=== PATIENT | female | born 1995 | race Caucasian/White ===

== ENCOUNTER → 2019-09-09 | Outpatient (CLI) | payer BC, SELFPAY ==
--- NOTE | 2019-09-09 06:42 | MRI_ITS ---
STUDY: MRI LEFT MIDFOOT REASON FOR EXAM: Female, 24 years old. Midfoot sprain TECHNIQUE: Standardized fat and water weighted pulse sequences were obtained in all 3 orthogonal planes. COMPARISON: None. FINDINGS: Normal talonavicular articulation. Normal calcaneocuboid articulation. Edema and poor visualization of the spring ligament worrisome for partial tear/sprain. Normal navicular-cuneiform articulations. Normal intercuneiform articulations. Normal first tarsometatarsal articulation. Normal Lisfranc ligament. Normal second and third tarsometatarsal articulations. Normal cuboid fourth and cuboid fifth tarsometatarsal articulation. Normal first through fifth metatarsi. Normal tibialis anterior tendon. Normal extensor hallucis longus tendon. Normal extensor digitorum longus tendons. Normal peroneus longus tendon and distal insertion. Normal peroneus brevis tendon and distal insertion. Normal intrinsic muscles of the mid and forefoot region. Normal extensor digitorum brevis muscle. Normal subcutis adipose space. MRI/Lower Ext/No Jt/w/o IMPRESSION: Suspect spring ligament partial tear/sprain. Electronically Signed: Ad Park MD at 9:13 EDT Tel , Service support ,
== END | disposition home or self-care (01) ==
LOC: MRI 06:32
PROVIDERS: Family Provider Pediatrics; PCP Pediatrics; Referring Provider Podiatrist; Visit Provider Podiatrist
DX: S93.622A Sprain of tarsometatarsal ligament of left foot, initial encounter (principal); M84.375A Stress fracture, left foot, initial encounter for fracture; M79.672 Pain in left foot
CPT/HCPCS: 73718

== ENCOUNTER → 2019-10-12 | Outpatient (CLI) | payer BC, SELFPAY ==
--- NOTE | 2019-10-12 10:33 | RAD_ITS ---
STUDY: X-RAY - RIGHT TIBIA AND FIBULA REASON FOR EXAM: Female, 24 years old. Pain in the mid lower leg TECHNIQUE: Orthogonal view(s) of the tibia and fibula were obtained. COMPARISON: None. FINDINGS: Normal visualized tibia. Normal visualized fibula. The soft tissue structures are unremarkable. RAD/Tibia & Fibula 2 Views IMPRESSION: Normal x-ray examination of the tibia and fibula. Electronically Signed: Annalisa Barlow, at 19:53 EST Tel , Service support ,
== END | disposition home or self-care (01) ==
LOC: RAD 10:18
PROVIDERS: Family Provider Pediatrics; PCP Family Medicine; Referring Provider Family Medicine; Visit Provider Podiatrist
DX: M79.604 Pain in right leg (principal)
CPT/HCPCS: 73590

== ENCOUNTER → 2019-10-26 14:40 | Outpatient (CLI) | payer OTHER, SELFPAY ==
[2019-10-20 09:43] VITALS: BMI 18.8
--- NOTE | 2019-10-26 14:42 | US_ITS ---
STUDY: SUPERFICIAL ULTRASOUND - RIGHT ANTERIOR TIBIA. REASON FOR EXAM: Female, 24 years old. Soft tissue palpable abnormality in the medial aspect of the right novoa. TECHNIQUE: A superficial ultrasound was performed with real-time and static [place]-scale imaging. COMPARISON: None. FINDINGS: The palpable abnormality corresponds to a 3 mm x 2 mm x 4 mm well-defined hypoechoic nodule. No vascularity is seen. US/Other Unlisted US Procedure IMPRESSION: The palpable abnormality corresponds to a 3 mm x 4 mm x 2 mm hypoechoic well-defined nonvascular nodular density. Electronically Signed: Stone Persaud, at 9:57 EST , Service support ,
== END ==
PROVIDERS: Family Provider Family Medicine; PCP Family Medicine; Referring Provider Orthopaedic Surgery; Visit Provider Orthopaedic Surgery
DX: R22.41 Localized swelling, mass and lump, right lower limb (principal)
CPT/HCPCS: 76999

== ENCOUNTER 2020-02-12 08:00 | Outpatient (RCR) | payer OTHER, BC, SELFPAY ==
[2019-10-20 09:43] VITALS: BMI 18.8
--- NOTE | 2019-12-04 10:32 | HP.PTEVAL_ITS ---
Patient's Visit Information TAWANDA PETERSON is a 24 year old F referred to Physical Therapy by Jo Ann Bishop DPM with a diagnosis of sprain of tarsometatarsal ligament, mid foot sprain, stress reaction L foot. Date of Evaluation: 12/03/19 Physical Therapist: Jordan Bello DPT - Visit Plan Frequency: 2-3x /Week Duration: 8 weeks Plan: Start with ankle stretching and ROM, Add in wt. shifting in multiple directions as tolerated. Band strengthening. May use IFC for pain control and ice for edema control. I talked with her about HEP for strengthening and stretching. I also want her to start to increase a gradual walking program to tolerance. - Subjective Findings: Pt. is here today for her initial evaluation with diagnosis of sprain of tarsometatarsal ligament of Left foot, mid foot sprain, and stress reaction of mid foot. DOI: 07/27/19. Pt. was on a horse and was thrown form horse. Pt. has had an MRI and Xrays. Pt. was in a cast NWBing for 2 months, then has progressedd into a CAM Boot. Initially NWBing progresed to full WBing in CAM boot this week. Pt. continues to have increased pain in foot with walking and standing. She reports her pain is 5-6/10 with walking in boot. Pt. was having pain on her R tibia region, but has improved since increasing L WBing. Pt. has been doing ankle ROM exercises, but ahs remained in boot since instructed to do so. 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 - Pain L mid foot Pain Intensity (Out of 10): 5 Pain Intensity Range: 2, 7 L longitudinal arch Pain Intensity (Out of 10): 3 Pain Intensity Range: 1, 5 - Objective POSTURE: Pt. has normal posture. Pt. in stance tends to have increased RLE wt. shift. She is able to apply wt. through LLE, but tends to apply lightly. PALPATION: pt. has has increased pain with palpation to 3rd and 4th metatarsal and near spring ligament at medial ankle. Pt. has increased pain at platar surface of foot along 3rd/4th metatarsal as well. Slight bruising at dorsum of foot, but minimal. Non piting edema noted throughout L ankle/foot. Pt. has been up and about on her leg for a few hours prior to PT. NEURO: normal throughout bilateral LEs, normal sensation, normal DTR. ROM: L ankle DF 18deg, PF 52deg, INV 20ded, EVR 20deg No pain. R ankle- DF 3deg, PF 48deg, INV 8deg, EVR 4deg increase NW at lateral ankle/foot. MMT: LLE- ankle 5/5 throughout; knee 5/5 throughout; hip- flexion 5-/5, abd 4+/5, ext 5/5. RLE- DF 4+/5, PF 4/5, INV 4/5, EVR 4/5 increase NW; knee- 5-/5 throughout; hip- flexion 4+/5, abd 4/5, ext 4+/5. Core strenth- fair. GAIT: PT. ambulates with CAM boot with AD. Pt. repo rts increased pain to 5/10 with walking at mid foot. Pt. does not have much of a rocker moment with her foot, limited due to CAM boot, but also pain at meid foot during hind foot to mid foot rocker moment. - Goals Goal 1:: LTG: Pt. to be I with HEP. Goal Time Frame: 6-8 Weeks Goal 2:: STG: Pt. to walk unlimited distances in CAM boot with 0-2/10 pain allowing for progression out of boot. Goal Time Frame: 2-4 Weeks Goal 3:: LTG: Pt. to ambulate unlimited distances without use of CAM boot allowing for safe return to work. Goal Time Frame: 6-8 Weeks Goal 4:: STG: Pt. to have increased ROM of R ankle symmetrical to L side allowing for improved rocker moment and tolerance to walking Goal Time Frame: 2-4 Weeks Goal 5:: STG: Pt. to have increased strength by 1/2 throughout R ankle/knee/hip allowing for increased stability in stance and gait. Goal Time Frame: 4-6 Weeks Goal 6:: STG: Pt. start a gradual walking program with increase to 10 minute duration every few days to increase toelrance to walking. Goal Time Frame: 2-4 Weeks - Rehabilitation Potential Physical Therapy Diagnosis: Pt. has signs and symptoms consistent with spring ligament sprain and stress reaction to L foot. Pt. has resultant hypombility of ankle, weakness, difficulty with walking. Pt. has pain with palaption throughout 3rd/4th metatarsal and with most WBing. She tight throughout her ankle and I think this is causing for mid foot to contour to the ground causing increasd symptoms. I talked with her about starting a gradual increase in walking program, daily progres pending pain. I would also like her to start with ankle mobility and initiation of ankle stability/strengthening. I plan to progress to WBing activities as tolerated, but at this point she is not tolerating full WBing in CAM boot all that well. Rehabilitation Potential: Good - Anticipated Interventions Patient/Client Instruction: Educate patient on: Condition, Plan of Care, Risk Factors, Benefits of Fitness Program For the Purpose of:: To improve safety, To improve health and function, To foster healthy habits, To improve decision making, To facilitate caregiver knowledge, To improve self management, To prevent re-injury, To improve ability to perform tasks related to life management, To improve tolerance to ADL's Therapeutic Exercise to Include: Strength training, Power training, Endurance training, Balance training, Postural training, Flexibilty training, Gait and locomotor training, Passive ROM, Active ROM For the Purpose of:: To decrease pain, To decrease swelling/inflammation, To increase ROM, To improve nutrient delivery to tissue, To increase oxygenation perfusion, To improve muscle performance and motor function, To improve ability to perform ADL's, To increase tolerance to activity/condition/position, To improve performance and independence with ADL's, To decrease level of supervision to perform tasks, To improve gait and locomotor functions, To improve health of tissue, To decrease soft tissue restriction, To increase flexibility/ROM, To improve endurance IF ES: Yes Cryotherapy (ice pack, ice massage): Yes For the Purpose of:: To decrease pain, To decrease swelling/inflammation, To increase ROM, To improve nutrient delivery to tissue Thank you for the opportunity to evaluate your patient. For Medicare and Medicare HMO plans, please review the plan of care and approve it. It will need to be FAXED BACK to us at [phone] for Medicare purposes. For Medicare only, by signing this I certify the plan of care. Please let me know if there are questions or concerns regarding this plan of care. Physician Signature: Date:
--- NOTE | 2020-04-01 10:38 | HP.PT.NRP ---
TAWANDA PETERSON was seen in my office for initial evaluation on 12/03/19. The following Plan of Care was established for this patient: Initial Frequency: 2-3x /Week Initial Duration: 8 weeks Patient/Client Instruction: Educate patient on: Condition, Plan of Care, Risk Factors, Benefits of Fitness Program For the Purpose of:: To improve safety, To improve health and function, To foster healthy habits, To improve decision making, To facilitate caregiver knowledge, To improve self management, To prevent re-injury, To improve ability to perform tasks related to life management, To improve tolerance to ADL's Therapeutic Exercise to Include: Strength training, Power training, Endurance training, Balance training, Postural training, Flexibilty training, Gait and locomotor training, Passive ROM, Active ROM For the Purpose of:: To decrease pain, To decrease swelling/inflammation, To increase ROM, To improve nutrient delivery to tissue, To increase oxygenation perfusion, To improve muscle performance and motor function, To improve ability to perform ADL's, To increase tolerance to activity/condition/position, To improve performance and independence with ADL's, To decrease level of supervision to perform tasks, To improve gait and locomotor functions, To improve health of tissue, To decrease soft tissue restriction, To increase flexibility/ROM, To improve endurance IF ES: Yes Cryotherapy (ice pack, ice massage): Yes For the Purpose of:: To decrease pain, To decrease swelling/inflammation, To increase ROM, To improve nutrient delivery to tissue This patient was last seen in our office 02/12/20. Pertinent comments regarding their Physical therapy will appear below: Pt. was seen for her ankle/foot pain after injury at work. Pt. had been improving with use of sara boot, but was still having pain with prolonged standing and walking. Pt's C9 date frame ended and was to follow up with her physician. Pt. has not been seen in seveal weeks and will be DC from PT at this point in time. At this point I will be discontinuing this patient from physical therapy. I would be happy to see this patient again in the future if found appropriate by the physician. Thank you! Jordan Bello, MALINAT
== END 2020-02-12 19:00 | disposition home or self-care (01) ==
LOC: PT 08:00
PROVIDERS: Family Provider Family Medicine; PCP Family Medicine; Referring Provider Podiatrist; Visit Provider Podiatrist
DX: S93.692D Other sprain of left foot, subsequent encounter (principal)
CPT/HCPCS: 97014; 97035; 97110; 97161; 97530; G0283

== ENCOUNTER → 2020-04-21 16:23 | Outpatient (CLI) | payer OTHER, SELFPAY ==
[2019-10-20 09:43] VITALS: BMI 18.8
--- NOTE | 2020-04-21 16:44 | MRI_ITS ---
STUDY: MRI LEFT ANKLE WITHOUT CONTRAST REASON FOR EXAM: Female, 25 years old. FELL OFF HORSE 07/2019 H/O FOOT FX/TORN LIGAMENTS C/O CONTINUED PAIN IN ARCH RADIATING INTO HEEL TECHNIQUE: Standardized fat and water weighted pulse sequences were obtained in all 3 orthogonal planes. COMPARISON: X-rays dated October 12, 2019. August 2019. FINDINGS: Faint multiregional bone contusions at the midfoot/hindfoot involving the talus, calcaneus, navicular, cuboid, cuneiforms and metatarsal bases. No acute fracture line. No acute dislocation. No acute cortical destruction. Tibiotalar cartilage preserved. Subtalar cartilage preserved. Calcaneocuboid cartilage preserved. Talonavicular cartilage preserved. Navicular cuneiform cartilage preserved. Normal tarsal metatarsal cartilage. Spring ligament appears intact (coronal image 15 series 7). Deltoid ligament intact (coronal image 14 series 7). Syndesmotic ligament intact. Anterior and posterior talofibular ligaments intact. Calcaneofibular ligament intact. The sinus Tarsi/subtalar ligaments intact. Lisfranc ligament intact. Normal extensor tendons. Normal posterior tibialis and flexor tendons. Normal peroneus longus/brevis tendons. Normal Achilles tendon. Normal plantar fascia. Normal plantar calcaneal insertion. Normal muscles of the midfoot/hindfoot. Small tibiotalar/subtalar joint effusion. Minimal soft tissue swelling. MRI/Lower Ext Joint Only (Routine) IMPRESSION: Ligaments and tendons intact Faint multiregional bone contusions (suspected altered biomechanics/stress reactions) Small tibiotalar/subtalar joint fusion with minimal swelling Electronically Signed: Jamie Chapman DO at 9:15 EDT Tel , Service support ,
== END ==
PROVIDERS: PCP Family Medicine; Referring Provider Podiatrist; Visit Provider Podiatrist
DX: S93.492A Sprain of other ligament of left ankle, initial encounter (principal); M79.672 Pain in left foot
CPT/HCPCS: 73721

== ENCOUNTER 2022-06-25 17:00 | Outpatient (RCR) | payer OTHER, BC, SELFPAY ==
--- NOTE | 2022-01-30 07:47 | HP.PTEVAL_ITS ---
Patient's Visit Information TAWANDA PETERSON is a 26 year old F referred to Physical Therapy by Dr. Cornelio Nguyen MD with a diagnosis of L ankle arthroscopy excision of soft tissue impingement and modified Brostr. Date of Evaluation: 01/29/22 Physical Therapist: Jordan Bello DPT - Visit Plan Frequency: 2x /Week Duration: 7 weeks Plan: Start with with L ankle ROM (no passive INV). Progress calf stretching. I gave patient a brush for desensitization, she is to add in light contrast baths as well for desensitization. Add in tolerance to WBing and slowly wean from boot as tolerated. She is to weans to air cast (patient has cast). Progress general LLE strengthening as she has been NWBing for ~ 2 months and has marked weakness throughout. - Subjective Pt. is here today for her initial evaluation with diagnosis of L ankle arthroscopy excision of soft tissue impingement and modified Brostrom on 12/12/21. Pt. 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 She has gone through several stints of PT without much progress. She ultimately had surgery of her L ankle. Pt. arrives today in CAM boot and crutches. She reports having a slight set back with unexpected nerve pain post surgical near the inside of her novoa and knee. She is also having increased burning in her toes. Due to this she has started to take Lyrica with some small improvement, but continues to have increased symptoms. She has not do much exercise to her foot/ankle due to fear of re injuring. She has been wrapping to work on swelling. She has also returned to work with decent tolerance, but does have to prop her leg up frequently due to swelling and throbbing pain. She is hopeful to get back to horseback riding, recreational gym exercises, working without pain and all recreational activities without limitations. - Pain L ankle Pain Intensity (Out of 10): 3 Pain Intensity Range: 1, 5 - Objective POSTURE: Pt. has increased wt. shift to R side in stance, off loading LLE. pt. has difficulty having foot in flat foot positioning on floor. PALPATION: Pt. has well healing incision without signs of infections. Pt. does have increased edema throughout foot and toes, less edema around ankle. NEURO: Pt. has hyper sensitivity at toes on both plantar and dorsal sides. She also has hyper sensitivity at mid novoa, proximally. Pt. normal DTR of BLE Achilles and patellar tendons. ROM: L ankle: DF: 0deg, PF 28deg, INV- DNT, EVR 4deg. Knee: full ROM, hip: full ROM. MMT: L ankle: DF 8.3#, PF 13.8#, EVR/INV: DNT. Knee: ext 34.3#, flexion 31.1#; hip: flexion 12.8#, abd 15.3#, ext 11.9#. GAIT: Pt. ambulates in CAM boot with crutches with improved WBing with VCing. She is slo wly weaning from crutches, slight walking at home without crutches. - Balance/Special Test Scores Lower Extremity Functional Score: 12 - Goals Goal 1:: LTG: Pt. to be I with HEP for L ROM, LLE strengthening and proprioception exercises. Goal Time Frame: 4-6 Weeks Goal 2:: STG: Pt. to have increased L ankle DF to at least 10deg allowing for increased proper gait mechanics. Goal Time Frame: 2 Weeks Goal 3:: STG: Pt. to have decreased occurrence of shooting pain in novoa and distal foot to x1 per day allowing for increased tolerance to all functional mobility. Goal Time Frame: 2 Weeks Goal 4:: LTG: Pt. to have full L ankle ROM actively without increase in symptoms. Goal Time Frame: 4-6 Weeks Goal 5:: LTG: Pt. to ambulate with normal gait pattern without use of crutches or CAM boot. Goal Time Frame: 4-6 Weeks Goal 6:: LTG: Pt. to have increased strength of LLE by at least 15# throughout LLE indicating increased strength. Goal Time Frame: 4-6 Weeks - Rehabilitation Potential Physical Therapy Diagnosis: Pt. pringle signs and symptoms consistent with L ankle arthroscopy excision of soft tissue impingement and modified Brostrom. DOS: on 12/12/21. Pt. has subsequent hypomobility, weakness, increased pain, hyper sensitivity and decreased tolerance to walking. Pt. would benefit from PT to work on the above limitations progressing back to all work and recitational activities as tolerated. Rehabilitation Potential: Excellent - Anticipated Interventions Patient/Client Instruction: Educate patient on: Condition, Plan of Care, Risk Factors, Benefits of Fitness Program For the Purpose of:: To foster healthy habits, To improve decision making, To facilitate caregiver knowledge, To improve self management, To prevent re- injury, To improve ability to perform tasks related to life management Therapeutic Exercise to Include: Strength training, Power training, Endurance training, Coordination, Postural training, Flexibilty training, Gait and locomotor training, Passive ROM, Active ROM For the Purpose of:: To decrease pain, To decrease swelling/inflammation, To increase ROM, To improve nutrient delivery to tissue, To improve muscle performance and motor function, To decrease level of supervision to perform tasks, To improve ability of physical actions for home/community/work/leisure, To improve gait and locomotor functions, To improve health of tissue, To decrease soft tissue restriction, To increase flexibility/ROM Manual Therapy Techniques to Include: Scar massage, Manual lymph drainage, Soft tissue mobilization For the Purpose of:: To decrease pain, To decrease swelling/inflammation, To increase ROM, To improve nutrient delivery to tissue Thank you for the opportunity to evaluate your patient. For Medicare and Medicare HMO plans, please review the plan of care and approve it. It will need to be FAXED BACK to us at [phone] for Medicare purposes. For Medicare only, by signing this I certify the plan of care. Please let me know if there are questions or concerns regarding this plan of care. Physician Signature: Date:
--- NOTE | 2022-03-07 11:10 | HP.PTREVAL_ITS ---
Dr. Cornelio Nguyen MD, It has been my pleasure to treat TAWANDA PETERSON over the last 10 visits for L ankle arthroscopy excision of soft tissue impingement and modified Brostr. Please see the progress note below for an update on the physical therapy plan of care! Subjective: Pt. arrives today with brace on ankle with normal shoes on. Pt. reports still having burning at anterior novoa and burning along lateral incision. She reports overall doing better though. Pt. is wearing her brace all the time. She is stretching frequently at home and is increasing her walking. 12/04 pain pre treatment. Objective/Function: ROM: DF 6deg, PF 34deg, EVR 8deg. MMT: 5-/5 throughout without increase in symptoms. GAIT: Pt. ambulates without AD. She has decreased R step length with slight increase in R hyper knee extension. She is progressing, but reports pinching at anterior ankle. STAIRS: Pt. able to complete well. Ascending without HR, descending with 1 HR but has early heel off on L side. She is squatting well and is progressing with ROM and strengthening. Her C9 date frame ends today and I am going to ask an extension for the final 5 visits. Plan Plan: Asking for extension of C9 for final 5 visits. Cont. to work on calf stretching, ankle DF mobility, progress stability exercises. Balance/Gait/Functional tests - Balance/Special Test Scores Lower Extremity Functional Score: 12 Goals Goal 1:: LTG: Pt. to be I with HEP for L ROM, LLE strengthening and proprioception exercises. Goal Time Frame: 4-6 Weeks Goal Progress: Progressing Goal 2:: STG: Pt. to have increased L ankle DF to at least 10deg allowing for increased proper gait mechanics. Goal Time Frame: 2 Weeks Goal Progress: Progressing Goal 3:: STG: Pt. to have decreased occurrence of shooting pain in novoa and distal foot to x1 per day allowing for increased tolerance to all functional mobility. Goal Time Frame: 2 Weeks Goal Progress: Progressing Goal 4:: LTG: Pt. to have full L ankle ROM actively without increase in symptoms. Goal Time Frame: 4-6 Weeks Goal Progress: Progressing Goal 5:: LTG: Pt. to ambulate with normal gait pattern without use of crutches or CAM boot. Goal Time Frame: 4-6 Weeks Goal Progress: Progressing Goal 6:: LTG: Pt. to have increased strength of LLE by at least 15# throughout LLE indicating increased strength. Goal Time Frame: 4-6 Weeks Goal Progress: Progressing Anticipated Interventions Patient/Client Instruction: Educate patient on: Condition, Plan of Care, Risk Factors, Benefits of Fitness Program For the Purpose of:: To foster healthy habits, To improve decision making, To facilitate caregiver knowledge, To improve self management, To prevent re- injury, To improve ability to perform tasks related to life management Therapeutic Exercise to Include: Strength training, Power training, Endurance training, Coordination, Postural training, Flexibilty training, Gait and locomotor training, Passive ROM, Active ROM For the Purpose of:: To decrease pain, To decrease swelling/inflammation, To increase ROM, To improve nutrient delivery to tissue, To improve muscle performance and motor function, To decrease level of supervision to perform tasks, To improve ability of physical actions for home/community/work/leisure, To improve gait and locomotor functions, To improve health of tissue, To decrease soft tissue restriction, To increase flexibility/ROM Manual Therapy Techniques to Include: Scar massage, Manual lymph drainage, Soft tissue mobilization For the Purpose of:: To decrease pain, To decrease swelling/inflammation, To increase ROM, To improve nutrient delivery to tissue Please do not hesitate to contact me at [phone] by phone or if you have questions or concerns regarding this new plan of care! Sincerely, MALINA MenendezT
--- NOTE | 2022-05-07 11:32 | HP.PTREVAL_ITS ---
Dr. Cornelio Nguyen MD, It has been my pleasure to treat TAWANDA PETERSON over the last 22 visits for L ankle arthroscopy excision of soft tissue impingement and modified Brostr. Please see the progress note below for an update on the physical therapy plan of care! Subjective: Pt. reports overall doing okay. She reports being ~40% better overall. She still has pain at distal lateral ankle 4/10 pain today. Worse with walking and standing, minimal pain while sitting. She still c/o pain at proximal novoa, reports it as a N/T and burning session but is intermittently. She is back to work, but has difficulty with pain periodically throughout the day and reports not being able to do much out side of her work duties secondary to pain. Objective/Function: ROM: L ankle: AROM: DF 5 deg, PF 45deg, EVR 15deg, INV 10deg. PROM: DF 10deg (tight), PF 45deg, EVR 20deg, INV 10deg (tight mild pain). MMT: L ankle: EVR 45 mild increase NW, 5/5 with rest of ankle testing, 5/5 with L knee strength. PALPATION: pt. has tenderness near ATFL region, along extensor brevis muscle belly, and less so along peroneal tendon. NUMBNESS: Pt. c/o numbness to light touch throughout proximal/anterior novoa (about the side of a softball in diameter) on LLE. She reports this same region has an intermittent burning feeling throughout her daily activities. She reports walking and standing both cause pain in the 6-8/10 range pending previous activities in the day. Resting does help, but does not take pain fully away. GAIT: Pt. has increased pain during L push off/heel off phase. Pt. reports this pain at lateral ankle, due to this she avoids increased heel off reducing this phase. I want her to ease back to activities, to increase tolerance without setting off a major painful response, but I also do not want her to avoid doing things as well. Plan Plan: I received new script and C9 for aquatic therapy. I will try more graded exercises and desensitization to increase tolerance to all activities. She still has some tightness in her calf, but is overall doing better with her strength. I will focus on improving her tolerance to all daily and work like activities. Balance/Gait/Functional tests - Balance/Special Test Scores Lower Extremity Functional Score: 12 Goals Goal 1:: LTG: Pt. to be I with HEP for L ROM, LLE strengthening and proprioception exercises. Goal Time Frame: 4-6 Weeks Goal Progress: Progressing Goal 2:: STG: Pt. to have increased L ankle DF to at least 10deg allowing for increased proper gait mechanics. Goal Time Frame: 2 Weeks Goal Progress: Progressing Goal 3:: STG: Pt. to have decreased occurrence of shooting pain in novoa and distal foot to x1 per day allowing for increased tolerance to all functional mobility. Goal Time Frame: 2 Weeks Goal Progress: Progressing Goal 4:: LTG: Pt. to have full L ankle ROM actively without increase in symptoms. Goal Time Frame: 4-6 Weeks Goal Progress: Progressing Goal 5:: LTG: Pt. to ambulate with normal gait pattern without use of crutches or CAM boot. Goal Time Frame: 4-6 Weeks Goal Progress: Progressing Goal 6:: LTG: Pt. to have increased strength of LLE by at least 15# throughout LLE indicating increased strength. Goal Time Frame: 4-6 Weeks Goal Progress: Progressing Anticipated Interventions Patient/Client Instruction: Educate patient on: Condition, Plan of Care, Risk Factors, Benefits of Fitness Program For the Purpose of:: To foster healthy habits, To improve decision making, To facilitate caregiver knowledge, To improve self management, To prevent re- injury, To improve ability to perform tasks related to life management Therapeutic Exercise to Include: Strength training, Power training, Endurance training, Coordination, Postural training, Flexibilty training, Gait and locomotor training, Passive ROM, Active ROM For the Purpose of:: To decrease pain, To decrease swelling/inflammation, To increase ROM, To improve nutrient delivery to tissue, To improve muscle performance and motor function, To decrease level of supervision to perform tasks, To improve ability of physical actions for home/community/work/leisure, To improve gait and locomotor functions, To improve health of tissue, To decrease soft tissue restriction, To increase flexibility/ROM Manual Therapy Techniques to Include: Scar massage, Manual lymph drainage, Soft tissue mobilization For the Purpose of:: To decrease pain, To decrease swelling/inflammation, To increase ROM, To improve nutrient delivery to tissue Please do not hesitate to contact me at [phone] by phone or if you have questions or concerns regarding this new plan of care! Sincerely, MALINA MenendezT
--- NOTE | 2022-06-26 08:24 | HP.PTREVAL_ITS ---
Dr. Cornelio Nguyen MD, It has been my pleasure to treat TAWANDA PETERSON over the last 32 visits for L ankle arthroscopy excision of soft tissue impingement and modified Brostr. Please see the progress note below for an update on the physical therapy plan of care! Subjective: Pt. arrives today with reports that she is doing a little bit better today. Pt. reports 4/10 pain at posterior lateral L ankle. Pt. reports burning pain is a bit less at anterior novoa as well. She is having an MRI on with results on the following saturday. Pt. is pleased with this current plan. She reports being able to walk a bit better over the past few days, she has been wearing an alternate ankle brace which she believes has been helpful. Objective/Function: ROM: L ankle: AROM: DF 8deg, PF 41deg, INV 8deg, EVR 9deg. PROM: DF 12deg, PF 44deg, INV 12deg. EVR 14deg. Pt. reports mild increase in symptoms with passive ankle EVR. MMT: Pt. has 5/5 strength throughout DF, PF and INV. 4+/5 EVR with mild increase in symptoms. Again painful along posterior lateral aspect of L ankle. GAIT: pt. has decent gait pattern with and without shoes. She has minimal antalgic pattern and overall improved pattern. STAIRS: Pt. is able to ascend well without use of HR with minimal increase in symptoms. Descending, she can complete reciprocally, but has early heel off on L side, most likely due to stiffness, reports of increase in symptoms but mildly. Overall with light activities she is doing okay, but once we add any sort of strengthening and activities she has increased symptoms. I talked to her about continuing to walk as tolerated with brace. I want her to continue to core on ankle mobility until her MRI and follow up. From there she is to follow physician guidance. She has been at a bit of a stand still with PT due to decreased tolerance to activities. Plan Plan: Patient is to follow up with physician after MRI and proceed accordingly. Balance/Gait/Functional tests - Balance/Special Test Scores Lower Extremity Functional Score: 54 Goals Goal 1:: LTG: Pt. to be I with HEP for L ROM, LLE strengthening and proprioception exercises. Goal Time Frame: 4-6 Weeks Goal Progress: Goal Met Goal 2:: STG: Pt. to have increased L ankle DF to at least 10deg allowing for increased proper gait mechanics. Goal Time Frame: 2 Weeks Goal Progress: Goal Met Goal 3:: STG: Pt. to have decreased occurrence of shooting pain in novoa and distal foot to x1 per day allowing for increased tolerance to all functional mobility. Goal Time Frame: 2 Weeks Goal Progress: Progressing Goal 4:: LTG: Pt. to have full L ankle ROM actively without increase in symptoms. Goal Time Frame: 4-6 Weeks Goal Progress: Progressing Goal 5:: LTG: Pt. to ambulate with normal gait pattern without use of crutches or CAM boot. Goal Time Frame: 4-6 Weeks Goal Progress: Goal Met Goal 6:: LTG: Pt. to have increased strength of LLE by at least 15# throughout LLE indicating increased strength. Goal Time Frame: 4-6 Weeks Goal Progress: Goal Met Anticipated Interventions Patient/Client Instruction: Educate patient on: Condition, Plan of Care, Risk Factors, Benefits of Fitness Program For the Purpose of:: To foster healthy habits, To improve decision making, To facilitate caregiver knowledge, To improve self management, To prevent re-inj ury, To improve ability to perform tasks related to life management Therapeutic Exercise to Include: Strength training, Power training, Endurance training, Coordination, Postural training, Flexibilty training, Gait and locomotor training, In an aquatic setting, Passive ROM, Active ROM For the Purpose of:: To decrease pain, To decrease swelling/inflammation, To increase ROM, To improve nutrient delivery to tissue, To improve muscle performance and motor function, To decrease level of supervision to perform tasks, To improve ability of physical actions for home/community/work/leisure, To improve gait and locomotor functions, To improve health of tissue, To decrease soft tissue restriction, To increase flexibility/ROM Manual Therapy Techniques to Include: Scar massage, Manual lymph drainage, Soft tissue mobilization For the Purpose of:: To decrease pain, To decrease swelling/inflammation, To increase ROM, To improve nutrient delivery to tissue Please do not hesitate to contact me at [phone] by phone or if you have questions or concerns regarding this new plan of care! Sincerely, Jordan Bello DPT
== END 2022-06-25 19:00 | disposition home or self-care (01) ==
LOC: PT 17:00
PROVIDERS: PCP Family Medicine; Referring Provider Orthopaedic Surgery; Visit Provider Orthopaedic Surgery
DX: M25.372 Other instability, left ankle (principal)
CPT/HCPCS: 97110; 97113; 97161; 97164

== ENCOUNTER → 2023-06-07 16:30 | Outpatient (RCR) | payer OTHER, SELFPAY ==
--- NOTE | 2023-02-04 17:09 | HP.PTEVAL_ITS ---
Patient's Visit Information TAWANDA PETERSON is a 27 year old F referred to Physical Therapy by RAMON TRIMBLE with a diagnosis of L ankle arthroscopy with revision modified bronstrom and peroneal tenosynov. Date of Evaluation: 02/01/23 Physical Therapist: Jordan Bello DPT - Visit Plan Frequency: 2x /Week Duration: 6 Weeks Plan: No forced INV/EVR for 4 weeks. Start with ROM actively with passive G/S stretching. Work on progressing to full WBing in boot then progressing from boot to brace as tolerated. Pt. is to wear brace/boot for WBing/walking until 02/27/23. May add in strengthening and balance as tolerated. May use modalities as need including ultrasound/IFC and ice. - Subjective Pt. is here today for her initial evaluation with diagnosis of L ankle arthroscopy with revision modified bronstrom and peroneal tenosynovectomy with debridement 12/20/22. pt. reports having continued pain after her first surgery and was ultimately recommended that she have surgery again. Pt. reports doing very well and the nerve pain that she had previously is gone. Pt. has started to walk more in the CAM boot, but still has some soreness and has been not full WBing on it. Pt. is pleased with her progression thus far. Pt. is to avoid forceful INV/EVR. She has been slowly increasing WBing as tolerated in her boot. Pt. is hopeful to get back to all activities including horseback riding without increase in L ankle pain. - Pain L ankle Pain Intensity (Out of 10): 4 Pain Intensity Range: 0, 7 - Objective POSTURE: Pt. has good posture in stance. Pt. has increased wt. shift to R side, CAM boot on. PALPATION: Pt. has some tenderness along lateral peroneal. Pt. has bruising distal lateral calcaneus Incision looks very good. NEURO: normal s ensation. Normal patellar DTR bilaterally. ROM: L ankle: DF 0deg, PF 38deg, INV 0deg, EVR 2deg (actively). PROM: L ankle DF 3deg, [id number]. INV/EVR not tested. MMT: L ankle: DF 4/5, PF 4/5, INV/EVR not tested. R ankle 5/5 throughout. GAIT: Pt. ambulates well with crutches and CAM boot. Pt. has fair bit of WBing through her L leg during stance phase. No increase in pain with WBing. - Balance/Special Test Scores Lower Extremity Functional Score: 13 - Goals Goal 1:: LTG: Pt. to be I with HEP for ROM, stretching and strengthening of her LLE. Goal Time Frame: 6-8 Weeks Goal 2:: STG: Pt. to have improved ankle DF to at least 8deg of PROM. Goal Time Frame: 2-4 Weeks Goal 3:: LTG: Pt. to have at least 10deg of ankle PROM allowing for increased tolerance with gait and stair negotiation. Goal Time Frame: 4-6 Weeks Goal 4:: LTG: Pt. to walk with normal gait pattern with use of brace in shoe without increase in symptoms. Goal Time Frame: 4-6 Weeks Goal 5:: LTG: pt. to have increased strength of LLE to 5/5 throughout without increase in symptoms. Goal Time Frame: 4-6 Weeks Goal 6:: LTG: Pt. to negotiate 1 flight of stairs with 1 HR with reciprocal pattern without increase in symptoms. Goal Time Frame: 6-8 Weeks - Rehabilitation Potential Physical Therapy Diagnosis: Pt. presents with signs and symptoms consistent with L ankle arthroscopy with revision modified bronstrom and peroneal tenosynovectom y with debridement 12/20/22. Pt. has marked hypomobility in her L ankle, marked weakness, and difficulty with walking. Pt. would benefit from PT to work on the above limitations progressing back to all work and recreational activities including horseback riding. Rehabilitation Potential: Excellent - Anticipated Interventions Patient/Client Instruction: Educate patient on: Condition, Plan of Care, Risk Factors, Benefits of Fitness Program For the Purpose of:: To improve decision making, To facilitate caregiver knowledge, To improve self management, To prevent re-injury, To improve ability to perform tasks related to life management, To improve tolerance to ADL's Therapeutic Exercise to Include: Strength training, Power training, Endurance training, Balance training, Coordination, Flexibilty training, Gait and locomotor training, Neuromotor development, Passive ROM, Active ROM For the Purpose of:: To decrease pain, To increase ROM, To improve nutrient delivery to tissue, To increase oxygenation perfusion, To improve muscle performance and motor function, To improve ability to perform ADL's, To increase tolerance to activity/condition/position, To improve performance and independence with ADL's, To decrease level of supervision to perform tasks, To improve gait and locomotor functions, To improve health of tissue Manual Therapy Techniques to Include: Passive ROM For the Purpose of:: To decrease pain, To decrease swelling/inflammation, To increase ROM, To improve nutrient delivery to tissue, To increase oxygenation perfusion Iontophoresis (with Dexamethozone, with Acetic acid): Yes IF ES: Yes Cryotherapy (ice pack, ice massage): Yes Thermo therapy (hot pack): Yes Fluidotherapy: Yes Vasopneumatic device: Yes For the Purpose of:: To decrease pain, To decrease swelling/inflammation, To increase ROM, To improve nutrient delivery to tissue, To increase oxygenation perfusion, To improve muscle performance and motor function Thank you for the opportunity to evaluate your patient. For Medicare and Medicare HMO plans, please review the plan of care and approve it. It will need to be FAXED BACK to us at [phone] for Medicare purposes. For Medicare only, by signing this I certify the plan of care. Please let me know if there are questions or concerns regarding this plan of care. Physician Signature: Date:
--- NOTE | 2023-03-07 11:53 | HP.PTREVAL ---
RAMON TRIMBLE, It has been my pleasure to treat TAWANDA PETERSON over the last 9 visits for L ankle arthroscopy with revision modified bronstrom and peroneal tenosynov. Please see the progress note below for an update on the physical therapy plan of care! Subjective: Pt. reports no new issues. She was able to do some things in her bard Objective/Function: Pt. instructed to increase her walking with her brace as tolerated. Pt. is overall doing well. She has 5-/5 strength throughout, still has some increased fatigue in her calf compared to the R side. She does have a limited DF mobility which does effect her gait a little bit, but this has also progressed with also. I do think she would progress with ROM in DF, but might have some limitations. She is getting back to most activities, slowly. Pt. to follow up with physician next week. Plan Plan: No forced INV/EVR for 4 weeks. Start with ROM actively with passive G/S stretching. Work on progressing to full WBing in boot then progressing from boot to brace as tolerated. Pt. is to wear brace/boot for WBing/walking until 02/27/23. May add in strengthening and balance as tolerated. May use modalities as need including ultrasound/IFC and ice. Balance/Gait/Functional tests - Balance/Special Test Scores Lower Extremity Functional Score: 13 Goals Goal 1:: LTG: Pt. to be I with HEP for ROM, stretching and strengthening of her LLE. Goal Time Frame: 6-8 Weeks Goal Progress: Progressing Goal 2:: STG: Pt. to have improved ankle DF to at least 8deg of PROM. Goal Time Frame: 2-4 Weeks Goal Progress: Progressing Goal 3:: LTG: Pt. to have at least 10deg of ankle PROM allowing for increased tolerance with gait and stair negotiation. Goal Time Frame: 4-6 Weeks Goal Progress: Progressing Goal 4:: LTG: Pt. to walk with normal gait pattern with use of brace in shoe without increase in symptoms. Goal Time Frame: 4-6 Weeks Goal Progress: Progressing Goal 5:: LTG: pt. to have increased strength of LLE to 5/5 throughout without increase in symptoms. Goal Time Frame: 4-6 Weeks Goal Progress: Progressing Goal 6:: LTG: Pt. to negotiate 1 flight of stairs with 1 HR with reciprocal pattern without increase in symptoms. Goal Time Frame: 6-8 Weeks Goal Progress: Progressing Anticipated Interventions Patient/Client Instruction: Educate patient on: Condition, Plan of Care, Risk Factors, Benefits of Fitness Program For the Purpose of:: To improve decision making, To facilitate caregiver knowledge, To improve self management, To prevent re-injury, To improve ability to perform tasks related to life management, To improve tolerance to ADL's Therapeutic Exercise to Include: Strength training, Power training, Endurance training, Balance training, Coordination, Flexibilty training, Gait and locomotor training, Neuromotor development, Passive ROM, Active ROM For the Purpose of:: To decrease pain, To increase ROM, To improve nutrient delivery to tissue, To increase oxygenation perfusion, To improve muscle performance and motor function, To improve ability to perform ADL's, To increase tolerance to activity/condition/position, To improve performance and independence with ADL's, To decrease level of supervision to perform tasks, To improve gait and locomotor functions, To improve health of tissue Manual Therapy Techniques to Include: Passive ROM For the Purpose of:: To decrease pain, To decrease swelling/inflammation, To increase ROM, To improve nutrient delivery to tissue, To increase oxygenation perfusion Iontophoresis (with Dexamethozone, with Acetic acid): Yes IF ES: Yes Cryotherapy (ice pack, ice massage): Yes Thermo therapy (hot pack): Yes Fluidotherapy: Yes Vasopneumatic device: Yes For the Purpose of:: To decrease pain, To decrease swelling/inflammation, To increase ROM, To improve nutrient delivery to tissue, To increase oxygenation perfusion, To improve muscle performance and motor function Please do not hesitate to contact me at [phone] by phone or if you have questions or concerns regarding this new plan of care! Sincerely, Jordan Bello DPT
--- NOTE | 2023-03-13 17:26 | HP.PTREVAL_ITS ---
RAMON TRIMBLE, It has been my pleasure to treat TAWANDA PETERSON over the last 10 visits for L ankle arthroscopy with revision modified bronstrom and peroneal tenosynov. Please see the progress note below for an update on the physical therapy plan of care! Subjective: Pt. reports doing overall very well. Pt. reports no pain currently. 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 Pt to see physician later this week. Objective/Function: Pt. has much improved gait pattern. She is able to walk without boot, only in brace with good tolerance. She still has early heel off during prewing phase. Pt. reports no pain with walking today. ROM: Pt. has good ROM, but is still tight with DF 6deg of motion. MMT: Pt. has 5/5 strenght with DF and PF, 4/5 EVR, 5-/5 INV. STAIRS: early heel off with descending, rest is normal. Plan Plan: Cont. with progression of DF stretching, Ankle strengthening, proprioception. Balance/Gait/Functional tests - Balance/Special Test Scores Lower Extremity Functional Score: 13 Goals Goal 1:: LTG: Pt. to be I with HEP for ROM, stretching and strengthening of her LLE. Goal Time Frame: 6-8 Weeks Goal Progress: Progressing Goal 2:: STG: Pt. to have improved ankle DF to at least 8deg of PROM. Goal Time Frame: 2-4 Weeks Goal Progress: Progressing Goal 3:: LTG: Pt. to have at least 10deg of ankle PROM allowing for increased tolerance with gait and stair negotiation. Goal Time Frame: 4-6 Weeks Goal Progress: Progressing Goal 4:: LTG: Pt. to walk with normal gait pattern with use of brace in shoe without increase in symptoms. Goal Time Frame: 4-6 Weeks Goal Progress: Progressing Goal 5:: LTG: pt. to have increased strength of LLE to 5/5 throughout without increase in symptoms. Goal Time Frame: 4-6 Weeks Goal Progress: Progressing Goal 6:: LTG: Pt. to negotiate 1 flight of stairs with 1 HR with reciprocal pattern without increase in symptoms. Goal Time Frame: 6-8 Weeks Goal Progress: Progressing Anticipated Interventions Patient/Client Instruction: Educate patient on: Condition, Plan of Care, Risk Factors, Benefits of Fitness Program For the Purpose of:: To improve decision making, To facilitate caregiver knowledge, To improve self management, To prevent re-injury, To improve ability to perform tasks related to life management, To improve tolerance to ADL's Therapeutic Exercise to Include: Strength training, Power training, Endurance training, Balance training, Coordination, Flexibilty training, Gait and locomo tor training, Neuromotor development, Passive ROM, Active ROM For the Purpose of:: To decrease pain, To increase ROM, To improve nutrient delivery to tissue, To increase oxygenation perfusion, To improve muscle performance and motor function, To improve ability to perform ADL's, To increase tolerance to activity/condition/position, To improve performance and independence with ADL's, To decrease level of supervision to perform tasks, To improve gait and locomotor functions, To improve health of tissue Manual Therapy Techniques to Include: Passive ROM For the Purpose of:: To decrease pain, To decrease swelling/inflammation, To increase ROM, To improve nutrient delivery to tissue, To increase oxygenation perfusion Iontophoresis (with Dexamethozone, with Acetic acid): Yes IF ES: Yes Cryotherapy (ice pack, ice massage): Yes Thermo therapy (hot pack): Yes Fluidotherapy: Yes Vasopneumatic device: Yes For the Purpose of:: To decrease pain, To decrease swelling/inflammation, To increase ROM, To improve nutrient delivery to tissue, To increase oxygenation perfusion, To improve muscle performance and motor function Please do not hesitate to contact me at [phone] by phone or if you have questions or concerns regarding this new plan of care! Sincerely, Jordan Bello DPT
--- NOTE | 2023-03-20 15:01 | HP.PTREVAL ---
RAMON TRIMBLE, It has been my pleasure to treat TAWANDA PETERSON over the last 12 visits for L ankle arthroscopy with revision modified bronstrom and peroneal tenosynov. Please see the progress note below for an update on the physical therapy plan of care! Subjective: Pt. reports overall doing okay, but is still pretty sore. Pt. reports being able to do some things in her barn but was sore after wards. Objective/Function: Pt. has decent MMT 5-/5 throughout L ankle with some mild increase in symptoms with ankle EVR. GAIT: pt. is tolerating ambulating with out brace, she does have some limited DF which results in decreased step length on R side. with L early heel off. She is point tender along her lateral peroneals as well. SL stability is decent and is tolerating well. She does have more pain than I would like with come of her functional activities in her barn and tending to her animals. Plan Plan: I am requesting more PT visits in order to increase her L ankle DF, improved tolerance with functional activities and progress strength to full throughout L ankle/hip in order to increase stability with gait and all recreational activities. Balance/Gait/Functional tests - Balance/Special Test Scores Lower Extremity Functional Score: 13 Goals Goal 1:: LTG: Pt. to be I with HEP for ROM, stretching and strengthening of her LLE. Goal Time Frame: 6-8 Weeks Goal Progress: Progressing Goal 2:: STG: Pt. to have improved ankle DF to at least 8deg of PROM. Goal Time Frame: 2-4 Weeks Goal Progress: Progressing Goal 3:: LTG: Pt. to have at least 10deg of ankle PROM allowing for increased tolerance with gait and stair negotiation. Goal Time Frame: 4-6 Weeks Goal Progress: Progressing Goal 4:: LTG: Pt. to walk with normal gait pattern with use of brace in shoe without increase in symptoms. Goal Time Frame: 4-6 Weeks Goal Progress: Progressing Goal 5:: LTG: pt. to have increased strength of LLE to 5/5 throughout without increase in symptoms. Goal Time Frame: 4-6 Weeks Goal Progress: Progressing Goal 6:: LTG: Pt. to negotiate 1 flight of stairs with 1 HR with reciprocal pattern without increase in symptoms. Goal Time Frame: 6-8 Weeks Goal Progress: Progressing Anticipated Interventions Patient/Client Instruction: Educate patient on: Condition, Plan of Care, Risk Factors, Benefits of Fitness Program For the Purpose of:: To improve decision making, To facilitate caregiver knowledge, To improve self management, To prevent re-injury, To improve ability to perform tasks related to life management, To improve tolerance to ADL's Therapeutic Exercise to Include: Strength training, Power training, Endurance training, Balance training, Coordination, Flexibilty training, Gait and locomotor training, Neuromotor development, Passive ROM, Active ROM For the Purpose of:: To decrease pain, To increase ROM, To improve nutrient delivery to tissue, To increase oxygenation perfusion, To improve muscle performance and motor function, To improve ability to perform ADL's, To increase tolerance to activity/condition/position, To improve performance and independence with ADL's, To decrease level of supervision to perform tasks, To improve gait and locomotor functions, To improve health of tissue Manual Therapy Techniques to Include: Passive ROM For the Purpose of:: To decrease pain, To decrease swelling/inflammation, To increase ROM, To improve nutrient delivery to tissue, To increase oxygenation perfusion Iontophoresis (with Dexamethozone, with Acetic acid): Yes IF ES: Yes Cryotherapy (ice pack, ice massage): Yes Thermo therapy (hot pack): Yes Fluidotherapy: Yes Vasopneumatic device: Yes For the Purpose of:: To decrease pain, To decrease swelling/inflammation, To increase ROM, To improve nutrient delivery to tissue, To increase oxygenation perfusion, To improve muscle performance and motor function Please do not hesitate to contact me at [phone] by phone or if you have questions or concerns regarding this new plan of care! Sincerely, Jordan Bello DPT
--- NOTE | 2023-05-01 06:53 | HP.PTREVAL ---
RAMON TRIMBLE, It has been my pleasure to treat TAWANDA PETERSON over the last 20 visits for L ankle arthroscopy with revision modified bronstrom and peroneal tenosynov. Please see the progress note below for an update on the physical therapy plan of care! Subjective: Pt. reports being 50% better overall. She still has some pain with push off during preswing. Less pain with DF phases of gait. Her DF as improved. She has been doing some exercises with reduced body wt. with better tolerance. We have also focused on more manual technqies to reduce symptoms. Objective/Function: Pt. is progressing with reduce symptoms, but slowly. She has improved DF and increasing tolerance with PF in [place] movements. I did trial her with a heel lift this date, small to increase heel to toe ration. There was some improvement. Pt. looking into an OTC verson to trial. Plan Plan: I am requesting a date extension for her to get all of her visits in. Cont. with progressing Wbing exercises at stairs in pool and manual to reduce symptoms progressing DF ROM and PF strength. Balance/Gait/Functional tests - Balance/Special Test Scores Lower Extremity Functional Score: 13 Goals Goal 1:: LTG: Pt. to be I with HEP for ROM, stretching and strengthening of her LLE. Goal Time Frame: 6-8 Weeks Goal Progress: Progressing Goal 2:: STG: Pt. to have improved ankle DF to at least 8deg of PROM. Goal Time Frame: 2-4 Weeks Goal Progress: Progressing Goal 3:: LTG: Pt. to have at least 10deg of ankle PROM allowing for increased tolerance with gait and stair negotiation. Goal Time Frame: 4-6 Weeks Goal Progress: Progressing Goal 4:: LTG: Pt. to walk with normal gait pattern with use of brace in shoe without increase in symptoms. Goal Time Frame: 4-6 Weeks Goal Progress: Progressing Goal 5:: LTG: pt. to have increased strength of LLE to 5/5 throughout without increase in symptoms. Goal Time Frame: 4-6 Weeks Goal Progress: Progressing Goal 6:: LTG: Pt. to negotiate 1 flight of stairs with 1 HR with reciprocal pattern without increase in symptoms. Goal Time Frame: 6-8 Weeks Goal Progress: Progressing Anticipated Interventions Patient/Client Instruction: Educate patient on: Condition, Plan of Care, Risk Factors, Benefits of Fitness Program For the Purpose of:: To improve decision making, To facilitate caregiver knowledge, To improve self management, To prevent re-injury, To improve ability to perform tasks related to life management, To improve tolerance to ADL's Therapeutic Exercise to Include: Strength training, Power training, Endurance training, Balance training, Coordination, Flexibilty training, Gait and locomotor training, Neuromotor development, Passive ROM, Active ROM For the Purpose of:: To decrease pain, To increase ROM, To improve nutrient delivery to tissue, To increase oxygenation perfusion, To improve muscle performance and motor function, To improve ability to perform ADL's, To increase tolerance to activity/condition/position, To improve performance and independence with ADL's, To decrease level of supervision to perform tasks, To improve gait and locomotor functions, To improve health of tissue Manual Therapy Techniques to Include: Passive ROM For the Purpose of:: To decrease pain, To decrease swelling/inflammation, To increase ROM, To improve nutrient delivery to tissue, To increase oxygenation perfusion Iontophoresis (with Dexamethozone, with Acetic acid): Yes IF ES: Yes Cryotherapy (ice pack, ice massage): Yes Thermo therapy (hot pack): Yes Fluidotherapy: Yes Vasopneumatic device: Yes For the Purpose of:: To decrease pain, To decrease swelling/inflammation, To increase ROM, To improve nutrient delivery to tissue, To increase oxygenation perfusion, To improve muscle performance and motor function Please do not hesitate to contact me at [phone] by phone or if you have questions or concerns regarding this new plan of care! Sincerely, Jordan Bello DPT
--- NOTE | 2023-06-11 09:27 | HP.PTDCSUM ---
Discharge Summary D/C summary: It has been my pleasure to treat TAWANDA PETERSON referred by RAMON TRIMBLE, with the diagnosis of L ankle arthroscopy with revision modified bronstrom and peroneal tenosynov for a total of 25 visit(s). Discharge Date: 06/07/23 Please see the following information for a summary of their discharge status. Subjective Subjective: Pt. reports overall still having issues. She reports doing less barn activities does help, but still daily activities including standing, walking and such to be bothersome. Pt. is still having most of her pain along her incision. 4/10 pain currently. She is looking into possible PRP. Pain L ankle: Pain Intensity (Out of 10): 4 Overall Improvement % Improvement: 40 Objective Objective/Function: ROM: L ankle: DF 8deg, PF 32deg, INV 12deg EVR 12deg. Pain with increased DF and increased INV. MMT: 5/5 throughout, but pain with EVR testing. No much pain with rest. GAIT: Pt. has early heel off with preswing, better after calf stretching. Pt. reports pain in this phase of gait as well. STAIRS: Ascending no issues no pain, descending pain during L loading phase along with early heel off. Pt. continues to have some DF ankle tightness. Pt. has descent strength with all tesitng, but does have some pain with EVR. At this point in time I advised to her to continue with strengthening and progressing walking program to increase tolerance to all activities. Pt. will be DC from PT at this point intime. Goals Goal 1:: LTG: Pt. to be I with HEP for ROM, stretching and strengthening of her LLE. Goal Progress: Goal Met Goal 2:: STG: Pt. to have improved ankle DF to at least 8deg of PROM. Goal Progress: Goal Met Goal 3:: LTG: Pt. to have at least 10deg of ankle PROM allowing for increased tolerance with gait and stair negotiation. Goal Progress: Progressing Goal 4:: LTG: Pt. to walk with normal gait pattern with use of brace in shoe without increase in symptoms. Goal Progress: Progressing Goal 5:: LTG: pt. to have increased strength of LLE to 5/5 throughout without increase in symptoms. Goal Progress: Goal Met Goal 6:: LTG: Pt. to negotiate 1 flight of stairs with 1 HR with reciprocal pattern without increase in symptoms. Goal Progress: Progressing Plan Plan: PT. to be DC to HEP. D/C Information Discharge Comments: Pt. was treated for her L ankle surgery. Pt. was doing well initially, but has she got back into more daily activities her symptoms started to be more irritated. She has decent ROM and decent strength. At this point in time I suggest that she continue to strengthen on her own and continue with progressive walking programs in order to increase tolerance to all activities. d/c sentence: If there are questions or concerns regarding this patient's physical therapy, please feel free to call me at [phone]. Thank you for the referral of this patient. Sincerely, Jordan Bello, DPT Balance/Gait/Functional tests Balance/Special Test Scores Lower Extremity Functional Score: 52
== END | disposition home or self-care (01) ==
LOC: PT 02-01 15:26
PROVIDERS: PCP Family Medicine
DX: M76.72 Peroneal tendinitis, left leg (principal); M24.572 Contracture, left ankle; G57.92 Unspecified mononeuropathy of left lower limb; M25.872 Other specified joint disorders, left ankle and foot; M25.372 Other instability, left ankle; Z47.89 Encounter for other orthopedic aftercare
CPT/HCPCS: 97110; 97140; 97161; 97164

== ENCOUNTER 2024-07-06 15:51 | Emergency (ER) | payer BC, SELFPAY ==
[2024-07-06 15:52] VITALS: BP 132/72; PULSE 89; RESP 16; TEMP 36.3; O2SAT 99; BMI 20.7
== END 2024-07-06 17:25 | disposition left against medical advice (07) ==
LOC: ED 17:40
PROVIDERS: PCP Family Medicine
DX: Z53.21 Procedure and treatment not carried out due to patient leaving prior to being seen by health care provider (principal)

== ENCOUNTER 2025-04-27 00:16 | Emergency (ER) | payer BC, SELFPAY ==
[2025-04-27 00:19] VITALS: BP 123/78; PULSE 106; RESP 16; TEMP 36.5; O2SAT 98; BMI 24.9
--- OUTSIDE RECORDS SUMMARY | 2025-04-27 00:33 | XMS RPT_ITS | CCD ---
Author Organization [facility] Care Team Providers Care Dial Lathe Operator Name Role Phone Bro Allison Unavailable Unavailable Paty Saenz Darrel Unavailable MELISSA CARREON Unavailable Unavailable REFERRED, SELF Unavailable Unavailable MELISSA CARREON Unavailable Unavailable BOUCHRA KIM Unavailable Unavailable REFERRED, SELF Unavailable Unavailable MELISSA CARREON Unavailable Unavailable Liberty Valdes Unavailable Melissa Carreon Primary Care Provider Cornelio Nguyen MD Unavailable Baltazar Hubbard PA-C Primary Care Provider Baltazar Hubbard PA-C Primary Care Provider [phone] Baltazar Hubbard PA-C Primary Care Provider [phone] Required, No Pcp Unavailable Unavailable Chad Walsh Unavailable Unavailable DO CHAD WALSH Attending UnavailMelissa Alonzo MD Primary Care Provider Melissa Carreon MD Primary Care Provider Baltazar Hubbard PA-C Primary Care Provider ENMANUEL BRADSHAW, MEGHA Primary Care Physician NICOL BRADSHAW, DR MELVI Art Attending MEGHA Santos MD Primary Care Unavaila ble Ady Hubbard PA-C Primary Care Provider Unavailable Pati MUFFLE WORKER.Jennifer MARI Unavailable Suppan MUFFLE WORKER.COMPUTER SECURITY MANAGER Abi A Unavailable Suppan MUFFLE WORKER.COMPUTER SECURITY MANAGER, Abi A Unavailable Stu Johnson Attending Unavailable Roberth Villalobos Primary Care Unavailable Roberth Villalobos Primary Care Unavailable Provider, Ed Physician Attending Unavailab WAYNE Jorge JR Attending Unavailable ADY HUBBARD Primary Care Unavailable ARTEM HDZ Referring Unavailable HUBBARD, ADY CAMPOS Primary Care Unavailable DARREN, ADY CAMPOS Primary Care Unavailable ADY HUBBARD Primary Care Unavailable WAYNE BURRELL JR Attending Unavailable DARREN, ADY CAMPOS Primary Care Unavailable BRENDA MILLARD Attending Unavailable DARREN, ADY CAMPOS Primary Care Unavailable DARREN, ADY CAMPOS Primary Care Unavailable WAYNE BURRELL JR Referring Unavailable DARREN, ADY CAMPOS Primary Care Unavailable WAYNE BURRELL JR Referring Unavailable ADY HUBBARD Primary Care Unavailable WAYNE BURRELL JR Referring Unavailable WAYNE BURRELL JR Attending Unavailable DARREN, DAY CAMPOS Primary Care Unavailable ADY HUBBARD Primary Care Unavailable WAYNE BURRELL JR Referring Unavailable ADY HUBBARD Primary Care Unavailable FLEX OCHOA Attending Unavailable MELISSA CARREON Primary Care Unavailable Allergies Allergy Classification Reported Allergen(s) Allergy Type Date of Onset Reaction(s) Facility (10 sources) Prochlorperazine; Translations: [prochlorperazine] Drug Allergy 05-20-20 18 Other (See Comments), Anxiety, Other, Shortness of breath, Unknown [place] (2 sources) Prochlorperazine Drug Allergy 03-06-20 21 Unknown [facility] Work Phone: (20 sources) Shrimp product; Translations: [SHRIMP] food allergy 10-25-20 19 Rash [facility] Work Phone: (20 sources) Prochlorperazine; Translations: [PROCHLORPERAZINE EDISYLATE] Drug Allergy 10-12-20 19 Other: See Comments [facility] (7 sources) Shrimp product Allergy to substance 10-25-20 19 [facility] Shrimp Flavor Propensity to adverse reactions 03-29-20 23 Hives, Itching, Rash [facility] (1 source) Prochlorperazine Drug Allergy 07-06-20 24 [facility] Medications Current Medications Medication Drug Class(es) Dates Sig (Normalized) Sig (Original) acetaminophen 500 mg oral tablet (2 sources) Start: 07-27-2019 acetaminophen (TYLENOL) tablet 1,000 mg Start: 07-27-2019 take 1 tablet by sánchez th every six hours as needed for pain acetaminophen (APAP EXTRA STRENGTH) 500 MG tablet Take 1 tablet by mouth every 6 hours as needed for Pain 20 tablet 0 07/27/2019 Active acetaminophen 325 mg / oxyCODONE hydrochloride 5 mg oral tablet (2 sources) Opioid Agonist Start: 02-25-2016 take 1 tablet by mouth every four hours as needed for pain Percocet 325/5 oral tablet Dose = 1 tab(s), Oral, q4h, PRN as needed for pain, # 24 tab(s), 0 Refill(s), May take 1-2 tablets / dose Start Date: 02/25/16 Status: Ordered 200 actuat albuterol 0.09 mg/actuat metered dose inhaler (4 sources) beta2-Adrenergi c Agonist Start: 06-01-2015 albuterol (PROVENTIL HFA;VENTOLIN HFA) 108 (90 BASE) MCG/ACT inhaler Inhale 2 puffs into the lungs 0 06/01/2015 Active Start: 02-29-2012 PROAIR HFA 108 (90 Base) MCG/ACT AERS 2 inhlaes every 4 hrs as needed ALBUTEROL SULFATE [id number] Vianey Crockett Start: 02-29-2012 PROAIR HFA 108 (90 Base) MCG/ACT AERS 2 inhlaes every 4 hrs as needed ALBUTEROL SULFATE [id number] Vianey Crockett amoxicillin 500 mg oral tablet (2 sources) Penicillin-class Antibacterial Start: 10-19-2022 End: 10-26-2022 take 1 tablet by mouth twice daily Amoxicillin 500 mg tablet Indications: Tender lymph node Take 1 tablet by mouth twice daily for 7 days. 14 tablet 0 10/19/2022 10/26/2022 Active Start: 01-18-2021 End: 01-28-2021 take 1000 mg by mouth twice daily Amoxicillin Discontinued 1000 MG PO TWICE A DAY 40 January 18, 2021 1:00am January 28, 2021 1:03am Comment on above: Take 1 tablet by sánchez th twice daily for 7 days. amoxicillin 875 mg / clavulanate 125 mg oral tablet (1 source) Penicillin-class Antibacterial Start: End: amoxicillin-clavulanic acid (AUGMENTIN) 875-125 mg per tablet Indications: Ingrown toenail Take 1 tablet by mouth twice daily for 7 days. FOR 7 DAYS. 14 tablet 0 03/20/2022 03/27/2022 Active Comment on above: Take 1 tablet by sánchez twice daily for 7 days. FOR 7 DAYS. 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 30 tablet 2 04/05/2025 07/04/2025 Active NicAzel (1 source) Start: take 1 tablet by mouth twice daily NicAzel Dose = 1 tab(s), Oral, BID Start Date: 03/14/15 Status: Ordered benzonatate 100 mg oral capsule (1 source) Non-narcotic Antitussive Start: End: take 1 capsule by mouth every eight hours as needed for cough benzonatate (TESSALON PERLE) 100 mg capsule Indications: Acute cough Take 1 capsule by mouth every 8 hours as needed for cough for up to 15 days. 30 capsule 12/05/2024 12/20/2024 Active cefadroxil 500 mg oral capsule (2 sources) Cephalosporin Antibacterial Start: 023 End: take 1 capsule by mouth twice daily cefADROxil (DURICEF) 500 mg capsule Take 1 capsule by mouth twice daily for 10 days. 20 capsule 0 01/18/2023 01/28/2023 Active Comment on above: Take 1 capsule by mo [facility] twice daily for 10 days. cholecalciferol 0.05 mg oral tablet (20 sources) Vitamin D take 1 tablet by mouth once daily cholecalciferol (VITAMIN D3) 50 mcg (2,000 unit) tablet Take 2,000 Units by mouth once daily. Active take 1 tablet by mouth in the mo rning cholecalciferol (Vitamin D-3) 50 MCG (2000 UT) tablet Take 2,000 Units by mouth in the morning. 0 Active Comment on above: Take 2,000 Units by mouth once daily. ciprofloxacin 500 mg oral tablet (1 source) Quinolone Antimicrobial Start: 06-25-20 24 End: 06-28-20 24 take 1 tablet by mouth twice daily ciprofloxacin HCl (CIPRO) 500 mg tablet Take 1 tablet by mouth two times a day for 3 days. 6 tablet 0 06/25/2024 06/28/2024 Active CPAP/BIPAP/OTHER (4 sources) Start: 02-26-20 25 End: 07-12-20 52 CPAP/BIPAP/OTHER Indications: JUAN (obstructive sleep apnea) , Excessive daytime sleepiness APAP 5-12 cmH2O [facility] 1 each 02/25/2025 07/12/2052 Active cyproheptadine hydrochloride 4 mg oral tablet (1 source) Start: 11-13-20 16 cyproheptadine (PERIACTIN) 4 MG tablet drospirenone 3 mg / ethinyl estradiol 0.02 mg oral tablet (20 sources) Progestin, Estrogen Start: 10-27-20 End: 05-06-20 24 take 1 tablet by mouth once daily Vestura 3-0.02 MG tablet Take 1 tablet by mouth daily continuously. Vestura 28 tablet 12 05/06/2024 Active take 1 tablet by mouth once betty y Drospirenone-Ethinyl Estradiol (AMI 28) 3- 0.02 mg per tablet Take 1 tablet by mouth once daily. Active take 1 tablet by mouth once betty y Drospirenone-Ethinyl Estradiol (AMI 28) 3- 0.02 mg per tablet Take 1 tablet by mouth once daily. 0 Active AMI 3-0.02 MG TA as directed drospirenone-ethinyl estradiol [id number] Samantha aCrr AT Comment on above: Take 1 tablet by sánchez once daily. ethinyl estradiol 0.035 mg / norgestimate 0.25 mg oral tablet (1 source) Progestin, Estrogen norgestimate -ethinyl estradiol (MONO-LINYAH) 0.25-35 MG-MCG per tablet Take 1 tablet by mouth 0 Active FLUoxetine 20 mg oral capsule (1 source) Serotonin Reuptake Inhibitor Start: 10-13-20 FLUoxetine 20 mg oral capsule 0 Refill(s) Start Date: 10/13/19 Status: Ordered ibuprofen 800 mg oral tablet (1 source) Nonsteroidal Anti-inflammatory Drug Start: 08-19-20 take 1 tablet by mouth every eight hours as needed for pain ibuprofen (ADVIL;MOTRIN) 800 MG tablet Indications: Dysmenorrhea Take 1 tablet by mouth every 8 hours as needed for Pain (discomfort) 60 tablet 3 08/19/2015 Active lidocaine 0.04 mg/mg medicated patch (1 source) Antiarrhythmic, Amide Local Anesthetic Start: 07-27-20 lidocaine 4 % external patch 1 patch meloxicam 15 mg oral tablet (3 sources) Nonsteroidal Anti-inflammatory Drug Start: 09-06-20 End: 01-18-20 23 take 1 tablet by mouth once daily meloxicam (MOBIC) 15 mg tablet Take 15 mg by mouth once daily. 0 09/06/2022 01/18/2023 Discontinued Comment on above: Take 15 mg by mouth once daily. metoprolol tartrate 50 mg oral tablet (1 source) beta-Adrenergic Mk Start: 10-13-20 Metoprolol Succinate ER 50 mg oral tablet, extended release 0 Refill(s) Start Date: 10/13/19 Status: Ordered MULTIPLE VITAMINS-MINERALS ER PO (1 source) MULTIPLE VITAMINS-MINERALS ER PO Take by mouth 0 Active mupirocin 0.02 mg/mg topical ointment (1 source) RNA Synthetase Inhibitor Antibacterial Start: 06-25-20 End: 06-30-20 mupirocin (BACTROBAN) 2 % ointment Apply to affected area three times a day for 5 days. 30 g 0 06/25/2024 06/30/2024 Active norethindrone acetate 5 mg oral tablet (5 sources) Start: 10-13-20 Norethindrone Acetate Active EACH PO December 19, 2020 1:00am Start: 03-14-2015 take 1 tablet by sánchez th once daily norethindrone (AYGESTIN) 5 MG tablet Indications: Endometriosis Take 1 tablet by mouth daily 30 tablet 0 07/01/2018 Active 12 hr orphenadrine citrate 100 mg extended release oral tablet (1 source) Muscle Relaxant Start: 07-06-2024 End: 07-11-2024 orphenadrine 100 mg oral tablet, extended release Dose : 100 mg = 1 tab(s), Oral, BID, PRN as needed for pain, X 5 day(s), # 10 tab(s), 0 Refill(s), 07/11/24 5:15:00 PM EDT Start Date: 07/06/24 Stop Date: 07/11/24 Status: Ordered polyethylene glycol 3350 [id number] mg powder for oral solution (1 source) Osmotic Laxative Start: 03-18-2013 polyethylene glycol (MIRALAX) powder Take by mouth 0 03/18/2013 Active promethazine hydrochloride 25 mg oral tablet (20 sources) Phenothiazine Start: 02-25-2016 take 0.5-1 tablets by mouth every eight hours as needed for nausea promethazine (PHENERGAN) 25 mg tablet Indications: Migraine without aura and without status migrainosus, not intractable 1/2 to 1 po q8h prn headache or nausea 30 tablet 1 06/03/2023 Active Comment on above: 1/2 to 1 po q8h prn headache or nausea rizatriptan 10 mg oral tablet (1 source) Serotonin-1b and Serotonin-1d Receptor Agonist Start: 08-18-2015 rizatriptan (MAXALT) 10 MG tablet Take 10 mg by mouth 0 08/18/2015 Active spironolactone 50 mg oral tablet (20 sources) Aldosterone Antagonist Start: 08-29-2021 take 1 tablet by mouth once daily SPIRONOLACTONE 100 MG TABS 1 tablet by mouth once a day spironolactone [id number] Judi Subramanian LPN Start: 03-31-2014 take 1 tablet by sánchez th once daily spironolactone (ALDACTONE) 50 mg tablet Take one tablet by mouth once a day before bed. 07/13/2022 Active Comment on above: Take one tablet by m outh once a day before bed. topiramate 100 mg oral tablet (2 sources) Start: 12-19-2020 Topiramate Active EACH PO December 19, 2020 1:00am Start: 10-13-2019 topiramate 100 mg oral tablet 0 Refill(s) Start Date: 10/13/19 Status: Ordered 24 hr venlafaxine 75 mg extended release oral capsule (1 source) Serotonin and Norepinephrine Reuptake Inhibitor Start: 10-13-2019 venlafaxine 75 mg oral capsule, extended release 0 Refill(s) Start Date: 10/13/19 Status: Ordered Zofran ODT 4 mg oral tablet, disintegrating (1 source) Start: 02-25-2016 Zofran ODT 4 m g oral tablet, disintegrating Dose : 4 mg = 1 tab(s), Oral, AsDirected, # 10 tab(s) Start Date: 02/25/16 Status: Ordered Completed/Discontinued Medications Medication Drug Class(es) Dates Sig (Normalized) Sig (Original) Acetaminophen / HYDROcodone (1 source) Opioid Agonist Start: 02-25-2016 Vicodin 300-5 mg oral tablet Dose = 1 tab(s), Oral, q4h, PRN as needed for pain, 0 Refill(s), May take 1-2 tablets / dose Start Date: 02/25/16 Status: Ordered amitriptyline hydrochloride 50 mg oral tablet (1 source) Tricyclic Antidepressant Start: 09-01-2013 End: 12-19-2020 take 50 mg by mouth once daily Amitriptyline Discontinued 50 MG PO DAILY September 01, 2013 12:00am December 19, 2020 10:59am BECLOMETHASONE DIPROPIONATE (3 sources) Corticosteroid Start: 02-29-2012 QVAR 80 MCG/ACT AERS 2 inhales twice daily BECLOMETHASONE DIPROPIONATE [id number] Vianey Crockett Start: 02-29-2012 QVAR 80 MCG/AC T AERS 2 inhales twice daily BECLOMETHASONE DIPROPIONATE [id number] Vianey Crockett biotin 1 mg oral tablet (1 source) Start: 09-01-2013 End: 12-19-2020 Biotin Discontinued 1 MG PO September 01, 2013 12:00am December 19, 2020 10:59am DULoxetine 20 mg delayed release oral capsule (8 sources) Serotonin and Norepinephrine Reuptake Inhibitor Start: 12-07-2020 End: 10-17-2022 DULoxetine (CYMBALTA) 20 mg capsule Take every other day for 1 week then take every third day. Then stop when out of medication 8 capsule 2 12/07/2020 10/17/2022 Discontinued (Discontinued by Patient) Start: 06-28-2020 DULoxetine Ora l, 0 Refill(s) Start Date: 06/28/20 Status: Ordered Comment on above: Take every other day for 1 week then take every third day. Then stop when out of medication FLUTICASONE PROPIONATE (3 sources) Corticosteroid Start: 02-29-2012 FLONASE 50 MCG/ACT SUSP 2 nasal daily FLUTICASONE PROPIONATE [id number] Vianey Crockett Start: 02-29-2012 FLONASE 50 MCG /ACT SUSP 2 nasal daily FLUTICASONE PROPIONATE [id number] Vianey Crockett 1 ml ketorolac tromethamine 30 mg/ml cartridge (1 source) Nonsteroidal Anti-inflammatory Drug, Cyclooxygenase Inhibitor Start: 07-27-2019 End: 07-27-2019 ketorolac (TORADOL) injection 30 mg 24 hr levETIRAcetam 500 mg extended release oral tablet (13 sources) Start: 07-24-2023 End: 12-05-2024 take 1 tablet by mouth once daily at bedtime levETIRAcetam XR (KEPPRA XR) 500 mg 24 hr tablet Take 1 tablet by mouth daily at bedtime. 30 tablet 2 08/14/2024 12/05/2024 Discontinued (Other) Comment on above: Take 1 tablet by sánchez th daily at bedtime. naproxen 500 mg oral tablet (7 sources) Nonsteroidal Anti-inflammatory Drug Start: 12-12-2021 take 1 tablet by mouth twice daily as needed for pain NAPROXEN 500 MG TABS 1 tablet by mouth twice a day as needed for pain naproxen [id number] Reina Paula AT Start: 10-13-2019 naproxen sodiu m 550 mg oral tablet 0 Refill(s) Start Date: 10/13/19 Status: Ordered Start: 02-25-2016 take 1 tablet by sánchez th twice daily as needed for pain naproxen (NAPROSYN) 500 MG tablet Take 1 tablet by mouth 2 times daily as needed for Pain 20 tablet 0 07/27/2019 Active Start: 02-29-2012 EC-NAPROSYN 37 5 MG TBEC 1 tab twice daily NAPROXEN [id number] Vianey Crockett Start: 02-29-2012 EC-NAPROSYN 37 5 MG TBEC 1 tab twice daily NAPROXEN [id number] Vianey Crockett omeprazole 40 mg delayed release oral capsule (5 sources) Proton Pump Inhibitor Start: 06-20-2022 End: 10-17-2022 take 1 capsule by mouth once daily omeprazole (PRILOSEC) 40 mg capsule Take 1 capsule by mouth once daily. 30 capsule 2 06/20/2022 10/17/2022 Discontinued (Course of therapy completed) Start: 08-18-2015 omeprazole (MO ILOSEC) 20 MG capsule Take 20 mg by mouth 0 08/18/2015 Active Comment on above: Take 1 capsule by mo [facility] once daily. ondansetron 4 mg disintegrating oral tablet (19 sources) Serotonin-3 Receptor Antagonist Start: 05-10-20 End: 08-14-20 take 1 tablet by mouth every six hours as needed for nausea ondansetron orally disintegrating (ZOFRAN ODT) 4 mg disintegrating tablet Indications: Migraine without aura and without status migrainosus, not intractable Take 1 tablet by mouth every 6 hours as needed for nausea/vomiting. 9 tablet 05/10/2023 08/14/2024 Discontinued Start: 12-20-2022 End: 05-06-2024 take 1 tablet by mouth every eight hours as needed for nausea and vomiting ondansetron (Zofran) 4 MG tablet TAKE 1 TABLET BY MOUTH EVERY EIGHT HOURS NEEDED FOR NAUSEA AND/OR VOMITING 0 12/20/2022 05/06/2024 Discontinued (Therapy completed) Start: 07-27-2019 take 1 tablet by sánchez every eight hours as needed for nausea ondansetron (ZOFRAN ODT) 4 MG disintegrating tablet Take 1 tablet by mouth every 8 hours as needed for Nausea or Vomiting 10 tablet 0 07/27/2019 Active Start: 02-25-2016 take 1 dose by mouth twice daily Zofran Dose : 4 mg =, Oral, BID, 0 Refill(s) Start Date: 02/25/16 Status: Ordered Comment on above: Take 1 tablet by sánchez th every 6 hours as needed for nausea/vomiting. pregabalin 150 mg oral capsule (10 sources) Start: 02-20-20 take 1 capsule by mouth twice daily LYRICA 150 MG CAPS Take 1 capsule by mouth twice a day pregabalin [id number] Fuad MARAVILLA Start: 01-30-2022 End: 01-18-2023 take 2 capsules by mouth twice daily pregabalin (LYRICA) 75 mg capsule Take 150 mg by mouth twice daily. 0 01/30/2022 01/18/2023 Discontinued Comment on above: Take 150 mg by mouth twice daily. rimegepant 75 mg disintegrating oral tablet (3 sources) Start: 3 End: 4 take 1 tablet by mouth once daily as needed, then take 1 tablet by mouth every twenty-four hours as needed rimegepant (NURTEC ODT) 75 mg disintegrating tablet Take 1 tablet by mouth once daily as needed. (Never take more than 1 tablet in 24 hour period) 8 tablet 2 07/24/2023 12/04/2023 Discontinued Comment on above: Take 75 mg by mouth once daily as needed. Take 1 tablet by sánchez th once daily as needed. (Never take more than 1 tablet in 24 hour period) Problems Active Problems Problem Classification Problem Date Documented Date Episodic/Chronic Abdominal pain (2 sources) Generalized abdominal pain; Translations: [Generalized abdominal pain] Episodic Blindness and vision defects (1 source) Visual discomfort, unspecified; Translations: [Visual discomfort, unspecified] Onset: 03-04-2023 Episodic [place] (1 source) Epidermal burn of dorsum of left hand; Translations: [Burn of first degree of back of left hand, initial encounter] Episodic Endometriosis (1 source) Endometriosis (clinical) 03-14-2015 Chronic Headache; including migraine (20 sources) Migraine without aura, not refractory ; Translations: [Migraine without aura, not intractable, without status migrainosus] Onset: 10-13-2019 10-13-2019 Chronic Headache; including migraine (1 source) Headache; including migraine; Translations: [Headache, unspecified] Onset: 03-04-2023 Lymphadenitis (1 source) Lymphadenopathy of head AND/OR neck; Translations: [Localized enlarged lymph nodes] Episodic Malaise and fatigue (1 source) Other fatigue; Translations: [Other fatigue] Onset: 04-12-2025 Episodic Nausea and vomiting (1 source) Nausea with vomiting, unspecified; Translations: [Nausea with vomiting, unspecified] Onset: 03-04-2023 Episodic Open wounds of extremities (1 source) Puncture wound of right foot; Translations: [Puncture wound without foreign body, right foot, initial encounter] 06-25-2024 Episodic Other circulatory disease (1 source) Tender lymph node; Translations: [Other specified symptoms and signs involving the circulatory and respiratory systems] Episodic Other connective tissue disease (1 source) Foot pain; Translations: [Acute foot pain, left] Episodic Other connective tissue disease (1 source) Peripheral neuropathic pain; Translations: [Neuralgia and neuritis, unspecified] Episodic Other female genital disorders (1 source) Vaginal discharge; Translations: [Other specified noninflammatory disorders of vagina] Episodic Other injuries and conditions due to external causes (1 source) Closed injury of head; Translations: [Closed head injury, initial encounter] Episodic Other injuries and conditions due to external causes (1 source) Contusion of multiple sites; Translations: [Traumatic ecchymosis of multiple sites] Episodic Other injuries and conditions due to external causes (1 source) Lower limb nerve lesion; Translations: [Injury of unspecified nerve at lower leg level, left leg, initial encounter] Onset: 01-22-2022 01-22-2022 Episodic Other injuries and conditions due to external causes (1 source) Fracture of bone; Translations: [Other injury of unspecified body region, initial encounter] 08-10-2024 Episodic Other injuries and conditions due to external causes (1 source) Injury of nose; Translations: [Unspecified injury of nose, initial encounter] 10-21-2023 Episodic Other lower respiratory disease (1 source) Snoring; Translations: [Snoring] 08-14-2024 Episodic Other lower respiratory disease (1 source) Cough; Translations: [Acute cough] 12-05-2024 Episodic Other nervous system disorders (1 source) Mononeuropathy; 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] Chronic Other nervous system disorders (3 sources) Narcolepsy without cataplexy ; Translations: [Narcolepsy without cataplexy] 12-28-2024 Chronic Other nervous system disorders (2 sources) Narcolepsy without cataplexy; Translations: [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)] Onset: 02-09-2025 Chronic Other nervous system disorders (1 source) Spasmodic movement; Translations: [Fasciculation] 08-14-2024 Episodic Other non-traumatic joint disorders (1 source) Sinus tarsi syndrome of left ankle; Translations: [Pain in left ankle and joints of left foot] 07-24-2023 Episodic Other non-traumatic joint disorders (1 source) Pain in unspecified joint; Translations: [Pain in unspecified joint] Onset: 04-12-2025 Episodic Other skin disorders (2 sources) Ingrowing toenail; Translations: [Ingrowing nail] Episodic Other skin disorders (1 source) Dystrophia unguium; Translations: [Nail dystrophy] Episodic Other skin disorders (1 source) Acne 03-31-2014 Episodic Other upper respiratory infections (2 sources) Pharyngitis; Translations: [Acute pharyngitis, unspecified] Episodic Residual codes; unclassified (1 source) Behavior finding; Translations: [Other sleep apnea] 08-14-2024 Chronic Residual codes; unclassified (2 sources) Daytime somnolence; Translations: [Other hypersomnia] 12-28-2024 Chronic Residual codes; unclassified (3 sources) Obstructive sleep apnea syndrome; Translations: [Obstructive sleep apnea (adult) (pediatric)] 02-25-2025 Chronic Residual codes; unclassified (2 sources) Hypersomnia; Translations: [Hypersomnia, unspecified] 04-05-2025 Chronic Residual codes; unclassified (1 source) Hypersomnia, unspecified; Translations: [Hypersomnia] Onset: 04-05-2025 Chronic Residual codes; unclassified (2 sources) Obstructive sleep apnea (adult) (pediatric); Translations: [Mild obstructive sleep apnea] Onset: 02-25-2025 Chronic Residual codes; unclassified (1 source) Other hypersomnia; Translations: [Excessive daytime sleepiness] Onset: 02-25-2025 Chronic Residual codes; unclassified (1 source) Other sleep apnea; Translations: [Sleep apnea-like behavior] Onset: 08-14-2024 Chronic Residual codes; unclassified (1 source) Other specified postprocedural states; Translations: [Other postprocedural status] Onset: 02-12-2022 02-12-2022 Episodic Residual codes; unclassified (2 sources) Pain; Translations: [Pain, unspecified] 08-10-2024 Episodic Residual codes; unclassified (3 sources) Frequent night waking; Translations: [Insomnia, unspecified] 08-14-2024 Episodic Spondylosis; intervertebral disc disorders; other back problems (2 sources) Cervical radiculopathy; Translations: [Radiculopathy, cervical region] Onset: 08-02-2017 08-02-2017 Chronic Spondylosis; intervertebral disc disorders; other back problems (2 sources) Inflammatory spondylopathy; Translations: [Unspecified inflammatory spondylopathy, thoracic region] Onset: 08-02-2017 08-02-2017 Chronic Sprains and strains (5 sources) Sprain ulnar collateral ligament; Translations: [Sprain of distal tibiofibular ligament] Onset: 03-06-2021 02-13-2013 Episodic Superficial injury; contusion (1 source) Hematoma of scalp; Translations: [Hematoma of frontal scalp, initial encounter] Episodic Thyroid disorders (1 source) Goiter; Translations: [Nontoxic goiter, unspecified] Chronic Unclassified (1 source) Sprain of left ankle; Translations: [Sprain of left ankle, unspecified ligament, initial encounter] Unclassified (2 sources) VOMITTING, NAUSEOUS 03-04-2023 Comment on above: VOMITTING, NAUSEOUS Unclassified (1 source) Cold Onset: 12-05-2024 Past or Other Problems Problem Classification Problem Date Documented Date Episodic/Chronic Acquired foot deformities (3 sources) Other acquired deformities of unspecified foot; Translations: [Other acquired deformities of unspecified foot] Onset: 03-03-2012 03-09-2012 Episodic Contraceptive and procreative management (3 sources) Oral contraception; Translations: [Encounter for surveillance of contraceptive pills] Onset: 05-06-2024 05-06-2024 Episodic Headache; including migraine (20 sources) Medication overuse headache; Translations: [Drug-induced headache, not elsewhere classified, not intractable] Onset: 10-13-2019 10-13-2019 Episodic Other connective tissue disease (7 sources) Pain in thumb ; Translations: [Plantar fasciitis] Onset: 03-03-2012 02-13-2013 Episodic Other connective tissue disease (1 source) Plantar fasciitis; Translations: [Plantar fascial fibromatosis] 03-03-2012 Episodic Other connective tissue disease (1 source) Pain in unspecified limb; Translations: [Pain in unspecified limb] Onset: 03-03-2012 03-03-2012 Episodic Other lower respiratory disease (1 source) Snoring; Translations: [Snoring] Onset: 08-14-2024 Episodic Other nervous system disorders (1 source) Fasciculation; Translations: [Twitching] Onset: 08-14-2024 Episodic Other non-traumatic joint disorders (1 source) Impingement syndrome of ankle; Translations: [Other specified joint disorders, left ankle and foot] Onset: 03-20-2021 03-20-2021 Episodic Other non-traumatic joint disorders (1 source) Instability of joint of left ankle; Translations: [Other instability, left ankle] Onset: 03-06-2021 03-06-2021 Episodic Residual codes; unclassified (1 source) Procedure and treatment not carried out due to patient leaving prior to being seen by health care provider; Translations: [Procedure and treatment not carried out due to patient leaving prior to being seen by health care provider] Onset: 07-24-2024 Episodic Residual codes; unclassified (1 source) Insomnia, unspecified; Translations: [Frequent nocturnal awakening] Onset: 08-14-2024 Episodic Spondylosis; intervertebral disc disorders; other back problems (3 sources) Thoracic back pain; Translations: [Pain in thoracic spine] Onset: 02-07-2016 02-07-2016 Episodic Unclassified (1 source) Problem Results Test Name Value Interpretation Reference Range Facility 36on 04-26-2025 36 S: Patient called [facility] refill line to request refill on the Vestura 3-0.02 MG tablet B:Last filled 05/06/24 for #28 with 12 refills by Gabriela A:Last annual:05/06/24 NV:05/25/25 Pt is out R:Pended medication for approval [facility] 04-05-2025 CNOV Office Visit (NEMOWS ) SHAISTA CLARKE ([id number]) 1995 F Date Time Provider Department 04/05/25 3:40 PM WAYNE BURRELL JR During your visit today, we recorded the following information about you: Pulse Respiration Blood pressure Weight 66/minute 12/minute 102/68 60.8 kg Wayne Burrell Jr., MD 04/05/2025 4:33 PM Signed ESTABLISHED PATIENT VISIT CHIEF COMPLAINT: Follow up HISTORY OF PRESENT ILLNESS: Shaista Clarke is a 29 year old female, with a PMH significant for 02/25/2025: G47.33 JUAN (obstructive sleep apnea) (primary encounter diagnosis) G47.19 Excessive daytime sleepiness Shaista Clarke is a 29 year old female with new diagnosis of mild JUAN, excessive daytime sleepiness since at least college, hx of multiple concussions, migraines, frequent WASO, nocturia x 3 We discussed her results in detail of actigraphy, PSG, MSLT. She had less sleep during actigraphy than her normal 7 hrs per night due to extenuating circumstances. But the frequent WASO is typical. PSG revealed mild UJAN with AHI 5.5. SL on PSG only 4 min, normal REM latency of 81 min. On MSLT she had MSL 6.9 min, no SOREMPs. We will start by treating her mild JUAN to see if that helps with WASO, nocturia, EDS. Also discussed OAT but not interested. Discussed PAP therapy in detail. Will junior lazo at follow up. May need to consider other treatment for frequent awakenings. Or eventually consider a wake promoting agen. - Will start Auto CPAP 5-12 cmH2O with a mask per your preference . - I will have a prescription sent to a [employer]) company - [employer] who will be calling you in the next 1-2 weeks or so. Please call them directly or us if you do not hear from them in this time frame. - You should be eligible for new supplies approximately every 3-6 months, depending on your insurance coverage. - If your mask doesn't fit well, call the [employer] company before 30 days are up to get a new mask without an additional charge. - Insurance requires regular usage and periodic office follow ups for PAP therapy, to continue to cover supplies. - Follow up for 31-90 day PAP compliance visit Note I last saw patient on 12/28/24: 1. 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 Frequent nocturnal awakening - ICD9: 780.59, ICD10: G47.00 3. Excessive daytime sleepiness - ICD9: 780.54, ICD10: G47.19 Patient with initial sleep complaints of waking up through the night. However, after repeating sleep questionnaires today, and noted changes in sleep history, in addition to brief nocturnal awakenings with no provoking or associated symptoms, patient now endorsing: daytime sleepiness, need for naps during the day, sleep related hallucinations, vivid dreams, dreaming even during brief naps. In addition, the score of ESS performed in office also suggestive of excessive daytime sleepiness. Thus, new question raised as to whether sleepiness is due to disruption of sleep vs patient having central hypersomnia including symptoms suggestive of Narcolepsy without Cataplexy. D/w pt in detail. The HSAT was inconclusive and uncertain if pt even slept during most of the study per history today. Explained to patient that while the study does not entirely rule out JUAN, it is less likely but still needs to be considered as a cause of awakenings, as well as other conditions such as PLMs. Explained to further evaluate for all possible causes of sleep complaints a PSG + MSLT would be beneficial with explanation of how study performed provided to pt. Such studies would evaluate for JUAN and PLMs as cause of awakenings but if PSG unremarkable, would also allow us to evaluate for central hypersomnia. Pt interested in study depending on cost. Explained that if unable to perform due to cost, then we can empirically treat for PLMs with low dose gabapentin at night, but it no impact on symptoms, would then still need to reconsider performing the PSG+MSLT as etiology of symptoms would remain unknown. For now, pt agrees to PSG+MSLT with cost pending. Orders placed. Advised pt not to drive or operate heavy machinery if sleepy. 4. Intractable migraine without aura and without status migrainosus - ICD9: 346.11, ICD10: G43.019 Improving per pt, despite never taking Keppra. As focus during visit was on sleep, limited details regarding headache history. However, endorsing at most 1 headache day per week with symptoms associated with headache unchanged but less intense. Possible sleep disorder contributing to headaches. For now no changes in meds. Patient has had PAP <1 month. Tries to use every night. Wears for about 4 hours, but difficult due to being given a FFM. States sleeps bad with it and without it. Still a side sleeper. PSG showed AHI of 5.5. Tired through day. Needs naps. Sleepiness during the day she feels goes pringle (more content not included)... Normal [facility] Geremias 03-24-2025 HERLINDA Telephone (BERLIN) CLARKESHAISTA CASTRO ([id number]) 1995 F Date Time Provider Department 03/24/25 BRENDA MILLARD During your visit today, we recorded the following information about you: Cosme Ga RN 03/24/2025 9:13 AM Signed Patient calls to report that she has been wearing the full face mask with her C-Pap for about a week and feels that her sleep is worse. She would like to try the nasal sleep mask but wants to check with provider first to verify that would be effective based on sleep study results. She doesn't think she is a mouth breather and wasn't sure based on the sleep study if it would be adequate. Patient requests call back at [phone]. BELEN Rodriguez Rebecca, APRN.KAMALJIT 03/24/2025 10:22 AM Signed She absolutely can try a nasal mask, have her contact DME to get a new mask Brenda Millard APRN.Cosme Abreu RN 03/24/2025 10:56 AM Signed Call placed to patient and notified of message below with verbalized understanding. Patient to contact [facility] company to request. Cosme Ga RN Allergies As of Date: 03/24/2025 Noted Allergy Reaction COMPAZINE (PROCHLORPERAZINE EDISY*10/12/2019 14 - Other: See Comments Comments: agitation SHRIMP 10/25/2019 2 - Rash Date Reviewed: 02/25/2025 Reviewed by: Paty Cruz LPN - Fully Assessed Reason for Visit: Patient Question [1347] Prescriptions as of 03/24/2025 - CPAP/BIPAP/OTHER APAP 5-12 cmH2O [facility] - promethazine (PHENERGAN) 25 mg tablet 1/2 to 1 po q8h prn headache or nausea - spironolactone (ALDACTONE) 50 mg tablet Take one tablet by mouth once a day before bed. - Drospirenone-Ethinyl Estradiol (AMI 28) 3-0.02 mg per tablet Take 1 tablet by mouth once daily. - cholecalciferol (VITAMIN D3) 50 mcg (2,000 unit) tablet Take 2,000 Units by mouth once daily. Problem List As Of Date 03/24/2025 Noted Resolved Medication overuse headache [G44.40] 10/13/2019 Migraine without aura and without status migrai*10/13/2019 Encounter Status:Closed by COSME GA on 03/24/25 [facility] CNOVon 02-25-2025 CNOV Office Visit (JEFFT ) SHAISTA CLARKE ([id number]) 1995 F Date Time Provider Department 02/25/25 3:00 PM BRENDA MILLARD During your visit today, we recorded the following information about you: Pulse Respiration Blood pressure Weight 55/minute 18/minute 112/69 61.7 kg Brenda Millard, MUFFLE WORKER.COMPUTER SECURITY MANAGER 02/26/2025 9:10 AM Signed [facility] New Patient Evaluation PATIENT NAME: Shaista Clarke DATE OF SERVICE: February 24, 2025 CONSULTING PROVIDER: Dr Burrell REASON FOR VISIT: discuss results of testing done to eval for disorder of central hypersomnolence HPI: Shaista Clarke is a 29 year old female. Sleep-related history: She sees Dr Burrell for migraine, twitching. Because of snoring, frequent nocturnal awakening, sleep apnea-like behavior she had an HSAT on 08/27/24 which neither confirmed nor refuted JUAN (didn't sleep much that night). At her last appointment with Dr Burrell she reported that sleep issues were her main concern--frequent awakenings, daytime sleepiness, need for naps during the day, sleep related hallucinations, vivid dreams, dreaming even during brief naps, and ESS . 02/08/25 Actigraphy-- got less sleep during these 6 days than usual due to extenuating circumstances Interpretation: The actigraphy recording spans 6 days including 2 weekend days. Sleep diary was obtained along this recording. Patient sleep diary does match with actigraphy recording. Bedtimes and wake-up times were determined from the sleep diary/automatic rest periods. Bedtimes were not regular for the majority of the recording with an average bedtime of 12:47 a.m., with a range of 10:17 p.m. to 2:56 a.m.. Wake up times were regular for the majority of recording with the average wake up time of 7:25 a.m., with a range of 7:17 a.m. to 7:34 a.m. Patient had an averaged sleep time of 5.8 hours per night. Estimated sleep efficiency was not reduced (88%). Activity was not increased during the rest period and WASO time was 41 minutes on average. Naps were not reported by patient during the recording period. The circadian rhythm appears delayed. My impression based on above is short sleep times of 5.8 hours , possible circadian rhythm sleep disorder delayed sleep phase type, and inadequate sleep duration prior to MSLT. 02/08/25 PSG AHI 5.5 No supine sleep SL 4 mins ICSD DIAGNOSIS: Obstructive Sleep Apnea Syndrome [G47.33] IMPRESSION/RECOMMENDAT IONS: 1. Mild obstructive sleep apnea. Respiratory events were associated with oxygen desaturations to a jeffrey of 95.0%. 2. The severity of this sleep related breathing disorder maybe underestimated due to the absence of recorded supine sleep in the study 3. Treatment options for mild sleep apnea, include oral appliance, conservative measures (avoidance of alcohol, sedative medications and sleeping in the back position, management of nasal obstruction and weight loss), surgery and potentially PAP therapy if daytime symptoms and certain comorbidities are present. 4. To further evaluate hypersomnia, a multiple sleep latency test was performed following this study and will be reported separately. 02/09/25 MSLT Mean Sleep Latency: 6.9 m Number of Sleep Onset REM Periods: 0 Urine toxicology screen-routine: Negative ICSD DIAGNOSIS: Obstructive Sleep Apnea Syndrome [G47.33] IMPRESSION: This MSLT was conducted following an overnight baseline polysomnography, which recorded a total sleep time of 390 minutes (sleep efficiency of 81%) with 88 minutes of wake after sleep onset (WASO) and an overall AHI of 5.5. The study was abnormal, with a mean sleep latency of 6.9 minutes, indicating objective excessive daytime sleepiness. No sleep-onset REM periods (SOREMPs) were observed. Actigraphy, performed only six days prior to the MSLT, revealed insufficient sleep, with an average sleep duration of 5.8 hours per day. Bedtimes were highly variable, ranging from 10:17 PM to 2:56 AM (average 12:47 AM), while wake times were more consistent at approximately 7:25 AM (ranging from 7:17 AM to 7:34 AM). Given these findings, both untreated obstructive sleep apnea and insufficient sleep may have contributed to the patienta??s excessive daytime sleepiness. SLEEP-WAKE SCHEDULE She is a self-described more of a night person. Bedtime: 10-11 PM. She does not have a hard time falling asleep. Machelle waite says 10 minutes Wake time: 7 AM, with an alarm. Never feels like sleep was restorative. After falling asleep: she wakes up 5-8 time(s) per night, because of the need to urinate x 3 (full bladder) and unknown. On weekends, she maintains the same sleep schedule within an hour Average total sleep time (in a 24 hour period): 7 hours. SLEEP-RELATED DETAILS Preferred sleep position: side or prone Breathing disturbances and other behaviors during sleep: Lives alone so she (more content not included)... [facility] HERLINDA Telephone (SLEWST) SHAISTA CLARKE ([id number]) 1995 F Date Time Provider Department 02/17/25 BRENDA MILLARD During your visit today, we recorded the following information about you: Brenda Millard APRN.KAMALJIT 02/17/2025 10:09 AM Signed This virtual visit was scheduled last minute, I've never seen her, I would like an hour visit to review actigraphy/PSG/MSL, in-person preferably. Brenda Millard APRN.Paty Munson LPN 02/17/2025 10:18 AM Signed TC to pt who voiced understanding. Rescheduled for next week. Paty Cruz LPN Allergies As of Date: 02/17/2025 Noted Allergy Reaction COMPAZINE (PROCHLORPERAZINE EDISY*10/12/2019 14 - Other: See Comments Comments: agitation SHRIMP 10/25/2019 2 - Rash Date Reviewed: 12/28/2024 Reviewed by: Wayne Burrell Jr., MD - Fully Assessed Reason for Visit: Appointment [186] Prescriptions as of 02/17/2025 - promethazine (PHENERGAN) 25 mg tablet 1/2 to 1 po q8h prn headache or nausea - spironolactone (ALDACTONE) 50 mg tablet Take one tablet by mouth once a day before bed. - Drospirenone-Ethinyl Estradiol (AMI 28) 3-0.02 mg per tablet Take 1 tablet by mouth once daily. - cholecalciferol (VITAMIN D3) 50 mcg (2,000 unit) tablet Take 2,000 Units by mouth once daily. Problem List As Of Date 02/17/2025 Noted Resolved Medication overuse headache [G44.40] 10/13/2019 Migraine without aura and without status migrai*10/13/2019 Encounter Status:Closed by PATY CRUZ on 02/17/25 Normal [facility] MULTIPLE SLEEP LATENCY TESTo n 02-09-2025 MULTIPLE SLEEP LATENCY TEST [facility] [address] [place] [address] ; MSLT Report Name: SHAISTA CLARKE Date of Study: 02/09/2025 CCF#: [id number] Age: 29 (: 1995) ESS: Neck Circ. (cm): 31.5 Height (cm): 162.2 Weight (kg): 62.1 BMI: 23.6 Referring Provider: WAYNE BURRELL JR Mailcode: [facility] Sleep history: The patient is a 29 year old female with a history of multiple awakenings from sleep, excessive daytime sleepiness, fatigue, feeling paralyzed while falling asleep or waking up, and experiencing hallucinations while falling asleep or waking up. The patient had an overnight polysomnogram the night before this test which showed an overall AHI of 5.1, REM AHI of 1.3, supine AHI of , arousal index of 15.8, minimum oxygen saturation of 95.0%, sleep efficiency of 80.9%, total sleep time of 390 minutes, total recorded time of 482 minutes, sleep latency was 4.0 minutes, REM latency was 81 minutes. Past medical history: Chronic headache Medications: Ami, Phenergan, Aldactone Sleep procedure: MSLT or MWT [employer] (24231) Procedure: The study was attended continuously by a process safety engineering technologist. The monitored parameters included: left (E1-M2) and right (E2-M1) EOG, frontal (F3-M2 and F4-M1), central (C3-M2 and C4-M1) and occipital (O1-M2 and O2-M1) EEG, mental and submental EMG. MSLT DATA: Trial Start-Time End-Time Sleep-Latency REM-Latency 1 08:20:09 08:54:31 9.5 m 20.0 m Trial Start-Time End-Time Sleep-Latency REM-Latency 2 10:20:29 10:45:44 8.0 m 20.0 m Trial Start-Time End-Time Sleep-Latency REM-Latency 3 12:20:14 12:42:02 4.0 m 20.0 m Trial Start-Time End-Time Sleep-Latency REM-Latency 4 14:20:18 14:42:35 7.5 m 20.0 m Trial Start-Time End-Time Sleep-Latency REM-Latency 5 16:20:24 16:41:16 5.5 m 20.0 m Mean Sleep Latency: 6.9 m Number of Sleep Onset REM Periods: 0 Urine toxicology screen-routine: Negative Actigraphy: Complete results are in a separate report. Summary: Actigraphy/sleep diary was performed for 6 days prior to MSLT. Inadequate sleep duration prior to MSLT (average was 5.8 hrs). Average Bedtime: 12:47 AM, with a range of 10:17 PM to 2:56 AM Average Wake time: 7:25 AM , with a range of 7:17 AM to 7.:34 AM. Average Total Sleep Time: 5.8 hrs Significant Variability in Sleep-Wake Schedule: Yes Days with Naps: 0 Average Nap Duration: NA Circadian Rhythm: Delayed OTHER NOTABLE FINDINGS: The patient noted that she did not have her white noise during trial 1 and that the wires may have prevented sleep. She also noted hunger during trial 2 that may have kept her awake longer than is typical for her. ICSD DIAGNOSIS: Obstructive Sleep Apnea Syndrome [G47.33] IMPRESSION: This MSLT was conducted following an overnight baseline polysomnography, which recorded a total sleep time of 390 minutes (sleep efficiency of 81%) with 88 minutes of wake after sleep onset (WASO) and an overall AHI of 5.5. The study was abnormal, with a mean sleep latency of 6.9 minutes, indicating objective excessive daytime sleepiness. No sleep-onset REM periods (SOREMPs) were observed. Actigraphy, performed only six days prior to the MSLT, revealed insufficient sleep, with an average sleep duration of 5.8 hours per day. Bedtimes were highly variable, ranging from 10:17 PM to 2:56 AM (average 12:47 AM), while wake times were more consistent at approximately 7:25 AM (ranging from 7:17 AM to 7:34 AM). Given these findings, both untreated obstructive sleep apnea and insufficient sleep may have contributed to the patient???s excessive daytime sleepiness. INTERPRETING PHYSICIAN: Summer Fernandez MD, MSc PHYSICIAN I attest that I have performed epoch by epoch review of the entire raw data and find this study to be technically adequate. Report Digitally Signed By: Summer Danielle MD (02/15/2025 8:45:18 PM) Normal [facility] TOXICOLOGY SCREEN, ROUTINE U RINEon 02-09-2025 Amphetamines Confirm (U) [Mass/Vol] Negative Normal Negative [facility] Comment on above: Order Comment: Speci men Type: URINE SPECIMENOrdering Facility: [facility] Address: [address] [place] [address] Result Comment: Cuto ff threshold at 1000 ng/mL. Performed By: #### U TOX2 ####[facility] [id number] [place] [address] [place] BARBITURATES, URINE Negative Normal Negative [facility] Comment on above: Order Comment: Speci men Type: URINE SPECIMENOrdering Facility: [facility] Address: [address] [place] [address] Result Comment: Cuto ff threshold at 200 ng/mL. Performed By: #### U TOX2 ####[facility] [id number] [place] [address] [place] BENZODIAZEPINES, UR Negative Normal Negative [facility] Comment on above: Order Comment: Speci men Type: URINE SPECIMENOrdering Facility: [facility] Address: [address] [place] [address] Result Comment: Cuto ff threshold at 200 ng/mL. Performed By: #### U TOX2 ####[facility] [id number] [place] [address] [place] Cannabinoids Screen Ql (U) Negative Normal Negative [facility] Comment on above: Order Comment: Speci men Type: URINE SPECIMENOrdering Facility: [facility] Address: [address] [place] [address] Result Comment: Cuto ff threshold at 50 ng/mL. Performed By: #### U TOX2 ####[facility] [id number] [place] [address] [place] Cocaine Ql (U) Negative Normal Negative [facility] Comment on above: Order Comment: Speci men Type: URINE SPECIMENOrdering Facility: [facility] Address: [address] [place] [address] Result Comment: Cuto ff threshold at 300 ng/mL. Performed By: #### U TOX2 ####[facility] [id number] [place] [address] [place] Ethanol (U) [Mass/Vol] <11 Normal <11 [facility] Comment on above: Order Comment: Speci men Type: URINE SPECIMENOrdering Facility: [facility] Address: [address] [place] [address] Performed By: #### U TOX2 ####[facility] [id number] [place] [address] [place] Opiates Screen Ql (U) Negative Normal Negative [facility] Comment on above: Order Comment: Speci men Type: URINE SPECIMENOrdering Facility: [facility] Address: [address] [place] [address] Result Comment: Cuto ff threshold at 300 ng/mL. Performed By: #### U TOX2 ####[facility] [id number] [place] [id number] [place] oxyCODONE cutoff Screen (U) [Mass/Vol] Negative Normal Negative [facility] Comment on above: Order Comment: Speci men Type: URINE SPECIMENOrdering Facility: [facility] Address: [address] [place] [address] Result Comment: Cuto ff threshold at 100 ng/mL. Performed By: #### U TOX2 ####[facility] LABCLIA [id number] [place] [address] [place] Phencyclidine Ql (U) Negative Normal Negative [facility] Comment on above: Order Comment: Speci men Type: URINE SPECIMENOrdering Facility: [facility] Address: [address] [place] [address] Result Comment: Cuto ff threshold at 25 ng/mL. Performed By: #### U TOX2 ####[facility] LAB[facility] [id number] [place] [address] [place] POLYSOMNOGRAM (PSG)/HOME SLE EP APNEA TEST (HSAT)on 02-08-2025 POLYSOMNOGRAM (PSG)/HOME SLEEP APNEA TEST (HSAT) [facility] ??? [address] [place] [address] ; PSG Study Report Name: SHAISTA CLARKE Date of Study: 02/08/2025 [facility]#: [id number] Age: 29 (: 1995) ESS: Neck Circ. (cm): 31.5 Height (cm): 162.2 Weight (kg): 62.1 BMI: 23.6 Referring Provider: WAYNE BURRELL JR Mailcode: [facility] Sleep history: The patient is a 29 year old female with a history of multiple awakenings from sleep, excessive daytime sleepiness, fatigue, feeling paralyzed while falling asleep or waking up, and experiencing hallucinations while falling asleep or waking up. A home sleep apnea test on 08/27/2024 showed an overall respiratory event index (WHITNEY) of 1.0, Supine AHI of 0.0, and an oxygen saturation jeffrey of 94.0%. A polysomnogram was performed to reassess for JUAN due to a continuing complaint of excessive daytime sleepiness. The patient endorses being a habitual side sleeper. Pertinent past medical history: Chronic headache Medications: Ami, Phenergan, Aldactone Sleep procedure: PSG 4 or more [facility] ([id number]) Procedure: The study was attended continuously by a process safety engineering technologist. The monitored parameters included: left (E1-M2) and right (E2-M1) EOG, frontal (F3-M2 and F4-M1), central (C3-M2 and C4-M1) and occipital (O1-M2 and O2-M1) EEG, mental and submental EMG, left and right anterior tibialis, left and right flexor digitorum superficialis EMG, single ECG waveform, snoring, continuous airflow with thermistor, nasal pressure transducer, chest and abdominal effort, oxygen saturation, ETCO2, and body position via video monitoring. Hypopnea definition: The peak signal excursions drop by >= 30% of pre-event baseline using nasal pressure (diagnostic study), PAP device flow (titration study) or an alternative hypopnea sensor (diagnostic study). The duration of the >= 30% drop in signal excursion is >= 10 seconds. There is a greater than or equal to 3% oxygen desaturation from pre-event baseline or the event is associated with an arousal. Respiratory Effort Related Arousal (RERA) definition: 10 seconds characterized by increasing respiratory effort or by flattening of the nasal pressure or PAP flow waveform leading to arousal from sleep when the sequence of breaths does not meet criteria for an apnea or hypopnea. Respiratory Disturbance Index (RDI) definition: RDI = (#apneas + #hypopneas + #RERAs) x 60 / TST. If AHI is 0.0, then RDI = RERA index. SLEEP ARCHITECTURE: The study started at 22:47:20 and ended at 06:49:38. Total sleep time (TST) was 390 minutes resulting in a sleep efficiency of 80.9% (total recording time (TRT) = 482 m). There were 46 awakenings with a total time awake after sleep onset of 88.0 minutes. The sleep latency was 4.0 minutes and the REM latency was 81 minutes. The patient spent 0.0% of sleep time in the supine position. The sleep stage percentages were 12.8% stage N1, 48.0% stage N2, 15.9% stage N3 and 23.3% REM sleep. There were 103 arousals, resulting in an arousal index of 15.8. There were 146 stage shifts. RESPIRATORY DATA: Snoring was noted. There were 36 respiratory events consisting of 0 apneas 36 hypopneas and 0 RERAs. The apnea-hypopnea index (AHI) was 5.5 and the central-apnea index (SARAH) was 0.0. The respiratory effort related arousal (RERA) index was 0.0. The respiratory disturbance index (RDI) was 5.5. The mean oxygen saturation during the study was 98.0%, with a minimum oxygen saturation of 95.0%. The patient spent 0.0% (0.0 min) of sleep time with an oxygen saturation below 90%. The wake supine end-tidal CO2 (ETCO2) value was 38-39 mmHg. The maximum ETCO2 was 43 mmHg. The patient spent 0.0% (0.0 minutes) of sleep time with an ETCO2 above 50 mmHg. Michael-Chavez/Periodic Breathing was not present. Supplemental oxygen was not administered. REM-Time REM AHI NREM-Time NREM AHI Total-Time Total RDI Total AHI Supine 0.0 m -- 0.0 m -- 0.0 m -- -- Off-Supine 91.0 m 1.3 299.5 m 6.8 390.5 m 5.5 5.5 Total 91.0 m 1.3 299.5 m 6.8 390.5 m 5.5 5.5 MOVEMENT DATA: No abnormal behavior was noted. There were 0 periodic limb movements during sleep, resulting in a PLM-index of 0.0. ECG DATA: The average heart rate during sleep was 64 beats per minute, with a range of 53 to 101. During wake, the heart rate ranged from 51 to 100 beats per minute. No arrhythmias were noted. OTHER NOTABLE FINDINGS: None. ICSD DIAGNOSIS: Obstructive Sleep Apnea Syndrome [G47.33] IMPRESSION/RECOMMENDAT IONS: 1. Mild obstructive sleep apnea. Respiratory events were associated with oxygen desaturations to a jeffrey of 95.0%. 2. The severity of this sleep related breathing disorder maybe underestimated due to the absence of recorded supine sleep in the study 3. Treatment options for mild sleep apnea, include oral appliance, conservative measures (avoidance of alcohol, sedative medications and sl (more content not included)... Normal [facility] Geremias 12-29-2024 KAMALJITN Telephone ([employer]) SHAISTA CLARKE ([id number]) 1995 F Date Time Provider Department 12/29/24 WAYNE BURRELL JR During your visit today, we recorded the following information about you: Paty Cruz LPN 12/29/2024 7:45 AM Signed Wayne Burrell Jr., MD P [facility] Indra Nurse Schedule follow up please. Paty Cruz LPN 12/29/2024 8:09 AM Signed Please assist in scheduling a 3 month 60 minute follow up. Please use a new pt spot. CHELY Page Jessica, LPN 12/30/2024 11:08 AM Signed Pt scheduled. Paty Cruz LPN Allergies As of Date: 12/29/2024 Noted Allergy Reaction COMPAZINE (PROCHLORPERAZINE EDISY*10/12/2019 14 - Other: See Comments Comments: agitation SHRIMP 10/25/2019 2 - Rash Date Reviewed: 12/28/2024 Reviewed by: Wayne Burrell Jr., MD - Fully Assessed Reason for Visit: Appointment [[id number]] Prescriptions as of 12/30/2024 - promethazine (PHENERGAN) 25 mg tablet 1/2 to 1 po q8h prn headache or nausea - spironolactone (ALDACTONE) 50 mg tablet Take one tablet by mouth once a day before bed. - Drospirenone-Ethinyl Estradiol (AMI 28) 3-0.02 mg per tablet Take 1 tablet by mouth once daily. - cholecalciferol (VITAMIN D3) 50 mcg (2,000 unit) tablet Take 2,000 Units by mouth once daily. Problem List As Of Date 12/29/2024 Noted Resolved Medication overuse headache [G44.40] 10/13/2019 Migraine without aura and without status migrai*10/13/2019 Encounter Status:Closed by PATY CRUZ on 12/30/24 [facility] CNOVon 12-28-2024 CNOV Office Visit (BERLIN ) SHAISTA CLARKE ([id number]) 1995 F Date Time Provider Department 12/28/24 4:40 PM WAYNE BURRELL JR During your visit today, we recorded the following information about you: Pulse Blood pressure Weight 69/minute 114/75 62.1 kg Kae Landry LPN 12/28/2024 5:57 PM Signed 12/25/2024 [facility] Physical Health Summary Physical health: Very good Everyday physical activity, ability: Completely Fatigue: Moderate Pain level: 4 General health: Good Social activities/roles, ability: Good Physical Health T-Score 47.7 (Good) Physical Health Percentile 41 [facility] Mental Health Summary Quality of life: Very good Mental health (mood,thinking): Good Social satisfaction: Good Emotional problems (anxious,depressed): Sometimes Mental Health T-Score 45.8 (Good) Mental Health Percentile 34 Percentiles provide an indication of how a patient's score ranks in relation to the [place] general population. > 31st percentile is within normal limits or better *< 31st percentile is at least ? SD worse than population, which may be clinically relevant < 16th percentile is at least 1 SD worse than population and warrants attention Wayne Burrell Jr., MD 12/28/2024 5:57 PM Signed ESTABLISHED PATIENT VISIT CHIEF COMPLAINT: Follow Up HISTORY OF PRESENT ILLNESS: Shaista Clarke is a 29 year old female, BMI 23.48 kg/m2 with a PMH significant for and per last office visit note of 08/14/24: 1. Intractable migraine without aura and without status migrainosus - ICD9: 346.11, ICD10: G43.019 (primary diagnosis) Continues to have migraines as above. Multiple failed meds in past when following with headache center. Patient never tried Keppra as preventative. Now willing. SE and ADRs reviewed with pt. Rx provided. No other changes to PRINGLE meds at this time. Encouraged pt to avoid overuse of OTC meds such as Excedrin. If fails Keppra, need to consider Botox therapy with referral back to headache center. 2. Twitching - ICD9: 781.0, ICD10: R25.3 Subjective complaint. Has yet to be seen on a physical exam. Question if behavioral. Description of symptoms appear to be inconsistent when comparing tube filler notes. Will continue to monitor. History provided does not suggest intracranial cause or seizure and given non-focal neuro exam, will hold on additional neuro testing at this time. MRI and EEG ordered last visit, but pt declined due to costs. 3. Frequent nocturnal awakening - ICD9: 780.59, ICD10: G47.00 4. Snoring - ICD9: 786.09, ICD10: R06.83 5. Sleep apnea-like behavior - ICD9: 780.59, ICD10: G47.39 Patient worried fragmented sleep contributing to headaches. Pt does endorse AM headaches as well as snoring and other s/s of JUAN which in turn could fragment sleep. Denies pain, PLMs or RLS or other common causes of nocturnal awakeing. Will evaluate by means of HSAT as pt reports she would not be able to sleep in a lab. HSAT completed on 08/27/24 and unremarkable. Per report: Time WHITNEY/AHI Supine 0.5 min 0.0 Off-Supine 351.0 min 1.0 Total 351.5 min 1.0 The mean oxygen saturation during the study was 97.0%, with a minimum oxygen saturation of 94.0%. Pt feels headaches are a little better but states never took the Keppra - I was worried about side effects as I have dealt with seasonal depression. States sleep is what she is most concerned about. Waking about 8-10x per night. Going to bed about 1030PM and falling asleep quickly. However, states weird that she is waking up through the night. States that she only slept maybe an hour with the HSAT on. States sleep schedule is not changing except weekends might go to bed a little later and wake up a little later. First awakening occurs about 2 hours after going to sleep. States not checking phone or using electronics. Otherwise not aware of why she is waking up. Does wake up drenched in sweat (did not occur the night of the HSAT per pt). Not waking up out of dreams. Denies vivid dreams. States wakes, moves to the other side of the bed and back to sleep in about 2 minutes. States thinks she moves around in her sleep, but moves the sheets around more after waking up to get comfortable. No RLS symptoms. No leg cramps. Upon waking in the AM feels tired ([id number]). Yesterday was in bed for 8 hours and woke up with a headache and woke up more through the night than usually does. No naps during the day. Pt states she took HSAT off at 6AM but study suggests took off at 04:43AM. No pain during the night. No worries or raching thoughts. On OCP continuously due to endometriosis. Pt previously on gabapentin and lyrica - difficulties getting off the latter per pt. States sleep problems have been an issue for more than 10 years. Does not associated with current meds. Melatonin does not help, but recently tried half a unisom and stat (more content not included)... Normal [facility] Geremias 12-22-2024 HERLINDA Telephone (BERLIN) SHAISTA CLARKE ([id number]) 1995 F Date Time Provider Department 12/22/24 JUDITH IVERSON During your visit today, we recorded the following information about you: Kae Landry LPN 12/22/2024 3:33 PM Signed Allergies As of Date: 12/22/2024 Noted Allergy Reaction COMPAZINE (PROCHLORPERAZINE EDISY*10/12/2019 14 - Other: See Comments Comments: agitation SHRIMP 10/25/2019 2 - Rash Date Reviewed: 12/05/2024 Reviewed by: Vibha Zaragoza MA - Fully Assessed Reason for Visit: Insurance Authorization [[id number]] Cmt: Ubrelvy 100mg Prescriptions as of 12/22/2024 - promethazine (PHENERGAN) 25 mg tablet 1/2 to 1 po q8h prn headache or nausea - spironolactone (ALDACTONE) 50 mg tablet Take one tablet by mouth once a day before bed. - Drospirenone-Ethinyl Estradiol (AMI 28) 3-0.02 mg per tablet Take 1 tablet by mouth once daily. - cholecalciferol (VITAMIN D3) 50 mcg (2,000 unit) tablet Take 2,000 Units by mouth once daily. Problem List As Of Date 12/22/2024 Noted Resolved Medication overuse headache [G44.40] 10/13/2019 Migraine without aura and without status migrai*10/13/2019 Encounter Status:Closed by KAE LANDRY on 12/22/24 Normal [facility] CNOVon 12-05-2024 CNOV Office Visit (UCTR ) SHAISTA CLARKE ([id number]) 1995 F Date Time Provider Department 12/05/24 1:15 PM MICHAEL REBOLLAR [facility] During your visit today, we recorded the following information about you: Temperature Pulse Respiration Blood pressure 99 degrees 85/minute 20/minute 120/80 Weight 61.5 kg Michael Rebollar MD 12/05/2024 2:11 PM Signed Patient presents with: Cold: Sore throat, runny nose and cough x 8 days HPI: Feeling sick for 8 days. Her family has been sick also but are feeling better. Positive symptoms: Cough, sleep disturbance last night, sore throat, Nasal Congestion, Rhinorrhea, hoarse voice, improved initial night sweats, improved nausea, Negative symptoms: Shortness of breath, Wheezing, Chest tightness, Earache, Vomiting, Diarrhea, OTC: Lozenges, alkaseltzer Denies history of asthma. MEDICATIONS: Current Outpatient Medications Medication Sig spironolactone (ALDACTONE) 50 mg tablet Take one tablet by mouth once a day before bed. Drospirenone-Ethinyl Estradiol (AMI 28) 3-0.02 mg per tablet Take 1 tablet by mouth once daily. cholecalciferol (VITAMIN D3) 50 mcg (2,000 unit) tablet Take 2,000 Units by mouth once daily. promethazine (PHENERGAN) 25 mg tablet 1/2 to 1 po q8h prn headache or nausea (Patient not taking: Reported on 12/05/2024) No current facility-administered medications for this visit. ALLERGIES: ALLERGIES Allergen Reactions Compazine [Prochlor* Other: See Comments agitation Shrimp Rash VITALS: BP 120/80 Pulse 85 Temp 37.2 ?C (99 ?F) Resp 20 Wt 61.5 kg (135 lb 9.3 oz) LMP (LMP Unknown) SpO2 100% BMI 23.27 kg/m? PHYSICAL EXAM: GEN: mildly ill appearing. Pleasant, in no acute distress. HEENT: PERRL, EOMI, conjunctiva clear Ears: Moderate cerumen left canal. TMs without erythema, bulge, or effusion Sinuses: non-tender frontal sinus, non-tender maxillary sinuses Throat: moist mucous membranes, mild erythema, no exudate Neck: supple, no thyromegaly, no lymphadenopathy HEART: regular rate, regular rhythm, no murmurs LUNGS: clear to auscultation, no wheezes or crackles, no increased WOB ASSESSMENT/PLAN: 1. URI, acute - ICD9: 465.9, ICD10: J06.9 (primary diagnosis) - suspect viral URI, differential includes COVID-19, influenza, and RSV. She is well beyond the therapeutic window for antiviral treatment. Declines testing. - Discussed supportive care treatment with rest, cold medicine, and analgesia. - Red flags to seek further treatment include chest pain, shortness of breath, increasing sinus pain, late onset fever, and lethargy; in the ER if severe. 2. Acute cough - ICD9: 786.2, ICD10: R05.1 - BENZONATATE 100 MG CAPSULE Michael Rebollar MD Allergies As of Date: 12/05/2024 Noted Allergy Reaction COMPAZINE (PROCHLORPERAZINE EDISY*10/12/2019 14 - Other: See Comments Comments: agitation SHRIMP 10/25/2019 2 - Rash Date Reviewed: 12/05/2024 Reviewed by: Vibha Zaragoza MA - Fully Assessed Reason for Visit: Cold [4225] Cmt: Sore throat, runny nose and cough x 8 days Primary Visit Diagnosis:URI, acute [J06.9] Other Visit Diagnosis:Acute cough [R05.1] Order(s):benzonatate (TESSALON PERLE) 100 mg capsuleTake 1 capsule by mouth every 8 hours as needed for cough for up to 15 days.Disp: 30 capsuleRfl: 0 Prescriptions as of 12/05/2024 - benzonatate (TESSALON PERLE) 100 mg capsule Take 1 capsule by mouth every 8 hours as needed for cough for up to 15 days. - promethazine (PHENERGAN) 25 mg tablet 1/2 to 1 po q8h prn headache or nausea - spironolactone (ALDACTONE) 50 mg tablet Take one tablet by mouth once a day before bed. - Drospirenone-Ethinyl Estradiol (AMI 28) 3-0.02 mg per tablet Take 1 tablet by mouth once daily. - cholecalciferol (VITAMIN D3) 50 mcg (2,000 unit) tablet Take 2,000 Units by mouth once daily. Medication notes this encounter LEVETIRACETAM ER 500 MG TABLET,EXTENDED RELEASE 24 HR >> Michael Rebollar MD 12/05/2024 2:03 PM never started medicine Problem List As Of Date 12/05/2024 Noted Resolved Medication overuse headache [G44.40] 10/13/2019 Migraine without aura and without status migrai*10/13/2019 Prescriptions ordered this encounter Disp Refills Start End BENZONATATE 100 MG CAPSULE 30 c* 0 12/05/2024 12/20/2024 Route: ORAL Sig: Take 1 capsule by mouth every 8 hours as needed for cough for up to 15 days. Medications Discontinued During This Encounter Prescriptions - levETIRAcetam XR (KEPPRA XR) 500 mg 24 hr tablet (Discontinued) Take 1 tablet by mouth daily at bedtime. Level of Service: OFFICE/OUTPATIENT ESTABLISHED MOD [facility] 30 MIN [[id number]] Encounter Status:Closed by MICHAEL REBOLLAR on 12/05/24 Normal [facility] POLYSOMNOGRAM (PSG)/HOME SLE EP APNEA TEST (HSAT)on 08-27-2024 POLYSOMNOGRAM (PSG)/HOME SLEEP APNEA TEST (HSAT) [facility] at [address], [address], [place] [address] ; Home Sleep Apnea Test (HSAT) Study Report Name: SHAISTA CLARKE Date of Study: 08/27/2024 [facility]#: [id number] Age: 29 (: 1995) ESS: 11/17 Neck Circ. (cm): 31.0 Height (cm): 162.2 Weight (kg): 57.0 BMI: 21.7 Referring Provider: WAYNE BURRELL JR Mailcode: [facility] Sleep history: The patient is a 29 year old female with a history of daytime sleepiness, fatigue, and multiple awakenings from sleep. The patient is here for assessment of obstructive sleep apnea. The patient endorses being a habitual side and prone sleeper. Pertinent medical history: Headaches Medications: Aldactone Sleep procedure: PSG unattended Type III, minimum of 4 parameters (91273) Procedure: This study was performed using a Type III ambulatory PSG device and was unattended. The patient was instructed on proper use of the device by a registered process safety engineering technologist. The monitored parameters included heart rate, oxygen saturation, continuous airflow with thermistor and nasal pressure transducer, snoring via nasal pressure transducer, chest and abdominal effort, and body position. WHITNEY definition: Respiratory event index (WHITNEY), calculated as respiratory events x 60 / TRT (total recording time in minutes). Note: the apnea hypopnea index has been replaced by the respiratory event index for home sleep apnea test. Since the home sleep apnea test does not measure sleep, the WHITNEY is most accurate index of respiratory events. The WHITNEY is a surrogate of the AHI per the AASM Manual for Scoring of Sleep and Associated Events version 3. Apnea definition: The peak signal excursions drop by >90% of pre-event baseline using an oronasal thermal sensor (diagnostic study), PAP device flow (titration study) or an alternative apnea sensor (diagnostic study). The duration of the >90% drop in signal excursion is >=10 seconds. Hypopnea definition: The peak signal excursions drop by >= 30% of pre-event baseline using nasal pressure (diagnostic study), PAP device flow (titration study) or an alternative hypopnea sensor (diagnostic study). The duration of the >= 30% drop in signal excursion is >=10 seconds. There is a greater than or equal to 3% oxygen desaturation from pre-event baseline. RESPIRATORY DATA: The study started at 22:52:27 and ended at 04:43:52 and the total recording time was 351 minutes. By convention, sleep is assumed for the whole recording. Snoring was noted. There was a total of 6 respiratory events. Of these events, the total number of apneas was 1 (0 obstructive, 0 mixed, and 1 central (16.7%)) and 5 hypopneas. The central apnea index (SARAH) was 0.2. The respiratory event index (WHITNEY) was 1.0 events per hour of study time. The mean oxygen saturation during the study was 97.0%, with a minimum oxygen saturation of 94.0%. The patient spent 2.5 minutes at oxygen saturation measured less than 90% (0.7% of recording time) and 2.5 minutes at oxygen saturation measured at or less than 88% (0.7% of recording time). Time WHITNEY/AHI Supine 0.5 min 0.0 Off-Supine 351.0 min 1.0 Total 351.5 min 1.0 ECG DATA: The average heart rate was 72 bpm with a range of 57 bpm to 102 bpm. ICSD DIAGNOSIS: Primary Snoring [R06.83] Sleep Disorder, Unspecified [G47.9] IMPRESSION/RECOMMENDAT IONS: 1. This study neither confirms nor refutes a diagnosis of obstructive sleep apnea as HSAT does not measure certain types of respiratory events that can only be measured on an in-laboratory polysomnogram 2. Recommend an in-laboratory polysomnogram if sleep apnea remains highly suspected. INTERPRETING PHYSICIAN: Wayne Burrell Jr., MRaz. I attest that I have performed epoch by epoch review of the entire raw data and find this study to be technically adequate. Report Digitally Signed By: Wayne Burrell MD (09/03/2024 10:17:24 AM) Normal [facility] CNOVon 08-14-2024 CNOV Office Visit (NEMOWS ) SHAISTA CLARKE ([id number]) 1995 F Date Time Provider Department 08/14/24 9:00 AM WAYNE BURRELL JR During your visit today, we recorded the following information about you: Pulse Blood pressure Weight 94/minute 108/75 57.4 kg Wayne Burrell Jr., MD 08/14/2024 6:48 PM Signed ESTABLISHED PATIENT VISIT CHIEF COMPLAINT: Follow Up HISTORY OF PRESENT ILLNESS: Shaista Clarke is a 29 year old female, with a PMH significant for and per last office visit with Baltazar DEL TORO on 12/04/23: 1. Migraine without aura and without status migrainosus, not intractable - ICD9: 346.10, ICD10: G43.009 (primary diagnosis) Headaches have improved since last appointment, having about 4 migraines a month. Did try Nurtec without any significant relief. Did not start Keppra due to fear of side effects. Is not interested in starting a preventative at this time, did discuss supplements that may be beneficial and patient would like to try this. Notes that she did try magnesium in the past but had significant GI discomfort with this. No new symptoms with her headaches, no red flag signs or symptoms that would warrant additional imaging at this time regarding her headache. Has tried and failed triptans in the past. Discussed other abortive therapies including Ubrelvy. Patient is amenable to trying this medication, discussed common side effects, will prescribe Ubrelvy 100 mg to take with onset of headache. 2. Convulsions, unspecified convulsion type (HCC) - ICD9: 780.39, ICD10: R56.9 3. Facial tic - ICD9: 307.20, ICD10: F95.9 Patient with 2 to 3 weeks of abnormal facial twitching and muscle movements occurring to the face and arms bilaterally. Worsens with stress and fatigue, has history of this in the past while she was in college, but no imaging or EEG obtained at that time. Did have an MRI obtained 2018, patient believes her tics may have started after this. Describes the urge to scratch her face and close her eyes, flex her arms and chest muscles bilaterally. Originally this was happening multiple times a day, every few minutes or so, but now has slowly improved but still occurring daily. This was not witnessed during her appointment today and neurologic exam was otherwise reassuring. Patient does report that she can occasionally suppress this urge, no postictal state, no tongue biting or incontinence. As it occurs to bilateral face and arms, feel seizure is less likely, also due to lack of postictal state, ability to suppress some episodes, low suspicion for seizure. However, will obtain MRI of the brain with and without contrast as well as EEG to rule out any intracranial abnormality contributing patient's symptoms, or signs of epileptiform changes contributing to her movements. As this is likely a tic disorder, discussed common treatments. Did discuss that antiseizure medications can be used to help suppress symptoms but patient still deferring Keppra at this time. Would like to try more conservative therapies. Would like to try cognitive behavioral therapy and manage stress. MRI brain and EEG never completed by patient. Broke nose on Saturday when ran into a barn gate - was seen by PCP on 08/10/24 with recommendation for ENT evaluation. Patient states still has migraines but currently in a good phase. States in the past considered trying a preventative but never did (Jomar). States in last 4 weeks has averaged about a 2-3 headache days per week. Pt reports takes Excedrin but Benadryl works best - sleeps off the headache. States when present, gets nauseous -- in such cases taking Zofran. Patient states does not sleep well, I have never slept well. States wakes 5-6 times per night for years. When asked what wakes her up, states I don't know. Does wake to urinate a lot despite not drinking much water. States other times wakes up and goes back to bed. No issues falling asleep to start the night. No snoring. Pt reports having had sleep study in college but that they did not find anything. States it was in lab and that she did not sleep. Does have dry mouth at night. +Headaches in the AM. Pt reports waking up and repositioning during the night. Also reports getting real hot at night. When asked about twitching, she now states she occasionally has twitching of the nose but no other parts of the body, and that twitching has decreased since breaking her nose earlier this week. No other abnormal movements or sensation. She is not endorsing any symptoms to suggest seizure activity. REVIEW OF SYSTEMS GENERAL:No weight loss, malaise or fevers. HEENT: No changes in hearing or vision, no nose bleeds or other nasal problems NECK:Negative for lumps, goiter, pain and significant neck swelling RESPIRATORY: Negative for cough, wheezing or shortness of breath. CARDIOVASCULAR: Negative for chest pain, (more content not included)... Normal [facility] CNOVon 08-10-2024 CNOV Office Visit (WSTR ) SHAISTA CLARKE ([id number]) 1995 F Date Time Provider Department 08/10/24 4:30 PM ARTEM HDZ [facility] During your visit today, we recorded the following information about you: Pulse Respiration Blood pressure Weight 82/minute 16/minute 106/76 57.9 kg Artem Hdz APRN.COMPUTER SECURITY MANAGER 08/10/2024 5:03 PM Signed Subjective Patient ran into a barn gate last night. Patient hit her upper nose bridge. Patient says it is sore. Patient says she has had several nose injuries this year. Patient says it feels more swollen on the right side little harder to breathe. Patient wants to make sure is not broken. Patient denies any other symptoms. The history is provided by the patient. No conference interpreter was used. Review of Systems Constitutional: Negative. Skin: Negative. Objective Physical Exam Constitutional: Appearance: Normal appearance. HENT: Head: Comments: Mild bruising and swelling noted in the area marked above. Patient is tender upon palpation. There is a small abrasion also located in the area. Pulmonary: Effort: Pulmonary effort is normal. Neurological: Mental Status: She is alert. PAST MEDICAL HISTORY Diagnosis Date Migraines Vitamin D insufficiency PAST SURGICAL HISTORY Procedure Laterality Date PAST SURGICAL HISTORY OF Left 12/12/2021 Modified destiny. [facility] ALLERGIES Compazine [Prochlorperazine Edisylate] and Shrimp MEDICATIONS promethazine (PHENERGAN) 25 mg tablet 1/2 to 1 po q8h prn headache or nausea spironolactone (ALDACTONE) 50 mg tablet Take one tablet by mouth once a day before bed. Drospirenone-Ethinyl Estradiol (AMI 28) 3-0.02 mg per tablet Take 1 tablet by mouth once daily. cholecalciferol (VITAMIN D3) 50 mcg (2,000 unit) tablet Take 2,000 Units by mouth once daily. levETIRAcetam XR (KEPPRA XR) 500 mg 24 hr tablet Take 1 tablet by mouth daily at bedtime. (Patient not taking: Reported on 10/21/2023) ondansetron orally disintegrating (ZOFRAN ODT) 4 mg disintegrating tablet Take 1 tablet by mouth every 6 hours as needed for nausea/vomiting. (Patient not taking: Reported on 07/24/2023) No family history on file. Social History Tobacco Use Smoking status: Never Smokeless tobacco: Never Substance Use Topics Alcohol use: Never ASSESSMENT/PLAN: 1. Pain - ICD9: 780.96, ICD10: R52 - XR NASAL BONES 3V PA/BOTH LAT * * * * Physician Interpretation * * * * TITLE: XR NASAL BONES 3V PA/LAT X2 CLINICAL INDICATION: Injury with pain TECHNIQUE: 3 view radiographic study of the nasal bones COMPARISON: Radiograph dated 10/21/2023 FINDINGS: New acute essentially nondisplaced transverse fracture of the nasal bones. Visualized paranasal sinuses and mastoid air cells grossly clear. IMPRESSION IMPRESSION: Acute essentially nondisplaced transverse fracture of the nasal bones. Reheat Furnace Operator: DI Transcribe Date/Time: Aug 10 2024 4:50P Dictated by : SOBIA WEST MD 2. Fracture - ICD9: 829.0, ICD10: T14.8XXA - CONSULT TO ENT Patient will follow-up with ENT. Patient will make her own appointment. Patient will ice alternate Tylenol Motrin. Patient was okay with this care plan. Artem Hdz APRN.COMPUTER SECURITY MANAGER Allergies As of Date: 08/10/2024 Noted Allergy Reaction COMPAZINE (PROCHLORPERAZINE EDISY*10/12/2019 14 - Other: See Comments Comments: agitation SHRIMP 10/25/2019 2 - Rash Date Reviewed: 08/10/2024 Reviewed by: Julia Nguyen MA - Fully Assessed Reason for Visit: Nose Injury [1985] Cmt: Ran into barn door x 1 day Primary Visit Diagnosis:Pain [R52] Other Visit Diagnosis:Fracture [T14.8XXA] Order(s):XR NASAL BONES 3V PA/BOTH LAT [3929531] Order #: [id number] FUTURE CONSULT TO ENT [9008] Order #: [id number]: 1 FUTURE Prescriptions as of 08/10/2024 - levETIRAcetam XR (KEPPRA XR) 500 mg 24 hr tablet Take 1 tablet by mouth daily at bedtime. - promethazine (PHENERGAN) 25 mg tablet 1/2 to 1 po q8h prn headache or nausea - ondansetron orally disintegrating (ZOFRAN ODT) 4 mg disintegrating tablet Take 1 tablet by mouth every 6 hours as needed for nausea/vomiting. - spironolactone (ALDACTONE) 50 mg tablet Take one tablet by mouth once a day before bed. - Drospirenone-Ethinyl Estradiol (AMI 28) 3-0.02 mg per tablet Take 1 tablet by mouth once daily. - cholecalciferol (VITAMIN D3) 50 mcg (2,000 unit) tablet Take 2,000 Units by mouth once daily. Problem List As Of Date 08/10/2024 Noted Resolved Medication overuse headache [G44.40] 10/13/2019 Migraine without aura and without status migrai*10/13/2019 Encounter Status:Closed by ARTEM HZD on 08/10/24 [facility] XR NASAL BONES 3V PA/LAT X2o n 08-10-2024 XR NASAL BONES 3V PA/LAT X2 * * *Final Report* * * DATE OF EXAM: Aug 10 2024 4:47PM WOX [id number] - XR NASAL BONES 3V PA/LAT X2 / PROCEDURE REASON: Pain * * * * Physician Interpretation * * * * TITLE: XR NASAL BONES 3V PA/LAT X2 CLINICAL INDICATION: Injury with pain TECHNIQUE: 3 view radiographic study of the nasal bones COMPARISON: Radiograph dated 10/21/2023 FINDINGS: New acute essentially nondisplaced transverse fracture of the nasal bones. Visualized paranasal sinuses and mastoid air cells grossly clear. IMPRESSION: Acute essentially nondisplaced transverse fracture of the nasal bones. Reheat Furnace Operator: PSCB Transcribe Date/Time: Aug 10 2024 4:50P Dictated by : SOBIA WSET MD This examination was interpreted and the report reviewed and electronically signed by: SOBIA WEST MD on Aug 10 2024 4:50PM EST [id number] Normal [facility] XR Nasal bones 3 Viewson IMPRESSION: Acute essentially nondisplaced transverse fracture of the nasal bones. Reheat Furnace Operator[facility] Transcribe Date/Time: Aug 10 2024 4:50P Dictated by : SOBIA WEST MD This examination was interpreted and the report reviewed and electronically signed by: SOBIA WEST MD on Aug 10 2024 4:50PM EST DIVISION OF RADIOLOGY * * *Final Report* * * DATE OF EXAM: Aug 10 2024 4:47PM WOX [id number] - XR NASAL BONES 3V PA/LAT X2 / PROCEDURE REASON: Pain * * * * Physician Interpretation * * * * TITLE: XR NASAL BONES 3V PA/LAT X2 CLINICAL INDICATION: Injury with pain TECHNIQUE: 3 view radiographic study of the nasal bones COMPARISON: Radiograph dated 10/21/2023 FINDINGS: New acute essentially nondisplaced transverse fracture of the nasal bones. Visualized paranasal sinuses and mastoid air cells grossly clear. DIVISION OF RADIOLOGY [facility] * * *Final Report* * * DATE OF EXAM: Aug 10 2024 4:47PM WOX [id number] - XR NASAL BONES 3V PA/LAT X2 / PROCEDURE REASON: Pain * * * * Physician Interpretation * * * * TITLE: XR NASAL BONES 3V PA/LAT X2 CLINICAL INDICATION: Injury with pain TECHNIQUE: 3 view radiographic study of the nasal bones COMPARISON: Radiograph dated 10/21/2023 FINDINGS: New acute essentially nondisplaced transverse fracture of the nasal bones. Visualized paranasal sinuses and mastoid air cells grossly clear. IMPRESSION IMPRESSION: Acute essentially nondisplaced transverse fracture of the nasal bones. Reheat Furnace Operator: PSCB Transcribe Date/Time: Aug 10 2024 4:50P Dictated by : SOBIA WEST MD This examination was interpreted and the report reviewed and electronically signed by: SOBIA WEST MD on Aug 10 2024 4:50PM EST [facility] Radiology Study observation (narrative) [facility] XR Nasal bones 3 ViewsOrdere d By: Ccf Provider on 08-10-2024 [facility] CNPNon 07-06-2024 CNPN Telephone (FAMPWS) CLARKESHAISTA CASTRO ([id number]) 1995 F Date Time Provider Department 07/06/24 ALEJANDRINA FARAH [facility] During your visit today, we recorded the following information about you: Cosme Ga RN 07/06/2024 3:23 PM Signed Called patient to triage d/t being on scheduled for concerns for tetanus. Patient reports on 06/25/2024 she stepped on a nail and was doing ok until this morning. This morning she woke up with a painful stiff neck that has been worsening as the day has gone one. Patient reports that she is not currently able to touch chin to chest. Triage protocol would recommend ER now. Verified with provider who agrees with recommendation. Discussed with patient who is agreeable and will have checked out at ER. Cosme Ga RN Allergies As of Date: 07/06/2024 Noted Allergy Reaction COMPAZINE (PROCHLORPERAZINE EDISY*10/12/2019 14 - Other: See Comments Comments: agitation SHRIMP 10/25/2019 2 - Rash Date Reviewed: 06/25/2024 Reviewed by: Jaxson Gonzalez APRN.[facility] - Fully Assessed Reason for Visit: Patient Update [1234] Appointment [186] Prescriptions as of 07/06/2024 - levETIRAcetam XR (KEPPRA XR) 500 mg 24 hr tablet Take 1 tablet by mouth daily at bedtime. - promethazine (PHENERGAN) 25 mg tablet 1/2 to 1 po q8h prn headache or nausea - ondansetron orally disintegrating (ZOFRAN ODT) 4 mg disintegrating tablet Take 1 tablet by mouth every 6 hours as needed for nausea/vomiting. - spironolactone (ALDACTONE) 50 mg tablet Take one tablet by mouth once a day before bed. - Drospirenone-Ethinyl Estradiol (AMI 28) 3-0.02 mg per tablet Take 1 tablet by mouth once daily. - cholecalciferol (VITAMIN D3) 50 mcg (2,000 unit) tablet Take 2,000 Units by mouth once daily. Problem List As Of Date 07/06/2024 Noted Resolved Medication overuse headache [G44.40] 10/13/2019 Migraine without aura and without status migrai*10/13/2019 Encounter Status:Closed by COSME GA on 07/06/24 [facility] Geremias 07-01-2024 KAMALJITN Telephone (BERLIN) SHAISTA CLARKE ([id number]) 1995 F Date Time Provider Department 07/01/24 WAYNE BURRELL JR During your visit today, we recorded the following information about you: Celeste Regan LPN 07/01/2024 10:21 AM Signed Patient returned call and went over notes that she needs to schedule MRI, EEG, Cognitive therapy orders from last office visit. Patient said she would have to pay 3 to 4 thousand dollars out of pocket after her insurance to do the testing. She can not afford to pay that, she had spoken to financial person about that and could not get any cheaper. Taty Yang OCCA 07/01/2024 11:38 AM Signed Updated in apt notes. STEW Payne Allergies As of Date: 07/01/2024 Noted Allergy Reaction COMPAZINE (PROCHLORPERAZINE EDISY*10/12/2019 14 - Other: See Comments Comments: agitation SHRIMP 10/25/2019 2 - Rash Date Reviewed: 06/25/2024 Reviewed by: Jaxson Gonzalez APRN.CNP - Fully Assessed Reason for Visit: Orders [681] Prescriptions as of 07/01/2024 - levETIRAcetam XR (KEPPRA XR) 500 mg 24 hr tablet Take 1 tablet by mouth daily at bedtime. - promethazine (PHENERGAN) 25 mg tablet 1/2 to 1 po q8h prn headache or nausea - ondansetron orally disintegrating (ZOFRAN ODT) 4 mg disintegrating tablet Take 1 tablet by mouth every 6 hours as needed for nausea/vomiting. - spironolactone (ALDACTONE) 50 mg tablet Take one tablet by mouth once a day before bed. - Drospirenone-Ethinyl Estradiol (AMI 28) 3-0.02 mg per tablet Take 1 tablet by mouth once daily. - cholecalciferol (VITAMIN D3) 50 mcg (2,000 unit) tablet Take 2,000 Units by mouth once daily. Problem List As Of Date 07/01/2024 Noted Resolved Medication overuse headache [G44.40] 10/13/2019 Migraine without aura and without status migrai*10/13/2019 Encounter Status:Closed by TATY YANG on 07/01/24 [facility] CNOVon 06-25-2024 CNOV Office Visit (UCWSTR ) SHAISTA CLARKE ([id number]) 1995 F Date Time Provider Department 06/25/24 3:45 PM JAXSON GONZALEZ During your visit today, we recorded the following information about you: Temperature Pulse Respiration Blood pressure 98.1 degrees 66/minute 18/minute 124/84 Weight 57 kg Jaxson Gonzalez APRN.CNP 06/25/2024 5:58 PM Signed Subjective HPI Nontoxic-appearing female presents urgent care chief complaint puncture wound right foot. Duration of symptoms 20 minutes. Associated symptoms puncture wound right foot. Patient states was outside when she stepped on a board with a nail in it. Nail penetrated sandal and plantar aspect of right great toe. Did use peroxide. Presents today for evaluation. Denies any other injury. No foreign body sensation. No numbness or tingling toe. Denies chance is not breast-feeding. Overall feels well. Past medical history prescription medications allergies reviewed. .Patient presents with: Puncture Wound: R foot big toe x20 mins, dixon nail PAST MEDICAL HISTORY No date: Migraines No date: Vitamin D insufficiency PAST SURGICAL HISTORY 12/12/2021: PAST SURGICAL HISTORY OF; Left Comment: Michael dixon. [facility] ALLERGIES Compazine [Prochlorperazine Edisylate] and Shrimp MEDICATIONS promethazine (PHENERGAN) 25 mg tablet 1/2 to 1 po q8h prn headache or nausea spironolactone (ALDACTONE) 50 mg tablet Take one tablet by mouth once a day before bed. Drospirenone-Ethinyl Estradiol (AMI 28) 3-0.02 mg per tablet Take 1 tablet by mouth once daily. cholecalciferol (VITAMIN D3) 50 mcg (2,000 unit) tablet Take 2,000 Units by mouth once daily. levETIRAcetam XR (KEPPRA XR) 500 mg 24 hr tablet Take 1 tablet by mouth daily at bedtime. (Patient not taking: Reported on 10/21/2023) ondansetron orally disintegrating (ZOFRAN ODT) 4 mg disintegrating tablet Take 1 tablet by mouth every 6 hours as needed for nausea/vomiting. (Patient not taking: Reported on 07/24/2023) History reviewed. No pertinent family history. Social History Tobacco Use Smoking status: Never Smokeless tobacco: Never Substance Use Topics Alcohol use: Never BP 124/84 Pulse 66 Temp 36.7 ?C (98.1 ?F) Resp 18 Wt 57 kg (125 lb 10.6 oz) LMP (LMP Unknown) SpO2 99% BMI 21.57 kg/m? Review of Systems Constitutional: Negative for chills, fever and malaise/fatigue. HENT: Negative for congestion, ear discharge, ear pain, sinus pain and sore throat. Eyes: Negative for blurred vision, pain, discharge and redness. Respiratory: Negative for cough, hemoptysis, sputum production, shortness of breath, wheezing and stridor. Cardiovascular: Negative for chest pain. Gastrointestinal: Negative for abdominal pain, diarrhea, nausea and vomiting. Musculoskeletal: Negative for myalgias. Puncture wound great toe Skin: Negative for itching and rash. Neurological: Negative for dizziness and headaches. Objective Physical Exam Constitutional: General: She is not in acute distress. Appearance: She is not toxic-appearing. HENT: Head: Normocephalic. Nose: Nose normal. Eyes: Pupils: Pupils are equal, round, and reactive to light. Cardiovascular: Rate and Rhythm: Normal rate. Pulmonary: Effort: Pulmonary effort is normal. No respiratory distress. Musculoskeletal: Cervical back: Normal range of motion. Feet: Comments: Small puncture wound noted highlighted area. Wound appears to be fairly superficial. On palpation no foreign bodies could be appreciated. On visualization under light no foreign bodies could be appreciated. Skin: General: Skin is warm and dry. Neurological: General: No focal deficit present. Mental Status: She is alert. ASSESSMENT/PLAN: 1. Puncture wound of right foot, initial encounter - ICD9: 892.0, ICD10: S91.331A Puncture wound to right foot. Area was cleansed with antimicrobial scrub. Antimicrobial ointment and Band-Aid applied. Prophylactic antibiotic sent to pharmacy. Tetanus updated. Patient was educated on supportive therapies. Patient will follow up with primary care provider as needed. Patient was instructed to immediately proceed to emergency room for any new, worsening, or symptoms lasting longer than anticipated. The patient's clinical presentation is otherwise unremarkable at this time. Based on exam and clinical finding, the patient is stable for discharge. Plan of care was discussed with patient. Patient verbalizes understanding and agrees to plan of care. This note was generated using [employer] software. It may contain errors in wording, punctuation, or spelling. Jaxson Gonzalez APRN.COMPUTER SECURITY MANAGER Allergies As of Date: 06/25/2024 Noted Allergy Reaction COMPAZINE (PROCHLORPERAZINE EDISY*10/12/2019 14 - Other: See Comments Comments: agitation SHRIMP 10/25/2019 2 - Rash Date Reviewed: 06/25/2024 Reviewed b (more content not included)... Normal [facility] Office Visiton 05-06-2024 Follow-up visit [id number] Shaista Clarke 1995 F Date Provider Department Center 05/06/2024 [id number] OCHOA [facility] Family History Problem Relation Age of Onset Hypertension Mother Ovarian cancer Neg Hx Breast cancer Neg Hx Uterine cancer Neg Hx Colon cancer Neg Hx Family Status - Relation Status Age at Mother Alive Neg Hx Father Alive Level of Service:49048 MO PERIODIC PREVENTIVE MED EST PATIENT 18-39 YRS Reason for Visit and Comments: Annual Exam [83] - Annual exam Normal [facility] Progress Noteon 05-06-2024 Progress Note Shaista Clarke 05/[birth year]24 29 y.o. Chief Complaint Patient presents with Annual Exam Annual exam No LMP recorded. Primary Care Physician: MELISSA CARREON MD The patient was seen and examined. She is here for her annual. Pap 2021 wnl. She is concerned about +pelvic pain at vaginal opening with sex/exams only. no std testing desired. Ho endometriosis on ocp continuously with no bleeding. Sp gardasil. Hasnt tried pelvic floor yet. Will call if desires referral HPI : Shaista Clarke is a 29 y.o. female OB History Para Term AB Living 0 0 0 0 0 0 SAB IAB Ectopic Multiple Live Births 0 0 0 0 0 Past Medical History: Diagnosis Date Acne Chest pain Endometriosis Migraines Plantar fasciitis Past Surgical History: Procedure Laterality Date FOOT SURGERY Bilateral plantar faciitis LAPAROSCOPY DIAGNOSTIC / BIOPSY / ASPIRATION / LYSIS endometriosis Family History Problem Relation Name Age of Onset Hypertension Mother Ovarian cancer Neg Hx Breast cancer Neg Hx Uterine cancer Neg Hx Colon cancer Neg Hx Social History Socioeconomic History Marital status: Single Spouse name: Not on file Number of children: Not on file Years of education: Not on file Highest education level: Not on file Occupational History Not on file Tobacco Use Smoking status: Never Smokeless tobacco: Never Substance and Sexual Activity Alcohol use: Yes Drug use: No Sexual activity: Not on file Other Topics Concern Not on file Social History Narrative Not on file Social Determinants of Health Financial Resource Strain: Not on file Food Insecurity: Not on file Transportation Needs: Not on file Physical Activity: Not on file Stress: Not on file Social Connections: Not on file Intimate Partner Violence: Not on file Housing Stability: Not on file MEDICATIONS: Current Outpatient Medications Medication Sig Dispense Refill cholecalciferol (Vitamin D-3) 50 MCG (2000 UT) tablet Take 2,000 Units by mouth in the morning. spironolactone (Aldactone) 50 MG tablet TAKE ONE TABLET EVERY NIGHT WITH A FULL GLASS OF WATER Vestura 3-0.02 MG tablet Take 1 tablet by mouth daily continuously. Vestura 28 tablet 12 No current facility-administered medications for this visit. ALLERGIES: Allergies as of 05/06/2024 - Reviewed 05/06/2024 Allergen Reaction Noted Prochlorperazine Anxiety, Other, Shortness of breath, and Unknown 05/20/2018 Shrimp extract Rash 10/25/2019 Shrimp flavor Hives, Itching, and Rash 03/29/2023 Gynecologic History: Menstrual History: No LMP recorded. Review of Systems Constitutional: Negative for fatigue, fever and unexpected weight change. HENT: Negative for congestion and sore throat. Eyes: Negative for discharge and visual disturbance. Respiratory: Negative for cough and shortness of breath. Cardiovascular: Negative for chest pain and leg swelling. Gastrointestinal: Negative for abdominal pain, constipation, diarrhea, nausea and vomiting. Genitourinary: Negative for dysuria. Musculoskeletal: Negative for arthralgias and back pain. Skin: Negative for rash. Neurological: Negative for weakness and headaches. Psychiatric/Behavioral : Negative for dysphoric mood. The patient is not nervous/anxious. PHYSICAL Exam: : Vitals: 05/06/24 0933 BP: 111/73 Pulse: 90 Weight: 127 lb (57.6 kg) Physical Exam Constitutional: General: She is not in acute distress. Appearance: Normal appearance. HENT: Head: Normocephalic and atraumatic. Right Ear: External ear normal. Left Ear: External ear normal. Nose: Nose normal. Eyes: Conjunctiva/sclera: Conjunctivae normal. Neck: Thyroid: No thyromegaly. Cardiovascular: Rate and Rhythm: Normal rate. Pulmonary: Effort: Pulmonary effort is normal. No respiratory distress. Chest: Breasts: Right: No mass, nipple discharge, skin change or tenderness. Left: No mass, nipple discharge, skin change or tenderness. Abdominal: General: There is no distension. Palpations: Abdomen is soft. Tenderness: There is no abdominal tenderness. Genitourinary: General: Normal vulva. Pubic Area: No rash. Labia: Right: No rash or lesion. Left: No rash or lesion. Vagina: No vaginal discharge or bleeding. Cervix: No cervical motion tenderness. Uterus: Not enlarged and not tender. Adnexa: Right: No mass or tenderness. Left: No mass or tenderness. Rectum: Normal. Musculoskeletal: General: No swelling. Normal range of motion. Cervical back: Normal range of motion. Right lower leg: No edema. Left lower leg: No edema. Skin: General: Skin is warm and dry. Neurological: Mental Status: She is alert and oriented to person, place, and time. Mental status is at baseline. Psychiatric: Mood and Affect: Mood no (more content not included)... Normal [facility] 36on 05-01-[address] [facility] 36 S: Patient called [facility] clinical access center refill line to request refill on the Vestura 3-0.02 MG tablet B:Last filled 04/07/24 for #28 with no refills by Gabriela A:Last annual: 03/29/23 NV:05/06/24 R:Pended medication and sent to the provider for approval. Normal [facility] XR Nasal bones 3 Viewson IMPRESSION: No radiographic evidence of acute displaced nasal bone fracture. Reheat Furnace Operator: DI Transcribe Date/Time: Oct 21 2023 10:27A Dictated by : SOBIA WEST MD This examination was interpreted and the report reviewed and electronically signed by: SOBIA WEST MD on Oct 21 2023 10:27AM [facility] DIVISION OF RADIOLOGY * * *Final Report* * * DATE OF EXAM: Oct 21 2023 10:21AM WOX [id number] - XR NASAL BONES 3V PA/LAT X2 / PROCEDURE REASON: Nasal injury, initial encounter * * * * Physician Interpretation * * * * TITLE: XR NASAL BONES 3V PA/LAT X2 CLINICAL INDICATION: The nasal injury TECHNIQUE: 3 view radiographic study of the nasal bone COMPARISON: None FINDINGS: No acute displaced nasal bone fracture identified. Visualized paranasal sinuses grossly clear. DIVISION OF RADIOLOGY Provider, [facility] - 10/21/2023 * * *Final Report* * * DATE OF EXAM: Oct 21 2023 10:21AM [id number] [id number] - XR NASAL BONES 3V PA/LAT X2 / PROCEDURE REASON: Nasal injury, initial encounter * * * * Physician Interpretation * * * * TITLE: XR NASAL BONES 3V PA/LAT X2 CLINICAL INDICATION: The nasal injury TECHNIQUE: 3 view radiographic study of the nasal bone COMPARISON: None FINDINGS: No acute displaced nasal bone fracture identified. Visualized paranasal sinuses grossly clear. IMPRESSION IMPRESSION: No radiographic evidence of acute displaced nasal bone fracture. Reheat Furnace Operator[facility] Transcribe Date/Time: Oct 21 2023 10:27A Dictated by : SOBIA WEST MD This examination was interpreted and the report reviewed and electronically signed by: SOBIA WEST MD on Oct 21 2023 10:27AM EST [facility] Radiology Study observation (narrative) [facility] XR Nasal bones 3 ViewsOrdere d By: [facility] Provider on 10-21-2023 [facility] Sureswab(R) Advanced Vaginit is Plus, TMA (Quest)on 03-30-2023 C. glabrata RNA JC+probe Ql (Vag fld) Not detected NOT DETECTED [facility] Comment on above: Radha species C. albicans, C. tropicalis, C. parapsilosis, and/or C. dubliniensis can be detected, but not differentiated, in the Radha spp. result. C. trachomatis rRNA JC+probe Ql (Unsp spec) Not detected NOT DETECTED [facility] Radha sp rRNA Probe Ql (Vag fld) Not detected NOT DETECTED [facility] Lactobacillus crispatus+gasseri+ jensenii + Gardnerella vaginalis + Atopobium vaginae rRNA JC+probe Ql (Vag fld) Negative NEGATIVE [facility] N. gonorrhoeae rRNA JC+probe Ql (Unsp spec) Not detected NOT DETECTED [facility] Comment on above: For additional infor alexis, please refer to [email or web address] (This link is being provided for information/ educational purposes only.) T. vaginalis rRNA JC+probe Ql (Unsp spec) Not detected NOT DETECTED [facility] HCG ( test) Ql (U)o n 03-29-2023 Beta HCG ( test) Ql (U) . [facility] NEGATIVE QC Pass [facility] POSITIVE QC Pass [facility] Preg Test, Ur Negative Negative [facility] HCG,BETA-QUANTITATIVEon 02-23 HCG,BETA-QUANTITAT GERARDO <2 Normal [facility] Comment on above: Result Comment: . Total HCG measurement is performed using the Ruth EvolveMol Access Immunoassay which detects intact HCG and free beta HCG subunit. . This test is not indicated for use as a tumor marker. HCG testing is performed using a different test methodology at [facility] than other [facility]. Direct result comparison should only be made within the same method. REF VALUES NON FEMALE <5 MALES <5 Performed By: #### H CGQU #### [place] [address] Provider Note - ED v3on 02-23 Provider Note - ED v3 Provider Note: Chart Review: ED NOTES ED NOTES: Source of Information: Patient. EMR was reviewed for previous records. HPI: Migraine headache. This 27-year-old white female presents to the ED with complaints of migraine headache associated nausea and vomiting states the symptoms began this afternoon between 2 to 3 PM. She states that 2 hours prior to arrival to the ED she did take Zofran and Benadryl. She states that the migraine started like her typical migraine with associated nausea vomiting she states the pain is located in the left judaism area. She does admit to photophobia and phonophobia. Patient is uncertain whether or not she could be . Patient does admit to previous neuroimaging and has been taken care of by a neurologist previously she states that she has been on multiple medications in the past without any medications that really worked for her headache symptoms. She states that nothing seems to make her symptoms worse but she states that she has gotten a migraine headache in the past with improvement of symptoms previously. PMH: Headaches, endometriosis, ankle injury PSH: Laparoscopy x1, ankle surgery x2 Social Hx: The patient denies any use of tobacco, alcohol or illicit drugs. Fam: MEDS: Benadryl, Zofran ALLERGIES: Compazine PHYSICAL EXAM: General: Patient alert, awake, oriented X3, appears to be in mild distress, nontoxic, cooperative, photophobic Skin: Warm. Dry. Intact. No rash. Eyes: PEARTLA, EOMIs intact, sclera white, conjunctiva clear HEENT: Atraumatic. Normo-cephalic. Oral and nasal mucosa pink and moist. Neck: Supple without meningismus, no lymphadenopathy. CV: Regular rate and rhythm without murmurs, heaves, lifts or thrills. Respiratory: Nonlabored breathing. There are no retractions or tachypnea. Lungs are clear to auscultation bilaterally. GI: Soft, nontender, without gross distention, bowel sounds present in all 4 quadrants. There is no pulsatile masses. There is no CVA tenderness. No rebound, rigidity or guarding. MUSC: There is no joint swelling or bony tenderness on exam. Neuro: Cranial nerves II - XII grossly intact. No focal neurologic deficits are noted on exam. Lower extremities: There is no peripheral edema bilaterally, negative Homans sign. No palpable cords. Distal pulses are +2/4 and present in both lower extremities. Psych: Maintains eye contact. Cooperative. ED course: Patient was ordered IV Reglan, Benadryl and Toradol and IV fluids. We were awaiting the patient's test prior to treating with IV Toradol. test was negative and patient refused the Toradol because she was feeling better with IV Reglan and Benadryl. I then reassessed her she states that she is feeling much better and over the hump and wants to go home and had contacted her father to come pick her up from the ED. She was discharged home in stable satisfactory condition she was referred back to her primary care doctor for follow-up. This chart was dictated with the use of [employer] software within the framework of the current electronic medical records software. Attempts were made to edit in real time, given time constraints there is the potential for inaccuracies in my dictation. Chad Walsh, DO HISTORY OF PRESENTING ILLNESS SHAISTA is a 27 year old Female and was seen by me at 03-Mar-2023 23:32 for a chief complaint of migraine (Patient has history of migraine, same pattern as previous, has been treated before with headache cocktail per patient.)(1). Triage Information: Most recent Vital Sign Value Date Temp (F): 97.5 03-03-2023 23:37 Temp (C): 36.4 03-03-2023 23:37 Heart Rate (beats/min): 104 03-03-2023 23:37 Respirations (breaths/min): 18 03-03-2023 23:37 SpO2 (%): 98 03-03-2023 23:37 BP Systolic (mm Hg): 129 03-03-2023 23:37 BP Diastolic (mm Hg): 81 03-03-2023 23:37 PAST MEDICAL HISTORY CURRENT OR FORMER SUBSTANCE USE: Tobacco/Nicotine Use: never smoker Alcohol Use: (Patient admits to drinking alcohol every 1 to 2 weeks.) Drug Use: denies,ALLERGIES/INTOL ERANCES: Allergy Allergen: Compazine Type: Drug Reaction: Unknown HEALTH HISTORY: No documented data. OUTPATIENT MEDICATIONS: Home Medications Review Status for Reconciliation: N/A Med Status: N/A No documented data. SIGNIFICANT EVENTS: No documented data (more content not included)... Normal [facility] Triage - EDon 03-04-2023 Triage - ED Quick Triage: Are You maybe Have You Given In The Last 6 Weeksno Are You Currently Breastfeedingno The patient and/or guardian verbally acknowledges placement for services into the following (when Urgent Care Service hours are operating):emergency department Chart Review: ARRIVAL INFORMATION Mode of Arrival: private vehicle CHIEF COMPLAINT SHAISTA CLARKE is a Female patient with a chief complaint of migraine (Patient has history of migraine, same pattern as previous, has been treated before with headache cocktail per patient.). Triage Date/Time: 03-Mar-2023 23:37 MARVIN: 3 Pain Rating (0-10): 10 = Severe Vital Signs: Temperature: 97.5F ( 36.4C) Blood Pressure: 129/81 Mean: Heart Rate: 104 Respiratory Rate: 18 Pulse Oximetry: 98% Height: 5 feet 5.00 inches. 165.1 CM Weight: 124.3 pounds. Calculated 56.4 kg. Calculated BMI (kg/m2): 20.691 Calculated BSA (m2) 1.61 Luna Coma Scale: Best Eye Response: (E4) spontaneous Best Motor Response: (M6) obeys commands Best Verbal Response: (V5) oriented Luna Score: 15 Last menstrual period: unknown Patient has homicidal thoughts: no Risk Screens Suicide Risk Screen In the Past Month: Have you wished you were or wished you could go to sleep and not wake up no In the Past Month: Have you had any actual thoughts of killing yourself no In Your Lifetime: Have you ever done anything, started to do anything, or prepared to do anything to end your life no [place] Fall Scale Screening Has the patient fallen before (or is the patient in the ED as a result of a fall) has not had a fall Does the patient have an impaired gait does not have impaired gait Is the patient cognitively impaired not cognitively impaired Interventions: [place] Fall Interventions: LOW INTERVENTIONS: *patient oriented to surroundings and call system, * patient/family falls education completed and documented, *patients fall status communicated during bedside handoff, *whiteboard updated, *mode of toileting discussed with patient, *bed in low position with brakes locked, *call light in reach, * non-skid footwear TRAVEL HISTORY Travel History Coronavirus Screening: no exposure or symptoms Travel Exposure History: NO travel to International locations in the past 30 days PAIN Pain Scale Used: MANJINDER Pain Rating (0-10): 10 = Severe Past Medical History: Past Medical History Reviewedyes Electronic Signatures: Haile Domínguez (BELEN) (Signed 03-Mar-2023 23:41) Entered: Risk Screens, Pain, Travel History, Chart Review, Scores, Past Medical History Authored: Quick Triage, Risk Screens, Pain, Travel History, Chart Review, Scores, Past Medical History Last Updated: 03-Mar-2023 23:41 by Haile Domínguez (BELEN) [facility] H. pylori Ag IA Ql (Stl)on 0 06-25-2022 Microorganism or agent identified Nom (Unsp spec) Negative Negative for H. Pylori antigen by EIA [facility] CBC panel Auto (Bld)on 06-21 Erythrocyte distribution width (RBC) [Ratio] 11.8 % 11.5 - 15.0 % [facility] Hematocrit (Bld) [Volume fraction] 38.4 % 36.0 - 46.0 % [facility] Hemoglobin (Bld) [Mass/Vol] 12.9 g/dL 11.5 - 15.5 g/dL [facility] MCH (RBC) [Entitic mass] 31.0 pg 26.0 - 34.0 pg [facility] MCHC (RBC) [Mass/Vol] 33.6 g/dL 30.5 - 36.0 g/dL [facility] MCV (RBC) [Entitic vol] 92.3 fL 80.0 - 100.0 fL [facility] Nucleated RBC (Bld) [#/Vol] 10*3/uL <0.01 k/uL [facility] Platelet mean volume (Bld) [Entitic vol] 9.1 fL 9.0 - 12.7 fL [facility] Platelets (Bld) [#/Vol] 212 10*3/uL 150 - 400 k/uL [facility] RBC (Bld) [#/Vol] 4.16 10*6/uL 3.90 - 5.2 0 m/uL [facility] WBC (Bld) [#/Vol] 5.43 10*3/uL 3.70 - 11. 00 k/uL [facility] Comprehensive metabolic 2000 panelon 06-21-2022 Albumin [Mass/Vol] 4.0 g/dL 3.9 - 4.9 g/dL [facility] ALP [Catalytic activity/Vol] 39 U/L 34 - 123 U/L [facility] ALT [Catalytic activity/Vol] 13 U/L 7 - 38 U/L [facility] Anion gap [Moles/Vol] 10 mmol/L 9 - 18 mmol/L [facility] AST [Catalytic activity/Vol] 16 U/L 13 - 35 U/L [facility] Bilirubin [Mass/Vol] 0.3 mg/dL 0.2 - 1.3 mg/dL [facility] Calcium [Mass/Vol] 8.8 mg/dL 8.5 - 10. 2 mg/dL [facility] Chloride [Moles/Vol] 105 mmol/L 97 - 105 mmol/L [facility] CO2 [Moles/Vol] 23 mmol/L 22 - 30 mmol/L [facility] Creatinine [Mass/Vol] 0.77 mg/dL 0.58 - 0.96 mg/dL [facility] Estimated Glomerular Filtration Rate 109 mL/min/1.73m >=60 mL/min/1.73m [facility] Glucose [Mass/Vol] 94 mg/dL 74 - 99 mg/dL [facility] Potassium [Moles/Vol] 3.7 mmol/L 3.7 - 5.1 mmol/L [facility] Protein [Mass/Vol] 6.6 g/dL 6.3 - 8.0 g/dL [facility] Sodium [Moles/Vol] 138 mmol/L 136 - 144 mmol/L [facility] Urea nitrogen [Mass/Vol] 11 mg/dL 7 - 21 mg/dL [facility] LIPASE BLDon 06-21-2022 Lipase [Catalytic activity/Vol] 55 U/L 16 - 61 U/L [facility] UA DIP, URINE (POC)on 2021 BILIRUBIN UA (POCT) Negative Negative [facility] CLARITY UA (POCT) Clear [facility] [place] COLOR UA (POCT) Yellow [facility] GLUCOSE UA (POCT) Negative Negative mg/dL [facility] HEMOGLOBIN/BLOOD UA (POCT) Negative Negative [facility] KETONE UA (POCT) Negative Negative mg/dL [facility] LEUKOCYTES UA (POCT) Negative Negative [facility] NITRITE UA (POCT) Negative Negative [facility] [place] PH UA (POCT) 7.0 4.5 - 8.0 [facility] Protein Ql (U) Negative Negative mg/dL [facility] SPECIFIC GRAVITY UA (POCT) 1.020 1.005 - 1.030 [facility] UROBILINOGEN UA (POCT) 0.2 E.U./dL Normal E.U./dL [facility] Clinical Summary: Carine darrel 03-12-2022 MC75 OP Visit Invalid Interpretation Code [facility] Work Phone: Office Visiton 08-02-2017 Documentation of current medications (procedure) Done Invalid Interpretation Code [facility] Work Phone: Protein mass conc Done [facility] Work Phone: Tobacco smoking status NHIS Never smoker [facility] Work Phone: Tobacco use CPHS Never smoker Invalid Interpretation Code [facility] Work Phone: Progress Noteon 06-24-2017 Glacing Machine Tender Authentication Interface Message Text Patient ID: Shaista Clarke is a 22 y.o. female. Her chief complaint(s)include: Ankle Pain.Assessment:1. Acute right ankle painPlan:Shaista was seen today for ankle pain.Diagnoses and all orders for this visit:Acute right ankle pain- naproxen (NAPROSYN) 250 MG tablet; Take 1 Tab (250 mg) by mouth 2 timesdailyUnclear etiology of the ankle pain. Will do Naprosyn for 7 d, also also rest,elevate, and ice (for 3 d). Recheck if not getting better.No Follow-up on file.Subjective:HPI Comments: Pain in the right ankle.Started last night; it got stiff while watching TV,.and then sore too. Thenthis morning it was painful, stiff, and swelling on the outside of the anklethis afternoon.Yesterday she was laid back and no unusual activity. 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 She has had noknown injury.No prev ankle sprain. No H/O fracture.The patient's reason for visit is ankle pain.Ankle PainThe duration has been 1 day.Associated symptoms include swelling (mild, on the outer ankle). Associatedsymptoms do not include joint swelling, erythema, warmth, bruising andnumbness/tingling. There has been no prior management. There have been noprevious diagnostic tests.Primary Care Review of SystemsObjective:Physi krystyna ExamConstitutional: She appears well.Musculoskeletal:R ight ankle - limited ROM due to pain; no discoloration, bruising, or deformity;foot and toes normal; heel nl and intact Achilles; LE normal; no tenderness ofeighte malleolus; the outer one has slight swelling and some tenderness distalto the malleolus and toward the foot.Neurological: She is alert. Normal [facility] Progress Noteon 06-19-2017 Glacing Machine Tender Authentication Interface Message Text Patient ID: Shaista Clarke is a 22 y.o. female. Her chief complaint(s)include: Back Pain.Assessment:1. Chronic midline thoracic back painPlan:Shaista was seen today for back pain.Diagnoses and all orders for this visit:Chronic midline thoracic back pain- X-Ray Thoracic Spine 3 Views; Future- Referral to Orthopedic SurgeryDue to patient having continued pain that is worsening and not responding toconservative treatment, will have patient be seen by orthopedic surgery forfurther evaluation. Xray of thoracic spine was normal.No Follow-up on file.Subjective:The patient's reason for visit is back pain. She is unaccompanied.Back PainThe onset has been precipitated by a specific incident (patient was riding horseand horse stumbled and patient went over the horses head and landed on her sidebut twisted her back. Did not hear a crack or feel a pop (that she canrecall)). The duration has been 1 year and 11 months. The pattern ispersistent. The course is worsening. The location of pain/injury in spine ismid back.Mechanism of injury: fall.The pain is characterized as a dull ache and throbbing. The pain severity isdescribed as moderate (to severe). Pain is aggravated by flexing, twisting,sitting and walking/running. (Riding the horse, riding in a car for longperiod, bending over, lying on her side).Associated symptoms include(s) fatigue, muscle spasms, painful ROM (at times),decreased ROM, stiffness, numbness (right big toe will get numb at times) andmuscle weakness (sometimes). Patient denies fever, swelling, popping/clicking,warmt h, erythema, bruising, paresthesias, radiating pain and loss ofbowel/bladder control. (PT, chiropractor, technical trainer (strength exercises,heat), dry needling) Previous visits include(s) physical therapy.There have been no previous diagnostic tests.Review of SystemsMusculoskeletal : Positive for back pain.Objective:Physica l ExamConstitutional: She appears well. She is active. No distress.HENT:Head: Atraumatic.Right Ear: Tympanic membrane and external ear normal.Left Ear: Tympanic membrane and external ear normal.Nose: Nose normal. No nasal deformity or nasal discharge.Mouth/Throat : Throat is not red. Mucous membranes are moist. Dentition isnormal. Oropharynx is clear.Eyes: Conjunctivae are normal.Neck: Normal range of motion. Neck supple. No adenopathy.Cardiovascu lar: Normal rate, regular rhythm, S1 normal and S2 normal.No murmur heard.Pulses: Femoral pulses are 2+ on the right side, and 2+ on the left sidePulmonary/Chest: Breath sounds normal. No respiratory distress. Exhibits nodeformity.Abdominal: Soft. Bowel sounds are normal. She exhibits no distension and nomass. There is no hepatosplenomegaly. There is no tenderness.Musculoskel etal: She exhibits tenderness (tenderness with palpation ofthoracic/upper lumbar area with an increase in discomfort around 3rd/4ththoracic vertebrae, pain with flexion, extension, rotation and side bends.,mild decrease in range of motion).Neurological: She has normal strength and normal reflexes. Coordination and gaitnormal.Skin: No rash noted. No pallor. Skin is warm.Vitals reviewed: Temperature 36.3 C (97.4 F), temperature source Temporal,weight 62.6 kg. Normal [facility] Office Visiton 02-07-2016 Documentation of current medications (procedure) Done Invalid Interpretation Code [facility] Work Phone: Tobacco use HS Never smoker Invalid Interpretation Code [facility] Work Phone: Vital Signs Date Time Vital Sign Value Performing Clinician Facility 04-05-2025 15:46-0400 Body mass index (BMI) [Ratio] 23 kg/m2 Wayne Burrell Jr., MD Work Phone: [facility] 04-05-2025 15:46-0400 Body weight 60.78 kg Wayne Burrell Jr., MD Work Phone: [facility] 04-05-2025 15:46-0400 Diastolic blood pressure 68 mm[Hg] Wayne Burrell Jr., MD Work Phone: [facility] 04-05-2025 15:46-0400 Heart rate 66 /min Wayne Burrell Jr., MD Work Phone: [facility] 04-05-2025 15:46-0400 Respiratory rate 12 /min Wayne Burrell Jr., MD Work Phone: [facility] 04-05-2025 15:46-0400 SaO2% (BldA) [Mass fraction] 99 % Wayne Burrell Jr., MD Work Phone: [facility] 04-05-2025 15:46-0400 Systolic blood pressure 102 mm[Hg] Wayne Burrell Jr., MD Work Phone: [facility] 02-25-2025 15:10-0400 Body mass index (BMI) [Ratio] 23.34 kg/m2 Brenda Freeman MUFFLE WORKER.COMPUTER SECURITY MANAGER Work Phone: [facility] 02-25-2025 15:10-0400 Body weight 61.69 kg Brenda Freeman MUFFLE WORKER.COMPUTER SECURITY MANAGER Work Phone: [facility] 02-25-2025 15:10-0400 Diastolic blood pressure 69 mm[Hg] Brenda Freeman MUFFLE WORKER.COMPUTER SECURITY MANAGER Work Phone: [facility] 02-25-2025 15:10-0400 Heart rate 55 /min Brenda Freeman MUFFLE WORKER.COMPUTER SECURITY MANAGER Work Phone: [facility] 02-25-2025 15:10-0400 Respiratory rate 18 /min Brenda Freeman MUFFLE WORKER.COMPUTER SECURITY MANAGER Work Phone: [facility] 02-25-2025 15:10-0400 SaO2% (BldA) [Mass fraction] 98 % Brenda Freeman MUFFLE WORKER.COMPUTER SECURITY MANAGER Work Phone: [facility] 02-25-2025 15:10-0400 Systolic blood pressure 112 mm[Hg] Brenda Freeman MUFFLE WORKER.COMPUTER SECURITY MANAGER Work Phone: [facility] 12-28-2024 16:42-0500 Body mass index (BMI) [Ratio] 23.48 kg/m2 Wayne Burrell Jr., MD Work Phone: [facility] 12-28-2024 16:42-0500 Body weight 62.05 kg Wayne Burrell Jr., MD Work Phone: [facility] 12-28-2024 16:42-0500 Diastolic blood pressure 75 mm[Hg] Wayne Burrell Jr., MD Work Phone: [facility] 12-28-2024 16:42-0500 Heart rate 69 /min Wayne Burrell Jr., MD Work Phone: [facility] 12-28-2024 16:42-0500 SaO2% (BldA) [Mass fraction] 98 % Wayne Burrell Jr., MD Work Phone: [facility] 12-28-2024 16:42-0500 Systolic blood pressure 114 mm[Hg] Wayne Burrell Jr., MD Work Phone: [facility] 12-05-2024 13:50-0500 Body mass index (BMI) [Ratio] 23.27 kg/m2 Michael Rebollar MD Work Phone: [facility] 12-05-2024 13:50-0500 Body temperature 99 [degF] Michael Rebollar MD Work Phone: [facility] 12-05-2024 13:50-0500 Body weight 61.5 kg Michael Rebollar MD Work Phone: [facility] 12-05-2024 13:50-0500 Diastolic blood pressure 80 mm[Hg] Michael Rebollar MD Work Phone: [facility] 12-05-2024 13:50-0500 Heart rate 85 /min Michael Rebollar MD Work Phone: [facility] 12-05-2024 13:50-0500 Respiratory rate 20 /min Michael Rebollar MD Work Phone: [facility] 12-05-2024 13:50-0500 SaO2% (BldA) [Mass fraction] 100 % Michael Rebollar MD Work Phone: [facility] 12-05-2024 13:50-0500 Systolic blood pressure 120 mm[Hg] Michael Rebollar MD Work Phone: [facility] 08-14-2024 09:08-0400 Body mass index (BMI) [Ratio] 21.73 kg/m2 Wayne Burrell Jr., MD Work Phone: [facility] 08-14-2024 09:08-0400 Body weight 57.42 kg Wayne Burrell Jr., MD Work Phone: [facility] 08-14-2024 09:08-0400 Diastolic blood pressure 75 mm[Hg] Wayne Burrell Jr., MD Work Phone: [facility] 08-14-2024 09:08-0400 Heart rate 94 /min Wayne Burrell Jr., MD Work Phone: [facility] 08-14-2024 09:08-0400 SaO2% (BldA) [Mass fraction] 100 % Wayne Burrell Jr., MD Work Phone: [facility] 08-14-2024 09:08-0400 Systolic blood pressure 108 mm[Hg] Wayne Burrell Jr., MD Work Phone: [facility] 08-10-2024 16:26-0400 Body mass index (BMI) [Ratio] 21.91 kg/m2 Artem Hdz APRN.COMPUTER SECURITY MANAGER Work Phone: [facility] 08-10-2024 16:26-0400 Body weight 57.9 kg Artem Hdz APRN.COMPUTER SECURITY MANAGER Work Phone: [facility] 08-10-2024 16:26-0400 Diastolic blood pressure 76 mm[Hg] Artem Hdz APRN.COMPUTER SECURITY MANAGER Work Phone: [facility] 08-10-2024 16:26-0400 Heart rate 82 /min Artem Hdz APRN.COMPUTER SECURITY MANAGER Work Phone: [facility] 08-10-2024 16:26-0400 Respiratory rate 16 /min Artem Hdz APRN.COMPUTER SECURITY MANAGER Work Phone: [facility] 08-10-2024 16:26-0400 SaO2% (BldA) [Mass fraction] 99 % Artem Hdz APRN.COMPUTER SECURITY MANAGER Work Phone: [facility] 08-10-2024 16:26-0400 Systolic blood pressure 106 mm[Hg] Artem Hdz APRN.COMPUTER SECURITY MANAGER Work Phone: [facility] 07-06-2024 16:28-0400 Body temperature 97.52 [degF] DR MELVI CAMARENA MD [facility] 07-06-2024 16:28-0400 Body weight 56.[address] MELVI CAMARENA MD [facility] 07-06-2024 16:28-0400 Diastolic Blood Pressure Non-Invasive 75 mm[Hg] DR MELVI CAMARENA MD [facility] 07-06-2024 16:28-0400 Heart rate 93 /min DR MELVI CAMARENA MD [facility] 07-06-2024 16:28-0400 Respiratory rate 16 /min DR MELVI CAMARENA MD [facility] 07-06-2024 16:28-0400 Systolic Blood Pressure Non-Invasive 119 mm[Hg] DR MELVI CAMARENA MD [facility] 06-25-2024 15:44-0400 Body mass index (BMI) [Ratio] 21.57 kg/m2 Jaxson Gonzalez APRN.COMPUTER SECURITY MANAGER Work Phone: [facility] 06-25-2024 15:44-0400 Body temperature 98.1 [degF] Jaxson Gonzalez APRN.COMPUTER SECURITY MANAGER Work Phone: [facility] 06-25-2024 15:44-0400 Body weight 57 kg [facility] MUFFLE WORKER.COMPUTER SECURITY MANAGER Work Phone: [facility] 06-25-2024 15:44-0400 Diastolic blood pressure 84 mm[Hg] [facility] MUFFLE WORKER.COMPUTER SECURITY MANAGER Work Phone: [facility] 06-25-2024 15:44-0400 Heart rate 66 /min [facility] MUFFLE WORKER.COMPUTER SECURITY MANAGER Work Phone: [facility] 06-25-2024 15:44-0400 Respiratory rate 18 /min [facility] MUFFLE WORKER.COMPUTER SECURITY MANAGER Work Phone: [facility] 06-25-2024 15:44-0400 SaO2% (BldA) [Mass fraction] 99 % [facility] MUFFLE WORKER.COMPUTER SECURITY MANAGER Work Phone: [facility] 06-25-2024 15:44-0400 Systolic blood pressure 124 mm[Hg] [facility] MUFFLE WORKER.COMPUTER SECURITY MANAGER Work Phone: [facility] 05-06-2024 09:33-0400 Body mass index (BMI) [Ratio] 21.13 kg/m2 Flex Ochoa MD Work Phone: [facility] [employer] 05-06-2024 09:33-0400 Body weight 57.61 kg Flex Ochoa MD Work Phone: [facility] [employer] 05-06-2024 09:33-0400 Diastolic blood pressure 73 mm[Hg] Flex Ochoa MD Work Phone: [facility] 05-06-2024 09:33-0400 Heart rate 90 /min Flex Ochoa MD Work Phone: [facility] 05-06-2024 09:33-0400 Systolic blood pressure 111 mm[Hg] Flex Ochoa MD Work Phone: [facility] [employer] 07-24-2023 14:55-0400 Body height 165.1 cm Jaxson José MD Work Phone: [facility] 07-24-2023 14:55-0400 Body mass index (BMI) [Ratio] 21.63 kg/m2 Jaxson José MD Work Phone: [facility] 07-24-2023 14:55-0400 Body weight 58.97 kg Jaxson José MD Work Phone: [facility] 07-24-2023 08:04-0400 Body height 162.6 cm Wayne Burrell Jr., MD Work Phone: [facility] 07-24-2023 08:04-0400 Body weight 59.1 kg Wayne Burrell Jr., MD Work Phone: [facility] 07-24-2023 08:04-0400 Diastolic blood pressure 69 mm[Hg] Wayne Burrell Jr., MD Work Phone: [facility] 07-24-2023 08:04-0400 Heart rate 75 /min Wayne Burrell Jr., MD Work Phone: [facility] 07-24-2023 08:04-0400 SaO2% (BldA) [Mass fraction] 99 % Wayne Burrell Jr., MD Work Phone: [facility] 07-24-2023 08:04-0400 Systolic blood pressure 105 mm[Hg] Wayne Burrell Jr., MD Work Phone: [facility] 03-29-2023 08:31-0400 Body mass index (BMI) [Ratio] 21.28 kg/m2 Flex Ochoa MD Work Phone: [facility] 03-29-2023 08:31-0400 Body weight 56.25 kg Flex Ochoa MD Work Phone: [facility] 03-29-2023 08:31-0400 Diastolic blood pressure 70 mm[Hg] Flex Ochoa MD Work Phone: [facility] 03-29-2023 08:31-0400 Heart rate 90 /min Flex Ochoa MD Work Phone: [facility] 03-29-2023 08:31-0400 Systolic blood pressure 116 mm[Hg] Flex Ochoa MD Work Phone: [facility] 01-18-2023 07:03-0500 Body temperature 98.2 [degF] Alba Waldrop PA-C Work Phone: [facility] 01-18-2023 07:03-0500 Body weight 58.06 kg Alba Waldrop PA-C Work Phone: [facility] 01-18-2023 07:03-0500 Diastolic blood pressure 66 mm[Hg] Alba Waldrop PA-C Work Phone: [facility] 01-18-2023 07:03-0500 Heart rate 103 /min Alba Waldrop PA-C Work Phone: [facility] 01-18-2023 07:03-0500 Respiratory rate 16 /min Alba Waldrop PA-C Work Phone: [facility] 01-18-2023 07:03-0500 SaO2% (BldA) [Mass fraction] 99 % Alba Waldrop PA-C Work Phone: [facility] 01-18-2023 07:03-0500 Systolic blood pressure 98 mm[Hg] Alba Waldrop PA-C Work Phone: [facility] 10-19-2022 09:59-0500 Body temperature 97.81 [degF] NA Hubbard PA-C Work Phone: [facility] 10-19-2022 09:59-0500 Body weight 57.15 kg NA Hubbard PA-C Work Phone: [facility] 10-19-2022 09:59-0500 Diastolic blood pressure 66 mm[Hg] NA Hubbard PA-C Work Phone: [facility] 10-19-2022 09:59-0500 Heart rate 101 /min NA Hubbard PA-C Work Phone: [facility] 10-19-2022 09:59-0500 Respiratory rate 16 /min NA Hubbard PA-C Work Phone: [facility] 10-19-2022 09:59-0500 SaO2% (BldA) [Mass fraction] 99 % NA Hubbard PA-C Work Phone: [facility] 10-19-2022 09:59-0500 Systolic blood pressure 166 mm[Hg] NA Hubbard PA-C Work Phone: [facility] 10-17-2022 13:50-0500 Body temperature 99.7 [degF] Christel Podlogar MUFFLE WORKER.COMPUTER SECURITY MANAGER Work Phone: [facility] 10-17-2022 13:50-0500 Body weight 57.7 kg Christel Podlogar MUFFLE WORKER.COMPUTER SECURITY MANAGER Work Phone: [facility] 10-17-2022 13:50-0500 Diastolic blood pressure 70 mm[Hg] Christel Podlogar MUFFLE WORKER.COMPUTER SECURITY MANAGER Work Phone: [facility] 10-17-2022 13:50-0500 Heart rate 85 /min Christel Podlogar MUFFLE WORKER.COMPUTER SECURITY MANAGER Work Phone: [facility] 10-17-2022 13:50-0500 Respiratory rate 16 /min Christel Podlogar MUFFLE WORKER.COMPUTER SECURITY MANAGER Work Phone: [facility] 10-17-2022 13:50-0500 SaO2% (BldA) [Mass fraction] 100 % Christel Podlogar MUFFLE WORKER.COMPUTER SECURITY MANAGER Work Phone: [facility] 10-17-2022 13:50-0500 Systolic blood pressure 112 mm[Hg] Christel Podlogar MUFFLE WORKER.COMPUTER SECURITY MANAGER Work Phone: [facility] 08-22-2022 17:46-0400 Body weight 60.33 kg Karson Rae MD Work Phone: [facility] 08-22-2022 17:46-0400 Diastolic blood pressure 68 mm[Hg] Karson Rae MD Work Phone: [facility] 08-22-2022 17:46-0400 Heart rate 73 /min Karson Rae MD Work Phone: [facility] 08-22-2022 17:46-0400 Systolic blood pressure 114 mm[Hg] Karson Rae MD Work Phone: [facility] 06-20-2022 16:47-0400 Body temperature 99 [degF] Megha Villalobos MD Work Phone: [facility] 06-20-2022 16:47-0400 Body weight 60.78 kg Megha Villalobos MD Work Phone: [facility] 06-20-2022 16:47-0400 Diastolic blood pressure 70 mm[Hg] Megha Villalobos MD Work Phone: [facility] 06-20-2022 16:47-0400 Heart rate 72 /min Megha Villalobos MD Work Phone: [facility] 06-20-2022 16:47-0400 Respiratory rate 16 /min Megha Villalobos MD Work Phone: [facility] 06-20-2022 16:47-0400 Systolic blood pressure 120 mm[Hg] Megha Villalobos MD Work Phone: [facility] 03-16-2022 12:47-0400 Body temperature 98.49 [degF] Christel Podlogar MUFFLE WORKER.COMPUTER SECURITY MANAGER Work Phone: [facility] 03-16-2022 12:47-0400 Body weight 61.42 kg Christel Podlogar MUFFLE WORKER.COMPUTER SECURITY MANAGER Work Phone: [facility] 03-16-2022 12:47-0400 Diastolic blood pressure 64 mm[Hg] Christel Podlogar MUFFLE WORKER.COMPUTER SECURITY MANAGER Work Phone: [facility] 03-16-2022 12:47-0400 Heart rate 87 /min Christel Podlogar MUFFLE WORKER.COMPUTER SECURITY MANAGER Work Phone: [facility] 03-16-2022 12:47-0400 Respiratory rate 18 /min Christel Podlogar MUFFLE WORKER.COMPUTER SECURITY MANAGER Work Phone: [facility] 03-16-2022 12:47-0400 SaO2% (BldA) [Mass fraction] 98 % Christel Podlogar MUFFLE WORKER.COMPUTER SECURITY MANAGER Work Phone: [facility] 03-16-2022 12:47-0400 Systolic blood pressure 102 mm[Hg] Christel Podlogar MUFFLE WORKER.COMPUTER SECURITY MANAGER Work Phone: [facility] 07-27-2019 11:37-0400 BMI (Body Mass Index) 24.89 kg/m2 [place], [place] 07-27-2019 11:37-0400 Body Temperature 98.29 [degF] [place], [place] 07-27-2019 11:37-0400 Body weight 65.77 kg [place], [place] 07-27-2019 11:37-0400 BP Diastolic 90 mm[Hg] [place] 07-27-2019 11:37-0400 BP Systolic 132 mm[Hg] [place] 07-27-2019 11:37-0400 Height 162.6 cm [place] 07-27-2019 11:37-0400 Pulse (Heart Rate) 102 /min [place], [place] 07-27-2019 11:37-0400 Pulse Oximetry 99 % [place] 07-27-2019 11:37-0400 Respiratory Rate 16 /min [place], [place] 03-19-2013 11:35-0400 BP Diastolic 62 mm[Hg] Paty Dany [facility] Work Phone: 03-19-2013 11:35-0400 BP Systolic 97 mm[Hg] Paty Saenz [facility] Work Phone: 03-19-2013 11:35-0400 Weight 47.63 kg Patykamlesh Saenz [facility] Work Phone: 03-03-2012 10:05-0400 Height 165.1 cm Paty Saenz [facility] Work Phone: 03-03-2012 10:05-0400 Pulse (Heart Rate) 76 /min Paty Epsteinvanessa [facility] Work Phone: NEGATED: Highlighted [id number] 15:56-0400 Body height 162.56 cm Zenaida Arana [employer] [facility] Work Phone: NEGATED: Highlighted [id number] 15:56-0400 Body height 163 cm Zenaida Arana [employer] [facility] Work Phone: NEGATED: Highlighted [id number] 15:56-0400 Body mass index (BMI) [Ratio] 25.15 kg/m2 Zenaida Arana [employer] [facility] Work Phone: NEGATED: Highlighted [id number] 15:56-0400 Body weight 66.23 kg Zenaida Arana 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[employer] [facility] Work Phone: NEGATED: Highlighted [id number] 15:56-0400 Body weight 66 kg Zenaida Arana HEATER [employer] [facility] Work Phone: Encounters Encounter Date Encounter Type Care Provider Facility Start: 04-12-2025 ambulatory Stu Johnson Facility:[facility] Start: 04-05-2025 End: 04-05-2025 ambulatory WAYNE BURRELL JR Facility:[facility] Start: 04-05-2025 End: 04-05-2025 Patient encounter procedure Wayne Burrell MD Work Phone: Neurology Comment on above: Hypersomnia (Primary Dx); 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); Migraine without aura and without status migrainosus, not intractable; Mild obstructive sleep apnea; Frequent nocturnal awakening Start: 03-26-2025 End: 03-30-2025 Chart abstracting [facility] Work Phone: Neurology Comment on above: CMN Start: 03-24-2025 End: 03-24-2025 Telephone encounter Brenda Millard APRN.COMPUTER SECURITY MANAGER Work Phone: Neurology Comment on above: Patient Question Start: 02-25-2025 End: 02-25-2025 ambulatory BRENDA FREEMAN Facility:[facility] Start: 02-25-2025 End: 02-25-2025 Patient encounter procedure Brenda Millard APRN.COMPUTER SECURITY MANAGER Work Phone: Neurology Comment on above: JUAN (obstructive sle ep apnea) (Primary Dx); Excessive daytime sleepiness Start: 02-17-2025 End: 02-17-2025 Telephone encounter Brenda Millard APRN.COMPUTER SECURITY MANAGER Work Phone: Neurology Comment on above: Appointment Start: 02-16-2025 End: 02-17-2025 Follow-up encounter Estefani Winters APRN.CNP Work Phone: Neurology Start: 02-09-2025 End: 02-09-2025 Chart abstracting Psg Neur Main Work Phone: Neurology Comment on above: PSG Check In Start: 02-09-2025 End: 02-09-2025 ambulatory [facility] Facility:[facility] Start: 02-08-2025 End: 02-08-2025 ambulatory [facility] Facility:[facility] Start: 02-01-2025 End: 02-02-2025 ambulatory [facility] Facility:[facility] Start: 01-26-2025 End: 02-10-2025 Chart abstracting Actigraphy Neur (Hist) Neurology Start: 12-29-2024 End: 12-30-2024 Telephone encounter Wayne Burrell MD Work Phone: Neurology Comment on above: Appointment Start: 12-28-2024 End: 12-28-2024 Patient encounter procedure Wayne Burrell MD Work Phone: Neurology Comment on above: Narcolepsy without c ataplexy (Primary Dx); Frequent nocturnal awakening; Excessive daytime sleepiness; Intractable migraine without aura and without status migrainosus Start: 12-28-2024 End: 12-28-2024 ambulatory WAYNE BURRELL JR Facility:[facility] Start: 12-22-2024 End: 12-22-2024 Telephone encounter Judith Iverson PA-C Work Phone: Neurology Comment on above: Insurance Authorizat ion (Ubrelvy 100mg) Start: 12-05-2024 End: 12-05-2024 ambulatory ADY HUBBARD Facility:[facility] Start: 12-05-2024 End: 12-05-2024 Office outpatient visit 25 minutes Michael Rebollar MD Work Phone: [facility] Comment on above: URI, acute (Primary Dx); Acute cough Start: 08-27-2024 End: 08-27-2024 ambulatory Wayne Burrell MD Work Phone: Neurology Comment on above: Sleep Study Start: 08-25-2024 End: 08-26-2024 ambulatory WAYNE BURRELL JR Facility:[facility] Start: 08-25-2024 End: 08-31-2024 Chart abstracting [facility] Main Work Phone: Neurology Start: 08-14-2024 End: 08-14-2024 ambulatory WAYNE BURRELL JR Facility:[facility] Start: 08-14-2024 End: 08-14-2024 Patient encounter procedure Wayne Burrell MD Work Phone: Neurology Comment on above: Intractable migraine without aura and without status migrainosus (Primary Dx); Twitching; Frequent nocturnal awakening; Snoring; Sleep apnea-like behavior Start: 08-10-2024 End: 08-10-2024 Subsequent hospital visit by physician [facility] Work Phone: Radiology Comment on above: Pain [R52] Start: 08-10-2024 End: 08-10-2024 ambulatory ADY HUBBARD Facility:[facility] Start: 08-10-2024 End: 08-10-2024 Patient encounter procedure Artem Hdz APRN.COMPUTER SECURITY MANAGER Work Phone: [facility] Comment on above: Pain (Primary Dx); Fracture Start: 07-06-2024 End: 07-06-2024 Emergency department patient visit DR MELVI CAMARENA MD [facility] Start: 07-06-2024 Telephone encounter Alejandrina benoit APRN.COMPUTER SECURITY MANAGER Work Phone: [facility] [place] Comment on above: Patient Update; Appo intment Start: 07-01-2024 Telephone encounter Wayne Burrell MD Work Phone: Neurology Comment on above: Orders Start: 06-25-2024 End: 06-25-2024 ambulatory ADY HUBBARD Facility:[facility] Start: 06-25-2024 End: 06-25-2024 Office outpatient visit 25 minutes Jaxson Gonzalez APRN.COMPUTER SECURITY MANAGER Work Phone: [facility] Comment on above: Puncture wound of ri ght foot, initial encounter (Primary Dx) Start: 05-06-2024 End: 05-06-2024 ambulatory [facility] Start: 05-06-2024 End: 05-06-2024 Encounter for gynecological examination (general) (routine) without abnormal findings [facility] Start: 05-06-2024 End: 05-06-2024 Patient encounter procedure Flex Ochoa MD Work Phone: [facility] Work Phone: Start: 05-06-2024 End: 05-06-2024 Periodic preventive med est patient 18-39 yrs Flex Ochoa MD Work Phone: [facility] Comment on above: Well woman exam with routine gynecological exam (Primary Dx); Encounter for surveillance of contraceptive pills Start: 05-01-2024 Refill Flex Ochoa MD Work Phone: [facility] Clinical Communication Start: 04-06-2024 Refill Flex Ochoa MD Work Phone: [facility] Start: 04-06-2024 Telephone encounter Flex nguyen MD Work Phone: [facility] Comment on above: Med Refill (Vestura 3-0.02 MG tablet) Start: 03-20-2024 ambulatory Wayne middleton Jr., MD Work Phone: Neurology Start: 03-20-2024 Patient encounter procedure Wayne Burrell MD Work Phone: Neurology Comment on above: Appointment Start: 03-09-2024 Refill Flex Ochoa MD Work Phone: [facility] Clinical Communication Start: 10-21-2023 End: 10-21-2023 Subsequent hospital visit by physician [facility]r [facility] Work Phone: Radiology Comment on above: Nasal injury, initia l encounter [S09.92XA] Start: 07-24-2023 End: 07-24-2023 Office outpatient new 45 minutes Jaxson José MD Work Phone: [facility] Comment on above: 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) Start: 07-24-2023 End: 07-24-2023 Patient encounter procedure Wayne Burrell MD Work Phone: Neurology Comment on above: Migraine without aur a and without status migrainosus, not intractable (Primary Dx) Start: 06-03-2023 End: 06-03-2023 ambulatory Ady De Anda MD Work Phone: [facility] Comment on above: Migraine without aur a and without status migrainosus, not intractable (Primary Dx) Start: 06-03-2023 End: 06-03-2023 Telemedicine consultation with patient Ady De Anda MD Work Phone: [facility] Start: 03-29-2023 End: 03-29-2023 Patient encounter procedure Flex Ohcoa MD Work Phone: [facility] Start: 03-29-2023 End: 03-29-2023 Periodic preventive med est patient 18-39 yrs Flex Ochoa MD Work Phone: [facility] Comment on above: Well woman exam with routine gynecological exam (Primary Dx); Pelvic pain in female; Vaginal discharge Start: 03-04-2023 End: 03-04-2023 Emergency department patient visit Chad Angel Luis Walsh [facility] Emergency 04 Start: 01-21-2023 Telephone encounter Alba duenas PA-C Work Phone: [facility] Comment on above: Results Start: 01-18-2023 End: 01-18-2023 Patient encounter procedure Alba Waldrop PA-C Work Phone: [facility] Comment on above: Pharyngitis, unspeci fied etiology (Primary Dx) Start: 12-14-2022 Telephone encounter Vick LEAHY [facility] Clinical Communication Start: 10-19-2022 End: 10-19-2022 Patient encounter procedure Baltazar Hubbard PA-C Work Phone: [facility] Comment on above: Tender lymph node (P rimary Dx) Start: 10-17-2022 End: 10-17-2022 Patient encounter procedure Chirstel Teixeira APRN.COMPUTER SECURITY MANAGER Work Phone: [facility] Comment on above: Enlarged lymph node in neck (Primary Dx); Enlarged thyroid Start: 08-22-2022 End: 08-22-2022 Patient encounter procedure Karson Rae MD Work Phone: Neurology Comment on above: 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); Neuropathic pain of lower extremity, left Start: 06-25-2022 End: 06-25-2022 ambulatory [facility] Work Phone: Start: 06-25-2022 End: 06-25-2022 Discharged [facility] Start: 06-25-2022 Telephone encounter Christel forrest APRN.COMPUTER SECURITY MANAGER Work Phone: [facility] Comment on above: Results Start: 06-20-2022 End: 06-20-2022 Patient encounter procedure Megha Villalobos MD Work Phone: [facility] Comment on above: Generalized abdomina l pain (Primary Dx) Start: 04-24-2022 Telephone encounter Luis Dillon Work Phone: Podiatry Comment on above: Results Start: 03-20-2022 End: 03-20-2022 Patient encounter procedure Luis Villa Work Phone: Podiatry Comment on above: Onychodystrophy (Terese hassan Dx); Ingrown toenail Start: 03-16-2022 End: 03-16-2022 Patient encounter procedure Christel Teixeira MUFFLE WORKER.COMPUTER SECURITY MANAGER Work Phone: [facility] [place] Comment on above: Ingrown toenail (Terese hassan Dx) Start: 03-12-2022 End: 03-12-2022 Pt evaluation Cornelio Nguyen MD Work Phone: [facility] Work Phone: Start: 07-27-2019 End: 07-27-2019 Emergency department patient visit [facility] Comment on above: Closed head injury, initial encounter (Primary Dx); Hematoma of frontal scalp, initial encounter; Acute foot pain, left; Sprain of left ankle, unspecified ligament, initial encounter; Traumatic ecchymosis of multiple sites Start: 06-24-2017 End: 06-24-2017 Ambulatory HEBRON [facility] Start: 06-19-2017 End: 06-19-2017 Ambulatory [facility] Procedures Date Procedure Procedure Detail Performing Clinician Start: 08-10-2024 Radex nasal bones complete minimum 3 views Artem Hdz MUFFLE WORKER.COMPUTER SECURITY MANAGER Work Phone: Start: 10-21-2023 Radex nasal bones complete minimum 3 views Umm Cool MUFFLE WORKER.COMPUTER SECURITY MANAGER Work Phone: Start: 03-29-2023 SURESWAB(R) ADVANCED VAGINITIS PLUS, TMA (QUEST) Flex Ochoa MD Work Phone: Start: 03-29-2023 Urine test visual color cmprsn meths Flex Ochoa MD Work Phone: Start: 06-22-2022 Iaad ia hpylori stool C mika Villalobos MD Work Phone: Start: 06-20-2022 Urnls dip stick/tabl et rgnt auto w/o microscopy Megha Villalobos MD Work Phone: Start: 03-12-2022 End: 03-12-2022 BP scrn no perf at interval Cornelio Nguyen MD Work Phone: Start: 03-12-2022 End: 03-12-2022 Calc BMI out nrm rene nof/u Cornelio Nguyen MD Work Phone: Start: 03-12-2022 End: 03-12-2022 Current tobacco non-user cad cap copd pv dm Cornelio Nguyen MD Work Phone: Start: 03-12-2022 End: 03-12-2022 Docrev cur meds by elig clin Cornelio Nguyen MD Work Phone: Start: 03-12-2022 End: 03-12-2022 Pain doc pos and plan Cornelio Nguyen MD Work Phone: Start: 03-12-2022 End: 03-12-2022 Patient encounter procedure Cornelio Nguyen MD Work Phone: Start: 01-05-2022 Microscopic observat ion [Identifier] in Cervix by Cyto stain Vick Huggins LPN Start: 04-11-2020 Adult depression screening assessment Christel Teixeira MUFFLE WORKER.COMPUTER SECURITY MANAGER Work Phone: Start: 07-27-2019 Ct cervical spine w/ o contrast material Yolis Blankenship [employer] Work Phone: Start: 07-27-2019 Ct head/brain w/o contrast material Yolis A [employer] Work Phone: Start: 07-27-2019 Radex foot complete minimum 3 views Yolis Blankenship [employer] Work Phone: Start: 07-27-2019 Radex ankle complete minimum 3 views Yolis Blankenship [employer] Work Phone: Diagnostic laparoscopy DR JEROD CAMARENA MD NEGATED: Highlighted rowStart: 03-12-2022 End: 03-12-2022 Documentation of current medications Zenaida Arana LPN Plan of Treatment Date Care Activity Detail Author Start: 2056 RSV Immunization age d 60 or older (1 - 1-dose 60+ series) RSV Immunization aged 60 or older (1 - 1-dose 60+ series) [facility] Start: 2046 Zoster Vaccines (1 o f 2) Zoster Vaccines (1 of 2) [facility] Start: 06-25-2034 Urine microalbumin profile DTaP,Tdap,Td Vaccine (8 - Td or Tdap) [facility] Start: 07-26-2025 Influenza vaccination Influenz a Vaccine (Season Ended) [facility] Start: 06-09-2025 End: 06-09-2025 Patient encounter procedure 06/09/2025 1:00 PM EDT Office Visit Neurology [address] [place] [address] Brenda Millard, JEFF.COMPUTER SECURITY MANAGER [address] [id number] follow up 2 months Neurology Comment on above: follow up 2 months Start: 04-05-2025 End: 04-05-2025 Patient encounter procedure Neurology Comment on above: f/u narcolepsy f/u narcolepsy- ARJUN 12/28/24, Utox, actigraphy, MSLT, PSG done f/u narcolepsy, head aches, RT ordered PAP, 31-90 day follow up Start: 03-27-2025 End: 12-28-2025 TOXICOLOGY SCREEN, ROUTINE URINE TOXICOLOGY SCREEN, ROUTINE URINE Lab Routine Narcolepsy without cataplexy Frequent nocturnal awakening Excessive daytime sleepiness Expected: 03/27/2025, Expires: 12/28/2025 [facility] Comment on above: Expected: 03/27/2025 , Expires: 12/28/2025 Start: 02-25-2025 End: 02-25-2025 Patient encounter procedure 02/25/2025 3:00 PM EDT Office Visit Neurology [address] [place] [address] Brenda Millard, MUFFLE WORKER.COMPUTER SECURITY MANAGER [address] [facility] [address] [place], [place] [id number] review Neurology Comment on above: review Start: 02-09-2025 End: 02-09-2025 Patient encounter procedure Neurology Comment on above: MSLT Narcolepsy without c ataplexy; Frequent nocturnal awakening; Excessive daytime sleepiness Start: 02-08-2025 End: 02-08-2025 Patient encounter procedure 02/08/2025 9:00 PM EDT Office Visit Neurology [address] [place] [address] Main, Psg Neur [address] [place] [address] PSG w/MSLT Neurology Comment on above: PSG w/MSLT Start: 02-01-2025 End: 02-01-2025 Patient encounter procedure 02/01/2025 8:00 AM EDT Office Visit Neurology [address] [place] [address] ACT Neurology Comment on above: ACT Start: 01-05-2025 Screening for malign ant neoplasm of cervix Pap Smear [facility] Start: 12-28-2024 End: 12-28-2024 Patient encounter procedure 12/28/2024 4:40 PM EST Office Visit Neurology [address] [place] [address] [place] [address] [place] [id number] f/u narcolepsy, arjun 06/02/24 Neurology Comment on above: f/u narcolepsy, [facility] 06/02/24 Start: 10-19-2024 End: 10-19-2024 Patient encounter procedure Neurology Comment on above: f/u f/u narcolepsy, arjun 06/02/24 Start: 08-26-2024 End: 08-26-2024 Patient encounter procedure 08/26/2024 10:00 AM EDT Office Visit Neurology [address] [place] [address] Frequent nocturnal awakening [G47.00]; Snoring [R06.83]; Sleep apnea-like behavior [G47.39] Neurology Comment on above: Frequent nocturnal a wakening [G47.00]; Snoring [R06.83]; Sleep apnea-like behavior [G47.39] Start: 08-14-2024 End: 08-14-2024 Patient encounter procedure Neurology Comment on above: Frequent Migraines a nd facial twitches F/U Migraine, twitch ing. Pt not completeing MRI, EEG, CBT d/t cost Start: 07-26-2024 Covid-19 Vaccine () Covid-19 Vaccine () [facility] Start: 07-26-2024 Covid-19 Vaccine () Covid-19 Vaccine () [facility] Start: 07-26-2024 Influenza vaccination [facility] Start: 05-06-2024 End: 05-06-2024 Patient encounter procedure 05/06/2024 9:15 AM EDT Office Visit [facility] [address] [facility] [facility] [address] [place] [address] Flex Ochoa MD [address] [place], [place] [id number] [facility] Start: 04-14-2024 End: 04-14-2024 Patient encounter procedure 04/14/2024 1:15 PM EDT Office Visit [facility] [address] [place] [address] Flex Ochoa MD [address] [place] [address] [facility] Start: 11-25-2023 Behavioral Health Screening Behavioral Health Screening [facility] Start: 07-26-2023 COVID-19 Vaccine () COVID-19 Vaccine () [facility] Start: 07-26-2023 Influenza vaccination [facility] Start: 02-15-2023 End: 02-15-2023 Patient encounter procedure 02/15/2023 Office Visit Obstetrics and Gynecology Flex Ochoa MD [address] [place] [address] [facility] Start: 01-18-2023 End: 03-20-2023 Heterophile Ab [Presence] in Serum by Latex agglutination [facility] Work Phone: Comment on above: Expected: 01/18/2023 , Expires: 03/20/2023 Start: 11-25-2022 DEPRESSION ASSESSMENT [facility] Start: 10-17-2022 End: 12-17-2022 Thyrotropin [Units/volume] in Serum or Plasma [facility] Work Phone: Comment on above: Expected: 10/17/2022 , Expires: 12/17/2022 Start: 07-26-2022 Influenza vaccination [facility] Start: 03-12-2022 End: 03-12-2022 Patient encounter procedure Appointment [facility] Work Phone: Start: 11-25-2021 DEPRESSION ASSESSMENT [facility] Start: 05-29-2021 DTaP/Tdap/Td vaccine (7 - Td) DTaP/Tdap/Td vaccine (7 - Td) [place] Start: 05-29-2021 DTaP/Tdap/Td Vaccine s (7 - Td or Tdap) DTaP/Tdap/Td Vaccines (7 - Td or Tdap) [facility] Start: 05-29-2021 Urine microalbumin profile [facility] Start: 04-11-2021 Adult depression screening assessment DEPRESSION SCREENING [facility] Start: 07-26-2019 Influenza vaccination Flu vaccine (# 1) [place] Start: 08-02-2017 End: 08-02-2017 Appointment Appointment [facility] Work Phone: Start: 08-02-2017 End: 08-02-2017 Mri chest spine w/o dye MRI Thoracic Spine [facility] Work Phone: Start: 08-02-2017 End: 08-02-2017 Mri neck spine w/o dye MRI Cervical Spine [facility] Work Phone: Start: 08-02-2017 End: 08-02-2017 X-ray exam of neck spine X-Ray, Spine, Cervical 2-3 views [facility] Work Phone: Start: 2017 Cervical cancer screen Cervical canc er screen [place] Start: 2017 PAP TESTING PAP TESTING [facility] Start: 2017 Screening for malign ant neoplasm of cervix [facility] Start: 02-07-2016 End: 02-07-2016 X-ray exam of thoracic spine X-Ray, Spine, Thoracic, 2 views [facility] Work Phone: Start: 2014 Anxiety Screening Anxiety Screening [facility] Start: 2014 Depression Screening Depression Scre ening [facility] Start: 2014 Diabetes mellitus screening Diabetes Screening [facility] Start: 2014 HEPATITIS C SCREENING HEPATITIS C [facility] Start: 2014 Hepatitis C screening Hepatitis C [facility] Start: 04-11-2014 Hepatitis A Vaccines (2 of 2 - 2-dose series) Hepatitis A Vaccines (2 of 2 - 2-dose series) [facility] Start: 12-19-2012 Varicella vaccination [facility] Start: 2012 Chlamydia screen Chlamydia screen [place], [place] Start: 2011 HIV screen HIV screen [place], [place] Start: 2010 PEDS TO ADULT TRANSITION ANNUAL ASSESSMENT PEDS TO ADULT TRANSITION ANNUAL ASSESSMENT [facility] Start: 2009 Varicella Vaccine (1 of 2 - 13+ 2-dose series) Varicella Vaccine (1 of 2 - 13+ 2-dose series) [place] Start: 2008 Depression Screening Depression Scre ening [facility] Start: 2008 PEDS TO ADULT TRANSITION INITIAL DISCUSSION PEDS TO ADULT TRANSITION INITIAL DISCUSSION [facility] Start: 2001 COVID-19 VACCINE (#1) COVID-19 VACCI NE (#1) [facility] Start: 2001 COVID-19 VACCINE (1) COVID-19 VACCIN E (1) [facility] Start: 1996 COVID-19 VACCINE (#1) COVID-19 VACCI NE (#1) [facility] Start: 1996 Creatinine monitoring Creatinine mon itoring [facility] [place] Start: 1996 HIV screening HIV Screening [facility] Start: 1996 Potassium monitoring Potassium monit oring [place] ACTIGRAPHY TESTING ACTIGRAPHY TE STING Procedures Routine Narcolepsy without cataplexy Frequent nocturnal awakening Excessive daytime sleepiness 1 Occurrences starting 12/28/2024 [facility] Comment on above: 1 Occurrences starti ng 12/28/2024 Bacteria identified in Wound by Culture WOUND CULTURE AND GRAM STAIN Microbiology Routine Ingrown toenail 03/20/2022 10:07 AM EDT [facility] Work Phone: CT Cervical Spine WO Contrast CT Cervical Spine WO Contrast Imaging STAT 07/27/2019 1:35 PM EDT [facility] [place] CT Head WO Contrast CT Head WO C ontrast Imaging STAT 07/27/2019 1:29 PM EDT [facility] [place] FUNGAL CULTURE AND SMEAR-HAIR,SKIN,NAIL FUNGAL CULTURE AND SMEAR-HAIR,SKIN,NAIL Microbiology Routine Onychodystrophy 03/20/2022 10:07 AM EDT [facility] Work Phone: HOME SLEEP APNEA KAUSHIK T (HSAT) HOME SLEEP APNEA TEST (HSAT) Procedures Routine Frequent nocturnal awakening Snoring Sleep apnea-like behavior 1 Occurrences starting 08/14/2024 [facility] Work Phone: Comment on above: 1 Occurrences starti ng 08/14/2024 MULTIPLE SLEEP LATEN CY TEST MULTIPLE SLEEP LATENCY TEST Procedures Routine Narcolepsy without cataplexy Frequent nocturnal awakening Excessive daytime sleepiness 1 Occurrences starting 12/28/2024 [facility] Comment on above: 1 Occurrences starti ng 12/28/2024 Polysomnogram POLYSOMNOGRAM (P SG) Procedures Routine Narcolepsy without cataplexy Frequent nocturnal awakening Excessive daytime sleepiness 1 Occurrences starting 12/28/2024 [facility] Work Phone: Comment on above: 1 Occurrences starti ng 12/28/2024 Urine test visual color cmprsn meths HCG QUAL UR B/O Lab Routine Generalized abdominal pain Ordered: 06/20/2022 [facility] Work Phone: Comment on above: Ordered: 06/20/2022 End: 11-16-2023 Us soft tissue head & neck real time imge docm US THYROID/PARATHYROID Radiology Routine Enlarged thyroid 1 Occurrences starting 10/17/2022 until 11/16/2023 [facility] Work Phone: Comment on above: 1 Occurrences starti ng 10/17/2022 until 11/16/2023 XR ANKLE LEFT (MIN 3 VIEWS) XR ANKLE LEFT (MIN 3 VIEWS) Imaging STAT 07/27/2019 1:19 PM EDT [place] XR FOOT LEFT (MIN 3 VIEWS) XR FOOT LEFT (MIN 3 VIEWS) Imaging STAT 07/27/2019 1:20 PM EDT [facility] Immunizations Immunization Date Immunization Notes Care Provider Fa johnny 06-25-2024 tetanus toxoid, redu janis diphtheria toxoid, and acellular pertussis vaccine, adsorbed Jaxson Gonzalez MUFFLE WORKER.COMPUTER SECURITY MANAGER Work Phone: [facility] 10-12-2013 hepatitis A vaccine, pediatric/adolescent dosage, 2 dose schedule Christel Podlogar MUFFLE WORKER.COMPUTER SECURITY MANAGER Work Phone: [facility] 10-12-2013 typhoid capsular polysaccharide vaccine Christel Podlogar MUFFLE WORKER.COMPUTER SECURITY MANAGER Work Phone: [facility] 10-12-2013 hepatitis A and hepatitis B vaccine [facility] 11-21-2012 influenza virus vacc ine, live, attenuated, for intranasal use Christel Podlogar MUFFLE WORKER.COMPUTER SECURITY MANAGER Work Phone: [facility] 11-21-2012 influenza virus vacc ine, unspecified formulation [facility] 12-05-2011 influenza virus vacc ine, live, attenuated, for intranasal use Christel Podlogar MUFFLE WORKER.COMPUTER SECURITY MANAGER Work Phone: [facility] 05-29-2011 meningococcal polysaccharide (groups A, C, Y and W-135) diphtheria toxoid conjugate vaccine (MCV4P) Christel Podlogar MUFFLE WORKER.COMPUTER SECURITY MANAGER Work Phone: [facility] 05-29-2011 tetanus toxoid, redu janis diphtheria toxoid, and acellular pertussis vaccine, adsorbed Christel Podlogar MUFFLE WORKER.COMPUTER SECURITY MANAGER Work Phone: [facility] 05-03-2010 human papilloma viru s vaccine, quadrivalent Christel Podlogar MUFFLE WORKER.COMPUTER SECURITY MANAGER Work Phone: [facility] 01-13-2010 human papilloma viru s vaccine, quadrivalent Christel Podlogar MUFFLE WORKER.COMPUTER SECURITY MANAGER Work Phone: [facility] 09-06-2009 human papilloma viru s vaccine, quadrivalent Christel Podlogar MUFFLE WORKER.COMPUTER SECURITY MANAGER Work Phone: [facility] 01-02-2001 diphtheria, tetanus toxoids and acellular pertussis vaccine Christel Podlogar MUFFLE WORKER.COMPUTER SECURITY MANAGER Work Phone: [facility] 01-02-2001 diphtheria, tetanus toxoids and acellular pertussis vaccine, unspecified formulation Wayne Burrell Jr., MD Work Phone: [facility] 01-02-2001 measles, mumps and rubella virus vaccine Christel Podlogar MUFFLE WORKER.COMPUTER SECURITY MANAGER Work Phone: [facility] 01-02-2001 poliovirus vaccine, inactivated Christel Podlogar MUFFLE WORKER.COMPUTER SECURITY MANAGER Work Phone: [facility] 01-02-2001 poliovirus vaccine, unspecified formulation Wayne Burrell Jr., MD Work Phone: [facility] 01-02-2001 varicella virus vaccine Kee Ochoa MD Work Phone: [facility] 09-15-1997 diphtheria, tetanus toxoids and acellular pertussis vaccine Christel Podlogar MUFFLE WORKER.COMPUTER SECURITY MANAGER Work Phone: [facility] 09-15-1997 diphtheria, tetanus toxoids and acellular pertussis vaccine, unspecified formulation Wayne Burrell Jr., MD Work Phone: [facility] 09-15-1997 haemophilus influenz ae type b vaccine, conjugate unspecified formulation Wayne Burrell Jr., MD Work Phone: [facility] 09-15-1997 haemophilus influenz ae type b vaccine, PRP-T conjugate Christel Podlogar MUFFLE WORKER.COMPUTER SECURITY MANAGER Work Phone: [facility] 09-15-1997 measles, mumps and rubella virus vaccine Christel Podlogar MUFFLE WORKER.COMPUTER SECURITY MANAGER Work Phone: [facility] 01-01-1997 diphtheria, tetanus toxoids and acellular pertussis vaccine Christel Podlogar MUFFLE WORKER.COMPUTER SECURITY MANAGER Work Phone: [facility] 01-01-1997 diphtheria, tetanus toxoids and acellular pertussis vaccine, unspecified formulation Wayne Burrell Jr., MD Work Phone: [facility] 01-01-1997 haemophilus influenz ae type b vaccine, conjugate unspecified formulation Wayne Burrell Jr., MD Work Phone: [facility] 01-01-1997 haemophilus influenz ae type b vaccine, PRP-T conjugate Christel Podlogar MUFFLE WORKER.COMPUTER SECURITY MANAGER Work Phone: [facility] 01-01-1997 hepatitis B vaccine, pediatric or pediatric/adolescent dosage Christel Podlogar MUFFLE WORKER.COMPUTER SECURITY MANAGER Work Phone: [facility] 01-01-1997 poliovirus vaccine, inactivated Christel Podlogar MUFFLE WORKER.COMPUTER SECURITY MANAGER Work Phone: [facility] 01-01-1997 trivalent poliovirus vaccine, live, oral Wayne Burrell Jr., MD Work Phone: [facility] 1996 diphtheria, tetanus toxoids and acellular pertussis vaccine Christel Podlogar MUFFLE WORKER.COMPUTER SECURITY MANAGER Work Phone: [facility] 1996 DTP-Haemophilus influenzae type b conjugate vaccine Wayne Burrell Jr., MD Work Phone: [facility] 1996 haemophilus influenz ae type b vaccine, PRP-T conjugate Christel Podlogar MUFFLE WORKER.COMPUTER SECURITY MANAGER Work Phone: [facility] 1996 poliovirus vaccine, inactivated Christel Podlogar MUFFLE WORKER.COMPUTER SECURITY MANAGER Work Phone: [facility] 1996 trivalent poliovirus vaccine, live, oral Wayne Burrell Jr., MD Work Phone: [facility] 1996 diphtheria, tetanus toxoids and acellular pertussis vaccine Christel Podlogar MUFFLE WORKER.COMPUTER SECURITY MANAGER Work Phone: [facility] 1996 DTP-Haemophilus influenzae type b conjugate vaccine Wayne Burrell Jr., MD Work Phone: [facility] 1996 haemophilus influenz ae type b vaccine, PRP-T conjugate Christel Podlogar MUFFLE WORKER.COMPUTER SECURITY MANAGER Work Phone: [facility] 1996 poliovirus vaccine, inactivated Christel Podlogar MUFFLE WORKER.COMPUTER SECURITY MANAGER Work Phone: [facility] 1996 trivalent poliovirus vaccine, live, oral Wayne Burrell Jr., MD Work Phone: [facility] 1996 hepatitis B vaccine, pediatric or pediatric/adolescent dosage Christel Podlogar MUFFLE WORKER.COMPUTER SECURITY MANAGER Work Phone: [facility] 1996 hepatitis B vaccine, pediatric or pediatric/adolescent dosage Christel Podlogar MUFFLE WORKER.COMPUTER SECURITY MANAGER Work Phone: [facility] Payers Date Payer Category Payer Self-pay [id number] 2024 Unknown [id number] 2024 Unknown [id number] 2023 [facility] BLUE CARD PPO OOS [id number] 2021 Unknown [id number] 2020 Unknown [employer] BLUE ACCE SS PPO [id number] 2020-Present [phone] [address] [place] [address] PPO [id number] 2019 Unknown [id number] [address] [facility] GENEX CARE [place] [id number] 2019-Present [id number] [address] Worker's Comp [id number] 2014 Unknown [employer] AN[employer] BLUE ACCESS CODY [id number] 2014-Present [address] [place] [address] xxxxxxxxxxxx [id number] 1996 Unknown [id number] 1996 Unknown [id number] Private Health Insurance [id number] Unknown [id number] Unknown [id number] Unknown [id number] Social History Date Type Detail Facility Start: 07-27-2019 End: 08-22-2022 Tobacco smoking status NHIS Never smoker [facility] Start: 07-27-2019 End: 12-04-2023 Alcohol intake No [facility] Start: 1995 Sex Assigned At Not on file [place], [place] Start: 03-12-2022 End: 03-12-2022 Assertion Unknown if ever smoked [facility] Work Phone: Start: 10-12-2019 End: 08-22-2022 Tobacco use and exposure Smokeless tobacco non-user [facility] Start: 01-30-2022 End: 10-17-2022 History SDOH Alcohol Frequency 3 [facility] Start: 01-30-2022 End: 10-17-2022 History SDOH Alcohol Std Drinks 1 [facility] Start: 01-30-2022 End: 10-17-2022 History SDOH Alcohol Binge 2 [facility] Start: 01-30-2022 End: 10-17-2022 History SDOH Social Connections Phone 5 [facility] Start: 01-30-2022 End: 10-17-2022 History SDOH Social Connections Living 7 [facility] Start: 01-30-2022 History SDOH Physical Activity DPW 0 [facility] Start: 06-11-2020 History SDOH Housing Places Lived 4 [facility] Start: 06-11-2020 Education 17 [facility] Start: 03-10-2022 End: 03-29-2023 Exposure to SARS-CoV-2 (event) Not sure [facility] Work Phone: Start: 1995 Sex Assigned At Female [facility] Start: 10-17-2022 History SDOH Physical Activity MPS 6 [facility] Start: 01-05-2022 End: 03-29-2023 Alcohol intake Current drinker of alcohol (finding) [facility] Start: 06-03-2023 End: 04-05-2025 Alcohol intake Lifetime non-drinker (finding) [facility] Start: 10-16-2022 End: 12-04-2023 History of Social function [facility] Do you belong to any clubs or organizations such as pentecostalism groups, unions, fraternal or athletic groups, or school groups? Yes [facility] Are you now , , , , never or living with a partner? Never [facility] How often to you hav e a drink containing alcohol? 2-4 times a month [facility] How many standard dr inks containing alcohol do you have on a typical day? 1 or 2 [facility] How often do you hav e 6 or more drinks on 1 occasion? Less than monthly [facility] How hard is it for y ou to pay for the very basics like food, housing, medical care, and heating Somewhat hard [facility] Do you feel stress - tense, restless, nervous, or anxious, or unable to sleep at night because your mind is troubled all the time - these days [OSQ] To some extent [facility] (I/We) worried eunice er (my/our) food would run out before (I/we) got money to buy more. Never true [facility] In the past 12 month s, has lack of transportation kept you from medical appointments or from getting medications? No [facility] In the past 12 month s, was there a time when you were not able to pay the mortgage or rent on time? No [facility] Start: 10-07-2019 Gender identity Identifies as female gender (finding) [facility] Start: 04-11-2020 Sexual orientation Heterosexual (finding) [facility] Sex Assigned At Sex [facility] Functional Status Date Assessment Result Facility 07-06-2024 Functional Status Standard Safet y ID band on, Call device within reach, Bed in low position, Wheels locked, Upper/Half-Length side-rails up, Bedside Cart Locked, Safety level maintained [facility] Mental Status Date Assessment Result Facility 07-06-2024 Mental Status Orientation Oriented x 4 [facility] Clinical Notes 03-12-2022 to 04-14-2025 Wayne Burrell Jr., MD - 04/05/2025 3:44 PM Kamila Hooper - 03/26/2025 4:28 PM EDTTelephone Encounter - Cosme Ga RN - 03/24/2025 10:55 AM EDTPatient InstructionsPatient Instructions Note Date & Type Note Facility 04-14-2025 Note HNO ID: [id number] Author: ?, ?, ? Service: ? Author Type: ? Type: Progress Notes Filed: 04/16/2025 13:59 Note Text: CMN RECEIVED BY [employer] VIA FAX, COMPLETED, AND PLACED IN PROVIDER MAILBOX FOR SIGNATURE Kamila Thomas Therapeutic Case Manager [employer] SENDING CMN: Malou SIGNED AND DATED CMN, FAXED TO DME AND CONFIRMATION PAGE RECEIVED: 04/16/2025 [facility] 04-05-2025 Note HNO ID: [id number] Author: WAYNE BURRELL JR, MD Service: ? Author Type: Physician Type: Progress Notes Filed: 04/05/2025 16:33 Note Text: ESTABLISHED PATIENT VISIT CHIEF COMPLAINT: Follow up HISTORY OF PRESENT ILLNESS: Shaista Clarke is a 29 year old female, with a PMH significant for 02/25/2025: G47.33 JUAN (obstructive sleep apnea) (primary encounter diagnosis) G47.19 Excessive daytime sleepiness Shaista Clarke is a 29 year old female with new diagnosis of mild JUAN, excessive daytime sleepiness since at least college, hx of multiple concussions, migraines, frequent WASO, nocturia x 3 We discussed her results in detail of actigraphy, PSG, MSLT. She had less sleep during actigraphy than her normal 7 hrs per night due to extenuating circumstances. But the frequent WASO is typical. PSG revealed mild JUAN with AHI 5.5. SL on PSG only 4 min, normal REM latency of 81 min. On MSLT she had MSL 6.9 min, no SOREMPs. We will start by treating her mild JUAN to see if that helps with WASO, nocturia, EDS. Also discussed OAT but not interested. Discussed PAP therapy in detail. Will eval sxs at follow up. May need to consider other treatment for frequent awakenings. Or eventually consider a wake promoting agen. - Will start Auto CPAP 5-12 cmH2O with a mask per your preference . - I will have a prescription sent to a [employer]) company - [employer] who will be calling you in the next 1-2 weeks or so. Please call them directly or us if you do not hear from them in this time frame. - You should be eligible for new supplies approximately every 3-6 months, depending on your insurance coverage. - If your mask doesn't fit well, call the [employer] company before 30 days are up to get a new mask without an additional charge. - Insurance requires regular usage and periodic office follow ups for PAP therapy, to continue to cover supplies. - Follow up for 31-90 day PAP compliance visit Note I last saw patient on 12/28/24: 1. 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 Frequent nocturnal awakening - ICD9: 780.59, ICD10: G47.00 3. Excessive daytime sleepiness - ICD9: 780.54, ICD10: G47.19 Patient with initial sleep complaints of waking up through the night. However, after repeating sleep questionnaires today, and noted changes in sleep history, in addition to brief nocturnal awakenings with no provoking or associated symptoms, patient now endorsing: daytime sleepiness, need for naps during the day, sleep related hallucinations, vivid dreams, dreaming even during brief naps. In addition, the score of ESS performed in office also suggestive of excessive daytime sleepiness. Thus, new question raised as to whether sleepiness is due to disruption of sleep vs patient having central hypersomnia including symptoms suggestive of Narcolepsy without Cataplexy. D/w pt in detail. The HSAT was inconclusive and uncertain if pt even slept during most of the study per history today. Explained to patient that while the study does not entirely rule out JUAN, it is less likely but still needs to be considered as a cause of awakenings, as well as other conditions such as PLMs. Explained to further evaluate for all possible causes of sleep complaints a PSG + MSLT would be beneficial with explanation of how study performed provided to pt. Such studies would evaluate for JUAN and PLMs as cause of awakenings but if PSG unremarkable, would also allow us to evaluate for central hypersomnia. Pt interested in study depending on cost. Explained that if unable to perform due to cost, then we can empirically treat for PLMs with low dose gabapentin at night, but it no impact on symptoms, would then still need to reconsider performing the PSG+MSLT as etiology of symptoms would remain unknown. For now, pt agrees to PSG+MSLT with cost pending. Orders placed. Advised pt not to drive or operate heavy machinery if sleepy. 4. Intractable migraine without aura and without status migrainosus - ICD9: 346.11, ICD10: G43.019 Improving per pt, despite never taking Keppra. As focus during visit was on sleep, limited details regarding headache history. However, endorsing at most 1 headache day per week with symptoms associated with headache unchanged but less intense. Possible sleep disorder contributing to headaches. For now no changes in meds. Patient has had PAP <1 month. Tries to use every night. Wears for about 4 hours, but difficult due to being given a FFM. States sleeps bad with it and without it. Still a side sleeper. PSG showed AHI of 5.5. Tired through day. Needs naps. Sleepiness during the day she feels goes hand in hand with waking during the night. States her ring tells her she wakes 5 times per night - states due to the need to urinate. Unclear if PCP has done any workup regarding polyuria. No reports of patient being diabetic. Headaches have been ok - maybe about 1 pe (more content not included)... [facility] 04-05-2025 History of Presen t illness Narrative Images from the original note were not included. ESTABLISHED PATIENT VISIT CHIEF COMPLAINT: Follow up HISTORY OF PRESENT ILLNESS: Shaista Clarke is a 29 year old female, with a PMH significant for 02/25/2025: G47.33 JUAN (obstructive sleep apnea) (primary encounter diagnosis) G47.19 Excessive daytime sleepiness Shaista Clarke is a 29 year old female with new diagnosis of mild JUAN, excessive daytime sleepiness since at least college, hx of multiple concussions, migraines, frequent WASO, nocturia x 3 We discussed her results in detail of actigraphy, PSG, MSLT. She had less sleep during actigraphy than her normal 7 hrs per night due to extenuating circumstances. But the frequent WASO is typical. PSG revealed mild JUAN with AHI 5.5. SL on PSG only 4 min, normal REM latency of 81 min. On MSLT she had MSL 6.9 min, no SOREMPs. We will start by treating her mild JUAN to see if that helps with WASO, nocturia, EDS. Also discussed OAT but not interested. Discussed PAP therapy in detail. Will eval scindi at follow up. May need to consider other treatment for frequent awakenings. Or eventually consider a wake promoting agen. - Will start Auto CPAP 5-12 cmH2O with a mask per your preference . - I will have a prescription sent to a [employer] company - Andreavik[employer] Little who will be calling you in the next 1-2 weeks or so. Please call them directly or us if you do not hear from them in this time frame. - You should be eligible for new supplies approximately every 3-6 months, depending on your insurance coverage. - If your mask doesn't fit well, call the [employer] company before 30 days are up to get a new mask without an additional charge. - Insurance requires regular usage and periodic office follow ups for PAP therapy, to continue to cover supplies. - Follow up for 31-90 day PAP compliance visit Note I last saw patient on 12/28/24: 1. 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 Frequent nocturnal awakening - ICD9: 780.59, ICD10: G47.00 3. Excessive daytime sleepiness - ICD9: 780.54, ICD10: G47.19 Patient with initial sleep complaints of waking up through the night. However, after repeating sleep questionnaires today, and noted changes in sleep history, in addition to brief nocturnal awakenings with no provoking or associated symptoms, patient now endorsing: daytime sleepiness, need for naps during the day, sleep related hallucinations, vivid dreams, dreaming even during brief naps. In addition, the score of ESS performed in office also suggestive of excessive daytime sleepiness. Thus, new question raised as to whether sleepiness is due to disruption of sleep vs patient having central hypersomnia including symptoms suggestive of Narcolepsy without Cataplexy. D/w pt in detail. The HSAT was inconclusive and uncertain if pt even slept during most of the study per history today. Explained to patient that while the study does not entirely rule out JUAN, it is less likely but still needs to be considered as a cause of awakenings, as well as other conditions such as PLMs. Explained to further evaluate for all possible causes of sleep complaints a PSG + MSLT would be beneficial with explanation of how study performed provided to pt. Such studies would evaluate for JUAN and PLMs as cause of awakenings but if PSG unremarkable, would also allow us to evaluate for central hypersomnia. Pt interested in study depending on cost. Explained that if unable to perform due to cost, then we can empirically treat for PLMs with low dose gabapentin at night, but it no impact on symptoms, would then still need to reconsider performing the PSG+MSLT as etiology of symptoms would remain unknown. For now, pt agrees to PSG+MSLT with cost pending. Orders placed. Advised pt not to drive or operate heavy machinery if sleepy. 4. Intractable migraine without aura and without status migrainosus - ICD9: 346.11, ICD10: G43.019 Improving per pt, despite never taking Keppra. As focus during visit was on sleep, limited details regarding headache history. However, endorsing at most 1 headache day per week with symptoms associated with headache unchanged but less intense. Possible sleep disorder contributing to headaches. For now no changes in meds. Patient has had PAP <1 month. Tries to use every night. Wears for about 4 hours, but difficult due to being given a FFM. States sleeps bad with it and without it. Still a side sleeper. PSG showed AHI of 5.5. Tired through day. Needs naps. Sleepiness during the day she feels goes hand in hand with waking during the night. States her ring tells her she wakes 5 times per night - states due to the need to urinate. Unclear if PCP has done any workup regarding polyuria. No reports of patient being diabetic. Headaches have been ok - maybe about 1 per week and lasting couple hours at most. No longer having daily headache. Note taking Spironolactone at night. Not urinating frequently during the day. Dreaming a lot. Overall symptoms unchanged still with some that might suggest Narcolepsy. Going to bed by 10-11PM. Waking by 7AM. Tired upon waking in the AM. PHQ 9 Data More data exists 02/17/2025 07/06/2024 04/11/2020 PHQ-9 All Questions Little interest or pleasure in doing things: 1 0 0 Feeling down, depressed, or hopeless: 0 0 0 Trouble falling or staying asleep, or sleeping too much 3 0 3 Feeling tired or having little energy 3 0 2 Poor appetite or overeating 1 0 0 Feeling bad about yourself - or that you are a failure or have let yourself or your family down 0 0 0 Trouble concentrating on things, such as reading the newspaper or watching television 1 0 0 Moving or speaking so slowly that other people could have noticed. Or the opposite - being so fidgety or restless that you have been moving around a lot more than usual 0 0 0 Thoughts that you would be better off , or of hurting yourself in some way 0 0 0 PHQ-9 Score 9 0 5 ALFREOD 7 Data 04/11/2020 10/13/2019 ALFREDO-7 All Questions Feeling nervous, anxious, or on edge Not at all Not at all Not being able to stop or control worrying Not at all Not at all Details PROMIS-10 More data exists PROMIS Global Health - (T-Scores - the mean of general population = 50. Five points is a clinically meaningful difference.) Physical T-Score Mental T-Score 03/30/2025 47.7 48.3 12/25/2024 47.7 45.8 11/27/2023 54.1 50.8 [place] Sleepiness Scale Scores 02/17/2025 [place] Sleepiness Scale Score 17 Abnormal Insomnia Severity Index Scores 02/17/2025 Insomnia Severity Index Score 21 REVIEW OF SYSTEMS GENERAL:No weight loss, malaise or fevers. HEENT:Negative for frequent or significant headaches, No changes in hearing or vision, no nose bleeds or other nasal problems NECK:Negative for lumps, goiter, pain and significant neck swelling RESPIRATORY: Negative for cough, wheezing or shortness of breath. CARDIOVASCULAR: Negative for chest pain, leg swelling or palpitations. GASTROINTESTINAL: Negative for abdominal discomfort, blood in stools or black stools or change in bowel habits GENITOURINARY: See HPI. MUSCULOSKELETAL: Negative for joint pain or swelling, back pain or muscle pain. NEUROLOGIC:Negative for focal numbness or weakness, headaches and dizziness or syncope, vision changes, speech/languag changes - EXCEPT that as per HPI above. SKIN:Negative for lesions, rash, and itching. LAB/IMAGING: Those performed since patient's last visit have been reviewed. WBC (k/uL) Date Value 06/21/2022 5.43 RBC (m/uL) Date Value 06/21/2022 4.16 Hemoglobin (g/dL) Date Value 06/21/2022 12.9 Hematocrit (%) Date Value 06/21/2022 38.4 MCV (fL) Date Value 06/21/2022 92.3 MCH (pg) Date Value 06/21/2022 31.0 MCHC (g/dL) Date Value 06/21/2022 33.6 RDW-CV (%) Date Value 06/21/2022 11.8 Platelet Count (k/uL) Date Value 06/21/2022 212 MPV (fL) Date Value 06/21/2022 9.1 Glucose (mg/dL) Date Value 06/21/2022 94 BUN (mg/dL) Date Value 06/21/2022 11 Creatinine (mg/dL) Date Value 06/21/2022 0.77 Sodium (mmol/L) Date Value 06/21/2022 138 Potassium (mmol/L) Date Value 06/21/2022 3.7 Chloride (mmol/L) Date Value 06/21/2022 105 CO2 (mmol/L) Date Value 06/21/2022 23 Protein, Total (g/dL) Date Value 06/21/2022 6.6 Albumin (g/dL) Date Value 06/21/2022 4.0 Calcium, Total (mg/dL) Date Value 06/21/2022 8.8 Alkaline Phosphatase (U/L) Date Value 06/21/2022 39 Bilirubin, Total (mg/dL) Date Value 06/21/2022 0.3 AST (U/L) Date Value 06/21/2022 16 ALT (U/L) Date Value 06/21/2022 13 BARBARA (no units) Date Value 06/14/2020 Negative MEDICATIONS: CPAP/BIPAP/OTHER APAP 5-12 cmH2O [facility] promethazine (PHENERGAN) 25 mg tablet 1/2 to 1 po q8h prn headache or nausea (Patient not taking: Reported on 12/05/2024) spironolactone (ALDACTONE) 50 mg tablet Take one tablet by mouth once a day before bed. Drospirenone-Ethinyl Estradiol (AMI 28) 3-0.02 mg per tablet Take 1 tablet by mouth once daily. cholecalciferol (VITAMIN D3) 50 mcg (2,000 unit) tablet Take 2,000 Units by mouth once daily. HISTORIES PAST MEDICAL HISTORY Diagnosis Date Migraines Vitamin D insufficiency No family history on file. SOCIAL HISTORY Social History Tobacco Use Smoking status: Never Smokeless tobacco: Never Substance Use Topics Alcohol use: Never PHYSICAL EXAMINATION LMP (LMP Unknown) GENERAL EXAM: General appearance: NAD, pleasant. HEENT: NC/AT, nasal congestion absent Lungs: CTA bilaterally. CV: RRR nl S1, S2 Extr: No cyanosis, clubbing or edema. Skin: Cool to touch. NEUROLOGICAL EXAM: General: Awake, alert, oriented x3 (person,place,time), fluent, no dysarthria; comprehension, naming, repetition intact. CN: PERRL, EOMI and without nystagmus, VFF to confrontation, facial sensation and strength are normal and symmetric, hearing is intact to finger rub bilaterally, palate and tongue movements are intact and symmetric. SCM and trapezius strength normal. Motor: Normal tone, bulk and strength (5/5) bilaterally (throughout extremities x4). Coordination: FNF, STEFANY intact. No tremors. Sensation: LT intact throughout. No evidence of neglect. Gait: Stable with normal stride and arm swing. Assessment and Plan: ASSESSMENT/PLAN: 1. Hypersomnia - ICD9: 780.54, ICD10: G47.10 (primary diagnosis) 2. 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 Still uncertain as to whether Idiopathic Hypersomnia vs Narcolepsy without cataplexy (with pt endorsing other symptoms of tetrad). While MSLT did not show SOREMPs (diagnostic criteria for Narcolepsy), this could vary by night to night variation. As for awakenings during night, question if patient not being fully awake during day, is resulting in her not achieving deep sleep. Also note that those with narcolepsy may have fragmented sleep. Will continue to treat JUAN, but very mild and sleepiness out of proportion to AHI. Thus will place on trial of Nuvigil 150mg QAM to see if any improvement in symptoms. SE and ADRs d/w pt including possible med-med interaction with OCP (decreasing OCP efficacy). Note ECG unremarkable on PSG. If continues on wake promoting med will need UDS in near future. 3. Migraine without aura and without status migrainosus, not intractable - ICD9: 346.10, ICD10: G43.009 Stable as above, and not wanting additional meds. Given low frequency agree with use of OTC if effective. 4. Mild obstructive sleep apnea - ICD9: 327.23, ICD10: G47.33 Very mild and while might contribute to awakenings at night as well as EDS, do not think primary cause. That said, will continue to treat with PAP. I do not have a download available today, but has only had minimal use up to this time. Fit patient with Resmed nasal masks in office to see if tolerates better than a FFM . If patient continues to have difficulties tolerating mask, given mild degree of JUAN, may be better to treat conservatively with positional therapy or consider oral appliance. 5. Frequent nocturnal awakening - ICD9: 780.59, ICD10: G47.00 In addition to above, patient reporting nocturia. No history of DM. Unclear as to what workup completed thus far. On review, question if due to diuretic at night - thus, will have patient move Spironolactone to AM dosing to see if improvement in nocturia. Wayne Burrell MD I spent a total of 30+ minutes on the date of the service which included preparing to see the patient, [id number] patient care, completing clinical documentation, obtaining and/or reviewing separately obtained history, performing a medically appropriate examination, counseling and educating the patient/family/caregiver, ordering medications, tests, or procedures, and communicating results to the patient/family/caregiver. Medical Decision Making: Problems: Moderate: 2+ stable chronic illnesses Data: Unique test result(s) reviewed: 2 Risk: Moderate: Drug management Medical Decision Making Level: 4 - Moderate PDMP website checked and validated. All prescriptions have been APPROPRIATELY filled. No suspicious activity was identified. 04/05/2025 by Wayne Burrell MD documented in this encounter [facility] 03-26-2025 Note HNO ID: [id number] Author: ?, ?, ? Service: ? Author Type: ? Type: Progress Notes Filed: 03/30/2025 10:59 Note Text: CMN RECEIVED BY [facility] VIA FAX, COMPLETED, AND PLACED IN PROVIDER MAILBOX FOR SIGNATURE Kamila Thomas Therapeutic Case Manager II [facility] COMPANY SENDING CMN: Malou SIGNED AND DATED CMN, FAXED TO [facility] AND CONFIRMATION PAGE RECEIVED: 03/30/2025 [facility] 03-26-2025 History of Presen t illness Narrative CMN RECEIVED BY [employer] VIA FAX, COMPLETED, AND PLACED IN PROVIDER MAILBOX FOR SIGNATURE Kamila Thomas Therapeutic Case Manager II [employer] SENDING CMN: Malou SIGNED AND DATED CMN, FAXED TO DME & CONFIRMATION PAGE RECEIVED: 03/30/2025 documented in this encounter [facility] 03-24-2025 Telephone encounter Note Call placed to patient and notified of message below with verbalized understanding. Patient to contact DME company to request. Cosme Ga RN [facility] 03-24-2025 Miscellaneous Notes Call placed to patient and notified of message below with verbalized understanding. Patient to contact DME company to request. Cosme Ga RN She absolutely can try a nasal mask, have her contact DME to get a new mask Brenda Millard APRN.COMPUTER SECURITY MANAGER Patient calls to report that she has been wearing the full face mask with her C-Pap for about a week and feels that her sleep is worse. She would like to try the nasal sleep mask but wants to check with provider first to verify that would be effective based on sleep study results. She doesn't think she is a mouth breather and wasn't sure based on the sleep study if it would be adequate. Patient requests call back at [phone]. Cosme Ga RN documented in this encounter [facility] 03-24-2025 Telephone encounter Note She absolutely can try a nasal mask, have her contact DME to get a new mask Brenda Millard [email or web address].[email or web address] [facility] 03-24-2025 Telephone encounter Note Patient calls to report that she has been wearing the full face mask with her C-Pap for about a week and feels that her sleep is worse. She would like to try the nasal sleep mask but wants to check with provider first to verify that would be effective based on sleep study results. She doesn't think she is a mouth breather and wasn't sure based on the sleep study if it would be adequate. Patient requests call back at [phone]. Cosme Ga RN [facility] 02-25-2025 Instructions Brenda Millard [email or web address] - 02/25/2025 3:32 PM EDT Images from the original note were not included. Sleep Apnea What is sleep apnea? Sleep apnea is a serious sleep disorder that occurs when a person s breathing is interrupted during sleep. People with untreated sleep apnea stop breathing repeatedly during their sleep, sometimes hundreds of times during the night. There are two types of sleep apnea: obstructive and central. Obstructive sleep apnea (JUAN) is the more common of the two. Obstructive sleep apnea occurs as repetitive episodes of complete or partial upper airway blockage during sleep. During an apnea episode, the diaphragm and chest muscles work harder as the pressure increases to open the airway. Breathing usually resumes with a loud gasp or body jerk. These episodes can interfere with sound sleep, reduce the flow of oxygen to vital organs, and cause heart rhythm irregularities. In central sleep apnea (CSA), the airway is not blocked but the brain fails to signal the muscles to breathe due to instability in the respiratory control center. Central apnea is named as such because it is related to the function of the central nervous system. Who gets sleep apnea? Sleep apnea occurs in about 25 percent of men and nearly 10 percent of women. Sleep apnea can affect people of all ages, including babies and children and particularly people over the age of forty and those who are overweight. Certain physical traits and clinical features are common in patients with obstructive sleep apnea. These include excessive weight, large neck, and structural abnormalities reducing the diameter of the upper airway, such as nasal obstruction, a low-hanging soft palate, enlarged tonsils, or a small jaw with an overbite. The figures below illustrate the upper airway in normal sleep: (A) person is lying on back, face up, and (B) in obstructive sleep apnea. The arrows indicate complete obstruction in the back of the throat. Normal (A) Sleep apnea (B): What causes sleep apnea? Obstructive sleep apnea is caused by a blockage of the airway, usually when the soft tissues in the rear of the throat collapse during sleep. Central sleep apnea is usually observed in patients with central nervous system dysfunction, such as following a stroke or in patients with neuromuscular diseases like amyotrophic lateral sclerosis. It is also common in patients with heart failure and other forms of cardiac and pulmonary disease. What are the symptoms of sleep apnea? Often the first signs of obstructive sleep apnea are recognized not by the patient, but by the bed partner. Many of those affected have no sleep complaints. The most common symptoms of JUAN include: Snoring Daytime sleepiness or fatigue Restlessness during sleep Sudden awakenings with a sensation of gasping or choking Dry mouth or sore throat upon awakening Intellectual impairment, such as trouble concentrating, forgetfulness, or irritability Night sweats Sexual dysfunction Headaches People with central sleep apnea more often report recurrent awakenings or insomnia, although they may also experience a choking or gasping sensation with sudden awakenings. Symptoms in children may not be as obvious and include: Poor school performance Sluggishness or sleepiness, often misinterpreted as laziness in the classroom Daytime mouth breathing and swallowing difficulty Inward movement of the ribcage when inhaling Unusual sleeping positions, such as sleeping on the hands and knees, or with the neck hyper-extended Excessive sweating at night Learning and behavioral disorders Bedwetting What are the effects of sleep apnea? If left untreated, sleep apnea can result in a number of health problems including hypertension, stroke, arrhythmias, cardiomyopathy (enlargement of the muscle tissue of the heart), congestive heart failure, diabetes, and heart attacks. In addition, untreated sleep apnea may be responsible for job impairment, work-related accidents, and motor vehicle crashes as well as academic underachievement. How is sleep apnea diagnosed? The diagnosis of sleep apnea is relatively straightforward, based on sleep history and an overnight sleep study called a polysomnogram. Polysomnogram is performed in a sleep laboratory under the direct supervision of a trained technologist. During the test, a variety of body functions, such as the electrical activity of the brain, eye movements, muscle activity, heart rate, breathing patterns, air flow, and blood oxygen levels are recorded at night during sleep. After the study is completed, the number of times breathing is impaired during sleep is tallied and the severity of sleep apnea is graded. In some cases, a multiple sleep latency test is performed on the day after the overnight test to measure the speed of falling asleep. In this test, patients are given several opportunities to fall asleep during the course of a day when they normally would be awake. If you have symptoms of sleep apnea, your doctor may ask you to have a sleep evaluation in a sleep disorder center. What are the treatments for sleep apnea? Conservative treatments: In mild cases of sleep apnea, conservative therapy may be all that is needed. Overweight persons can benefit from losing weight. Even a ten percent weight loss can reduce the number of apneic events for most patients. Individuals with apnea should avoid the use of alcohol and sleeping pills, which make the airway more likely to collapse during sleep and prolong the apneic periods. In some patients with mild sleep apnea, breathing pauses occur only when they sleep on their backs. In such cases, using pillows and other devices that help them sleep in a side position may be helpful. People with sinus problems or nasal congestion (such people are more likely to experience sleep apnea) should use nasal sprays or breathing strips to reduce snoring and improve airflow for more comfortable nighttime breathing. Avoiding sleep deprivation is important for all patients with sleep disorders. Mechanical therapy: Continuous Positive Airway Pressure (CPAP) is the preferred initial treatment for most people with obstructive sleep apnea. With CPAP, patients wear a mask over their nose and/or mouth. An air blower forces air through the nose and/or mouth. The air pressure is adjusted so that it is just enough to prevent the upper airway tissues from collapsing during sleep. The pressure is constant and continuous. CPAP prevents airway closure while in use, but apnea episodes return when CPAP is stopped or it is used improperly. Other styles and types of positive airway pressure devices are available for people who have difficulty tolerating CPAP. These include Bilevel Positive Airway Pressure (BiPAP), Auto Positive Airway Pressure (AutoPAP), Auto/Adaptive Servo-Ventilation (ASV), etc Oral appliances: For patients with mild/moderate sleep apnea, dental appliances or oral mandibular advancement devices that prevent the tongue from blocking the throat and/or advance the lower jaw forward can be made. These devices help keep the airway open during sleep. A sleep specialist and special effects makeup artist (with expertise in oral appliances for this purpose) should jointly determine if this treatment is best for you. Surgery: Surgical procedures may help people with sleep apnea. There are many types of surgical procedures, some of which are performed as outpatient procedures. Surgery is reserved for people who have excessive or malformed tissue obstructing airflow through the nose or throat, such as a deviated nasal septum, markedly enlarged tonsils, or small lower jaw with an overbite that causes the throat to be abnormally narrow. These procedures are typically performed after sleep apnea has failed to respond to conservative measures and a trial of positive airway pressure treatment. Types of surgery include: Somnoplasty: A minimally invasive procedure that uses radiofrequency energy to reduce the soft tissue in the upper airway. Uvulopalatopharyngoplasty (UPPP): A procedure that removes soft tissue on the back of the throat and palate, increasing the width of the airway at the throat opening. Maxillary/Mandibular advancement surgery: A surgical correction of certain facial abnormalities or throat obstructions that contribute to sleep apnea. This is an invasive procedure that is reserved for patients with severe sleep apnea with head-face abnormalities. Nasal surgery: Correction of nasal obstructions, such as a deviated septum. Hypoglossal nerve stimulator: FDA approved 2013. (Implant that sends a lead that goes to bottom of tongue to stimulate it forward out of the area of the back of the throat) Resources: The [facility] Guide to Sleep Disorders by Loyda Hoffman DO National Sleep Foundation [address] [place] [address] [address] [facility]. [id number] [email or web address]/ [place] [employer] [address] [place] [address], [address] [place] [address] [email or web address] - Will start Auto CPAP 5-12 cmH2O with a mask per your preference. - I will have a prescription sent to a [employer] who will be calling you in the next 1-2 weeks or so. Please call them directly or us if you do not hear from them in this time frame. - You should be eligible for new supplies approximately every 3-6 months, depending on your insurance coverage. - If your mask doesn't fit well, call the [employer] company before 30 days are up to get a new mask without an additional charge. - Insurance requires regular usage and periodic office follow ups for PAP therapy, to continue to cover supplies. - Follow up for 31-90 day PAP compliance visit PAP Supply Guidelines Below are the guidelines for reordering your supplies. You will be responsible for your deductible, co-payments, and out of pocket expenses. Item Medicare & Commercial Insurance Medicaid & HCAP Nasal Mask (no headgear) 1 every 3 months 1 per year Nasal Mask Cushion 1 every month 2 per year Full Face Mask (no headgear) 1 every 3 months 1 per year Full Face Mask Cushion 1 every month *Self-Pay Nasal Pillows 2 every month 2 per year Headgear 1 every 6 months 1 per year Chin Strap 1 every 6 months 2 per year Tubing 1 every 3 months 1 per year Filters: Reusable 1 every 6 months 4 per year Filters: Disposable 2 every month 1 per month Humidifier Chamber(disposable) 1 every 6 months *Self-Pay About Your PAP Therapy Continuous Positive Airway Pressure/Bilevel Therapy You have been prescribed Positive Airway Pressure (PAP) therapy to treat sleep apnea. The most common type of sleep apnea is obstructive sleep apnea (JUAN), a condition in which the upper airway collapses during sleep. This obstruction keeps air from getting into your lungs. The prescribed PAP machine (CPAP or Bilevel or ASV) will smoothly blow air into your airway to prevent it from closing. The machine will use a mask to deliver the air through your nose and/or mouth. These devices are available in various sizes and styles. It will take some time for you to get used to the new equipment and it may take a while for you to begin to feel the benefits of PAP therapy. Please be patient. If you are having problems adjusting to your machine, please contact us for help. Beginning your PAP Therapy Assembly: Place your PAP machine on a level surface near your bed. To prevent injury, do not place the machine higher than your head. Keep the machine at least 12 inches away from anything that may block the vents. Plug the machine into a properly grounded electrical outlet. It is better to avoid using an extension cord. If necessary, use a heavy-duty one. If you are NOT using a humidifier with you PAP equipment: Attach one end of your 6-foot tubing to the PAP unit outlet and the other end to your mask. (If your mask does not have a built-in exhalation port, a special exhalation valve should be used between the mask and the 6-foot tubing.) Attach the headgear to your mask. If you are using a humidifier with your PAP equipment: Fill the humidifier with DISTILLED water to the maximum fill line. Attach the humidifier to the PAP unit s outlet as instructed by the respiratory therapist with your home care company. Attach one end of your 6-foot tubing to the humidifier outlet and the other end to your mask. (If your mask does not have a built-in exhalation port, a special exhalation valve should be used between the mask and the 6-foot tubing.) If you have been prescribed oxygen to be used with the PAP machine, you will be instructed on how to attach your oxygen tubing. Always turn off the oxygen tank before turning off your PAP machine. Getting Started: Wash your face and apply the mask and headgear as instructed by the process safety engineering technologist or respiratory therapist. The mask should fit snugly to prevent air leaks, but not so tight as to cause skin irritation or discomfort. Turn the PAP power switch to the ON position. You should feel air blowing through the mask. Breathe normally and adjust the mask gently if you feel an air leak. If there are no leaks, activate the ramp feature on your PAP machine. The ramp allows a lower pressure to be delivered for a designated period of time (usually 5 to 45 minutes) to allow you to relax and fall asleep more easily. The pressure will then gradually increase to the prescribed pressure that controls your apnea. Remember to turn OFF your PAP unit when it is not in use. Care and Maintenance Headgear should be washed as needed. Daily inspection and weekly washings are recommended. Do not disassemble the straps. Machine wash in warm water, making sure to attach Velcro hooks and tabs before washing. Line dry or machine dry on a low setting. Masks should be washed every other day. Daily inspection is recommended. Leave the mask and tubing attached. Gently wash the mask with a soft cloth using warm water and mild detergent, concentrating on the mask cushion flaps. DO NOT use alcohol or bleach. Rinse thoroughly and air dry. Tubing should be washed every other day. Daily inspection is recommended. Wash in warm water and mild detergent and rinse thoroughly. Hook the tubing to the machine and blow until dry. Humidifier should be washed daily and filled with DISTILLED water before use. Wash with warm water and mild detergent. Disinfect weekly by soaking with a solution of 1 part white vinegar and 3 parts water for 30 minutes. Rinse thoroughly and air dry. Disposable filters should be replaced once a month. Wash reusable foam filters with warm water and mild detergent at least once a month. Rinse thoroughly and dry with paper towels. Avoid line prep cook that contain fragrance or conditioners, as these will leave a residue. NEVER iron any soft goods. Troubleshooting If the machine fails to turn on: Make sure that the PAP machine is plugged into a grounded outlet. Make sure that the ON/OFF switch is in the ON position. Make sure that the wall outlet has power. If there is no pressure coming from your machine: Make sure that the inlet filter is clean and unblocked. Make sure that the cooling fan is unblocked and that air is flowing freely. Make sure that all tubing is securely connected. If your PAP machine still fails to operate, please call [phone] or your home care company for assistance. What You Should Know About Insurance There are many different insurance policies and coverage for PAP equipment will vary. Find out what your coverage provides and what your responsibilities are as a consumer. PAP therapy equipment is considered Durable Medical Equipment (DME). Here are a few questions to ask your insurance provider. What benefits do I have for DME? Do I have a deductible and/or co pay for DME? Is there a repair or replacement plan for durable medical equipment? How often can I receive a replacement mask, tubing, headgear and filters? Do I have to demonstrate that I am using my PAP device? How do I do that? Important Information It is very important to keep your PAP equipment and supplies clean. The life of the supplies depends on the care they receive. Under normal circumstances, expect the mask and headgear to last 9-12 months. Refer to the net sorter s manual for more information. Important Safety Reminders Keep equipment free from obstruction. Use your PAP equipment as directed. DO NOT try to adjust your pressure setting. DO NOT block the exhalation port or valve. Keep filters clean to prevent overheating. If a humidifier is being used, place it at a level lower than your head. If using a heated humidifier, allow unit to cool before cleaning or refilling. Follow safety guidelines regarding oxygen equipment.DO NOT operate multiple electrical devices from one outlet. If you have a medical emergency, contact the Emergency Medical Services. Below are the links to follow to watch a PAP education video: http://my.[facility].org/[facility]_care/services/home_respirator y_therapy.aspx http://www.[employer].com/watch?v=p eJ_epDGzEw http://my.[facility].org/[facility]/sleep-disor ders-center/treatment-services/p ap-therapy.aspx For mask options, look at: Henrry CPAP masks ResMed CPAP masks Ruiz masks documented in this encounter [facility] 02-25-2025 History of Presen t illness Narrative Images from the original note were not included. [facility] New Patient Evaluation PATIENT NAME: Shaista Clarke DATE OF SERVICE: February 24, 2025 CONSULTING PROVIDER: Dr Burrell REASON FOR VISIT: discuss results of testing done to eval for disorder of central hypersomnolence HPI: Shaista Clarke is a 29 year old female. Sleep-related history: She sees Dr Burrell for migraine, twitching. Because of snoring, frequent nocturnal awakening, sleep apnea-like behavior she had an HSAT on 08/27/24 which neither confirmed nor refuted JUAN (didn't sleep much that night). At her last appointment with Dr Burrell she reported that sleep issues were her main concern--frequent awakenings, daytime sleepiness, need for naps during the day, sleep related hallucinations, vivid dreams, dreaming even during brief naps, and ESS . 02/08/25 Actigraphy-- got less sleep during these 6 days than usual due to extenuating circumstances Interpretation: The actigraphy recording spans 6 days including 2 weekend days. Sleep diary was obtained along this recording. Patient sleep diary does match with actigraphy recording. Bedtimes and wake-up times were determined from the sleep diary/automatic rest periods. Bedtimes were not regular for the majority of the recording with an average bedtime of 12:47 a.m., with a range of 10:17 p.m. to 2:56 a.m.. Wake up times were regular for the majority of recording with the average wake up time of 7:25 a.m., with a range of 7:17 a.m. to 7:34 a.m. Patient had an averaged sleep time of 5.8 hours per night. Estimated sleep efficiency was not reduced (88%). Activity was not increased during the rest period and WASO time was 41 minutes on average. Naps were not reported by patient during the recording period. The circadian rhythm appears delayed. My impression based on above is short sleep times of 5.8 hours , possible circadian rhythm sleep disorder delayed sleep phase type, and inadequate sleep duration prior to MSLT. 02/08/25 PSG AHI 5.5 No supine sleep SL 4 mins ICSD DIAGNOSIS: Obstructive Sleep Apnea Syndrome [G47.33] IMPRESSION/RECOMMENDATIONS: 1. Mild obstructive sleep apnea. Respiratory events were associated with oxygen desaturations to a jeffrey of 95.0%. 2. The severity of this sleep related breathing disorder maybe underestimated due to the absence of recorded supine sleep in the study 3. Treatment options for mild sleep apnea, include oral appliance, conservative measures (avoidance of alcohol, sedative medications and sleeping in the back position, management of nasal obstruction and weight loss), surgery and potentially PAP therapy if daytime symptoms and certain comorbidities are present. 4. To further evaluate hypersomnia, a multiple sleep latency test was performed following this study and will be reported separately. 02/09/25 MSLT Mean Sleep Latency: 6.9 m Number of Sleep Onset REM Periods: 0 Urine toxicology screen-routine: Negative ICSD DIAGNOSIS: Obstructive Sleep Apnea Syndrome [G47.33] IMPRESSION: This MSLT was conducted following an overnight baseline polysomnography, which recorded a total sleep time of 390 minutes (sleep efficiency of 81%) with 88 minutes of wake after sleep onset (WASO) and an overall AHI of 5.5. The study was abnormal, with a mean sleep latency of 6.9 minutes, indicating objective excessive daytime sleepiness. No sleep-onset REM periods (SOREMPs) were observed. Actigraphy, performed only six days prior to the MSLT, revealed insufficient sleep, with an average sleep duration of 5.8 hours per day. Bedtimes were highly variable, ranging from 10:17 PM to 2:56 AM (average 12:47 AM), while wake times were more consistent at approximately 7:25 AM (ranging from 7:17 AM to 7:34 AM). Given these findings, both untreated obstructive sleep apnea and insufficient sleep may have contributed to the patient s excessive daytime sleepiness. SLEEP-WAKE SCHEDULE She is a self-described more of a night person. Bedtime: 10-11 PM. She does not have a hard time falling asleep. Machelle waite says 10 minutes Wake time: 7 AM, with an alarm. Never feels like sleep was restorative. After falling asleep: she wakes up 5-8 time(s) per night, because of the need to urinate x 3 (full bladder) and unknown. On weekends, she maintains the same sleep schedule within an hour Average total sleep time (in a 24 hour period): 7 hours. SLEEP-RELATED DETAILS Preferred sleep position: side or prone Breathing disturbances and other behaviors during sleep: Lives alone so she doesn't know about snoring. The PSG noted that she snores. She broke her nose last year. Bruxism: No. No TMD. GERD or aspiration: No Waking up with heart pounding or racing: No Anxiety or rumination: No She does not report having an urge to move the legs in the evening (when resting) that is accompanied or caused by uncomfortable and/or unpleasant sensations in the legs. She has not been told that she has leg kicking during sleep. She denies any history of parasomnias. Has vivid dreams Excessive daytime sleepiness is a problem. Excessive Daytime sleepiness/fatigue has been a problem for many years. Avoided morning classes in college. There is no history of a viral illness but she did have 3-4 concussions in college, needed vestibular therapy. She does report sleep paralysis (2x in her life, not recently), sleep-related hallucinations (bugs, snakes -- might have been related to med she was taking, that was in college) No cataplexy WAKE-RELATED DETAILS She works but is not a shift worker. 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 She does have difficulty with memory or concentration. Since concussions. She denies falling asleep or dozing off when driving. Has needed to sheeting puller to nap on a long drive She does not take naps. Would like to but doesn't have time to. Occas Saturday nap. She does not drink caffeinated beverages. There has not been a recent change in weight. Patient Questionnaires Sleep Scores 02/17/2025 Sleep Questions Reason for visit: Sleep apnea Difficulty falling or staying asleep or poor sleep quality Excessive daytime sleepiness Abnormal sleep/wake timing On average, hours of sleep in 24 hours: 7 Accidents or near accidents due to drowsy drivin Multiple values from one day are sorted in reverse-chronological order 02/17/2025 [place] Sleepiness Scale Score 17 (Excessive daytime sleepiness present) 02/17/2025 PROMIS CAT Sleep Disturbance PROMIS Sleep Disturbance T-Score 67 (moderate) PROMIS Sleep Disturbance Percentile 4 02/17/2025 Insomnia Severity Index Score 21 02/17/2025 PHQ-9 Score 9 12/25/2024 PROMIS Global Health - (T-Scores - the mean of general population = 50. Five points is a clinically meaningful difference.) Physical T-Score 47.7 Mental T-Score 45.8 PAST TREATMENTS: Melatonin -- no relief of WASO Unisom -- no relief of WASO PRIOR SLEEP STUDIES: See above PAST MEDICAL HISTORY Diagnosis Date Migraines Vitamin D insufficiency PAST SURGICAL HISTORY Procedure Laterality Date PAST SURGICAL HISTORY OF Left 12/12/2021 Modified [facility] ACTIVE PROBLEM LIST Medication Overuse Headache Migraine Without Aura and Without Status Migrainosus, Not Intractable Allergies As of Date: 02/25/2025 Allergen Noted Reaction COMPAZINE [PROCHLORPERAZINE EDISY*10/12/2019 Other: See Comments SHRIMP 10/25/2019 Rash Fully Assessed 02/25/2025 CURRENT MEDICATIONS: spironolactone (ALDACTONE) 50 mg tablet Take one tablet by mouth once a day before bed. Drospirenone-Ethinyl Estradiol (AMI 28) 3-0.02 mg per tablet Take 1 tablet by mouth once daily. cholecalciferol (VITAMIN D3) 50 mcg (2,000 unit) tablet Take 2,000 Units by mouth once daily. CPAP/BIPAP/OTHER APAP 5-12 cmH2O [facility] promethazine (PHENERGAN) 25 mg tablet 1/2 to 1 po q8h prn headache or nausea (Patient not taking: Reported on 12/05/2024) Prior Hypersomnia/Narcolepsy Medications (20 years) No data to display Prior Insomnia Medications (last 20 years) 01/31/2022 23:59 Insomnia Medications fluoxetine HCl 20 mg DAILY For 15 days then stop ORAL -Discontinued Details Outpatient prescription Review of Systems Constitutional: Positive for fatigue. HENT: Negative for congestion (a little obstructed since nasal fracture last year). Cardiovascular: Negative for palpitations. Gastrointestinal: Negative for heartburn. Genitourinary: Positive for nocturia. Neurological: Positive for headaches (migraines, since childhood, worse with sleep deprivation or hunger). SOCIAL HISTORY: Social History Tobacco Use Smoking status: Never Smokeless tobacco: Never Substance Use Topics Alcohol use: Never FAMILY HISTORY: No family history on file. There is no family history of sleep disorders. PHYSICAL EXAMINATION: Vital Signs: BP 112/69 Pulse (!) 55 Resp 18 Wt 61.7 kg (136 lb) LMP (LMP Unknown) SpO2 98% BMI 23.34 kg/m PHYSICAL EXAM: General appearance: pleasant, NAD Mental status: alert and oriented, able to provide own history Constitutional: WNL Skin: No visible rashes on exposed skin Neuro: No focal deficits observed, no tremors IMPRESSION/PLAN: G47.33 JUAN (obstructive sleep apnea) (primary encounter diagnosis) G47.19 Excessive daytime sleepiness Shaista Clarke is a 29 year old female with new diagnosis of mild JUAN, excessive daytime sleepiness since at least college, hx of multiple concussions, migraines, frequent WASO, nocturia x 3 We discussed her results in detail of actigraphy, PSG, MSLT. She had less sleep during actigraphy than her normal 7 hrs per night due to extenuating circumstances. But the frequent WASO is typical. PSG revealed mild JUAN with AHI 5.5. SL on PSG only 4 min, normal REM latency of 81 min. On MSLT she had MSL 6.9 min, no SOREMPs. We will start by treating her mild JUAN to see if that helps with WASO, nocturia, EDS. Also discussed OAT but not interested. Discussed PAP therapy in detail. Will eval sxs at follow up. May need to consider other treatment for frequent awakenings. Or eventually consider a wake promoting agen. - Will start Auto CPAP 5-12 cmH2O with a mask per your preference . - I will have a prescription sent to a [employer] company - [facility] who will be calling you in the next 1-2 weeks or so. Please call them directly or us if you do not hear from them in this time frame. - You should be eligible for new supplies approximately every 3-6 months, depending on your insurance coverage. - If your mask doesn't fit well, call the [employer] company before 30 days are up to get a new mask without an additional charge. - Insurance requires regular usage and periodic office follow ups for PAP therapy, to continue to cover supplies. - Follow up for 31-90 day PAP compliance visit - I intended to administer the IHSS Brenda Millard APRN.CNP I spent a total of 60 minutes on the date of the service which included preparing to see the patient, [id number] patient care, completing clinical documentation, obtaining and/or reviewing separately obtained history, performing a medically appropriate examination, counseling and educating the patient/family/caregiver, and ordering medications, tests, or procedures. documented in this encounter [facility] 02-25-2025 Note HNO ID: [id number] Author: BRENDA MILLARD APRN.CNP Service: ? Author Type: Nurse Practitioner Type: Progress Notes Filed: 02/26/2025 09:10 Note Text: [facility] New Patient Evaluation PATIENT NAME: Shaista Clarke DATE OF SERVICE: February 24, 2025 CONSULTING PROVIDER: Dr Burrell REASON FOR VISIT: discuss results of testing done to eval for disorder of central hypersomnolence HPI: Shaista Clarke is a 29 year old female. Sleep-related history: She sees Dr Burrell for migraine, twitching. Because of snoring, frequent nocturnal awakening, sleep apnea-like behavior she had an HSAT on 08/27/24 which neither confirmed nor refuted JUAN (didn't sleep much that night). At her last appointment with Dr Burrell she reported that sleep issues were her main concern--frequent awakenings, daytime sleepiness, need for naps during the day, sleep related hallucinations, vivid dreams, dreaming even during brief naps, and ESS . 02/08/25 Actigraphy-- got less sleep during these 6 days than usual due to extenuating circumstances Interpretation: The actigraphy recording spans 6 days including 2 weekend days. Sleep diary was obtained along this recording. Patient sleep diary does match with actigraphy recording. Bedtimes and wake-up times were determined from the sleep diary/automatic rest periods. Bedtimes were not regular for the majority of the recording with an average bedtime of 12:47 a.m., with a range of 10:17 p.m. to 2:56 a.m.. Wake up times were regular for the majority of recording with the average wake up time of 7:25 a.m., with a range of 7:17 a.m. to 7:34 a.m. Patient had an averaged sleep time of 5.8 hours per night. Estimated sleep efficiency was not reduced (88%). Activity was not increased during the rest period and WASO time was 41 minutes on average. Naps were not reported by patient during the recording period. The circadian rhythm appears delayed. My impression based on above is short sleep times of 5.8 hours , possible circadian rhythm sleep disorder delayed sleep phase type, and inadequate sleep duration prior to MSLT. 02/08/25 PSG AHI 5.5 No supine sleep SL 4 mins ICSD DIAGNOSIS: Obstructive Sleep Apnea Syndrome [G47.33] IMPRESSION/RECOMMENDATIONS: 1. Mild obstructive sleep apnea. Respiratory events were associated with oxygen desaturations to a jeffrey of 95.0%. 2. The severity of this sleep related breathing disorder maybe underestimated due to the absence of recorded supine sleep in the study 3. Treatment options for mild sleep apnea, include oral appliance, conservative measures (avoidance of alcohol, sedative medications and sleeping in the back position, management of nasal obstruction and weight loss), surgery and potentially PAP therapy if daytime symptoms and certain comorbidities are present. 4. To further evaluate hypersomnia, a multiple sleep latency test was performed following this study and will be reported separately. 02/09/25 MSLT Mean Sleep Latency: 6.9 m Number of Sleep Onset REM Periods: 0 Urine toxicology screen-routine: Negative ICSD DIAGNOSIS: Obstructive Sleep Apnea Syndrome [G47.33] IMPRESSION: This MSLT was conducted following an overnight baseline polysomnography, which recorded a total sleep time of 390 minutes (sleep efficiency of 81%) with 88 minutes of wake after sleep onset (WASO) and an overall AHI of 5.5. The study was abnormal, with a mean sleep latency of 6.9 minutes, indicating objective excessive daytime sleepiness. No sleep-onset REM periods (SOREMPs) were observed. Actigraphy, performed only six days prior to the MSLT, revealed insufficient sleep, with an average sleep duration of 5.8 hours per day. Bedtimes were highly variable, ranging from 10:17 PM to 2:56 AM (average 12:47 AM), while wake times were more consistent at approximately 7:25 AM (ranging from 7:17 AM to 7:34 AM). Given these findings, both untreated obstructive sleep apnea and insufficient sleep may have contributed to the patienta??s excessive daytime sleepiness. SLEEP-WAKE SCHEDULE She is a self-described more of a night person. Bedtime: 10-11 PM. She does not have a hard time falling asleep. Machelle waite says 10 minutes Wake time: 7 AM, with an alarm. Never feels like sleep was restorative. After falling asleep: she wakes up 5-8 time(s) per night, because of the need to urinate x 3 (full bladder) and unknown. On weekends, she maintains the same sleep schedule within an hour Average total sleep time (in a 24 hour period): 7 hours. SLEEP-RELATED DETAILS Preferred sleep position: side or prone Breathing disturbances and other behaviors during sleep: Lives alone so she doesn't know about snoring. The PSG noted that she snores. She broke her nose last year. Bruxism: No. No TMD. GERD or aspiration: No Waking up with heart pounding or racing: No Anxiety or rumination: No She does not report having an urge to m (more content not included)... [facility] 02-17-2025 Telephone encounter Note TC to pt who voiced understanding. Rescheduled for next week. Paty Cruz LPN [facility] 02-17-2025 Miscellaneous Notes TC to pt who voiced understanding. Rescheduled for next week. Paty Cruz LPN This virtual visit was scheduled last minute, I've never seen her, I would like an hour visit to review actigraphy/PSG/MSL, in-person preferably. Brenda Millard APRN.KAMALJIT documented in this encounter [facility] 02-17-2025 Telephone encounter Note This virtual visit was scheduled last minute, I've never seen her, I would like an hour visit to review actigraphy/PSG/MSL, in-person preferably. Brenda Millard APRN.KAMALJIT [facility] Work Phone: 02-17-2025 Telephone encounter Note Patient called requesting sooner appointment to review PSG results. Patient accepted virtual visit for 02/17/2025 at 11:30 AM with KAMALJIT Lacey [facility] 02-17-2025 Miscellaneous Notes Patient called requesting sooner appointment to review PSG results. Patient accepted virtual visit for 02/17/2025 at 11:30 AM with KAMALJIT Lacey documented in this encounter [facility] 02-10-2025 Note HNO ID: [id number] Author: ?, ?, ? Service: ? Author Type: ? 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 Service: ? Author Type: ? Type: Progress Notes Filed: 02/09/2025 08:30 Note Text: Sleep Study Check-In Documentation Date: February 09, 2025 Name: Shaista Clarke Patient was accompanied by Self. Location: Latex allergy: No Tape allergy: No Current medications were reviewed with the patient:Yes Sleep aid taken by patient for the sleep study: [place] of sleep aid: Not Applicable Procedure was explained to the patient and all questions were answered. Knowledge Program (KP): KP was not completed in epic by patient and accepted Study type: MSLT Adverse Event: No Comments: Patient was advised to follow up with their ordering provider regarding test results. PSG Wake time 6:49 AM TST over 6 hrs AHI under 15 MSLT Nap 1 started at 8:20 AM UTOX collected at 7:30 AM Actigraphy Watch - Collected after MSLT nap 5 Sleep Logs - Collected after MSLT nap 5 Medications No sleep/wake altering medications noted in chart Marietta Elidia, [facility], [facility] 02-09-2025 Note HNO ID: [id number] Author: ?, ?, ? Service: ? Author Type: ? Type: Progress Notes Filed: 02/09/2025 04:03 Note Text: Sleep Study Check-In Documentation Date: February 09, 2025 Name: Shaista Clarke Patient was accompanied by Self. Location: IC Latex allergy: No Tape allergy: No Current medications were reviewed with the patient:Yes Sleep aid taken by patient for the sleep study: [place] of sleep aid: Not Applicable Procedure was explained to the patient and all questions were answered. PAP treatment discussed and shown to patient: Yes Knowledge Program (KP): KP was not completed in epic by patient and accepted Study type: Polysomnogram Adverse Event: No (If yes create a new abstract) Comments: Patient was advised to follow up with their ordering provider regarding test results. Tiffany Sanchez [facility] 02-09-2025 History of Presen t illness Narrative Sleep Study Check-In Documentation Date: February 09, 2025 Name: Shaista Clarke Patient was accompanied by Self. Location: IC Latex allergy: No Tape allergy: No Current medications were reviewed with the patient:Yes Sleep aid taken by patient for the sleep study: [place] of sleep aid: Not Applicable Procedure was explained to the patient and all questions were answered. PAP treatment discussed and shown to patient: Yes Knowledge Program (KP): KP was not completed in epic by patient and accepted Study type: Polysomnogram Adverse Event: No (If yes create a new abstract) Comments: Patient was advised to follow up with their ordering provider regarding test results. Tiffany Sanchez documented in this encounter [facility] 01-29-2025 Note HNO ID: [id number] Author: ?, ?, ? Service: ? Author Type: ? Type: Progress Notes Filed: 02/10/2025 12:54 Note Text: ACTIGRAPHY DEVICE # [id number] Date shipped out 01/29/2025 [employer] OUT TRACKING NUMBER [id number] [employer] RETURN TRACKING NUMBER [id number], Shaista Sent via [employer] [facility] 12-30-2024 Telephone encounter Note Pt scheduled. Paty Cruz LPN [facility] 12-30-2024 Miscellaneous Notes Pt scheduled. Paty Cruz LPN Please assist in scheduling a 3 month 60 minute follow up. Please use a new pt spot. Paty Cruz LPN Images from the original note were not included. Wayne Burrell Jr., MD P [facility] Indra Nurse Schedule follow up please. documented in this encounter [facility] 12-29-2024 Telephone encounter Note Please assist in scheduling a 3 month 60 minute follow up. Please use a new pt spot. Paty Cruz LPN [facility] 12-29-2024 Telephone encounter Note Images from the original note were not included. Wayne Burrell Jr., MD P [facility] Indra Nurse Schedule follow up please. [facility] 12-28-2024 Note HNO ID: [id number] Author: WAYNE BURRELL JR, MD Service: ? Author Type: Physician Type: Progress Notes Filed: 12/28/2024 17:57 Note Text: ESTABLISHED PATIENT VISIT CHIEF COMPLAINT: Follow Up HISTORY OF PRESENT ILLNESS: Shaista Clarke is a 29 year old female, BMI 23.48 kg/m2 with a PMH significant for and per last office visit note of 08/14/24: 1. Intractable migraine without aura and without status migrainosus - ICD9: 346.11, ICD10: G43.019 (primary diagnosis) Continues to have migraines as above. Multiple failed meds in past when following with headache center. Patient never tried Keppra as preventative. Now willing. SE and ADRs reviewed with pt. Rx provided. No other changes to PRINGLE meds at this time. Encouraged pt to avoid overuse of OTC meds such as Excedrin. If fails Keppra, need to consider Botox therapy with referral back to headache center. 2. Twitching - ICD9: 781.0, ICD10: R25.3 Subjective complaint. Has yet to be seen on a physical exam. Question if behavioral. Description of symptoms appear to be inconsistent when comparing tube filler notes. Will continue to monitor. History provided does not suggest intracranial cause or seizure and given non-focal neuro exam, will hold on additional neuro testing at this time. MRI and EEG ordered last visit, but pt declined due to costs. 3. Frequent nocturnal awakening - ICD9: 780.59, ICD10: G47.00 4. Snoring - ICD9: 786.09, ICD10: R06.83 5. Sleep apnea-like behavior - ICD9: 780.59, ICD10: G47.39 Patient worried fragmented sleep contributing to headaches. Pt does endorse AM headaches as well as snoring and other s/s of JUAN which in turn could fragment sleep. Denies pain, PLMs or RLS or other common causes of nocturnal awakeing. Will evaluate by means of HSAT as pt reports she would not be able to sleep in a lab. HSAT completed on 08/27/24 and unremarkable. Per report: Time WHITNEY/AHI Supine 0.5 min 0.0 Off-Supine 351.0 min 1.0 Total 351.5 min 1.0 The mean oxygen saturation during the study was 97.0%, with a minimum oxygen saturation of 94.0%. Pt feels headaches are a little better but states never took the Keppra - I was worried about side effects as I have dealt with seasonal depression. States sleep is what she is most concerned about. Waking about 8-10x per night. Going to bed about 1030PM and falling asleep quickly. However, states weird that she is waking up through the night. States that she only slept maybe an hour with the HSAT on. States sleep schedule is not changing except weekends might go to bed a little later and wake up a little later. First awakening occurs about 2 hours after going to sleep. States not checking phone or using electronics. Otherwise not aware of why she is waking up. Does wake up drenched in sweat (did not occur the night of the HSAT per pt). Not waking up out of dreams. Denies vivid dreams. States wakes, moves to the other side of the bed and back to sleep in about 2 minutes. States thinks she moves around in her sleep, but moves the sheets around more after waking up to get comfortable. No RLS symptoms. No leg cramps. Upon waking in the AM feels tired (630-730). Yesterday was in bed for 8 hours and woke up with a headache and woke up more through the night than usually does. No naps during the day. Pt states she took HSAT off at 6AM but study suggests took off at 04:43AM. No pain during the night. No worries or raching thoughts. On OCP continuously due to endometriosis. Pt previously on gabapentin and lyrica - difficulties getting off the latter per pt. States sleep problems have been an issue for more than 10 years. Does not associated with current meds. Melatonin does not help, but recently tried half a unisom and states sometimes helps but still waking up about 5 times per night. No falling asleep driving but reports feeling tired during the day (works from home and will be dozing off at her desk). States sometimes so tired will take 30 minute nap during lunch break) - inconsistent with above history. No family history of sleep problems. States if has a day that can take a nap definitely will because so tired. [place] Sleepiness Scale: Sitting and readin Watching TV: 2 Sitting, inactive in a public place (e.g. a theatre or a meeting): 1 As a passenger in a car for an hour without a break: 2 Lying down to rest in the afternoon when circumstances permit: 3 Sitting and talking to someone: 1 Sitting quietly after a lunch without alcohol: 2 In a car, while stopped for a few minutes in the traffic: 1 Total: I would say that I do have dreams that feel very real. No sleep paralysis. States history of waking from sleep about 2-3 years ago and would see bugs in bed or spiders or snakes on floor and/or would see person in room until turned on a light. Happened once or twice in the last year. No cataplexy symptoms. Does dream a lot during naps even if the nap is onl (more content not included)... [facility] 12-28-2024 History of Presen t illness Narrative Images from the original note were not included. ESTABLISHED PATIENT VISIT CHIEF COMPLAINT: Follow Up HISTORY OF PRESENT ILLNESS: Shaista Clarke is a 29 year old female, BMI 23.48 kg/m2 with a PMH significant for and per last office visit note of 08/14/24: 1. Intractable migraine without aura and without status migrainosus - ICD9: 346.11, ICD10: G43.019 (primary diagnosis) Continues to have migraines as above. Multiple failed meds in past when following with headache center. Patient never tried Keppra as preventative. Now willing. SE and ADRs reviewed with pt. Rx provided. No other changes to PRINGLE meds at this time. Encouraged pt to avoid overuse of OTC meds such as Excedrin. If fails Keppra, need to consider Botox therapy with referral back to headache center. 2. Twitching - ICD9: 781.0, ICD10: R25.3 Subjective complaint. Has yet to be seen on a physical exam. Question if behavioral. Description of symptoms appear to be inconsistent when comparing tube filler notes. Will continue to monitor. History provided does not suggest intracranial cause or seizure and given non-focal neuro exam, will hold on additional neuro testing at this time. MRI and EEG ordered last visit, but pt declined due to costs. 3. Frequent nocturnal awakening - ICD9: 780.59, ICD10: G47.00 4. Snoring - ICD9: 786.09, ICD10: R06.83 5. Sleep apnea-like behavior - ICD9: 780.59, ICD10: G47.39 Patient worried fragmented sleep contributing to headaches. Pt does endorse AM headaches as well as snoring and other s/s of JUAN which in turn could fragment sleep. Denies pain, PLMs or RLS or other common causes of nocturnal awakeing. Will evaluate by means of HSAT as pt reports she would not be able to sleep in a lab. HSAT completed on 08/27/24 and unremarkable. Per report: Time WHITNEY/AHI Supine 0.5 min 0.0 Off-Supine 351.0 min 1.0 Total 351.5 min 1.0 The mean oxygen saturation during the study was 97.0%, with a minimum oxygen saturation of 94.0%. Pt feels headaches are a little better but states never took the Keppra - I was worried about side effects as I have dealt with seasonal depression. States sleep is what she is most concerned about. Waking about 8-10x per night. Going to bed about 1030PM and falling asleep quickly. However, states weird that she is waking up through the night. States that she only slept maybe an hour with the HSAT on. States sleep schedule is not changing except weekends might go to bed a little later and wake up a little later. First awakening occurs about 2 hours after going to sleep. States not checking phone or using electronics. Otherwise not aware of why she is waking up. Does wake up drenched in sweat (did not occur the night of the HSAT per pt). Not waking up out of dreams. Denies vivid dreams. States wakes, moves to the other side of the bed and back to sleep in about 2 minutes. States thinks she moves around in her sleep, but moves the sheets around more after waking up to get comfortable. No RLS symptoms. No leg cramps. Upon waking in the AM feels tired (630-730). Yesterday was in bed for 8 hours and woke up with a headache and woke up more through the night than usually does. No naps during the day. Pt states she took HSAT off at 6AM but study suggests took off at 04:43AM. No pain during the night. No worries or raching thoughts. On OCP continuously due to endometriosis. Pt previously on gabapentin and lyrica - difficulties getting off the latter per pt. States sleep problems have been an issue for more than 10 years. Does not associated with current meds. Melatonin does not help, but recently tried half a unisom and states sometimes helps but still waking up about 5 times per night. No falling asleep driving but reports feeling tired during the day (works from home and will be dozing off at her desk). States sometimes so tired will take 30 minute nap during lunch break) - inconsistent with above history. No family history of sleep problems. States if has a day that can take a nap definitely will because so tired. [place] Sleepiness Scale: Sitting and readin Watching TV: 2 Sitting, inactive in a public place (e.g. a theatre or a meeting): 1 As a passenger in a car for an hour without a break: 2 Lying down to rest in the afternoon when circumstances permit: 3 Sitting and talking to someone: 1 Sitting quietly after a lunch without alcohol: 2 In a car, while stopped for a few minutes in the traffic: 1 Total: I would say that I do have dreams that feel very real. No sleep paralysis. States history of waking from sleep about 2-3 years ago and would see bugs in bed or spiders or snakes on floor and/or would see person in room until turned on a light. Happened once or twice in the last year. No cataplexy symptoms. Does dream a lot during naps even if the nap is only 30 minutes long. PHQ 9 Data More data exists 07/06/2024 04/11/2020 10/13/2019 PHQ-9 All Questions Little interest or pleasure in doing things: 0 0 0 Feeling down, depressed, or hopeless: 0 0 0 Trouble falling or staying asleep, or sleeping too much 0 3 3 Feeling tired or having little energy 0 2 3 Poor appetite or overeating 0 0 0 Feeling bad about yourself - or that you are a failure or have let yourself or your family down 0 0 0 Trouble concentrating on things, such as reading the newspaper or watching television 0 0 0 Moving or speaking so slowly that other people could have noticed. Or the opposite - being so fidgety or restless that you have been moving around a lot more than usual 0 0 0 Thoughts that you would be better off , or of hurting yourself in some way 0 0 0 PHQ-9 Score 0 5 6 Details ALFREDO 7 Data 04/11/2020 10/13/2019 ALFREDO-7 All Questions Feeling nervous, anxious, or on edge Not at all Not at all Not being able to stop or control worrying Not at all Not at all Details PROMIS-10 More data exists PROMIS Global Health - (T-Scores - the mean of general population = 50. Five points is a clinically meaningful difference.) Physical T-Score Mental T-Score 12/25/2024 47.7 45.8 11/27/2023 54.1 50.8 06/03/2023 44.9 48.3 Details [place] Sleepiness Scale Scores important suggestion No data to display Insomnia Severity Index Scores important suggestion No data to display Morningness Eveningness Questionnaire Scores important suggestion No data to display REVIEW OF SYSTEMS GENERAL:No weight loss, malaise or fevers. HEENT:Negative for frequent or significant headaches, No changes in hearing or vision, no nose bleeds or other nasal problems NECK:Negative for lumps, goiter, pain and significant neck swelling RESPIRATORY: Negative for cough, wheezing or shortness of breath. CARDIOVASCULAR: Negative for chest pain, leg swelling or palpitations. GASTROINTESTINAL: Negative for abdominal discomfort, blood in stools or black stools or change in bowel habits GENITOURINARY: No history of dysuria, frequency or incontinence MUSCULOSKELETAL: Negative for joint pain or swelling, back pain or muscle pain. NEUROLOGIC:Negative for focal numbness or weakness, headaches and dizziness or syncope, vision changes, speech/languag changes - EXCEPT that as per HPI above. SKIN:Negative for lesions, rash, and itching. PSYCHIATRIC: Negative for sleep disturbance, mood disorder and recent psychosocial stressors. HEMATOLOGIC/LYMPHATIC/IMMUNOLOGI C:Negative for prolonged bleeding, bruising easily or swollen nodes. ENDOCRINE: Negative for cold or heat intolerance, polyuria, polydipsia and goiter. The remainder of the ROS was reviewed and is negative. LAB/IMAGING: Those performed since patient's last visit have been reviewed. WBC (k/uL) Date Value 06/21/2022 5.43 RBC (m/uL) Date Value 06/21/2022 4.16 Hemoglobin (g/dL) Date Value 06/21/2022 12.9 Hematocrit (%) Date Value 06/21/2022 38.4 MCV (fL) Date Value 06/21/2022 92.3 MCH (pg) Date Value 06/21/2022 31.0 MCHC (g/dL) Date Value 06/21/2022 33.6 RDW-CV (%) Date Value 06/21/2022 11.8 Platelet Count (k/uL) Date Value 06/21/2022 212 MPV (fL) Date Value 06/21/2022 9.1 Glucose (mg/dL) Date Value 06/21/2022 94 BUN (mg/dL) Date Value 06/21/2022 11 Creatinine (mg/dL) Date Value 06/21/2022 0.77 Sodium (mmol/L) Date Value 06/21/2022 138 Potassium (mmol/L) Date Value 06/21/2022 3.7 Chloride (mmol/L) Date Value 06/21/2022 105 CO2 (mmol/L) Date Value 06/21/2022 23 Protein, Total (g/dL) Date Value 06/21/2022 6.6 Albumin (g/dL) Date Value 06/21/2022 4.0 Calcium, Total (mg/dL) Date Value 06/21/2022 8.8 Alkaline Phosphatase (U/L) Date Value 06/21/2022 39 Bilirubin, Total (mg/dL) Date Value 06/21/2022 0.3 AST (U/L) Date Value 06/21/2022 16 ALT (U/L) Date Value 06/21/2022 13 BARBARA (no units) Date Value 06/14/2020 Negative MEDICATIONS: spironolactone (ALDACTONE) 50 mg tablet Take one tablet by mouth once a day before bed. Drospirenone-Ethinyl Estradiol (AMI 28) 3-0.02 mg per tablet Take 1 tablet by mouth once daily. cholecalciferol (VITAMIN D3) 50 mcg (2,000 unit) tablet Take 2,000 Units by mouth once daily. promethazine (PHENERGAN) 25 mg tablet 1/2 to 1 po q8h prn headache or nausea (Patient not taking: Reported on 12/05/2024) HISTORIES PAST MEDICAL HISTORY Diagnosis Date Migraines Vitamin D insufficiency SOCIAL HISTORY Social History Tobacco Use Smoking status: Never Smokeless tobacco: Never Substance Use Topics Alcohol use: Never PHYSICAL EXAMINATION BP 114/75 (BP Site: Left Arm, BP Position: Sitting) Pulse 69 Wt 62.1 kg (136 lb 12.8 oz) LMP (LMP Unknown) SpO2 98% BMI 23.48 kg/m GENERAL EXAM: General appearance: NAD, pleasant. HEENT: NC/AT, nasal congestion absent, no oral lesions, membranes moist. NECK: ROM nml. Lungs: CTA bilaterally. CV: RRR nl S1, S2. Extr: No cyanosis, clubbing or edema. Skin: Cool to touch. NEUROLOGICAL EXAM: General: Awake, alert, oriented x3 (person,place,time), fluent, no dysarthria; comprehension, naming, repetition intact. CN: PERRL, EOMI and without nystagmus, VFF to confrontation, facial sensation and strength are normal and symmetric, hearing is intact , palate and tongue movements are intact and symmetric. SCM and trapezius strength normal. Motor: Normal tone, bulk and strength (5/5) bilaterally (throughout extremities x4). Reflexes: 2/4 and symmetric, plantar stimulation is flexor. Coordination: FNF, STEFANY, HTS intact. No tremors. Sensation: Light touch, vibration intact throughout. No evidence of neglect. Gait: Stable with nml stride and arm swing. Assessment and Plan: ASSESSMENT/PLAN: 1. 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 Frequent nocturnal awakening - ICD9: 780.59, ICD10: G47.00 3. Excessive daytime sleepiness - ICD9: 780.54, ICD10: G47.19 Patient with initial sleep complaints of waking up through the night. However, after repeating sleep questionnaires today, and noted changes in sleep history, in addition to brief nocturnal awakenings with no provoking or associated symptoms, patient now endorsing: daytime sleepiness, need for naps during the day, sleep related hallucinations, vivid dreams, dreaming even during brief naps. In addition, the score of ESS performed in office also suggestive of excessive daytime sleepiness. Thus, new question raised as to whether sleepiness is due to disruption of sleep vs patient having central hypersomnia including symptoms suggestive of Narcolepsy without Cataplexy. D/w pt in detail. The HSAT was inconclusive and uncertain if pt even slept during most of the study per history today. Explained to patient that while the study does not entirely rule out JAUN, it is less likely but still needs to be considered as a cause of awakenings, as well as other conditions such as PLMs. Explained to further evaluate for all possible causes of sleep complaints a PSG + MSLT would be beneficial with explanation of how study performed provided to pt. Such studies would evaluate for JUAN and PLMs as cause of awakenings but if PSG unremarkable, would also allow us to evaluate for central hypersomnia. Pt interested in study depending on cost. Explained that if unable to perform due to cost, then we can empirically treat for PLMs with low dose gabapentin at night, but it no impact on symptoms, would then still need to reconsider performing the PSG+MSLT as etiology of symptoms would remain unknown. For now, pt agrees to PSG+MSLT with cost pending. Orders placed. Advised pt not to drive or operate heavy machinery if sleepy. 4. Intractable migraine without aura and without status migrainosus - ICD9: 346.11, ICD10: G43.019 Improving per pt, despite never taking Keppra. As focus during visit was on sleep, limited details regarding headache history. However, endorsing at most 1 headache day per week with symptoms associated with headache unchanged but less intense. Possible sleep disorder contributing to headaches. For now no changes in meds. Wayne Burrell MD I spent a total of 45 minutes on the date of the service which included preparing to see the patient, [id number] patient care, completing clinical documentation, obtaining and/or reviewing separately obtained history, performing a medically appropriate examination, counseling and educating the patient/family/caregiver, ordering medications, tests, or procedures, and communicating results to the patient/family/caregiver. 12/25/2024 [facility] Physical Health Summary Physical health: Very good Everyday physical activity, ability: Completely Fatigue: Moderate Pain level: 4 General health: Good Social activities/roles, ability: Good Physical Health T-Score 47.7 (Good) Physical Health Percentile 41 [facility] Mental Health Summary Quality of life: Very good Mental health (mood,thinking): Good Social satisfaction: Good Emotional problems (anxious,depressed): Sometimes Mental Health T-Score 45.8 (Good) Mental Health Percentile 34 Percentiles provide an indication of how a patient's score ranks in relation to the [place] general population. > 31st percentile is within normal limits or better *< 31st percentile is at least SD worse than population, which may be clinically relevant < 16th percentile is at least 1 SD worse than population and warrants attention documented in this encounter [facility] 12-28-2024 Note HNO ID: [id number] Author: KAE LANDRY LPN Service: ? Author Type: LICENSED NURSE Type: Progress Notes Filed: 12/28/2024 17:57 Note Text: 12/25/2024 [facility] Physical Health Summary Physical health: Very good Everyday physical activity, ability: Completely Fatigue: Moderate Pain level: 4 General health: Good Social activities/roles, ability: Good Physical Health T-Score 47.7 (Good) Physical Health Percentile 41 [facility] Mental Health Summary Quality of life: Very good Mental health (mood,thinking): Good Social satisfaction: Good Emotional problems (anxious,depressed): Sometimes Mental Health T-Score 45.8 (Good) Mental Health Percentile 34 Percentiles provide an indication of how a patient's score ranks in relation to the [place] general population. > 31st percentile is within normal limits or better *< 31st percentile is at least ? SD worse than population, which may be clinically relevant < 16th percentile is at least 1 SD worse than population and warrants attention [facility] 12-22-2024 Telephone encounter Note Images from the original note were not included. [facility] 12-22-2024 Miscellaneous Notes Images from the original note were not included. documented in this encounter [facility] 12-05-2024 Note HNO ID: [id number] Author: MICHAEL REBOLLAR MD Service: ? Author Type: Physician Type: Progress Notes Filed: 12/05/2024 14:11 Note Text: Patient presents with: Cold: Sore throat, runny nose and cough x 8 days HPI: Feeling sick for 8 days. Her family has been sick also but are feeling better. Positive symptoms: Cough, sleep disturbance last night, sore throat, Nasal Congestion, Rhinorrhea, hoarse voice, improved initial night sweats, improved nausea, Negative symptoms: Shortness of breath, Wheezing, Chest tightness, Earache, Vomiting, Diarrhea, OTC: Lozenges, alkaseltzer Denies history of asthma. MEDICATIONS: Current Outpatient Medications Medication Sig spironolactone (ALDACTONE) 50 mg tablet Take one tablet by mouth once a day before bed. Drospirenone-Ethinyl Estradiol (AMI 28) 3-0.02 mg per tablet Take 1 tablet by mouth once daily. cholecalciferol (VITAMIN D3) 50 mcg (2,000 unit) tablet Take 2,000 Units by mouth once daily. promethazine (PHENERGAN) 25 mg tablet 1/2 to 1 po q8h prn headache or nausea (Patient not taking: Reported on 12/05/2024) No current facility-administered medications for this visit. ALLERGIES: ALLERGIES Allergen Reactions Compazine [Prochlor* Other: See Comments agitation Shrimp Rash VITALS: BP 120/80 Pulse 85 Temp 37.2 ?C (99 ?F) Resp 20 Wt 61.5 kg (135 lb 9.3 oz) LMP (LMP Unknown) SpO2 100% BMI 23.27 kg/m? PHYSICAL EXAM: GEN: mildly ill appearing. Pleasant, in no acute distress. HEENT: PERRL, EOMI, conjunctiva clear Ears: Moderate cerumen left canal. TMs without erythema, bulge, or effusion Sinuses: non-tender frontal sinus, non-tender maxillary sinuses Throat: moist mucous membranes, mild erythema, no exudate Neck: supple, no thyromegaly, no lymphadenopathy HEART: regular rate, regular rhythm, no murmurs LUNGS: clear to auscultation, no wheezes or crackles, no increased WOB ASSESSMENT/PLAN: 1. URI, acute - ICD9: 465.9, ICD10: J06.9 (primary diagnosis) - suspect viral URI, differential includes COVID-19, influenza, and RSV. She is well beyond the therapeutic window for antiviral treatment. Declines testing. - Discussed supportive care treatment with rest, cold medicine, and analgesia. - Red flags to seek further treatment include chest pain, shortness of breath, increasing sinus pain, late onset fever, and lethargy; in the ER if severe. 2. Acute cough - ICD9: 786.2, ICD10: R05.1 - BENZONATATE 100 MG CAPSULE Michael Rebollar MD [facility] 12-05-2024 History of Presen t illness Narrative Patient presents with: Cold: Sore throat, runny nose and cough x 8 days HPI: Feeling sick for 8 days. Her family has been sick also but are feeling better. Positive symptoms: Cough, sleep disturbance last night, sore throat, Nasal Congestion, Rhinorrhea, hoarse voice, improved initial night sweats, improved nausea, Negative symptoms: Shortness of breath, Wheezing, Chest tightness, Earache, Vomiting, Diarrhea, OTC: Lozenges, alkaseltzer Denies history of asthma. MEDICATIONS: Current Outpatient Medications Medication Sig spironolactone (ALDACTONE) 50 mg tablet Take one tablet by mouth once a day before bed. Drospirenone-Ethinyl Estradiol (AMI 28) 3-0.02 mg per tablet Take 1 tablet by mouth once daily. cholecalciferol (VITAMIN D3) 50 mcg (2,000 unit) tablet Take 2,000 Units by mouth once daily. promethazine (PHENERGAN) 25 mg tablet 1/2 to 1 po q8h prn headache or nausea (Patient not taking: Reported on 12/05/2024) No current facility-administered medications for this visit. ALLERGIES: ALLERGIES Allergen Reactions Compazine [Prochlor* Other: See Comments agitation Shrimp Rash VITALS: BP 120/80 Pulse 85 Temp 37.2 C (99 F) Resp 20 Wt 61.5 kg (135 lb 9.3 oz) LMP (LMP Unknown) SpO2 100% BMI 23.27 kg/m PHYSICAL EXAM: GEN: mildly ill appearing. Pleasant, in no acute distress. HEENT: PERRL, EOMI, conjunctiva clear Ears: Moderate cerumen left canal. TMs without erythema, bulge, or effusion Sinuses: non-tender frontal sinus, non-tender maxillary sinuses Throat: moist mucous membranes, mild erythema, no exudate Neck: supple, no thyromegaly, no lymphadenopathy HEART: regular rate, regular rhythm, no murmurs LUNGS: clear to auscultation, no wheezes or crackles, no increased WOB ASSESSMENT/PLAN: 1. URI, acute - ICD9: 465.9, ICD10: J06.9 (primary diagnosis) - suspect viral URI, differential includes COVID-19, influenza, and RSV. She is well beyond the therapeutic window for antiviral treatment. Declines testing. - Discussed supportive care treatment with rest, cold medicine, and analgesia. - Red flags to seek further treatment include chest pain, shortness of breath, increasing sinus pain, late onset fever, and lethargy; in the ER if severe. 2. Acute cough - ICD9: 786.2, ICD10: R05.1 - BENZONATATE 100 MG CAPSULE Michael Rebollar MD documented in this encounter [facility] 08-31-2024 Note HNO ID: [id number] Author: ?, ?, ? Service: ? Author Type: ? Type: Progress Notes Filed: 08/31/2024 10:13 Note Text: Sleep Study Check-In Documentation Date: August 31, 2024 Name: Shaista Clarke Comments: HST was returned in working order with all sleep questionnaires Kim Campbell [facility] 08-31-2024 History of Presen t illness Narrative Sleep Study Check-In Documentation Date: August 31, 2024 Name: Shaista Clarke Comments: HST was returned in working order with all sleep questionnaires Kim Campbell [facility] # [id number], date shipped out 08-26-24 [employer] only Tracking mailout: [id number] Tracking return: [id number] documented in this encounter [facility] 08-25-2024 Note HNO ID: [id number] Author: ?, ?, ? Service: ? Author Type: ? Type: Progress Notes Filed: 08/31/2024 10:13 Note Text: [employer] # [id number], date shipped out 08-26-24 [employer] only Tracking mailout: [id number] Tracking return: [id number] [facility] 08-14-2024 Note HNO ID: [id number] Author: WAYNE BURRELL JR, MD Service: ? Author Type: Physician Type: Progress Notes Filed: 08/14/2024 18:48 Note Text: ESTABLISHED PATIENT VISIT CHIEF COMPLAINT: Follow Up HISTORY OF PRESENT ILLNESS: Shaista Clarke is a 29 year old female, with a PMH significant for and per last office visit with Baltazar DEL TORO on 24: 1. Migraine without aura and without status migrainosus, not intractable - ICD9: 346.10, ICD10: G43.009 (primary diagnosis) Headaches have improved since last appointment, having about 4 migraines a month. Did try Nurtec without any significant relief. Did not start Keppra due to fear of side effects. Is not interested in starting a preventative at this time, did discuss supplements that may be beneficial and patient would like to try this. Notes that she did try magnesium in the past but had significant GI discomfort with this. No new symptoms with her headaches, no red flag signs or symptoms that would warrant additional imaging at this time regarding her headache. Has tried and failed triptans in the past. Discussed other abortive therapies including Ubrelvy. Patient is amenable to trying this medication, discussed common side effects, will prescribe Ubrelvy 100 mg to take with onset of headache. 2. Convulsions, unspecified convulsion type (HCC) - ICD9: 780.39, ICD10: R56.9 3. Facial tic - ICD9: 307.20, ICD10: F95.9 Patient with 2 to 3 weeks of abnormal facial twitching and muscle movements occurring to the face and arms bilaterally. Worsens with stress and fatigue, has history of this in the past while she was in college, but no imaging or EEG obtained at that time. Did have an MRI obtained 2018, patient believes her tics may have started after this. Describes the urge to scratch her face and close her eyes, flex her arms and chest muscles bilaterally. Originally this was happening multiple times a day, every few minutes or so, but now has slowly improved but still occurring daily. This was not witnessed during her appointment today and neurologic exam was otherwise reassuring. Patient does report that she can occasionally suppress this urge, no postictal state, no tongue biting or incontinence. As it occurs to bilateral face and arms, feel seizure is less likely, also due to lack of postictal state, ability to suppress some episodes, low suspicion for seizure. However, will obtain MRI of the brain with and without contrast as well as EEG to rule out any intracranial abnormality contributing patient's symptoms, or signs of epileptiform changes contributing to her movements. As this is likely a tic disorder, discussed common treatments. Did discuss that antiseizure medications can be used to help suppress symptoms but patient still deferring Keppra at this time. Would like to try more conservative therapies. Would like to try cognitive behavioral therapy and manage stress. MRI brain and EEG never completed by patient. Broke nose on Saturday when ran into a barn gate - was seen by PCP on 08/10/24 with recommendation for ENT evaluation. Patient states still has migraines but currently in a good phase. States in the past considered trying a preventative but never did (Keppra). States in last 4 weeks has averaged about a 2-3 headache days per week. Pt reports takes Excedrin but Benadryl works best - sleeps off the headache. States when present, gets nauseous -- in such cases taking Zofran. Patient states does not sleep well, I have never slept well. States wakes 5-6 times per night for years. When asked what wakes her up, states I don't know. Does wake to urinate a lot despite not drinking much water. States other times wakes up and goes back to bed. No issues falling asleep to start the night. No snoring. Pt reports having had sleep study in college but that they did not find anything. States it was in lab and that she did not sleep. Does have dry mouth at night. +Headaches in the AM. Pt reports waking up and repositioning during the night. Also reports getting real hot at night. When asked about twitching, she now states she occasionally has twitching of the nose but no other parts of the body, and that twitching has decreased since breaking her nose earlier this week. No other abnormal movements or sensation. She is not endorsing any symptoms to suggest seizure activity. REVIEW OF SYSTEMS GENERAL:No weight loss, malaise or fevers. HEENT: No changes in hearing or vision, no nose bleeds or other nasal problems NECK:Negative for lumps, goiter, pain and significant neck swelling RESPIRATORY: Negative for cough, wheezing or shortness of breath. CARDIOVASCULAR: Negative for chest pain, leg swelling or palpitations. GASTROINTESTINAL: Negative for abdominal discomfort, blood in stools or black stools or change in bowel habits GENITOURINARY: No history of dysuria, frequency or incontinence MUSCULOSKELETAL: Negative for joint oly (more content not included)... [facility] 08-14-2024 History of Presen t illness Narrative ESTABLISHED PATIENT VISIT CHIEF COMPLAINT: Follow Up HISTORY OF PRESENT ILLNESS: Shaista Clarke is a 29 year old female, with a PMH significant for and per last office visit with Baltazar DEL TORO on 12/04/23: 1. Migraine without aura and without status migrainosus, not intractable - ICD9: 346.10, ICD10: G43.009 (primary diagnosis) Headaches have improved since last appointment, having about 4 migraines a month. Did try Nurtec without any significant relief. Did not start Keppra due to fear of side effects. Is not interested in starting a preventative at this time, did discuss supplements that may be beneficial and patient would like to try this. Notes that she did try magnesium in the past but had significant GI discomfort with this. No new symptoms with her headaches, no red flag signs or symptoms that would warrant additional imaging at this time regarding her headache. Has tried and failed triptans in the past. Discussed other abortive therapies including Ubrelvy. Patient is amenable to trying this medication, discussed common side effects, will prescribe Ubrelvy 100 mg to take with onset of headache. 2. Convulsions, unspecified convulsion type (HCC) - ICD9: 780.39, ICD10: R56.9 3. Facial tic - ICD9: 307.20, ICD10: F95.9 Patient with 2 to 3 weeks of abnormal facial twitching and muscle movements occurring to the face and arms bilaterally. Worsens with stress and fatigue, has history of this in the past while she was in college, but no imaging or EEG obtained at that time. Did have an MRI obtained 2018, patient believes her tics may have started after this. Describes the urge to scratch her face and close her eyes, flex her arms and chest muscles bilaterally. Originally this was happening multiple times a day, every few minutes or so, but now has slowly improved but still occurring daily. This was not witnessed during her appointment today and neurologic exam was otherwise reassuring. Patient does report that she can occasionally suppress this urge, no postictal state, no tongue biting or incontinence. As it occurs to bilateral face and arms, feel seizure is less likely, also due to lack of postictal state, ability to suppress some episodes, low suspicion for seizure. However, will obtain MRI of the brain with and without contrast as well as EEG to rule out any intracranial abnormality contributing patient's symptoms, or signs of epileptiform changes contributing to her movements. As this is likely a tic disorder, discussed common treatments. Did discuss that antiseizure medications can be used to help suppress symptoms but patient still deferring Keppra at this time. Would like to try more conservative therapies. Would like to try cognitive behavioral therapy and manage stress. MRI brain and EEG never completed by patient. Broke nose on Saturday when ran into a barn gate - was seen by PCP on 08/10/24 with recommendation for ENT evaluation. Patient states still has migraines but currently in a good phase. States in the past considered trying a preventative but never did (Jomar). States in last 4 weeks has averaged about a 2-3 headache days per week. Pt reports takes Excedrin but Benadryl works best - sleeps off the headache. States when present, gets nauseous -- in such cases taking Zofran. Patient states does not sleep well, I have never slept well. States wakes 5-6 times per night for years. When asked what wakes her up, states I don't know. Does wake to urinate a lot despite not drinking much water. States other times wakes up and goes back to bed. No issues falling asleep to start the night. No snoring. Pt reports having had sleep study in college but that they did not find anything. States it was in lab and that she did not sleep. Does have dry mouth at night. +Headaches in the AM. Pt reports waking up and repositioning during the night. Also reports getting real hot at night. When asked about twitching, she now states she occasionally has twitching of the nose but no other parts of the body, and that twitching has decreased since breaking her nose earlier this week. No other abnormal movements or sensation. She is not endorsing any symptoms to suggest seizure activity. REVIEW OF SYSTEMS GENERAL:No weight loss, malaise or fevers. HEENT: No changes in hearing or vision, no nose bleeds or other nasal problems NECK:Negative for lumps, goiter, pain and significant neck swelling RESPIRATORY: Negative for cough, wheezing or shortness of breath. CARDIOVASCULAR: Negative for chest pain, leg swelling or palpitations. GASTROINTESTINAL: Negative for abdominal discomfort, blood in stools or black stools or change in bowel habits GENITOURINARY: No history of dysuria, frequency or incontinence MUSCULOSKELETAL: Negative for joint pain or swelling, back pain or muscle pain. NEUROLOGIC:Negative for focal numbness or weakness, and dizziness or syncope, vision changes, speech/languag changes - EXCEPT that as per HPI above. SKIN:Negative for lesions, rash, and itching. LAB/IMAGING: Those performed since patient's last visit have been reviewed. WBC (k/uL) Date Value 06/21/2022 5.43 RBC (m/uL) Date Value 06/21/2022 4.16 Hemoglobin (g/dL) Date Value 06/21/2022 12.9 Hematocrit (%) Date Value 06/21/2022 38.4 MCV (fL) Date Value 06/21/2022 92.3 MCH (pg) Date Value 06/21/2022 31.0 MCHC (g/dL) Date Value 06/21/2022 33.6 RDW-CV (%) Date Value 06/21/2022 11.8 Platelet Count (k/uL) Date Value 06/21/2022 212 MPV (fL) Date Value 06/21/2022 9.1 Glucose (mg/dL) Date Value 06/21/2022 94 BUN (mg/dL) Date Value 06/21/2022 11 Creatinine (mg/dL) Date Value 06/21/2022 0.77 Sodium (mmol/L) Date Value 06/21/2022 138 Potassium (mmol/L) Date Value 06/21/2022 3.7 Chloride (mmol/L) Date Value 06/21/2022 105 CO2 (mmol/L) Date Value 06/21/2022 23 Protein, Total (g/dL) Date Value 06/21/2022 6.6 Albumin (g/dL) Date Value 06/21/2022 4.0 Calcium, Total (mg/dL) Date Value 06/21/2022 8.8 Alkaline Phosphatase (U/L) Date Value 06/21/2022 39 Bilirubin, Total (mg/dL) Date Value 06/21/2022 0.3 AST (U/L) Date Value 06/21/2022 16 ALT (U/L) Date Value 06/21/2022 13 BARBARA (no units) Date Value 06/14/2020 Negative MEDICATIONS: promethazine (PHENERGAN) 25 mg tablet 1/2 to 1 po q8h prn headache or nausea spironolactone (ALDACTONE) 50 mg tablet Take one tablet by mouth once a day before bed. Drospirenone-Ethinyl Estradiol (AMI 28) 3-0.02 mg per tablet Take 1 tablet by mouth once daily. cholecalciferol (VITAMIN D3) 50 mcg (2,000 unit) tablet Take 2,000 Units by mouth once daily. levETIRAcetam XR (KEPPRA XR) 500 mg 24 hr tablet Take 1 tablet by mouth daily at bedtime. (Patient not taking: Reported on 10/21/2023) ondansetron orally disintegrating (ZOFRAN ODT) 4 mg disintegrating tablet Take 1 tablet by mouth every 6 hours as needed for nausea/vomiting. (Patient not taking: Reported on 07/24/2023) HISTORIES PAST MEDICAL HISTORY Diagnosis Date Migraines Vitamin D insufficiency No family history on file. SOCIAL HISTORY Social History Tobacco Use Smoking status: Never Smokeless tobacco: Never Substance Use Topics Alcohol use: Never PHYSICAL EXAMINATION LMP (LMP Unknown) Blood pressure 108/75, pulse 94, weight 57.4 kg (126 lb 9.6 oz), SpO2 100%. GENERAL EXAM: General appearance: NAD, pleasant. HEENT: NC/AT, nasal congestion absent, no oral lesions, membranes moist. No facial twitch. Covarrubias ~III NECK: ROM nml. Lungs: CTA bilaterally. CV: RRR nl S1, S2. Extr: No cyanosis, clubbing or edema. No evidence of fasciculations. Extremity pulses palpable and normal. Skin: Cool to touch. NEUROLOGICAL EXAM: General: Awake, alert, oriented x3 (person,place,time), speech fluent, no dysarthria; comprehension, naming, repetition intact. Fund of knowledge grossly normal. CN: PERRL, fundi with no evidence of papilledema, EOMI and without nystagmus, VFF to confrontation, facial sensation and strength are normal and symmetric, hearing is intact to finger rub bilaterally, palate and tongue movements are intact and symmetric. SCM and trapezius strength normal. Motor: Normal tone, bulk and strength (5/5) bilaterally (throughout extremities x4). Coordination: FNF, STEFANY, HTS intact. No tremors. Sensation: LT, vibration, temperature intact throughout. No evidence of neglect. Gait: Stable with normal stride and arm swing. Assessment and Plan: ASSESSMENT/PLAN: 1. Intractable migraine without aura and without status migrainosus - ICD9: 346.11, ICD10: G43.019 (primary diagnosis) Continues to have migraines as above. Multiple failed meds in past when following with headache center. Patient never tried Keppra as preventative. Now willing. SE and ADRs reviewed with pt. Rx provided. No other changes to PRINGLE meds at this time. Encouraged pt to avoid overuse of OTC meds such as Excedrin. If fails Keppra, need to consider Botox therapy with referral back to headache center. 2. Twitching - ICD9: 781.0, ICD10: R25.3 Subjective complaint. Has yet to be seen on a physical exam. Question if behavioral. Description of symptoms appear to be inconsistent when comparing tube filler notes. Will continue to monitor. History provided does not suggest intracranial cause or seizure and given non-focal neuro exam, will hold on additional neuro testing at this time. MRI and EEG ordered last visit, but pt declined due to costs. 3. Frequent nocturnal awakening - ICD9: 780.59, ICD10: G47.00 4. Snoring - ICD9: 786.09, ICD10: R06.83 5. Sleep apnea-like behavior - ICD9: 780.59, ICD10: G47.39 Patient worried fragmented sleep contributing to headaches. Pt does endorse AM headaches as well as snoring and other s/s of JUAN which in turn could fragment sleep. Denies pain, PLMs or RLS or other common causes of nocturnal awakeing. Will evaluate by means of HSAT as pt reports she would not be able to sleep in a lab. Wayne Burrell MD Medical Decision Making: Problems: Moderate: New problem with uncertain prognosis and 2+ stable chronic illnesses Data: Unique test(s) ordered: 1 Risk: Moderate: Drug management Medical Decision Making Level: 4 - Moderate documented in this encounter [facility] 08-10-2024 History of Presen t illness Narrative Radiology Service Progress Note PATIENT NAME: Shaista Clarke DATE OF SERVICE: August 10, 2024 TIME: 4:41 PM PATIENT IDENTITY VERIFICATION COMPLETED USING TWO (2) IDENTIFIERS: Name and Date of confirmed by patient verbally. FALL SCREENING: Has the patient had 2 falls in the last year or 1 fall with injury or currently using an Ambulatory Assistive Device (Walker, Cane, Wheelchair, Crutches, etc.)? No PATIENT GENDER DATA: Female. status: : No status: NO. PATIENT RELEVANT IMPLANT DATA REVIEWED: Not Applicable PATIENT PRESENTS WITH AN IMPLANTABLE OR ATTACHED PRINCIPAL HARDWARE ARCHITECT: No RADIOLOGY DEPARTMENT: nasal bones 3v PERIPHERAL IV DATA: Not applicable SIGNED BY: RT Chirag(Silvina) August 10, 2024 4:41 PM documented in this encounter [facility] 08-10-2024 Note HNO ID: [id number] Author: LARISSA OBRIEN RT(R) Service: Radiology Author Type: Technologist Type: Progress Notes Filed: 08/10/2024 16:48 Note Text: Radiology Service Progress Note PATIENT NAME: Shaista Clarke DATE OF SERVICE: August 10, 2024 TIME: 4:41 PM PATIENT IDENTITY VERIFICATION COMPLETED USING TWO (2) IDENTIFIERS: Name and Date of confirmed by patient verbally. FALL SCREENING: Has the patient had 2 falls in the last year or 1 fall with injury or currently using an Ambulatory Assistive Device (Walker, Cane, Wheelchair, Crutches, etc.)? No PATIENT GENDER DATA: Female. status: : No status: NO. PATIENT RELEVANT IMPLANT DATA REVIEWED: Not Applicable PATIENT PRESENTS WITH AN IMPLANTABLE OR ATTACHED PRINCIPAL HARDWARE ARCHITECT: No RADIOLOGY DEPARTMENT: nasal bones 3v PERIPHERAL IV DATA: Not applicable SIGNED BY: RT Chirag(Silvina) August 10, 2024 4:41 PM [facility] 08-10-2024 Note HNO ID: [id number] Author: ARTEM HDZ APRN.COMPUTER SECURITY MANAGER Service: ? Author Type: Nurse Practitioner Type: Progress Notes Filed: 08/10/2024 17:03 Note Text: Subjective Patient ran into a barn gate last night. Patient hit her upper nose bridge. Patient says it is sore. Patient says she has had several nose injuries this year. Patient says it feels more swollen on the right side little harder to breathe. Patient wants to make sure is not broken. Patient denies any other symptoms. The history is provided by the patient. No conference interpreter was used. Review of Systems Constitutional: Negative. Skin: Negative. Objective Physical Exam Constitutional: Appearance: Normal appearance. HENT: Head: Comments: Mild bruising and swelling noted in the area marked above. Patient is tender upon palpation. There is a small abrasion also located in the area. Pulmonary: Effort: Pulmonary effort is normal. Neurological: Mental Status: She is alert. PAST MEDICAL HISTORY Diagnosis Date Migraines Vitamin D insufficiency PAST SURGICAL HISTORY Procedure Laterality Date PAST SURGICAL HISTORY OF Left 12/12/2021 Modified [facility] ALLERGIES Compazine [Prochlorperazine Edisylate] and Shrimp MEDICATIONS promethazine (PHENERGAN) 25 mg tablet 1/2 to 1 po q8h prn headache or nausea spironolactone (ALDACTONE) 50 mg tablet Take one tablet by mouth once a day before bed. Drospirenone-Ethinyl Estradiol (AMI 28) 3-0.02 mg per tablet Take 1 tablet by mouth once daily. cholecalciferol (VITAMIN D3) 50 mcg (2,000 unit) tablet Take 2,000 Units by mouth once daily. levETIRAcetam XR (KEPPRA XR) 500 mg 24 hr tablet Take 1 tablet by mouth daily at bedtime. (Patient not taking: Reported on 10/21/2023) ondansetron orally disintegrating (ZOFRAN ODT) 4 mg disintegrating tablet Take 1 tablet by mouth every 6 hours as needed for nausea/vomiting. (Patient not taking: Reported on 07/24/2023) No family history on file. Social History Tobacco Use Smoking status: Never Smokeless tobacco: Never Substance Use Topics Alcohol use: Never ASSESSMENT/PLAN: 1. Pain - ICD9: 780.96, ICD10: R52 - XR NASAL BONES 3V PA/BOTH LAT * * * * Physician Interpretation * * * * TITLE: XR NASAL BONES 3V PA/LAT X2 CLINICAL INDICATION: Injury with pain TECHNIQUE: 3 view radiographic study of the nasal bones COMPARISON: Radiograph dated 10/21/2023 FINDINGS: New acute essentially nondisplaced transverse fracture of the nasal bones. Visualized paranasal sinuses and mastoid air cells grossly clear. IMPRESSION IMPRESSION: Acute essentially nondisplaced transverse fracture of the nasal bones. Reheat Furnace Operator: DI Transcribe Date/Time: Aug 10 2024 4:50P Dictated by : SOBIA WEST MD 2. Fracture - ICD9: 829.0, ICD10: T14.8XXA - CONSULT TO ENT Patient will follow-up with ENT. Patient will make her own appointment. Patient will ice alternate Tylenol Motrin. Patient was okay with this care plan. Artem Hdz APRN.[facility] 08-10-2024 History of Presen t illness Narrative Images from the original note were not included. Subjective Patient ran into a barn gate last night. Patient hit her upper nose bridge. Patient says it is sore. Patient says she has had several nose injuries this year. Patient says it feels more swollen on the right side little harder to breathe. Patient wants to make sure is not broken. Patient denies any other symptoms. The history is provided by the patient. No conference interpreter was used. Review of Systems Constitutional: Negative. Skin: Negative. Objective Physical Exam Constitutional: Appearance: Normal appearance. HENT: Head: Comments: Mild bruising and swelling noted in the area marked above. Patient is tender upon palpation. There is a small abrasion also located in the area. Pulmonary: Effort: Pulmonary effort is normal. Neurological: Mental Status: She is alert. PAST MEDICAL HISTORY Diagnosis Date Migraines Vitamin D insufficiency PAST SURGICAL HISTORY Procedure Laterality Date PAST SURGICAL HISTORY OF Left 12/12/2021 Modified [facility]. [facility] ALLERGIES Compazine [Prochlorperazine Edisylate] and Shrimp MEDICATIONS promethazine (PHENERGAN) 25 mg tablet 1/2 to 1 po q8h prn headache or nausea spironolactone (ALDACTONE) 50 mg tablet Take one tablet by mouth once a day before bed. Drospirenone-Ethinyl Estradiol (AMI 28) 3-0.02 mg per tablet Take 1 tablet by mouth once daily. cholecalciferol (VITAMIN D3) 50 mcg (2,000 unit) tablet Take 2,000 Units by mouth once daily. levETIRAcetam XR (KEPPRA XR) 500 mg 24 hr tablet Take 1 tablet by mouth daily at bedtime. (Patient not taking: Reported on 10/21/2023) ondansetron orally disintegrating (ZOFRAN ODT) 4 mg disintegrating tablet Take 1 tablet by mouth every 6 hours as needed for nausea/vomiting. (Patient not taking: Reported on 07/24/2023) No family history on file. Social History Tobacco Use Smoking status: Never Smokeless tobacco: Never Substance Use Topics Alcohol use: Never ASSESSMENT/PLAN: 1. Pain - ICD9: 780.96, ICD10: R52 - XR NASAL BONES 3V PA/BOTH LAT * * * * Physician Interpretation * * * * TITLE: XR NASAL BONES 3V PA/LAT X2 CLINICAL INDICATION: Injury with pain TECHNIQUE: 3 view radiographic study of the nasal bones COMPARISON: Radiograph dated 10/21/2023 FINDINGS: New acute essentially nondisplaced transverse fracture of the nasal bones. Visualized paranasal sinuses and mastoid air cells grossly clear. IMPRESSION IMPRESSION: Acute essentially nondisplaced transverse fracture of the nasal bones. Reheat Furnace Operator: DI Transcribe Date/Time: Aug 10 2024 4:50P Dictated by : SOBIA WEST MD 2. Fracture - ICD9: 829.0, ICD10: T14.8XXA - CONSULT TO ENT Patient will follow-up with ENT. Patient will make her own appointment. Patient will ice alternate Tylenol Motrin. Patient was okay with this care plan. Artem Hdz APRN.COMPUTER SECURITY MANAGER documented in this encounter [facility] 07-06-2024 Hospital Discharg e instructions Patient Education 07/06/2024 17:14:43 Neck Sprain or Strain Neck Sprain or Strain A sudden force that causes turning or bending of the neck can cause sprain or strain. An example would be the force from a car accident. This can stretch or tear muscles called a strain. It can also stretch or tear ligaments called a sprain. Either of these can cause neck pain. Sometimes neck pain occurs after a simple awkward movement. In either case, muscle spasm is commonly present and contributes to the pain. Unless you had a forceful physical injury (for example, a car accident or fall), X-rays are often not ordered for the initial evaluation of neck pain. If pain continues and does not respond to medical treatment, X-rays and other tests may be done later. Home care You may feel more soreness and spasm the first few days after the injury. Rest until symptoms start to improve. When lying down, use a comfortable pillow or a rolled towel that supports the head and keeps the spine in a neutral position. The position of the head should not be tilted forward or backward. Apply an ice pack over the injured area for 15 to 20 minutes every 3 to 6 hours. Do this for the first 24 to 48 hours. You can make an ice pack by filling a plastic bag that seals at the top with ice cubes and then wrapping it with a thin towel. After 48 hours, apply heat (warm shower or warm bath) for 15 to 20 minutes several times a day, or alternate ice and heat. You may use [id number] pain medicine to control pain, unless another pain medicine was prescribed. If you have chronic liver or kidney disease or ever had a stomach ulcer or gastrointestinal bleeding, talk with your healthcare provider before using these medicines. If a soft cervical collar was prescribed, only ear it for periods of increased pain. It should not be worn for more than 3 hours a day, or for longer than 1 to 2 weeks. Follow-up care Follow up with your healthcare provider, or as directed. Physical therapy may be needed. Sometimes fractures don t show up on the first X-ray. Bruises and sprains can sometimes hurt as much as a fracture. These injuries can take time to heal completely. If your symptoms don t improve or they get worse, talk with your healthcare provider. You may need a repeat X-ray or other tests. If X-rays were taken, you will be told of any new findings that may affect your care. Call 911 Call 911 if you have: Neck swelling, difficulty or painful swallowing Trouble breathing Chest pain When to seek medical advice Call your healthcare provider right away if any of these occur: Pain becomes worse or spreads into your arms or legs Weakness or numbness in one or both arms or legs [id number] The [employer]. [address] [place] [address]. All rights reserved. This information is not intended as a substitute for professional medical care. Always follow your healthcare professional's instructions. Follow Up Care 07/06/2024 16:23:00 With:MEGHA VILLALOBOS MD Address: [address] [place] [phone]- When:2-4 days Comments:Return to ED if symptoms worsen [facility] 07-06-2024 Emergency department Discharge summary Discharge Instructions Thank you for allowing [facility] to assist you with your healthcare needs. The following is important discharge information regarding your hospital visit. Diagnosis from Today's Visit Strain of neck muscle What to Do Next Instructions from Your Care Team No qualifying data available. Post Acute Orders No qualifying data available. You Need to Schedule the Following Appointments Follow Up with MEGHA VILLALOBOS MD When:Within 2-4 days Where:[address] [address]- Additional Information: Return to ED if symptoms worsen Allergies Compazine Shrimp Medications Please ask your primary doctor or pharmacist before taking any other medication not listed, including over the counter drugs, herbal medications, vitamins and or supplements as they may interact with your home medications. What How Much When Instructions Last Dose New orphenadrine (orphenadrine 100 mg oral tablet, extended release) 1 tab(s) by mouth Two (2) times a day as needed for as needed for pain Duration: 5 Days Printed Prescription Unchanged acetaminophen-HYDROcodone (Vicodin 300-5 mg oral tablet) 1 tab(s) by mouth Every 4 hours as needed for as needed for pain Unchanged acetaminophen-oxyCODONE (Percocet 325/ 5 oral tablet) 1 tab(s) by mouth Every 4 hours as needed for as needed for pain Unchanged acetaminophen-oxyCODONE (Percocet 325/ 5 oral tablet) 1 tab(s) by mouth Every 4 hours as needed for as needed for pain Unchanged ampicillin (ampicillin 500 mg oral capsule) 1 cap by mouth Every day Unchanged DULoxetine by mouth Unchanged FLUoxetine (FLUoxetine 20 mg oral capsule) Unchanged metoprolol (Metoprolol Succinate ER 50 mg oral tablet, extended release) Unchanged multivitamin with minerals (NicAzel) 1 tab(s) by mouth Two (2) times a day Unchanged naproxen (naproxen 500 mg oral tablet) 1 tab(s) by mouth Two (2) times a day Unchanged naproxen (naproxen sodium 550 mg oral tablet) Unchanged norethindrone (norethindrone 5 mg oral tablet) Unchanged norethindrone (norethindrone 5 mg oral tablet) 1 tab(s) by mouth Every day Unchanged ondansetron (Zofran ODT 4 mg oral tablet, disintegrating) 1 tab(s) by mouth As Directed Unchanged ondansetron (Zofran) 4 Milligram by mouth Two (2) times a day Unchanged promethazine (Phenergan 25 mg oral tablet) 1 tab(s) by mouth Every 6 hours as needed for for nausea/vomiting Unchanged promethazine (Phenergan 25 mg oral tablet) 1 tab(s) by mouth Every 6 hours as needed for for nausea/vomiting Unchanged promethazine (promethazine 25 mg oral tablet) Unchanged spironolactone (spironolactone 50 mg oral tablet) 0.5 tab(s) by mouth Once a day with a meal Unchanged topiramate (topiramate 100 mg oral tablet) Unchanged venlafaxine (venlafaxine 75 mg oral capsule, extended release) Please take this list to your next doctor s visit. Bring all medications you take, including over the counter medications, herbals and other supplements with you to your doctor s visit. Patients and families are reminded to discard old lists and to update any records with all medication providers or retail pharmacies. Education Materials Neck Sprain or Strain A sudden force that causes turning or bending of the neck can cause sprain or strain. An example would be the force from a car accident. This can stretch or tear muscles called a strain. It can also stretch or tear ligaments called a sprain. Either of these can cause neck pain. Sometimes neck pain occurs after a simple awkward movement. In either case, muscle spasm is commonly present and contributes to the pain. Unless you had a forceful physical injury (for example, a car accident or fall), X-rays are often not ordered for the initial evaluation of neck pain. If pain continues and does not respond to medical treatment, X-rays and other tests may be done later. Home care You may feel more soreness and spasm the first few days after the injury. Rest until symptoms start to improve. When lying down, use a comfortable pillow or a rolled towel that supports the head and keeps the spine in a neutral position. The position of the head should not be tilted forward or backward. Apply an ice pack over the injured area for 15 to 20 minutes every 3 to 6 hours. Do this for the first 24 to 48 hours. You can make an ice pack by filling a plastic bag that seals at the top with ice cubes and then wrapping it with a thin towel. After 48 hours, apply heat (warm shower or warm bath) for 15 to 20 minutes several times a day, or alternate ice and heat. You may use [id number] pain medicine to control pain, unless another pain medicine was prescribed. If you have chronic liver or kidney disease or ever had a stomach ulcer or gastrointestinal bleeding, talk with your healthcare provider before using these medicines. If a soft cervical collar was prescribed, only ear it for periods of increased pain. It should not be worn for more than 3 hours a day, or for longer than 1 to 2 weeks. Follow-up care Follow up with your healthcare provider, or as directed. Physical therapy may be needed. Sometimes fractures don t show up on the first X-ray. Bruises and sprains can sometimes hurt as much as a fracture. These injuries can take time to heal completely. If your symptoms don t improve or they get worse, talk with your healthcare provider. You may need a repeat X-ray or other tests. If X-rays were taken, you will be told of any new findings that may affect your care. Call 911 Call 911 if you have: Neck swelling, difficulty or painful swallowing Trouble breathing Chest pain When to seek medical advice Call your healthcare provider right away if any of these occur: Pain becomes worse or spreads into your arms or legs Weakness or numbness in one or both arms or legs [phone] [employer]. [address] [place] [address], [place] [address]. All rights reserved. This information is not intended as a substitute for professional medical care. Always follow your healthcare professional's instructions. Additional Information VACCINATE! IT SAVES LIVES! Members of the community who have not yet received the COVID-19 vaccine and would like to receive it can visit one of [facility] vaccine clinics. There are many vaccine clinic locations within the [facility]. For locations and available times, please visit [email or web address] It is important to note that some COVID mobile vaccine clinics are held outdoors and may be canceled in rainy or stormy conditions. To learn more about pediatric vaccinations (ages 5-11), we invite you to visit the [facility] webpage. [email or web address] To learn more about the COVID-19 vaccine, we invite you to visit the CDC website for a list of frequently asked questions. https://www.cdc.gov/coronavirus/ 2019-ncov/vaccines/faq.html [facility] Patient Portal Access Instructions: Stay connected with your healthcare team and access your personal medical information anytime with the [facility] Patient Portal. If you would like a full copy of your medical records please contact the [facility] Medical Records Department Saturday through Saturday between 8a.m. and 4:30p.m. Please follow the directions below to access the portal: 1.Access the email account you provided upon registration to the [facility].2.Look for an invitation email from [facility].3.Open the email and access the invitation link: Accept Invitation to [facility]4.Fill in the required berkowitz to create your account. Sign into [email or web address] with your username and password that you created in the above steps to stay up to date. You can then view a summary of results, a summary of your visits, and the ability to download your summaries to your computer or send the information securely to a physician. Remember that your healthcare information is confidential, so carefully consider who you will allow to register on the [facility] Patient Portal for access to your information. You can also access the [facility] Patient Portal on the [employer] scott. Simply click on Health Records under Health Data and then click on the [employer] logo. HOW TO SAFELY DISPOSE OF PRESCRIPTION MEDICATIONS Please use one of the following methods to safely dispose of your unused medications. 1.Use a drug disposal kit: the drug disposal pouch allows you to safely discard your old and unused drugs. Ask your nurse to give you one when you are discharged.2.Visit a local take-back location: Many local pharmacies and police departments have programs that collect old and unwanted prescription drugs. Call your local pharmacy or go to http://bit.[employer]/0X6Mv7g to find one close to you.3.Make use of household items: Use cat litter or old coffee grounds to dispose medications if other options are not available. Mix your drugs with these household products, seal them in an airtight container and throw it into the garbage. Call [facility]: [phone] to be sure your drugs can be disposed of in this way. Some medicines may require a different approach.4.Never flush your medications down the toilet. IF YOU HAVE BEEN PRESCRIBED AN OPIOIDS FOR PAIN If you have been prescribed an opioid (such as hydrocodone, oxycodone or morphine), it is critical to understand the possible side effects and risks of opioid pain medications. Even when taken as directed, opioids can have several side effects including: Tolerance, meaning you might need to take more of a medication for the same pain relief. Nausea, vomiting and/or constipation. Sleepiness, dizziness, dry mouth, confusion, depression or itching. Physical dependence, meaning you have withdrawal symptoms when a medication is stopped ? this can develop within a few days. KNOW YOUR RESPONSIBILITIES It is important to know exactly how much and how often to take the opioid pain medications you are prescribed. Never take opioids in higher amounts or more often than prescribed. Do not combine opioids with alcohol or other drugs that cause drowsiness, such as benzodiazepines, also known as benzos, including diazepam and alprazolam, muscle relaxants or sleep aids. Never sell or share prescription opioids. This is illegal. Store opioids in a secure place and out of reach of others (including children, family, friends and visitors). The last page(s) of this document has been signed and retained as a CHART COPY Signatures Patient Education Materials Neck Sprain or Strain Medication Leaflets My discharge plan and instructions have been reviewed and explained to me and I,SHAISTA CLARKE understand my current condition and have read and understand these discharge instructions. I have received a written copy of the plan/instructions. If I have questions, I am aware that I should contact my doctor. Patient/Larriman Helper Signature: Date/Time: Relationship to Patient: Witness Name/Signature: Date/Time: [facility] 07-06-2024 Telephone encounter Note Called patient to triage d/t being on scheduled for concerns for tetanus. Patient reports on 06/25/2024 she stepped on a nail and was doing ok until this morning. This morning she woke up with a painful stiff neck that has been worsening as the day has gone one. Patient reports that she is not currently able to touch chin to chest. Triage protocol would recommend ER now. Verified with provider who agrees with recommendation. Discussed with patient who is agreeable and will have checked out at ER. Cosme Ga RN [facility] 07-06-2024 Miscellaneous Notes Called patient to triage d/t being on scheduled for concerns for tetanus. Patient reports on 06/25/2024 she stepped on a nail and was doing ok until this morning. This morning she woke up with a painful stiff neck that has been worsening as the day has gone one. Patient reports that she is not currently able to touch chin to chest. Triage protocol would recommend ER now. Verified with provider who agrees with recommendation. Discussed with patient who is agreeable and will have checked out at ER. Cosme Ga RN documented in this encounter [facility] 07-01-2024 Telephone encounter Note Updated in apt notes. STEW Payne [facility] 07-01-2024 Miscellaneous Notes Updated in apt notes. STEW Payne Patient returned call and went over notes that she needs to schedule MRI, EEG, Cognitive therapy orders from last office visit. Patient said she would have to pay 3 to 4 thousand dollars out of pocket after her insurance to do the testing. She can not afford to pay that, she had spoken to financial person about that and could not get any cheaper. documented in this encounter [facility] 07-01-2024 Telephone encounter Note Patient returned call and went over notes that she needs to schedule MRI, EEG, Cognitive therapy orders from last office visit. Patient said she would have to pay 3 to 4 thousand dollars out of pocket after her insurance to do the testing. She can not afford to pay that, she had spoken to financial person about that and could not get any cheaper. [facility] 06-25-2024 Note HNO ID: [id number] Author: JAXSON GONZALEZ APRN.COMPUTER SECURITY MANAGER Service: ? Author Type: Nurse Practitioner Type: Progress Notes Filed: 06/25/2024 17:58 Note Text: Subjective HPI Nontoxic-appearing female presents urgent care chief complaint puncture wound right foot. Duration of symptoms 20 minutes. Associated symptoms puncture wound right foot. Patient states was outside when she stepped on a board with a nail in it. Nail penetrated sandal and plantar aspect of right great toe. Did use peroxide. Presents today for evaluation. Denies any other injury. No foreign body sensation. No numbness or tingling toe. Denies chance is not breast-feeding. Overall feels well. Past medical history prescription medications allergies reviewed. .Patient presents with: Puncture Wound: R foot big toe x20 mins, dixon nail PAST MEDICAL HISTORY No date: Migraines No date: Vitamin D insufficiency PAST SURGICAL HISTORY 12/12/2021: PAST SURGICAL HISTORY OF; Left Comment: Modified destiny. [facility] ALLERGIES Compazine [Prochlorperazine Edisylate] and Shrimp MEDICATIONS promethazine (PHENERGAN) 25 mg tablet 1/2 to 1 po q8h prn headache or nausea spironolactone (ALDACTONE) 50 mg tablet Take one tablet by mouth once a day before bed. Drospirenone-Ethinyl Estradiol (AMI 28) 3-0.02 mg per tablet Take 1 tablet by mouth once daily. cholecalciferol (VITAMIN D3) 50 mcg (2,000 unit) tablet Take 2,000 Units by mouth once daily. levETIRAcetam XR (KEPPRA XR) 500 mg 24 hr tablet Take 1 tablet by mouth daily at bedtime. (Patient not taking: Reported on 10/21/2023) ondansetron orally disintegrating (ZOFRAN ODT) 4 mg disintegrating tablet Take 1 tablet by mouth every 6 hours as needed for nausea/vomiting. (Patient not taking: Reported on 07/24/2023) History reviewed. No pertinent family history. Social History Tobacco Use Smoking status: Never Smokeless tobacco: Never Substance Use Topics Alcohol use: Never BP 124/84 Pulse 66 Temp 36.7 ?C (98.1 ?F) Resp 18 Wt 57 kg (125 lb 10.6 oz) LMP (LMP Unknown) SpO2 99% BMI 21.57 kg/m? Review of Systems Constitutional: Negative for chills, fever and malaise/fatigue. HENT: Negative for congestion, ear discharge, ear pain, sinus pain and sore throat. Eyes: Negative for blurred vision, pain, discharge and redness. Respiratory: Negative for cough, hemoptysis, sputum production, shortness of breath, wheezing and stridor. Cardiovascular: Negative for chest pain. Gastrointestinal: Negative for abdominal pain, diarrhea, nausea and vomiting. Musculoskeletal: Negative for myalgias. Puncture wound great toe Skin: Negative for itching and rash. Neurological: Negative for dizziness and headaches. Objective Physical Exam Constitutional: General: She is not in acute distress. Appearance: She is not toxic-appearing. HENT: Head: Normocephalic. Nose: Nose normal. Eyes: Pupils: Pupils are equal, round, and reactive to light. Cardiovascular: Rate and Rhythm: Normal rate. Pulmonary: Effort: Pulmonary effort is normal. No respiratory distress. Musculoskeletal: Cervical back: Normal range of motion. Feet: Comments: Small puncture wound noted highlighted area. Wound appears to be fairly superficial. On palpation no foreign bodies could be appreciated. On visualization under light no foreign bodies could be appreciated. Skin: General: Skin is warm and dry. Neurological: General: No focal deficit present. Mental Status: She is alert. ASSESSMENT/PLAN: 1. Puncture wound of right foot, initial encounter - ICD9: 892.0, ICD10: S91.331A Puncture wound to right foot. Area was cleansed with antimicrobial scrub. Antimicrobial ointment and Band-Aid applied. Prophylactic antibiotic sent to pharmacy. Tetanus updated. Patient was educated on supportive therapies. Patient will follow up with primary care provider as needed. Patient was instructed to immediately proceed to emergency room for any new, worsening, or symptoms lasting longer than anticipated. The patient's clinical presentation is otherwise unremarkable at this time. Based on exam and clinical finding, the patient is stable for discharge. Plan of care was discussed with patient. Patient verbalizes understanding and agrees to plan of care. This note was generated using [employer] software. It may contain errors in wording, punctuation, or spelling. Jaxson Gonzalez APRN.[facility] 06-25-2024 History of Presen t illness Narrative Images from the original note were not included. Subjective HPI Nontoxic-appearing female presents urgent care chief complaint puncture wound right foot. Duration of symptoms 20 minutes. Associated symptoms puncture wound right foot. Patient states was outside when she stepped on a board with a nail in it. Nail penetrated sandal and plantar aspect of right great toe. Did use peroxide. Presents today for evaluation. Denies any other injury. No foreign body sensation. No numbness or tingling toe. Denies chance is not breast-feeding. Overall feels well. Past medical history prescription medications allergies reviewed. .Patient presents with: Puncture Wound: R foot big toe x20 mins, dixon nail PAST MEDICAL HISTORY No date: Migraines No date: Vitamin D insufficiency PAST SURGICAL HISTORY 12/12/2021: PAST SURGICAL HISTORY OF; Left Comment: Modified destiny. [facility] ALLERGIES Compazine [Prochlorperazine Edisylate] and Shrimp MEDICATIONS promethazine (PHENERGAN) 25 mg tablet 1/2 to 1 po q8h prn headache or nausea spironolactone (ALDACTONE) 50 mg tablet Take one tablet by mouth once a day before bed. Drospirenone-Ethinyl Estradiol (AMI 28) 3-0.02 mg per tablet Take 1 tablet by mouth once daily. cholecalciferol (VITAMIN D3) 50 mcg (2,000 unit) tablet Take 2,000 Units by mouth once daily. levETIRAcetam XR (KEPPRA XR) 500 mg 24 hr tablet Take 1 tablet by mouth daily at bedtime. (Patient not taking: Reported on 10/21/2023) ondansetron orally disintegrating (ZOFRAN ODT) 4 mg disintegrating tablet Take 1 tablet by mouth every 6 hours as needed for nausea/vomiting. (Patient not taking: Reported on 07/24/2023) History reviewed. No pertinent family history. Social History Tobacco Use Smoking status: Never Smokeless tobacco: Never Substance Use Topics Alcohol use: Never BP 124/84 Pulse 66 Temp 36.7 C (98.1 F) Resp 18 Wt 57 kg (125 lb 10.6 oz) LMP (LMP Unknown) SpO2 99% BMI 21.57 kg/m Review of Systems Constitutional: Negative for chills, fever and malaise/fatigue. HENT: Negative for congestion, ear discharge, ear pain, sinus pain and sore throat. Eyes: Negative for blurred vision, pain, discharge and redness. Respiratory: Negative for cough, hemoptysis, sputum production, shortness of breath, wheezing and stridor. Cardiovascular: Negative for chest pain. Gastrointestinal: Negative for abdominal pain, diarrhea, nausea and vomiting. Musculoskeletal: Negative for myalgias. Puncture wound great toe Skin: Negative for itching and rash. Neurological: Negative for dizziness and headaches. Objective Physical Exam Constitutional: General: She is not in acute distress. Appearance: She is not toxic-appearing. HENT: Head: Normocephalic. Nose: Nose normal. Eyes: Pupils: Pupils are equal, round, and reactive to light. Cardiovascular: Rate and Rhythm: Normal rate. Pulmonary: Effort: Pulmonary effort is normal. No respiratory distress. Musculoskeletal: Cervical back: Normal range of motion. Feet: Comments: Small puncture wound noted highlighted area. Wound appears to be fairly superficial. On palpation no foreign bodies could be appreciated. On visualization under light no foreign bodies could be appreciated. Skin: General: Skin is warm and dry. Neurological: General: No focal deficit present. Mental Status: She is alert. ASSESSMENT/PLAN: 1. Puncture wound of right foot, initial encounter - ICD9: 892.0, ICD10: S91.331A Puncture wound to right foot. Area was cleansed with antimicrobial scrub. Antimicrobial ointment and Band-Aid applied. Prophylactic antibiotic sent to pharmacy. Tetanus updated. Patient was educated on supportive therapies. Patient will follow up with primary care provider as needed. Patient was instructed to immediately proceed to emergency room for any new, worsening, or symptoms lasting longer than anticipated. The patient's clinical presentation is otherwise unremarkable at this time. Based on exam and clinical finding, the patient is stable for discharge. Plan of care was discussed with patient. Patient verbalizes understanding and agrees to plan of care. This note was generated using [employer] software. It may contain errors in wording, punctuation, or spelling. Jaxson Gonzalez APRN.KAMALJIT documented in this encounter [facility] 05-06-2024 History of Presen t illness Narrative Shaista Clarke 05/06/2024 29 y.o. Chief Complaint Patient presents with Annual Exam Annual exam No LMP recorded. Primary Care Physician: MELISSA CARREON MD The patient was seen and examined. She is here for her annual. Pap 2021 wnl. She is concerned about +pelvic pain at vaginal opening with sex/exams only. no std testing desired. Ho endometriosis on ocp continuously with no bleeding. Sp gardasil. Hasnt tried pelvic floor yet. Will call if desires referral HPI : Shaista Clarke is a 29 y.o. female OB History Para Term AB Living 0 0 0 0 0 0 SAB IAB Ectopic Multiple Live Births 0 0 0 0 0 Past Medical History: Diagnosis Date Acne Chest pain Endometriosis Migraines Plantar fasciitis Past Surgical History: Procedure Laterality Date FOOT SURGERY Bilateral plantar faciitis LAPAROSCOPY DIAGNOSTIC / BIOPSY / ASPIRATION / LYSIS endometriosis Family History Problem Relation Name Age of Onset Hypertension Mother Ovarian cancer Neg Hx Breast cancer Neg Hx Uterine cancer Neg Hx Colon cancer Neg Hx Social History Socioeconomic History Marital status: Single Spouse name: Not on file Number of children: Not on file Years of education: Not on file Highest education level: Not on file Occupational History Not on file Tobacco Use Smoking status: Never Smokeless tobacco: Never Substance and Sexual Activity Alcohol use: Yes Drug use: No Sexual activity: Not on file Other Topics Concern Not on file Social History Narrative Not on file Social Determinants of Health Financial Resource Strain: Not on file Food Insecurity: Not on file Transportation Needs: Not on file Physical Activity: Not on file Stress: Not on file Social Connections: Not on file Intimate Partner Violence: Not on file Housing Stability: Not on file MEDICATIONS: Current Outpatient Medications Medication Sig Dispense Refill cholecalciferol (Vitamin D-3) 50 MCG (2000 UT) tablet Take 2,000 Units by mouth in the morning. spironolactone (Aldactone) 50 MG tablet TAKE ONE TABLET EVERY NIGHT WITH A FULL GLASS OF WATER Vestura 3-0.02 MG tablet Take 1 tablet by mouth daily continuously. Vestura 28 tablet 12 No current facility-administered medications for this visit. ALLERGIES: Allergies as of 05/06/2024 - Reviewed 05/06/2024 Allergen Reaction Noted Prochlorperazine Anxiety, Other, Shortness of breath, and Unknown 05/20/2018 Shrimp extract Rash 10/25/2019 Shrimp flavor Hives, Itching, and Rash 03/29/2023 Gynecologic History: Menstrual History: No LMP recorded. Review of Systems Constitutional: Negative for fatigue, fever and unexpected weight change. HENT: Negative for congestion and sore throat. Eyes: Negative for discharge and visual disturbance. Respiratory: Negative for cough and shortness of breath. Cardiovascular: Negative for chest pain and leg swelling. Gastrointestinal: Negative for abdominal pain, constipation, diarrhea, nausea and vomiting. Genitourinary: Negative for dysuria. Musculoskeletal: Negative for arthralgias and back pain. Skin: Negative for rash. Neurological: Negative for weakness and headaches. Psychiatric/Behavioral: Negative for dysphoric mood. The patient is not nervous/anxious. PHYSICAL Exam: : Vitals: 05/06/24 0933 BP: 111/73 Pulse: 90 Weight: 127 lb (57.6 kg) Physical Exam Constitutional: General: She is not in acute distress. Appearance: Normal appearance. HENT: Head: Normocephalic and atraumatic. Right Ear: External ear normal. Left Ear: External ear normal. Nose: Nose normal. Eyes: Conjunctiva/sclera: Conjunctivae normal. Neck: Thyroid: No thyromegaly. Cardiovascular: Rate and Rhythm: Normal rate. Pulmonary: Effort: Pulmonary effort is normal. No respiratory distress. Chest: Breasts: Right: No mass, nipple discharge, skin change or tenderness. Left: No mass, nipple discharge, skin change or tenderness. Abdominal: General: There is no distension. Palpations: Abdomen is soft. Tenderness: There is no abdominal tenderness. Genitourinary: General: Normal vulva. Pubic Area: No rash. Labia: Right: No rash or lesion. Left: No rash or lesion. Vagina: No vaginal discharge or bleeding. Cervix: No cervical motion tenderness. Uterus: Not enlarged and not tender. Adnexa: Right: No mass or tenderness. Left: No mass or tenderness. Rectum: Normal. Musculoskeletal: General: No swelling. Normal range of motion. Cervical back: Normal range of motion. Right lower leg: No edema. Left lower leg: No edema. Skin: General: Skin is warm and dry. Neurological: Mental Status: She is alert and oriented to person, place, and time. Mental status is at baseline. Psychiatric: Mood and Affect: Mood normal. Behavior: Behavior normal. ASSESSMENT: 29 y.o. Annual Diagnosis Plan 1. Well woman exam with routine gynecological exam 2. Encounter for surveillance of contraceptive pills Chief Complaint Patient presents with Annual Exam Annual exam Past Medical History: Diagnosis Date Acne Chest pain Endometriosis Migraines Plantar fasciitis Hereditary Breast,Ovarian, Colon and Uterine Cancer screening Done. Tobacco & Secondary smoke risks reviewed; instructedon cessation and avoidance PLAN: Follow up in about 1 year (around 05/06/2025) for annual. Repeat Annual every 1 year PAP guidelines reviewed with pt Pt declined STD testing control reviewed with pt Gardasil counseling provided Routine health maintenance per patients PCP. No orders of the defined types were placed in this encounter. documented in this encounter [facility] 05-01-2024 Telephone encounter Note S: Patient called the [facility] refill line to request refill on the Vestura 3-0.02 MG tablet B:Last filled 04/07/24 for #28 with no refills by Gabriela A:Last annual: 03/29/23 NV:05/06/24 R:Pended medication and sent to the provider for approval. [facility] 05-01-2024 Miscellaneous Notes S: Patient called the [facility] refill line to request refill on the Vestura 3-0.02 MG tablet B:Last filled 04/07/24 for #28 with no refills by Gabriela A:Last annual: 03/29/23 NV:05/06/24 R:Pended medication and sent to the provider for approval. documented in this encounter [facility] 04-06-2024 Telephone encounter Note Routed onto provider for refill [facility] 04-06-2024 Miscellaneous Notes Routed onto provider for refill Name of caller: Shaista Clarke Contact phone number: [phone] Relationship to Patient: patient Provider: Dr. Ochoa Practice: [facility] Chief Complaint/Reason for Call: Pt called in regards to a refill for the medication Vestura 3-0.02 MG tablet. Pt stated that she is currently out of the medication. Pt is requesting that the provider put in a refill for the medication to last until her next well woman appointment on 04/14/2024. Pt is requesting a call back. Please advise. Best time of day caller can be reached: Any Patient advised that office/PCP has 24-48 business hours to return their call: Yes documented in this encounter [facility] 04-06-2024 Telephone encounter Note Name of caller: Shaista Clarke Contact phone number: [phone] Relationship to Patient: patient Provider: Dr. Ochoa Practice: [facility] Chief Complaint/Reason for Call: Pt called in regards to a refill for the medication Vestura 3-0.02 MG tablet. Pt stated that she is currently out of the medication. Pt is requesting that the provider put in a refill for the medication to last until her next well woman appointment on 04/14/2024. Pt is requesting a call back. Please advise. Best time of day caller can be reached: Any Patient advised that office/PCP has 24-48 business hours to return their call: Yes [facility] 03-09-2024 Telephone encounter Note S: Patient called the clinical access center refill line to request refill on the Vestura 3-0.02 MG tablet B:Last filled 03/29/23 for #28 with 12 refills by Gabriela A:Last annual:03/29/23 NV:04/14/24 R:Pended medication and sent to the provider for approval. [facility] 03-09-2024 Miscellaneous Notes S: Patient called the clinical access center refill line to request refill on the Vestura 3-0.02 MG tablet B:Last filled 03/29/23 for #28 with 12 refills by Gabriela A:Last annual:03/29/23 NV:04/14/24 R:Pended medication and sent to the provider for approval. documented in this encounter [facility] 10-21-2023 History of Presen t illness Narrative Radiology Service Progress Note PATIENT NAME: Shaista Clarke DATE OF SERVICE: October 21, 2023 TIME: 10:14 AM PATIENT IDENTITY VERIFICATION COMPLETED USING TWO (2) IDENTIFIERS: Name and Date of confirmed by patient verbally. FALL SCREENING: Has the patient had 2 falls in the last year or 1 fall with injury or currently using an Ambulatory Assistive Device (Walker, Cane, Wheelchair, Crutches, etc.)? No PATIENT GENDER DATA: Female. status: : No status: NO. PATIENT RELEVANT IMPLANT DATA REVIEWED: Yes RADIOLOGY DEPARTMENT: General X-ray: Exam(s) Completed: Skull X-Ray nasal bones PERIPHERAL IV DATA: Not applicable SIGNED BY: RT Carol(R) October 21, 2023 10:14 AM documented in this encounter [facility] 07-24-2023 History of Presen t illness Narrative [facility] [address] [place] [address] [place] [id number] Dept: [phone] Dept Shaista Clarke 1995 [id number] 07/24/2023 HISTORY OF PRESENT ILLNESS: Shaista is a 28 y.o. female here today for evaluation of her left ankle Shaista states the problem has been present since initial injury in 2019- this [facility] injury and she is here for a second opinion. She states that she initially hurt her ankle falling off a horse. She eventually underwent lateral ligament repair in 2021. She states at the time she was having mostly ankle pain and no instability. When she was examined in the office she was told that she had an unstable ankle. She does not recall spraining her ankle other than the time that she fell off the horse. She states that she had the surgery and over a year later continue to have pain. She had an MRI and then a secondary surgery with a revision repair. She states that since that time she is continue to have no issues with ankle instability but her original pain has persisted. She has dealt with some nerve related pain in the front of her leg and top of her foot which were treated with Lyrica and for the most part had subsided. She has some pain which she describes as nervelike pain along the outside portion of her heel and into the plantar aspect of the heel/arch. Shaista states the problem started as the result of an injury- she fell off a horse. Shaista has tried or has been treated with the following: modifying her activity level and avoiding those activities which aggravate the problem, NSAID's, bracing, physical therapy, and surgery. She was previously seen at the [facility] by Dr. Nguyen and Dr. Prince- ankle instability surgery 2021 and ankle scop performed 2022 Patient currently works from home [employer]. She currently has pain and difficulty with walking activities, and difficulty with horse/barn chores. Cont pain over the lateral aspect of left ankle along the distal fibula/sinus tarsi. Review of Systems Surgical Risk Factors: Allergies to Metals or Latex: NO Have you been treated for a blood clot: NO Have you had a history of bleeding disorder: NO Have you had a history of Anesthetic problems: NO Do you have tendency to bruise easily: NO Do you experience prolonged or excessive bleeding from cuts or after surgery: NO General/Constitutional: General: no Cancer: NO Acute/Chronic Infections: NO HEENT/Neck: Problems with theThroat: NO Problems with the Eyes: NO Problems with the Ears: NO Problems with the Nose and Sinuses: NO Endocrine: Problems with Diabetes: NO Problems with Thyroid Disorder: NO Thorax: Problems with the Heart: NO Problems with the Lung: no Cardiovascular: Problems with Circulation: NO Problems with High Blood pressure: NO Gastrointestinal: Problems with Ulcers: NO Problems with the Liver: no Problems with Bowel Habits: NO Genitourinary: Problems with the Genitals: NO Urinary problems: NO Kidney disease or stones: NO Skin: Any general problems: NO Neurologic: Dizziness, blurred vision, headaches, problems with balance : NO Seizures or Stroke: NO Psychiatric: Emotional or Psychological disorders: NO Depression or Anxiety: no PAST MEDICAL HISTORY: Past Medical History: Diagnosis Date Acne Chest pain Endometriosis Migraines Plantar fasciitis Allergies Allergen Reactions Prochlorperazine Anxiety, Other, Shortness of breath and Unknown Other reaction(s): Other (See Comments), Other (See Comments), Other (See Comments), Other (See Comments), Other: See Comments Difficulty breathing Jittery, extreme restlessness, SOB after receiving IV compazine in the ED agitation agitation Jittery, extreme restlessness, SOB after receiving IV compazine in the ED Difficulty breathing Shrimp Extract Allergy Skin Test Rash Other reaction(s): Rash Shrimp Flavor Hives, Itching and Rash PHYSICAL EXAM: Ht 5' 5 (1.651 m) Wt 130 lb (59 kg) BMI 21.63 kg/m This is an age appropriate appearing female who is alert and oriented x 3. The patient appears well nourished. Psychiatric: The patient is able to verbalize normally and seems to have a good understanding of her situation. left lower extremity examination Lymphatic System: Mild lateral ankle and hindfoot swelling Vascular: Dorsalis pedis pulse: 2+ Posterior tibial pulse: 2+ Capillary refill is less than 3 seconds Skin/nails: Normal appearance, warm and dry Hair growth present on foot and toes Neurologic: Sensation intact to light touch throughout the foot and the ankle Muscle: Muscle strength testing: Anterior tibialis: 5/5 Posterior tibialis: 5/5 Peroneus brevis: 5/5 Peroneus longus: 5/5 Gastrocsoleus: 5/5 No signs of peroneal instability on exam. The ankle is stable on anterior drawer and talar tilt examination. The lateral incision site is healed and benign. Tinel's over the sural nerve was negative. Mild positive Tinel's over the intermediate branch of the superficial peroneal nerve. The peroneals were nontender to palpation. Point of maximal tenderness was over the tarsal sinus region. There was some anterior lateral ankle joint line tenderness as well. No crepitus with ankle range of motion. Gait and Station: Shaista is able to ambulate with a mild limp Shaista is able to stand unassisted and maintains balance RADIOGRAPHIC INTERPRETATION: The following outside studies that were ordered by another care provider were reviewed and my interpretation of the these studies follows and these include: I reviewed the most recent x-rays of the left ankle and the MRI which was performed in June 2022. The MRI shows no abnormalities in the peroneal tendons. The lateral ankle ligaments show signs of previous surgical repair. No signs of intra-articular pathology within the ankle. The tarsal sinus shows no signal intensity. REVIEW OF RELATED PREVIOUS DOCUMENTATION: Documents from previous surgeries were reviewed. 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 I explained to Shaista that I am unsure whether she had ankle instability after her injury but the original source of pain still has not been clearly identified. I explained that on my exam today she seems to have most of the pain over the tarsal sinus region. 1 option that I talked her about would be a diagnostic injection with local anesthetic and steroid into the tarsal sinus to see if that would relieve her pain even for short period of time. She understands that we would need to get the diagnosis of sinus tarsi syndrome approved and the injection approved. If the injection were effective then I think a further injection with PRP or bone marrow aspirate would be an option. Surgical debridement of the tarsal sinus would also be an option in the future if she had positive results with the injections. 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 Follow up if symptoms worsen or fail to improve, for call our office with any questions at [phone]. [facility] Plan Current work status: defer to physician of record. C9 request:nothing at this time Electronically signed by Jaxson José MD [facility] Department of Orthopedic surgery 07/24/2023 5:40 PM Voice recognition was used for portions of this note and although it was reviewed prior to signing some incorrect words or phrases could be present. documented in this encounter [facility] 07-24-2023 History of Presen t illness Narrative NEW PATIENT (CONSULT) HISTORY AND PHYSICAL EXAM PRIMARY CARE PHYSICIAN: Baltazar Hubbard PA-C REASON FOR CONSULT: Migraines REFERRING PHYSICIAN: Self CHIEF COMPLAINT: Migraines Consultation requested by Self for an opinion regarding chief complaint of Patient presents with: New Patient and my final recommendations will be communicated back to the requesting physician by way of shared medical record or letter via [place] mail. HISTORY OF PRESENT ILLNESS: Shaista Clarke is a 28 year old female, Ht 162.6 cm (5' 4) BMI 22.37 kg/m2 with a PMH significant for mononeuritis for which pt was seen by neuromuscular in 2021. Pt was also previously followed by headache center with last visit about 3 years ago. Per that note of 06/30/2020: Migraine without aura and without status migrainosus, not intractable (primary encounter diagnosis) Ms Clarke continues to have brain fog, she looks better today and appears to have more energy, encouraged to stop drinking fluids by 1900 to prevent waking so much during the night to void Plan: All options for treatment discussed. K+ 99 OTC 1 pill twice a day Increase oral fluids Add salt to foods Look up symptoms POTS Carry abortive meds with you all times Patient reports headaches since a child - has seen neurologists since that time. States has tried every type of migraine med -- propranolol, elavil, imitrex, maxalt, cymbalta, topamax (numbness and tingling in hands as well), effexor, lyrica (indirectly) per pt. Pt states would be on the med, but then her body would get used to them and then headaches would return. HAs are currently twice per week and in temps and front of head. +Photophobia, +Nausea, +Vomit if real bad. States was in hospital for headache about 2 months ago - treated in ER only. States will last several hours or until goes to bed. Takes Excedrin but does not always help, as well as Benadryl. Headaches more often occur in afternoon or evening. + Family history of headaches - mother. Pt with history of multiple concussions with associated vestibular symptoms. States wakes up to urinate 4-5 times per night - denies polyuria during the day. History brain freeze as well as car sickness. Pt with endometriosis and thus on regular control with no cycle. Only triggers pt knows of is lack of sleep or misses meals. Prior head imaging including MRIs of brain all reportedly unremarkable. REVIEW OF SYSTEMS GENERAL:No weight loss, malaise or fevers. HEENT:Negative for frequent or significant headaches, No changes in hearing or vision, no nose bleeds or other nasal problems NECK:Negative for lumps, goiter, pain and significant neck swelling RESPIRATORY: Negative for cough, wheezing or shortness of breath. CARDIOVASCULAR: Negative for chest pain, leg swelling or palpitations. GASTROINTESTINAL: Negative for abdominal discomfort, blood in stools or black stools or change in bowel habits GENITOURINARY: No history of dysuria, frequency or incontinence MUSCULOSKELETAL: Negative for joint pain or swelling, back pain or muscle pain. NEUROLOGIC:Negative for focal numbness or weakness, headaches and dizziness or syncope, vision changes, speech/language changes, changes in gait or falls -- besides those complaints as above in HPI. SKIN:Negative for lesions, rash, and itching. HEMATOLOGIC/LYMPHATIC/IMMUNOLOGI C:Negative for prolonged bleeding, bruising easily or swollen nodes. ENDOCRINE: Negative for cold or heat intolerance, polyuria, polydipsia and goiter. The remainder of the ROS was reviewed and is negative. LAB/IMAGING: Reviewed and include: WBC (k/uL) Date Value 06/21/2022 5.43 RBC (m/uL) Date Value 06/21/2022 4.16 Hemoglobin (g/dL) Date Value 06/21/2022 12.9 Hematocrit (%) Date Value 06/21/2022 38.4 MCV (fL) Date Value 06/21/2022 92.3 MCH (pg) Date Value 06/21/2022 31.0 MCHC (g/dL) Date Value 06/21/2022 33.6 RDW-CV (%) Date Value 06/21/2022 11.8 Platelet Count (k/uL) Date Value 06/21/2022 212 MPV (fL) Date Value 06/21/2022 9.1 Glucose (mg/dL) Date Value 06/21/2022 94 BUN (mg/dL) Date Value 06/21/2022 11 Creatinine (mg/dL) Date Value 06/21/2022 0.77 Sodium (mmol/L) Date Value 06/21/2022 138 Potassium (mmol/L) Date Value 06/21/2022 3.7 Chloride (mmol/L) Date Value 06/21/2022 105 CO2 (mmol/L) Date Value 06/21/2022 23 Protein, Total (g/dL) Date Value 06/21/2022 6.6 Albumin (g/dL) Date Value 06/21/2022 4.0 Calcium, Total (mg/dL) Date Value 06/21/2022 8.8 Alkaline Phosphatase (U/L) Date Value 06/21/2022 39 Bilirubin, Total (mg/dL) Date Value 06/21/2022 0.3 AST (U/L) Date Value 06/21/2022 16 ALT (U/L) Date Value 06/21/2022 13 BARBARA (no units) Date Value 06/14/2020 Negative MEDICATIONS: promethazine (PHENERGAN) 25 mg tablet 1/2 to 1 po q8h prn headache or nausea spironolactone (ALDACTONE) 50 mg tablet Take one tablet by mouth once a day before bed. Drospirenone-Ethinyl Estradiol (AMI 28) 3-0.02 mg per tablet Take 1 tablet by mouth once daily. cholecalciferol (VITAMIN D3) 50 mcg (2,000 unit) tablet Take 2,000 Units by mouth once daily. ondansetron orally disintegrating (ZOFRAN ODT) 4 mg disintegrating tablet Take 1 tablet by mouth every 6 hours as needed for nausea/vomiting. (Patient not taking: Reported on 07/24/2023) HISTORIES PAST MEDICAL HISTORY Diagnosis Date Migraines Vitamin D insufficiency FAMILY Hx See HPI SOCIAL HISTORY Social History Tobacco Use Smoking status: Never Smokeless tobacco: Never Substance Use Topics Alcohol use: Never PHYSICAL EXAMINATION BP 105/69 (BP Site: Left Arm, BP Position: Sitting, BP Cuff Size: Regular Adult) Pulse 75 Ht 162.6 cm (5' 4) Wt 59.1 kg (130 lb 4.8 oz) LMP (LMP Unknown) SpO2 99% BMI 22.37 kg/m GENERAL EXAM: General appearance: NAD, pleasant. HEENT: NC/AT, nasal congestion absent, no oral lesions, membranes moist. NECK: ROM nml. Lungs: CTA bilaterally. CV: RRR nl S1, S2. No carotid bruits. Extr: No cyanosis, clubbing or edema. Skin: Cool to touch. NEUROLOGICAL EXAM: General: Awake, alert, oriented x3 (person,place,time), speech fluent, no dysarthria; comprehension, naming, repetition intact. Fund of knowledge grossly normal. CN: PERRL, fundi with no evidence of papilledema, EOMI and without nystagmus, VFF to confrontation, facial sensation and strength are normal and symmetric, hearing is intact to finger rub bilaterally, palate and tongue movements are intact and symmetric. SCM and trapezius strength normal. Motor: Normal tone, bulk and strength (5/5) bilaterally (throughout extremities x4). Coordination: FNF, STEFANY, HTS intact. No tremors. Sensation: Light touch, vibration, temperature intact throughout. No evidence of neglect. Gait: Stable with normal stride and arm swing. Romberg normal. Assessment and Plan: ASSESSMENT/PLAN: 1. Migraine without aura and without status migrainosus, not intractable - ICD9: 346.10, ICD10: G43.009 Patient with long standing history of migraine headaches going back to childhood with risk factor of suspected family history (mother + headaches) as well as prior head traumas (concussions). Currently about 8-10 headache days per month (worsening), during which pt essentially has to sleep to get through day. OTCS without success. Pt has failed multiple migraine meds as above including Tpx. Prior head imaging unremarkable per reports. D/w pt etiology, physiology, treatment and prognosis of migraine. Plan as follows and with which pt agrees: -Given freq of headaches will start preventative med. Will place on Keppra XR 500mg daily. SE and ADRs d/w pt. Note we did discuss other options as well including Gabapentin, restarting Tpx... will first see response to Keppra. -For abortive, will request Nurtec ODT 75mg 1 tab daily prn. -Advised pt to avoid OTCs. -Will consider botox in the future if headache frequency increases. SE and ADRs of Rx'd meds d/w pt. Follow up 6-8 weeks. Wayne Burrell MD Medical Decision Making: Problems: Moderate: 1+ chronic illnesses with change Data: Unique test result(s) reviewed: 1 Risk: Moderate: Drug management Medical Decision Making Level: 4 - Moderate documented in this encounter [facility] 06-03-2023 History of Presen t illness Narrative Chief Complaint Patient presents with: Headache HPI: This Team Access Model visit is a virtual/phone encounter. It required patient-provider interaction for the medical decision making as documented below. Patient was offered a virtual/telemedicine appointment in lieu of an office visit due to recommendations to reduce patient exposure to COVID-19. Patient is aware of limitations of performing the visit without a face to face visit in the office setting and agrees. I have communicated my name and active licensure. The patient's identity and physical location were verified at the time of this visit. Either the patient or their legal business banking representative has been informed of the risks and benefits of -- and alternatives to -- treatment through a remote evaluation and consents to proceed with the evaluation remotely. Pt of Terry Hubbard's. Pt c/o worsening migraines and wants a referral to Neurology. Pt was in ER on 03/03/23 for migraine and in [facility] 05/10/23 for migraine. Pt reports that she's had migraines since she was in Elementary school. Has been on multiple medications but had side effects. Has not seen Neurology in a few years. Due to increased episodes she would like a referral to Neurology to discuss new medication options. She does have imitrex and zofran from for acute migraine. Reports that zofran does not help, requests phenergan to try instead. Past medical history, appointments, medications, allergies reviewed. Previous Medical History PAST MEDICAL HISTORY Diagnosis Date Migraines Vitamin D insufficiency Previous Surgical History PAST SURGICAL HISTORY Procedure Laterality Date PAST SURGICAL HISTORY OF Left 12/12/2021 Modified [facility]. [facility] Family History No family history on file. Patient Allergies ALLERGIES Allergen Reactions Compazine [Prochlor* Other: See Comments agitation Shrimp Rash Current Medications Current Outpatient Medications on File Prior to Visit Medication Sig ondansetron orally disintegrating (ZOFRAN ODT) 4 mg disintegrating tablet Take 1 tablet by mouth every 6 hours as needed for nausea/vomiting. spironolactone (ALDACTONE) 50 mg tablet Take one tablet by mouth once a day before bed. Drospirenone-Ethinyl Estradiol (AMI 28) 3-0.02 mg per tablet Take 1 tablet by mouth once daily. cholecalciferol (VITAMIN D3) 50 mcg (2,000 unit) tablet Take 2,000 Units by mouth once daily. No current facility-administered medications on file prior to visit. Social History Social History Tobacco Use Smoking status: Never Smokeless tobacco: Never Substance Use Topics Alcohol use: Never EXAM: LMP (LMP Unknown) Video exam: NAD Health Maintenance List COVID-19 VACCINE(1) Never done HEPATITIS C SCREENING Never done DTAP,TDAP,TD(7 - Td or Tdap) due on 05/29/2021 DEPRESSION ASSESSMENT Never done INFLUENZA(1) due on 07/26/2023 HEPATITIS B Completed HPV VACCINE Completed HIV SCREENING Completed Data reviewed [facility] ASSESSMENT/PLAN: 1. Migraine without aura and without status migrainosus, not intractable - ICD9: 346.10, ICD10: G43.009 - CONSULT TO NEUROLOGY - PROMETHAZINE 25 MG TABLET Follow up prn I agree with the Chief Complaint, ROS, and Past Histories independently gathered by the clinical sales support manager and the remaining scribed note accurately describes my personal service to the patient. Ady De Anda MD The documentation for this note was completed by Kait Ibanez Ma acting as scribe for Ady De Anda MD. June 03, 2023 3:44 PM. Kait Ibanez Ma documented in this encounter [facility] 03-29-2023 History of Presen t illness Narrative Shaista Clarke [birth year]23 27 y.o. Chief Complaint Patient presents with Annual Exam Annual exam, pain with intercourse No LMP recorded (lmp unknown). Primary Care Physician: MELISSA CARREON MD The patient was seen and examined. She is here for her annual. Pap 2021 wnl. She is concerned about +pelvic pain with sex at vaginal opening +discharge over last year. no std blood work desired. Ho endometriosis on ocp continuously with no bleeding. Ankle surgery nov. Sp gardasil. Hcg urine desired. HPI : Shaista Clarke is a 27 y.o. female OB History Para Term AB Living 0 0 0 0 0 0 SAB IAB Ectopic Multiple Live Births 0 0 0 0 0 Past Medical History: Diagnosis Date Acne Chest pain Endometriosis Migraines Plantar fasciitis Past Surgical History: Procedure Laterality Date FOOT SURGERY Bilateral plantar faciitis LAPAROSCOPY DIAGNOSTIC / BIOPSY / ASPIRATION / LYSIS endometriosis Family History Problem Relation Name Age of Onset Hypertension Mother Ovarian cancer Neg Hx Breast cancer Neg Hx Uterine cancer Neg Hx Colon cancer Neg Hx Social History Socioeconomic History Marital status: Single Spouse name: Not on file Number of children: Not on file Years of education: Not on file Highest education level: Not on file Occupational History Not on file Tobacco Use Smoking status: Never Smokeless tobacco: Never Substance and Sexual Activity Alcohol use: Yes Drug use: No Sexual activity: Not on file Other Topics Concern Not on file Social History Narrative Not on file Social Determinants of Health Financial Resource Strain: Not on file Food Insecurity: Not on file Transportation Needs: Not on file Physical Activity: Not on file Stress: Not on file Social Connections: Not on file Intimate Partner Violence: Not on file Housing Stability: Not on file MEDICATIONS: Current Outpatient Medications Medication Sig Dispense Refill cholecalciferol (Vitamin D-3) 50 MCG (2000 UT) tablet Take 2,000 Units by mouth in the morning. drospirenone-ethinyl estradiol (Ami, Gianvi) 3-0.02 MG tablet Take by mouth daily. ondansetron (Zofran) 4 MG tablet TAKE 1 TABLET BY MOUTH EVERY EIGHT HOURS NEEDED FOR NAUSEA AND/OR VOMITING spironolactone (Aldactone) 50 MG tablet TAKE ONE TABLET EVERY NIGHT WITH A FULL GLASS OF WATER Vestura 3-0.02 MG tablet Take 1 tablet by mouth daily. continuously 28 tablet 12 No current facility-administered medications for this visit. ALLERGIES: Allergies as of 03/29/2023 - Reviewed 03/29/2023 Allergen Reaction Noted Prochlorperazine Anxiety, Other, Shortness of breath, and Unknown 05/20/2018 Shrimp extract allergy skin test Rash 10/25/2019 Shrimp flavor Hives, Itching, and Rash 03/29/2023 Gynecologic History: Menstrual History: No LMP recorded (lmp unknown). Review of Systems Constitutional: Negative for fatigue, fever and unexpected weight change. HENT: Negative for congestion and sore throat. Eyes: Negative for discharge and visual disturbance. Respiratory: Negative for cough and shortness of breath. Cardiovascular: Negative for chest pain and leg swelling. Gastrointestinal: Negative for abdominal pain, constipation, diarrhea, nausea and vomiting. Genitourinary: Positive for pelvic pain. Negative for dysuria. Musculoskeletal: Negative for arthralgias and back pain. Skin: Negative for rash. Neurological: Negative for weakness and headaches. Psychiatric/Behavioral: Negative for dysphoric mood. The patient is not nervous/anxious. PHYSICAL Exam: : Vitals: 03/29/23 0831 BP: 116/70 Pulse: 90 Weight: 124 lb (56.2 kg) Physical Exam Constitutional: General: She is not in acute distress. Appearance: Normal appearance. HENT: Head: Normocephalic and atraumatic. Right Ear: External ear normal. Left Ear: External ear normal. Nose: Nose normal. Eyes: Conjunctiva/sclera: Conjunctivae normal. Neck: Thyroid: No thyromegaly. Cardiovascular: Rate and Rhythm: Normal rate. Pulmonary: Effort: Pulmonary effort is normal. No respiratory distress. Chest: Breasts: Right: No mass, nipple discharge, skin change or tenderness. Left: No mass, nipple discharge, skin change or tenderness. Abdominal: General: There is no distension. Palpations: Abdomen is soft. Tenderness: There is no abdominal tenderness. Genitourinary: General: Normal vulva. Pubic Area: No rash. Labia: Right: No rash or lesion. Left: No rash or lesion. Vagina: No vaginal discharge or bleeding. Cervix: No cervical motion tenderness. Uterus: Not enlarged and not tender. Adnexa: Right: No mass or tenderness. Left: No mass or tenderness. Rectum: Normal. Musculoskeletal: General: No swelling. Normal range of motion. Cervical back: Normal range of motion. Right lower leg: No edema. Left lower leg: No edema. Skin: General: Skin is warm and dry. Neurological: Mental Status: She is alert and oriented to person, place, and time. Mental status is at baseline. Psychiatric: Mood and Affect: Mood normal. Behavior: Behavior normal. ASSESSMENT: 27 y.o. Annual Diagnosis Plan 1. Well woman exam with routine gynecological exam 2. Pelvic pain in female POCT , urine manually resulted 3. Vaginal discharge Chief Complaint Patient presents with Annual Exam Annual exam, pain with intercourse Past Medical History: Diagnosis Date Acne Chest pain Endometriosis Migraines Plantar fasciitis Hereditary Breast,Ovarian, Colon and Uterine Cancer screening Done. Tobacco & Secondary smoke risks reviewed; instructedon cessation and avoidance PLAN: Follow up in about 1 year (around 03/29/2024) for annual. Repeat Annual every 1 year PAP guidelines reviewed with pt control reviewed with pt Gardasil counseling provided Will try pelvic floor therapy Routine health maintenance per patients PCP. Orders Placed This Encounter Procedures POCT , urine manually resulted documented in this encounter [facility] 01-22-2023 Miscellaneous Notes Patient was notified and scheduled for f/u with pcp Rita Garcias Ma Let patient know that she did come back positive for mono. She can stop the atb if she hasn't already. Continue conservative management and follow up in PCP in 2 weeks, especially if not improving. Alba Waldrop PA-C documented in this encounter [facility] 01-18-2023 History of Presen t illness Narrative Chief Complaint Patient presents with: Sore Throat: Right ear pain & nasal drainage X 2 wks HPI Shaista Clarke is a 27 year old female who presents here today for Above Complaints.. Patient states she has a sore throat for about 2 weeks. She had a negative strep test on Saturday. Has had sinus drainage, ear pain. +fatigue. +tender lymph nodes. She denies fevers. No cough. No known exposures. Past medical history, appointments, medications, allergies reviewed. Previous Medical History PAST MEDICAL HISTORY Diagnosis Date Migraines Vitamin D insufficiency Previous Surgical History PAST SURGICAL HISTORY Procedure Laterality Date PAST SURGICAL HISTORY OF Left 12/12/2021 [facility] Family History No family history on file. Patient Allergies ALLERGIES Allergen Reactions Compazine [Prochlor* Other: See Comments agitation Shrimp Rash Current Medications Current Outpatient Medications on File Prior to Visit Medication Sig spironolactone (ALDACTONE) 50 mg tablet Take one tablet by mouth once a day before bed. Drospirenone-Ethinyl Estradiol (AMI 28) 3-0.02 mg per tablet Take 1 tablet by mouth once daily. cholecalciferol (VITAMIN D3) 50 mcg (2,000 unit) tablet Take 2,000 Units by mouth once daily. meloxicam (MOBIC) 15 mg tablet Take 15 mg by mouth once daily. pregabalin (LYRICA) 75 mg capsule Take 150 mg by mouth twice daily. No current facility-administered medications on file prior to visit. Social History Social History Tobacco Use Smoking status: Never Smokeless tobacco: Never Review of Symptoms REVIEW OF SYSTEMS See HPI EXAM: BP 98/66 Pulse 103 Temp 36.8 C (98.2 F) (Tympanic) Resp 16 Wt 58.1 kg (128 lb) LMP 06/13/2014 (Approximate) SpO2 99% BMI 21.97 kg/m General Appearance: Well appearing, alert, in no acute distress, well-hydrated, well nourished.. Ears: External ears normal, canals clear. Nose/Sinuses: Nares normal, septum midline, mucosa normal, no drainage or sinus tenderness. Oropharynx: +erythema. Tonsillar 1+ hypertrophy. No exudate noted. . Neck: +tender anterior cervical lymphadenopathy b/l . R>L. . Lungs: Lungs clear to auscultation. No wheezing, rhonchi, rales.. Heart: RRR without murmur, gallop, or rubs. No ectopy. Health Maintenance List COVID-19 VACCINE(1) Never done HEPATITIS C SCREENING Never done PAP TESTING Never done DTAP,TDAP,TD(7 - Td or Tdap) due on 05/29/2021 INFLUENZA(1) due on 07/26/2022 DEPRESSION ASSESSMENT Never done HEPATITIS B Completed HPV VACCINE Completed HIV SCREENING Completed Data reviewed ASSESSMENT/PLAN: 1. Pharyngitis, unspecified etiology - ICD9: 462, ICD10: J02.9 Check MONO Start atb Follow up prn. Push fluids and rest. - MONOTEST, INFECTIOUS MONO Alba Waldrop PA-C documented in this encounter [facility] 12-14-2022 Telephone encounter Note Rx sent [facility] 12-14-2022 Miscellaneous Notes Rx sent S: Patient called the clinical access center refill line to request refill on the drospirenone-ethinyl estradiol (AMI) 3-0.02 MG per tablet (Vestura 3-0.02 MG tablet) B:Last filled on 01/05/22 for # 28 with [address] Ochoa Pt asking if this can some how be changed to every 3 weeks so that she can take it on time the pharmacy doesn't fill it soon enough. Pt takes this continuously. A:LV: 01/05/22 NV: 01/01/23 Called pharmacy to confirm no refill s available and they have not to dispense. R:Pended medication and sent to provider for approval. Pt aware to check with the pharmacy in the next 24-48 hours. documented in this encounter [facility] 12-14-2022 Telephone encounter Note S: Patient called the clinical access center refill line to request refill on the drospirenone-ethinyl estradiol (AMI) 3-0.02 MG per tablet (Vestura 3-0.02 MG tablet) B:Last filled on 01/05/22 for # 28 with [address]. [address] Ochoa Pt asking if this can some how be changed to every 3 weeks so that she can take it on time the pharmacy doesn't fill it soon enough. Pt takes this continuously. A:LV: 01/05/22 NV: 01/01/23 Called pharmacy to confirm no refill s available and they have not to dispense. R:Pended medication and sent to provider for approval. Pt aware to check with the pharmacy in the next 24-48 hours. [facility] 10-19-2022 Instructions Baltazar Hubbard PA-C - 10/19/2022 10:19 AM EST Amoxicillin as directed per prescription. Finish all doses. If you should breakout in a rash, stop the medicine and call the office. Any antibiotic has the potential to cause diarrhea due to alteration in the normal bacterial callie of the gut. This can be reduced by eating yogurt with active cultures daily while on the medication. If diarrhea becomes severe (watery, large volumes or more than 3-4/day) call the office. Women may experience yeast vaginitis due to alteration in the vaginal callie. Symptoms include vaginal itching, irritation, and often a clumpy white discharge. If this occurs, there are several effective over the counter remedies available, including one-dose treatments. If these are unsuccessful, call the office. Antibiotics may interfer with control. If you are on oral contraceptives, use another form of protection (condoms, foams, jellies, diaphragm) throught the end of whatever pill pack you are on in 10 days. documented in this encounter [facility] 10-19-2022 History of Presen t illness Narrative 27 year old female with c/o over 2 weeks sore throat, swollen nods on right, painful swallow. 10/05/2022 lymph node under right jaw 10/06/2022 Cold sx with runny nose, sore throat with painful swallow. No cough. + sinus congestion, headache, painful swallow. Went urgent care in [place]: gave her medrol dose pack which helped with cold 10/17/2022 saw Christel Podlogcarla. Checked TSH because palpation over thyroid slightly tender. Leaving Saturday to go to [place] to shoot a wedding. HISTORIES No family history on file. PAST MEDICAL HISTORY Diagnosis Date Migraines Vitamin D insufficiency PAST SURGICAL HISTORY Procedure Laterality Date PAST SURGICAL HISTORY OF Left 12/12/2021 Modified [facility] Social History Tobacco Use Smoking status: Never Smokeless tobacco: Never ACTIVE PROBLEM LIST Medication Overuse Headache Migraine Without Aura and Without Status Migrainosus, Not Intractable Current Outpatient Medications Medication Sig Dispense Refill meloxicam (MOBIC) 15 mg tablet Take 15 mg by mouth once daily. spironolactone (ALDACTONE) 50 mg tablet Take one tablet by mouth once a day before bed. pregabalin (LYRICA) 75 mg capsule Take 150 mg by mouth twice daily. Drospirenone-Ethinyl Estradiol (AMI 28) 3-0.02 mg per tablet Take 1 tablet by mouth once daily. cholecalciferol (VITAMIN D3) 50 mcg (2,000 unit) tablet Take 2,000 Units by mouth once daily. No current facility-administered medications for this visit. COVID-19 VACCINE(1) Never done HEPATITIS C SCREENING Never done PAP TESTING Never done DTAP,TDAP,TD(7 - Td or Tdap) due on 05/29/2021 DEPRESSION ASSESSMENT Never done INFLUENZA(1) due on 07/26/2022 EXAM: BP 166/66 Pulse 101 Temp 36.6 C (97.8 F) (Right Tympanic) Resp 16 Wt 57.2 kg (126 lb) LMP 06/13/2014 (Approximate) SpO2 99% BMI 21.63 kg/m Pleasant well appearing young woman in no acute distress. Alert and oriented all spheres. Normal affect and cognition. Speech normal. No deficits to learning or comprehension. Skin warm, dry, pink to lips and nailbeds. Normal turgor. Respirations regular and unlabored. HEENT: NCAT. No scleral icterus or conjunctival injection. TM's clear. Nose and oropharynx free from injection or lesion. Oral membranes moist and pink. + 1?4+ node right subtosillarNo cervical lymph nodes. Thyroid non-tender, no masses, or enlargement. Carotids pulses 2+/4+ without bruits. No JVD with HOB at 30 degrees. Extrem: no clubbing or cyanosis. Edema: none. Extremities are warm and pink with prompt capillary refill. ASSESSMENT/PLAN: 1. Tender lymph node - ICD9: 785.6, ICD10: R09.89 Push fluids, good nutrition, rest - AMOXICILLIN 500 MG TABLET Baltazar Hubbard PA-C documented in this encounter [facility] 10-17-2022 History of Presen t illness Narrative 10/17/2022 Patient presents with: Acute Visit: Swollen lymph node to right side x2 weeks SUBJECTIVE: This is a 27 year old that is here today for Above Complaints. Noticed a lymph node swollen on right side of neck about 2 weeks ago. Reports she developed cold symptoms a couple of days later. Did go to an Urgent Care and was given prednisone. Lymph node remains swollen and tender. Also aches around her neck when she swallows. More aching to the left side. Denies weight changes, fevers, chills, headaches, oral pain, ear pain, sore throat, nasal congestion, rhinorrhea, difficulty swallowing, cold heat intolerance, constipation or hyeprdefecation. PAST MEDICAL HISTORY Diagnosis Date Migraines Vitamin D insufficiency ALLERGIES Compazine [Prochlorperazine Edisylate] and Shrimp MEDICATIONS Current Outpatient Medications Medication Sig meloxicam (MOBIC) 15 mg tablet Take 15 mg by mouth once daily. spironolactone (ALDACTONE) 50 mg tablet Take one tablet by mouth once a day before bed. omeprazole (PRILOSEC) 40 mg capsule Take 1 capsule by mouth once daily. pregabalin (LYRICA) 75 mg capsule Take 150 mg by mouth twice daily. Drospirenone-Ethinyl Estradiol (AMI 28) 3-0.02 mg per tablet Take 1 tablet by mouth once daily. DULoxetine (CYMBALTA) 20 mg capsule Take every other day for 1 week then take every third day. Then stop when out of medication cholecalciferol (VITAMIN D3) 50 mcg (2,000 unit) tablet Take 2,000 Units by mouth once daily. No current facility-administered medications for this visit. Medications and allergies reviewed by this provider. SOCIAL HISTORY Social History Tobacco Use Smoking status: Never Smokeless tobacco: Never REVIEW OF SYSTEMS All other reviewed and negative other than HPI. OBJECTIVE: BP 112/70 Pulse 85 Temp 37.6 C (99.7 F) Resp 16 Wt 57.7 kg (127 lb 3.2 oz) LMP 06/13/2014 (Approximate) SpO2 100% BMI 21.83 kg/m . Vital signs reviewed by this provider. General appearance: Well appearing, alert, in no acute distress, well-hydrated, well nourished. Skin: Skin color, texture, turgor normal, no suspicious rashes or lesions Head: Normocephalic, no masses, lesions, tenderness or abnormalities Eyes: Anicteric sclera. Pupils are equally round and reactive to light. Ears: Right canal and TM WNL. Left canal with large amount of cerumen obstructing TM Oropharynx: Lips, mucosa, and tongue normal, teeth and gums normal, oropharynx normal Neck: Slightly larger than a pea tender lymph node right cervical chain. Mildly enlarge thyroid without palpable nodules Lungs: Lungs clear to auscultation. No wheezing, rhonchi, rales. Heart: RRR without murmur, gallop, or rubs. No ectopy COVID-19 VACCINE(1) Never done HEPATITIS C SCREENING Never done PAP TESTING Never done DTAP,TDAP,TD(7 - Td or Tdap) due on 05/29/2021 DEPRESSION ASSESSMENT Never done INFLUENZA(1) due on 07/26/2022 HEPATITIS B Completed HPV VACCINE Completed HIV SCREENING Completed ASSESSMENT/PLAN: 1. Enlarged lymph node in neck - ICD9: 785.6, ICD10: R59.0 (primary diagnosis) - likely reactive - no red flag symptoms or exam findings - red flag symptoms discussed, verbalizes understanding - if persists after two more weeks recommend US, to ER with red flag symptoms 2. Enlarged thyroid - ICD9: 240.9, ICD10: E04.9 - feels mildly enlarged - no red flag symptoms or exam findings - red flag symptoms discussed, verbalizes understanding - US THYROID/PARATHYROID - TSH BLD - follow-up pending testing Christel Teixeira APRN.COMPUTER SECURITY MANAGER Prescription instructions reviewed with patient as applicable. Patient advised if symptoms do not improve or if symptoms worsen sooner, to contact their primary care physician. Potential red flag symptoms discussed with the patient. Reviewed appropriate action plan to take if red flag symptoms occur. Patient agreeable to treatment plan. I spent a total of 25 minutes on the date of the service which included preparing to see the patient, [id number] patient care, completing clinical documentation, obtaining and/or reviewing separately obtained history, performing a medically appropriate examination, counseling and educating the patient/family/caregiver, and ordering medications, tests, or procedures. documented in this encounter [facility] 08-22-2022 History of Presen t illness Narrative Images from the original note were not included. [facility] New Patient Evaluation Consulting Provider: Daniela Kumar MD Consultation requested by Dr. Kumar for an opinion regarding nerve injury. My final recommendations will be communicated back to the requesting physician by way of shared medical record or letter via US mail Individuals who were included in, or assisted with the encounter were: Shaista Clarke Karson Rae MD Chief Complaint/Issues: Shaista Clarke is a 27 year old female seen in the 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 Has migraines for a long time. L Ankle sprain 07/27/2019 fall off horse. 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 Xrays from 07/29/2019 mention no #, but there was a ligament sprain. Crutches, cast, boot, PT but ankle was unstable. Finally had surgery 12/12/2021 Dr. Nguyen [facility] - [place] procedure - ankle lateral ligament reconstruction. Done on lateral side of ankle has a 2 longitudinal scar overlying lateral malleolus and 2 small scars anteriorly over ankle. See operative note below. [facility] - was starting to experience nerve pain. Leg was numb knee down from block immediately after surgery. Numbness from block was supposed to go away overnight but took 1 week. As it wore off, she realized she had no feeling over novoa - jail down novoa. That numbness has not improved since. Also there is burning pain underneath knee > novoa. They finally did EMG which patient reports confirmed nerve damage from the nerve block. Evolution: - Lyrica helps pain - dose increased to 150 BID - does not want to be on Lyrica - level of pain 02/01 - ankle pain is still pretty bad with weightbearing. - sensitive to touch lateral ankle - weakness: not as strong but not a foot drop - can wiggle toes - falls - no - loss of sensation foot denies - mostly over novoa EMG 02/12/2022 ([facility]) General Examination: BP 114/68 Pulse 73 Wt 60.3 kg (133 lb) LMP 06/13/2014 (Approximate) BMI 22.83 kg/m She is alone. General appearance: Awake, alert, interactive, no acute distress, good nutritional status, normal development, well-groomed Skin: Rash: absent Pigmentation: absent HEENT: Head: normocephalic, no dysmorphism Eyes: normal Oropharynx: normal Neck: Movements: free Lymphadenopathy: absent Extremities: Deformity/contracture: absent Distal pulses: present Edema: absent Trophic change: absent Healed scar L lateral malleolus and punctate scares anterior ankle Spine: Deformity: absent Heart: Regular Lungs: Normal effort Abdomen: Soft, nontender Neurological Exam Mental Status Alert, fully oriented, attentive, with normal cognition, memory, speech and affect. Cranial Nerves Visual berkowitz intact. Pupils 3.5mm. Extraocular movements conjugate and full. No ptosis. No nystagmus. Facial sensation intact. Face symmetric and strong. Palate and tongue normal. XI normal. Motor Examination and Coordination LLE - mild EDB atrophy. Normal TA bulk. Normal AH bulk. Normal calf bulk. 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 Currently has a mild-moderate degree of neuropathic pain (and ankle pain) requiring Lyrica, sensory symptoms over novoa, and no significant weakness. Examination is excellent without clear weakness/atrophy in peroneal or posterior tibial distributions, or reflex change. PLAN Reassured patient that the degree of nerve injury she suffered is quite minor and there is an excellent chance of improvement. We cannot predict duration of pain but anticipate improvement over time. No specific suggestion for treatment at this time. We can offer repeat electrodiagnostic studies for localization and prognosis. She wishes to defer. She reports that there is no litigation under way or planned at this time. Karson Rae MD Encounter Diagnosis ICD-10-CM 1. 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 Neuropathic pain of lower extremity, left M79.2 No follow-ups on file. = Data Review Objective Current Outpatient Medications Medication Sig omeprazole (PRILOSEC) 40 mg capsule Take 1 capsule by mouth once daily. pregabalin (LYRICA) 75 mg capsule Take 150 mg by mouth twice daily. Drospirenone-Ethinyl Estradiol (AMI 28) 3-0.02 mg per tablet Take 1 tablet by mouth once daily. cholecalciferol (VITAMIN D3) 50 mcg (2,000 unit) tablet Take 2,000 Units by mouth once daily. spironolactone (ALDACTONE) 50 mg tablet Take one tablet by mouth once a day before bed. DULoxetine (CYMBALTA) 20 mg capsule Take every other day for 1 week then take every third day. Then stop when out of medication No current facility-administered medications for this visit. ACTIVE PROBLEM LIST Medication Overuse Headache Migraine Without Aura and Without Status Migrainosus, Not Intractable PAST MEDICAL HISTORY Diagnosis Date Migraines Vitamin D insufficiency PAST SURGICAL HISTORY Procedure Laterality Date PAST SURGICAL HISTORY OF Left 12/12/2021 Modified [facility]. [facility] Social History Tobacco Use Smoking status: Never Smokeless tobacco: Never No family history on file. Review of Systems Lab and Test Review: Outside Data/Labs: Operative note Dr. Cornelio Nguyen 12/12/2021 Subjective Patient-Entered Data: NM Treatment and Fall Risk No flowsheet data found. PROMIS-10 PROMIS 10 06/20/2022 01/30/2022 In general, would you say your health is: Good Good In general, would you say your quality of life is: Good Very good In general, how would you rate your physical health? Good Good In general, how would you rate your mental health, including your mood and your ability to think? Good Good In general, how would you rate your satisfaction with your social activities and relationships? Fair Good To what extent are you able to carry out your everyday physical activities such as walking, climbing stairs, carrying groceries, or moving a chair? Moderately Not at all In general, please rate how well you carry out your usual social activities and roles. (This includes activities at home, at work and in your community, and responsibilities as a parent, child, spouse, employee, friend, etc.) Fair Good How would you rate your pain on average? 7 7 How would you rate your fatigue on average? Moderate Moderate How often have you been bothered by emotional problems such as feeling anxious, depressed or irritable? Sometimes Rarely PROMIS Adult Short Form-Global Health Score (Physical) 37.4 (Fair) 32.4 (Poor) PROMIS Adult Short Form-Global Health Score (Mental) 41.1 (Good) 48.3 (Very Good) PHQ-9 PHQ-9 All Questions 04/11/2020 10/13/2019 Little interest or pleasure in doing things 0 0 Feeling down, depressed, or hopeless 0 0 Trouble falling or staying asleep, or sleeping too much 3 3 Feeling tired or having little energy 2 3 Poor appetite or overeating 0 0 Feeling bad about yourself - or that you are a failure or have let yourself or your family down 0 0 Trouble concentrating on things, such as reading the newspaper or watching television 0 0 Moving or speaking so slowly that other people could have noticed. Or the opposite - being so fidgety or restless that you have been moving around a lot more than usual 0 0 Thoughts that you would be better off , or of hurting yourself in some way 0 0 PHQ-9 Score 5 6 (0-4) minimal depression (5-9) mild depression (10-14) moderate depression (15-19) moderately severe depression (20-27) severe depression Sleep No flowsheet data found. No flowsheet data found. I spent a total of 45 minutes on the date of the service which included preparing to see the patient, [id number] patient care, completing clinical documentation, obtaining and/or reviewing separately obtained history, performing a medically appropriate examination, counseling and educating the patient/family/caregiver, ordering medications, tests, or procedures, communicating with other HCPs (not separately reported), independently interpreting results (not separately reported), communicating results to the patient/family/caregiver, and care coordination (not separately reported). Karson Rae MD documented in this encounter [facility] 06-25-2022 Miscellaneous Notes Patient notified of results, verbalizes understanding of instructions. Vianey Garcia LPN Please call patient and let her know her stool testing is normal. Continue omeprazole as prescribed. Follow-up with PCP is symptoms fail to improve. Thanks, Christel Teixeira APRN.[email or web address] documented in this encounter [facility] 06-20-2022 History of Presen t illness Narrative Chief Complaint Patient presents with: Abdominal Pain HPI Shaista Clarke is a 27 year old female who presents here today for Above Complaints.. Patient states that for the last few weeks she has been getting random stomach pain, nausea, and vomiting. Described intermittent cramping pain in middle of her abdomen, up to 7/10, without radiation. Exacerbated with alcohol use (will be up vomiting all night), and occasionally after eating. No specific trigger foods. Not taking anything OTC for symptoms. Symptoms are occurring more often. Admits to occasional diarrhea, bloating after eating, . Denies fever/chills,, constipation, hematochezia, melena, urinary symptoms, abdominal injury, abnormal vaginal bleeding/discharge, heartburn, globus sensation, dysphagia. Past medical history, appointments, medications, allergies reviewed. Previous Medical History PAST MEDICAL HISTORY Diagnosis Date Migraines Vitamin D insufficiency Previous Surgical History PAST SURGICAL HISTORY Procedure Laterality Date PAST SURGICAL HISTORY OF Left 12/12/2021 Modified [facility]. [facility] Family History No family history on file. Patient Allergies ALLERGIES Allergen Reactions Compazine [Prochlor* Other: See Comments agitation Shrimp Rash Current Medications Current Outpatient Medications on File Prior to Visit Medication Sig pregabalin (LYRICA) 75 mg capsule Take 150 mg by mouth twice daily. Drospirenone-Ethinyl Estradiol (AMI 28) 3-0.02 mg per tablet Take 1 tablet by mouth once daily. cholecalciferol (VITAMIN D-3) 2,000 unit tablet Take 2,000 Units by mouth once daily. DULoxetine (CYMBALTA) 20 mg capsule Take every other day for 1 week then take every third day. Then stop when out of medication No current facility-administered medications on file prior to visit. Social History Social History Tobacco Use Smoking status: Never Smoker Smokeless tobacco: Never Used Substance Use Topics Alcohol use: Not on file Drug use: Not on file Review of Symptoms REVIEW OF SYSTEMS See HPI EXAM: BP 120/70 (BP Site: Right Arm, BP Position: Sitting, BP Cuff Size: Regular Adult) Pulse 72 Temp 37.2 C (99 F) (Tympanic) Resp 16 Wt 60.8 kg (134 lb) LMP 06/13/2014 (Approximate) BMI 23.00 kg/m General Appearance: Well appearing, alert, in no acute distress, well-hydrated, well nourished.. Skin: Skin color, texture, turgor normal, no suspicious rashes or lesions. Lungs: Lungs clear to auscultation. No wheezing, rhonchi, rales.. Heart: RRR without murmur, gallop, or rubs. No ectopy. Abdomen: Normal abdominal exam, Abdomen soft, non-tender. Bowel sounds normal. No masses, organomegaly. Health Maintenance List COVID-19 VACCINE(1) Never done HEPATITIS C SCREENING Never done PAP TESTING Never done DEPRESSION SCREENING due on 04/11/2021 DTAP,TDAP,TD(7 - Td or Tdap) due on 05/29/2021 INFLUENZA(1) due on 07/26/2022 HPV VACCINE Completed HIV SCREENING Completed Component Latest Ref Rng & Units 06/20/2022 GLUCOSE UA (POCT) Negative mg/dL Negative BILIRUBIN UA (POCT) Negative Negative KETONE UA (POCT) Negative mg/dL Negative SPECIFIC GRAVITY UA (POCT) 1.005 - 1.030 1.020 HEMOGLOBIN/BLOOD UA (POCT) Negative Negative PH UA (POCT) 4.5 - 8.0 7.0 PROTEIN UA (POCT) Negative mg/dL Negative UROBILINOGEN UA (POCT) Normal E.U./dL 0.2 NITRITE UA (POCT) Negative Negative LEUKOCYTES UA (POCT) Negative Negative COLOR UA (POCT) Yellow CLARITY UA (POCT) Clear ASSESSMENT/PLAN: 1. Generalized abdominal pain - ICD9: 789.07, ICD10: R10.84 Suspect gastritis vs GERD vs peptic ulcer. Urine test negative. Obtain labs as ordered. Start PPI after she obtains stool sample for H pylori. Call if not improving in 2-3 weeks on PPI. Red flags for re-assessment reviewed with patient in detail. - HCG QUAL UR B/O - UA DIP, URINE (POC) - CBC - COMP METABOLIC PANEL - LIPASE BLD - H PYLORI AG BY EIA,STOOL Megha Villalobos MD documented in this encounter [facility] 04-24-2022 Miscellaneous Notes Pt notified via [employer]. Manju Saleme ----- Message from Luis Villa sent at 04/22/2022 6:12 PM EDT ----- Please call patient to inform her that fungal culture shows no fungus present. documented in this encounter [facility] 03-20-2022 History of Presen t illness Narrative UNIVERSAL PROTOCOL / SAFETY CHECKLIST Procedure to be Performed: partial nail avulsion, R hallux lateral border Sign In: A Moment of CARE was completed. Personnel directly involved with the procedure wore the appropriate PPE (Personal Protective Equipment). No special equipment needed. Patient/Surrogate Stated/Verified: PATIENT VERIFIED(optional for EMERGENT procedures): Patient name, Date of , Relevant allergies and The intended procedure Time Out Communication: Intended patient and procedure match the source documents. Consent documented and matches the intended procedure. No relevant labs, photos, and/or imaging studies were applicable for review. Correct side/site marked and visible. Medications required for procedure verified. Fire risk assessed and interventions discussed. No implant(s) inserted. Sign Out: SIGN OUT (optional for EMERGENT procedures): All specimen containers correctly labeled. All instruments, equipment, possible retained foreign bodies accounted for. Post-procedure follow-up management communicated and Plan of Care Visit completed when applicable. Patience Buck RN Images from the original note were not included. Consultation requested by Dr. Teixeira for an opinion regarding ingrowing toenail of left great toe. My final recommendations will be communicated back to the requesting physician by way of shared Medical record or letter to requesting physician via US mail. Initial Podiatric Office Visit: Chief Complaint: This 26 year old female who presents with chief complaint:ingrowing toenail of left hallux HPI Patient presents to clinic for evaluatin of left hallux. Patient complains of ingrowing toenail of left hallux lateral nail border. She states the ingrown started last week after she was trimming her nails She reports some swelling and redness. Patient denies any drainage Patient reports pain with pressure She did have lateral ankle stabilization back in November. She is wearing a brace with a wider shoe so the wider shoe is helpful in not placing pressure on the toe. PAIN EVALUATION 03/20/2022 0856 Pain Level: 3 Pain Location: Toe left great Description: Sore Duration Amount of Time: 6 Duration Units: Days Frequency: Intermittent Intervention/Comfort measure: Other: See comment Comments: soaking with epson salt/ ingrown toenail kit Hemoglobin A1C (%) Date Value 10/12/2019 5.0 PCP: Baltazar Hubbard PA-C PAST MEDICAL HISTORY Diagnosis Date Migraines Vitamin D insufficiency Current Outpatient Medications Medication Sig pregabalin (LYRICA) 75 mg capsule Take 150 mg by mouth twice daily. Drospirenone-Ethinyl Estradiol (AMI 28) 3-0.02 mg per tablet Take 1 tablet by mouth once daily. cholecalciferol (VITAMIN D-3) 2,000 unit tablet Take 2,000 Units by mouth once daily. DULoxetine (CYMBALTA) 20 mg capsule Take every other day for 1 week then take every third day. Then stop when out of medication No current facility-administered medications for this visit. ALLERGIES Allergen Reactions Compazine [Prochlor* Other: See Comments agitation Shrimp Rash PAST SURGICAL HISTORY Procedure Laterality Date PAST SURGICAL HISTORY OF Left 12/12/2021 Modified [facility]. [facility] No family history on file. Social History Tobacco Use Smoking status: Never Smoker Smokeless tobacco: Never Used Substance Use Topics Alcohol use: Not on file Drug use: Not on file REVIEW OF SYSTEMS GENERAL: Negative for Malaise, significant weight loss, fever RESPIRATORY: Negative for cough, wheezing and shortness of breath CARDIOVASCULAR: Negative for chest pain, leg swelling and palpitations GI: Negative for abdominal discomfort, blood in stools or black stools and change in bowel habits : Negative for dysuria, frequency and incontinence MUSCULOSKELETAL: Negative for joint pain or swelling, back pain, and muscle pain. SKIN: Negative for lesions, rash, and itching. HEMATOLOGY/LYMPHOLOGY Negative for prolonged bleeding, bruising easily, and swollen nodes. ENDOCRINE: Negative for cold or heat intolerance, polyuria, polydipsia and goiter. NEURO: negative Physical Exam: Constitutional: Pt is a well developed 26 year old female who is alert, oriented and cooperative Eyes: Following during examination. No redness or drainage. Respiratory: RR normal and nonlabored. Even breathing. No evidence of distress or shortness of breath. Psychology: Patient is engaged during conversation. Normal affect and mood. Does not appear depressed or anxious during encounter. Vascular: Dorsalis pedis and posterior tibial pulses palpable as b/l Capillary Fill time < 5 seconds to digits 1-5 b/l Skin temperature warm to warm proximal to distal b/l Hair growth present to digits Neurological: intact light touch/epicritic sensation b/l intact protective sensation no significant neurological deficits Dermatological: Left hallux lateral nail border is ingrowing with pain, swelling, redness. Webspaces clean and dry 1-4 b/l. Skin appears well hydrated and supple. good color, texture, turgor. No open lesions present. No callosities present. Musculoskeletal/Orthopaedic: Patient has pain to palpation of left hallux lateral nail border Radiographs: n/a ASSESSMENT: (L60.0) Ingrown toenail PLAN: 1. History and physical examination performed. 2. Discussed ingrowing toenail. There is redness, warmth, pain and swelling of left hallux lateral nail border with signs of infection. Will start patient on antibiotic 3. Discussed options not limited to slant back vs avulsion vs matrixectomy once infection subsides. Patient elected for avulsion of lateral border Discussed risks of toenail procedure not limited to infection, pain, swelling, bleeding, painful scarring, recurrence, need for revised procedure. Patient consented to proceed. Patient was properly identified by name and procedure. The left hallux was then injected with 3 cc of 1% lidocaine plain. The toe was then prepped and draped in the usual aseptic technique. A digital tournicot was applied to the toe. The lateral border was then freed and removed. Careful inspection was performed to assure no remaining spicule present. Sterile wound culture performed. Sterile dressing was then applied consisting of amerigel, guaze, shyam and coban. Tournicot was removed and hyperemic response was noted. Patient tolerated well. Patient will f/u in 2 weeks. Fungal culture performed of toenail. Luis Villa DPM Podiatry [address] [facility] [address] Dept: [phone] Dept AMB ROOMING INTAKE FLOWSHEET DATA Pain Pain Level: 3 Pain Location: Toe (left great) Description: Sore Duration Amount of Time: 6 Duration Units: Days Frequency: Intermittent Intervention/Comfort measure: Other: See comment Comments: soaking with epson salt/ ingrown toenail kit Pain after trimming nail last Sat. Previous ankle surgery at [facility] in November. documented in this encounter [facility] 03-20-2022 Instructions Luis Villa - 03/20/2022 9:29 AM EDT Post-Op Nail Instructions Minimize activity until the anesthesia wears off (about 2-8 hours). Increase activity to tolerance Remove bandage tomorrow Soak affected toe/foot in epsom salts for 15-20 minutes twice daily After soaking, apply antibiotic ointment (OTC Neosporin) to affected toe and re bandage OTC Ibuprofen if having pain, provided you have no allergies or intolerance to NSAIDS Mild drainage, redness, and blood is expected, but if you expeirence severe pain, increase in drainage, swelling, or red streaking please contact our office immediately Feel free to contact office as well if you have any questions/concerns [phone], ask for Podiatry Nurse documented in this encounter [facility] 03-16-2022 History of Presen t illness Narrative 03/16/2022 Patient presents with: Ingrown Toenail: left foot big toe SUBJECTIVE: This is a 26 year old that is here today for Above Complaints. Yesterday noticed when she put her shoes on her left great toe was sore. Reports she did cut her toenails the other day. Has been putting some Aquaphor on it. Admits to redness and swelling. Denies fevers, chills, excessive warmth or drainage PAST MEDICAL HISTORY Diagnosis Date Migraines Vitamin D insufficiency ALLERGIES Compazine [Prochlorperazine Edisylate] and Shrimp MEDICATIONS Current Outpatient Medications Medication Sig pregabalin (LYRICA) 75 mg capsule Take 150 mg by mouth twice daily. Drospirenone-Ethinyl Estradiol (AMI 28) 3-0.02 mg per tablet Take 1 tablet by mouth once daily. cholecalciferol (VITAMIN D-3) 2,000 unit tablet Take 2,000 Units by mouth once daily. DULoxetine (CYMBALTA) 20 mg capsule Take every other day for 1 week then take every third day. Then stop when out of medication No current facility-administered medications for this visit. Medications and allergies reviewed by this provider. SOCIAL HISTORY Social History Tobacco Use Smoking status: Never Smoker Smokeless tobacco: Never Used Substance Use Topics Alcohol use: Not on file Drug use: Not on file REVIEW OF SYSTEMS All other reviewed and negative other than HPI. OBJECTIVE: BP 102/64 Pulse 87 Temp 36.9 C (98.5 F) Resp 18 Wt 61.4 kg (135 lb 6.4 oz) LMP 06/13/2014 (Approximate) SpO2 98% BMI 23.24 kg/m . Vital signs reviewed by this provider. APPEARANCE Well appearing, alert, in no acute distress, well-hydrated, well nourished. FOOT: left toe with erythema around lateral and medial nail fold. TTP to lateral aspect of toe nail fold. No excessive warmth, drainage or red streaking COVID-19 VACCINE(1) Never done HEPATITIS C SCREENING Never done PAP TESTING Never done DEPRESSION SCREENING due on 04/11/2021 DTAP,TDAP,TD(7 - Td or Tdap) due on 05/29/2021 INFLUENZA(Season Ended) due on 07/26/2022 HPV VACCINE Completed HIV SCREENING Completed MENINGOCOCCAL CONJUGATE Aged Out ASSESSMENT/PLAN: 1. Ingrown toenail - ICD9: 703.0, ICD10: L60.0 - no red flag symptoms or exam findings - red flag symptoms discussed, verbalizes understanding - reocommend warm, soapy foot soaks twice a day. Encouraged to try to pull skin back from affected area - CONSULT TO PODIATRY, to ER with red flag symptoms Christel Teixeira APRN.COMPUTER SECURITY MANAGER Prescription instructions reviewed with patient as applicable. Patient advised if symptoms do not improve or if symptoms worsen sooner, to contact their primary care physician. Potential red flag symptoms discussed with the patient. Reviewed appropriate action plan to take if red flag symptoms occur. Patient agreeable to treatment plan. documented in this encounter [facility] 03-12-2022 Instructions Completed [facility] Work Phone: Evaluation + Plan note No data available for this section [facility] Evaluation noteThere may be information available, but it has not been provided by the sender.[facility] Work Phone: Evaluation note* Diagnosis Ingrown toenail- Primary Ingrowing nail [facility] Diagnosis Onychodystrophy- Primary Other specified disease of nail Ingrown toenail Ingrowing nail [facility] Diagnosis Generalized abdominal pain- Primary Abdominal pain, generalized [facility] noteNo assessment information availableWTriHealth [facility] Work Phone: Evaluation note* Diagnosis Mononeuropathy of left lower limb- Primary Mononeuritis of lower limb, unspecified Neuropathic pain of lower extremity, left documented in this encounter [facility] note* Diagnosis Enlarged lymph node in neck- Primary Enlarged thyroid Goiter, unspecified [facility]* Diagnosis Tender lymph node- Primary Enlargement of lymph nodes documented in this encounter [facility] note* Diagnosis Pharyngitis, unspecified etiology- Primary documented in this encounter [facility] note* Diagnosis Well woman exam with routine gynecological exam- Primary Routine gynecological examination Pelvic pain in female Unspecified symptom associated with female genital organs Vaginal discharge Leukorrhea, not specified as infective documented in this encounter [facility] note* Diagnosis Migraine without aura and without status migrainosus, not intractable- Primary Migraine without aura, without mention of intractable migraine without mention of status migrainosus documented in this encounter [facility] note* Diagnosis Migraine without aura and without status migrainosus, not intractable- Primary Migraine without aura, without mention of intractable migraine without mention of status migrainosus documented in this encounter [facility] note* Diagnosis 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 documented in this encounter [facility] note* Diagnosis Well woman exam with routine gynecological exam- Primary Routine gynecological examination Encounter for surveillance of contraceptive pills documented in this encounter [facility] note* Diagnosis Puncture wound of right foot, initial encounter- Primary documented in this encounter [facility] note* Diagnosis Pain- Primary Generalized pain Fracture Closed fracture of unspecified bone Pain Generalized pain [facility]* Diagnosis Nasal injury, initial encounter [facility]* Diagnosis Pain Generalized pain [facility]* Diagnosis Intractable migraine without aura and without status migrainosus- Primary Migraine without aura, with intractable migraine, so stated, without mention of status migrainosus Twitching Abnormal involuntary movements Frequent nocturnal awakening Other sleep disturbances Snoring Other dyspnea and respiratory abnormality Sleep apnea-like behavior documented in this encounter [facility] note* Diagnosis URI, acute- Primary Acute upper respiratory infections of unspecified site Acute cough [facility] Diagnosis 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 Frequent nocturnal awakening Other sleep disturbances Excessive daytime sleepiness Intractable migraine without aura and without status migrainosus Migraine without aura, with intractable migraine, so stated, without mention of status migrainosus [facility] Diagnosis JUAN (obstructive sleep apnea)- Primary Obstructive sleep apnea (adult) (pediatric) Excessive daytime sleepiness documented in this encounter [facility] note* Diagnosis Hypersomnia- Primary Hypersomnia, unspecified 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) Migraine without aura and without status migrainosus, not intractable Migraine without aura, without mention of intractable migraine without mention of status migrainosus Mild obstructive sleep apnea Obstructive sleep apnea (adult) (pediatric) Frequent nocturnal awakening Other sleep disturbances documented in this encounter [facility] for referral (narrative)* Diagnostic Procedure Only (Routine) - Pending Review Specialty Diagnoses / Procedures Referred By Contac t Referred To Contact US IMAGING Diagnoses Enlarged thyroid Procedures US THYROID/PARATHYROID US SOFT TISSUE HEAD & NECK REAL TIME [facility] Christel Teixeira APRN.COMPUTER SECURITY MANAGER [address] [place] [address] Us Imaging Referral ID Status Reason Start Date Expiration Date Visits Requested Visits Authorized [id number] Pending Review Auto-Generat ed Referral 11/16/2023 1 1 [facility] for referral (narrative)* Diagnostic Procedure Only (Urgent) - Closed Specialty Diagnoses / Procedures Referred By Contac t Referred To Contact XR IMAGING Diagnoses Nasal injury, initial encounter Procedures XR NASAL BONES 3V PA/BOTH LAT RADEX NASAL BONES COMPLETE MINIMUM 3 VIEWS Umm Cool APRN.COMPUTER SECURITY MANAGER [address] [place] [address] [place] [address] Referral ID Status Reason Start Date Expiration Date V isits Requested Visits Authorized [id number] Closed Auto-Generate d Referral 10/21/2023 11/19/2024 1 1 [facility] for referral (narrative)* Diagnostic Procedure Only (Urgent) - Closed Specialty Diagnoses / Procedures Referred By Contac t Referred To Contact XR IMAGING Diagnoses Pain Procedures XR NASAL BONES 3V PA/BOTH LAT RADEX NASAL BONES COMPLETE MINIMUM 3 VIEWS Artem Hdz APRN.CNP [address] [place] [address] Xr Imaging [place] [address] Referral ID Status Reason Start Date Expiration Date V isits Requested Visits Authorized [id number] Closed Auto-Generate d Referral 08/10/2024 09/09/2025 1 1 [facility] for referral (narrative)* Diagnostic Procedure Only (Routine) - Authorized Specialty Diagnoses / Procedures Referred By Contac t Referred To Contact [facility] Diagnoses Frequent nocturnal awakening Snoring Sleep apnea-like behavior Procedures HOME SLEEP APNEA TEST (HSAT) SLEEP STD AIRFLOW HRT RATE&O2 SAT EFFORT UNATT Wayne Burrell Jr., MD [address] [address] [facility] [address] [place] [address] Referral ID Status Reason Start Date Expiration Date Visits Requested Visits Authorized [id number] Authorized Auto-Generat ed Referral 08/14/2024 10/12/2024 1 1 [facility] for referral (narrative)* Outpatient Procedure (Routine) - New Request Specialty Diagnoses / Procedures Referred By Contac t Referred To Contact Diagnoses Narcolepsy without cataplexy Frequent nocturnal awakening Excessive daytime sleepiness Procedures ACTIGRAPHY TESTING ACTIGRAPHY TESTING Wayne Burrell Jr., MD [address] [place] [address] Referral ID Status Reason Start Date Expiration Date Visits Requested Visits Authorized [id number] New Request Auto-Generat ed Referral 12/28/2024 12/28/2025 1 1 * Diagnostic Procedure Only (Routine) - New Request Specialty Diagnoses / Procedures Referred By Contac t Referred To Contact [facility] Diagnoses Narcolepsy without cataplexy Frequent nocturnal awakening Excessive daytime sleepiness Procedures MULTIPLE SLEEP LATENCY TEST WATER MAIN INSPECTOR SLEEP LATENCY/MAINT OF WAKEFULNESS TSTG Wayne Burrell Jr., MD [address] [place] [address] [facility] [address] [place] [address] Referral ID Status Reason Start Date Expiration Date Visits Requested Visits Authorized [id number] New Request Auto-Generat ed Referral 12/28/2024 12/28/2025 1 1 [facility] for visit Narrative* Diagnostic Procedure Only (Urgent) - Closed Specialty Diagnoses / Procedures Referred By Contac t Referred To Contact XR IMAGING Diagnoses Nasal injury, initial encounter Procedures XR NASAL BONES 3V PA/BOTH LAT RADEX NASAL BONES COMPLETE MINIMUM 3 VIEWS Umm Cool APRN.COMPUTER SECURITY MANAGER [address] [place] [address] [place] [id number] Referral ID Status Reason Start Date Expiration Date V isits Requested Visits Authorized [id number] Closed Auto-Generate d Referral 10/21/2023 11/19/2024 1 1 [facility] for visit Narrative* Diagnostic Procedure Only (Urgent) - Closed Specialty Diagnoses / Procedures Referred By Contac t Referred To Contact XR IMAGING Diagnoses Pain Procedures XR NASAL BONES 3V PA/BOTH LAT RADEX NASAL BONES COMPLETE MINIMUM 3 VIEWS Artem Hdz, JEFF.COMPUTER SECURITY MANAGER [address] [place] [address] [place] [id number] Referral ID Status Reason Start Date Expiration Date V isits Requested Visits Authorized [id number] Closed Auto-Generate d Referral 08/10/2024 09/09/2025 1 1 [facility] Summary Purpose Family History No Family History Records Found Relationship Condition Age at Onset Recorded Date/T kate Not Specified Hypertension Unknown Advance Directives No Advanced Directives Records FoundDocuments on File Type Date Recorded Patient Larriman Helper Expl anation Advance Directives and Living Will Power of In Home Nanny Advance Directive Response Recorded Date/ Time Living Will No September 01, 201 3 10:13pm Power of In Home Nanny No September 01, 2 013 10:13pm Discharge Instructions * Attachments The following attachments cannot be sent through Care Everywhere. * Head Injury: Closed: General Info ([place]) * Foot Pain ([place]) * RICE: General Info ([place]) * Ankle Sprain ([place]) * Acute Concussion ([place]) * Hematoma ([place]) documented in this encounter Assessments Diagnosis Closed head injury, initial encounter- Primary Hematoma of frontal scalp, initial encounter Acute foot pain, left Sprain of left ankle, unspecified ligament, initial encounter Traumatic ecchymosis of multiple sites Contusion of multiple sites, not elsewhere classified Chief Complaint Chief Complaint Description Start Date left ankle post Left ankle a rthroscopic excision of soft tissue impingement and modified [facility] on 12/12/2021 Preliminary chief co mplaint data, not yet signed by the author as of Reason for Referral Specialty Diagnoses / Procedures Referred By Contac t Referred To Contact Podiatry Diagnoses Ingrown toenail Procedures CONSULT TO PODIATRY OFFICE/OUTPATIENT [facility] 60-74 MINUTES PodlogChristel aguirre APRN.COMPUTER SECURITY MANAGER [address] [place] [address] Referral ID Status Reason Start Date Expiration Date Visits Requested Visits Authorized [id number] Authorized PCP Requested Referral 03/16/2022 03/16/2023 1 1 Specialty Diagnoses / Procedures Referred By Contac t Referred To Contact Physical Therapy Diagnoses Pelvic pain in female Procedures MO OFFICE/OUTPATIENT [facility] 60-74 MINUTES Flex Ochoa MD [address] [place] [address] [facility] [address] [place] [address] Referral ID Status Reason Start Date Expiration Date Visits Requested Visits Authorized [id number] Pending Review Eval and Treat 03/29/2023 09/25/2023 99 99 Specialty Diagnoses / Procedures Referred By Contac t Referred To Contact Neurology Diagnoses Migraine without aura and without status migrainosus, not intractable Procedures CONSULT TO NEUROLOGY OFFICE/OUTPATIENT [facility] 60-74 MINUTES Ady De Anda MD [address] [place] [address] Referral ID Status Reason Start Date Expiration Date Visits Requested Visits Authorized [id number] Pending Review PCP Requested Referral 06/03/2023 06/02/2024 1 1 Specialty Diagnoses / Procedures Referred By Contac t Referred To Contact Wayne Burrell Jr., MD [address] [address] Referral ID Status Reason Start Date Expiration Date V isits Requested Visits Authorized [id number] Authorized 07/24/2023 07/23/2024 1 1 Specialty Diagnoses / Procedures Referred By Contac t Referred To Contact Ent - Otolaryngology Diagnoses Fracture Procedures CONSULT TO ENT OFFICE/OUTPATIENT [facility] 60 MINUTES Artem Hdz, JEFF.COMPUTER SECURITY MANAGER [address] [place] [address] Referral ID Status Reason Start Date Expiration Date Visits Requested Visits Authorized [id number] Authorized PCP Requested Referral 08/10/2024 08/10/2025 1 1 Specialty Diagnoses / Procedures Referred By Contac t Referred To Contact XR IMAGING Diagnoses Pain Procedures XR NASAL BONES 3V PA/BOTH LAT RADEX NASAL BONES COMPLETE MINIMUM 3 VIEWS Artem Hdz, JEFF.COMPUTER SECURITY MANAGER [address] [place] [address] [place] [id number] Referral ID Status Reason Start Date Expiration Date V isits Requested Visits Authorized [id number] Closed Auto-Generate d Referral 08/10/2024 09/09/2025 1 1 Chief Complaint and Reason for Visit Chief Complaint LT ANKLE INSTABILITY . RX HERE Additional Source Comments INFORMATION SOURCE (unrecogn ized section and content) DATE CREATED AUTHOR 05/21/2018 [facility] DATE CREATED AUTHOR AUTHOR'S LARISSA ATBRAD 03/06/[address] [facility] DATE CREATED AUTHOR AUTHOR'S ORGANIZ ATION 07/11/2024 [facility] ([place]) DATE CREATED AUTHOR AUTHOR'S ORGANIZ ATION 2025 [facility] DATE CREATED AUTHOR AUTHOR'S ORGANIZ ATION 04/22/2025 [facility] DATE CREATED AUTHOR AUTHOR'S ORGANIZ ATION 04/26/2025 [facility] Reason for Visit (unrecogniz ed section and content) Reason Comments Fall patient reports fall ing off a horse Head Injury hit left side of her head on the ground, bruising noted; denies LOC Headache Ankle Pain left ankle and foot pain Reason For Visit Description Start Date Postop - subsequent visit Preliminary reason f or visit data, not yet signed by the author as of left ankle post Left ankle a rthroscopic excision of soft tissue impingement and modified brostrom on 12/12/2021 Reason Comments Ingrown Toenail left foot big toe Reason Comments New Patient Ingrown Nail left great toe Specialty Diagnoses / Procedures Referred By Contac t Referred To Contact Podiatry Diagnoses Ingrown toenail Procedures CONSULT TO PODIATRY OFFICE/OUTPATIENT NEW HIGH MDM 60-74 MINUTES Podlogar, JEFF Kearney.COMPUTER SECURITY MANAGER [address] [place] [address] Referral ID Status Reason Start Date Expiration Date V isits Requested Visits Authorized [id number] Closed PCP Requested Referral 03/16/2022 03/16/2023 1 1 Reason Comments Results Reason Comments Abdominal Pain Reason Comments Nerve Pain Left lower leg/ankle pain and numbness and tingling. Specialty Diagnoses / Procedures Referred By Contac t Referred To Contact Neurology / NEUROLOGY Diagnoses NERVE INJURY Procedures NEW NI NEUROMUSC PAIN Exten, MD Kyra Long, Karson Leon MD 2021 [facility] [id number] [place] [address] Referral ID Status Reason Start Date Expiration Date Visits Re quested Visits Authorized [id number] Closed 07/11/2022 08/11/2022 1 1 Reason Comments Acute Visit Swollen lymph node t o right side x2 weeks Reason Comments Mass Swollen lymph node, right side Reason Comments Sore Throat Right ear pain & piero al drainage X 2 wks Reason Comments Annual Exam Annual exam, pain wi th intercourse Reason Comments Headache Reason Comments New Patient 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, 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 Specialty Diagnoses / Procedures Referred By Dea t Referred To Contact Diagnoses left ankle injury Procedures MO OFFICE/OUTPATIENT NEW MODERATE MDM 45-59 MINUTES Minor Da Silva MD [facility] [address] [place] [address] Jaxson José MD [address] [facility] [address] [place] [address] Referral ID Status Reason Start Date Expiration Date Visits Re quested Visits Authorized [id number] Closed 07/10/2023 07/09/2024 1 1 Reason Onset Date Comments Med Refill 03/09/2024 Reason Comments Med Refill Reason Onset Date Comments Med Refill 04/06/2024 Vestura 3-0.02 M G tablet Reason Onset Date Comments Med Refill 05/01/2024 Reason Comments Annual Exam Annual exam Reason Comments Puncture Wound R foot big toe x20 m ins, dixon nail Reason Comments Orders Reason Comments Patient Update Appointment Reason Comments Nose Injury Ran into barn door x 1 day Reason Comments Follow Up Frequent migraines, facial twitching, trouble sleeping Reason Comments Cold Sore throat, runny n ose and cough x 8 days Reason Comments Insurance Authorization [id number] [id number] Reason Comments New Patient Migraines, sleep iss ues- c/o waking up 8-10x a night, may attribute to headaches Reason Comments Appointment Reason Comments PSG Check In Reason Comments New Patient Evaluation Reason Comments Patient Question Reason Comments CMN Reason Comments Follow Up Narcolepsy, headache s, cpap Source Comments (unrecognize d section and content) In the event this informatio n is protected by the Federal Confidentiality of Alcohol and Drug Abuse Patient Records regulations: The Federal rules restrict any use of the information to criminally investigate or prosecute any alcohol or drug abuse patient.[facility] the event this information is protected by the Federal Confidentiality of Alcohol and Drug Abuse Patient Records regulations: The Federal rules restrict any use of the information to criminally investigate or prosecute any alcohol or drug abuse patient.[facility] HospitalIn the event this information is protected by the Federal Confidentiality of Alcohol and Drug Abuse Patient Records regulations: The Federal rules restrict any use of the information to criminally investigate or prosecute any alcohol or drug abuse patient.[facility] HospitalIn the event this information is protected by the Federal Confidentiality of Alcohol and Drug Abuse Patient Records regulations: The Federal rules restrict any use of the information to criminally investigate or prosecute any alcohol or drug abuse patient.[facility] HospitalIn the event this information is protected by the Federal Confidentiality of Alcohol and Drug Abuse Patient Records regulations: The Federal rules restrict any use of the information to criminally investigate or prosecute any alcohol or drug abuse patient.[facility] HospitalIn the event this information is protected by the Federal Confidentiality of Alcohol and Drug Abuse Patient Records regulations: The Federal rules restrict any use of the information to criminally investigate or prosecute any alcohol or drug abuse patient.[facility] HospitalIn the event this information is protected by the Federal Confidentiality of Alcohol and Drug Abuse Patient Records regulations: The Federal rules restrict any use of the information to criminally investigate or prosecute any alcohol or drug abuse patient.[facility] HospitalIn the event this information is protected by the Federal Confidentiality of Alcohol and Drug Abuse Patient Records regulations: The Federal rules restrict any use of the information to criminally investigate or prosecute any alcohol or drug abuse patient.[facility] HospitalIn the event this information is protected by the Federal Confidentiality of Alcohol and Drug Abuse Patient Records regulations: The Federal rules restrict any use of the information to criminally investigate or prosecute any alcohol or drug abuse patient.[facility] HospitalIn the event this information is protected by the Federal Confidentiality of Alcohol and Drug Abuse Patient Records regulations: The Federal rules restrict any use of the information to criminally investigate or prosecute any alcohol or drug abuse patient.[facility] HospitalIn the event this information is protected by the Federal Confidentiality of Alcohol and Drug Abuse Patient Records regulations: The Federal rules restrict any use of the information to criminally investigate or prosecute any alcohol or drug abuse patient.[facility] HospitalIn the event this information is protected by the Federal Confidentiality of Alcohol and Drug Abuse Patient Records regulations: The Federal rules restrict any use of the information to criminally investigate or prosecute any alcohol or drug abuse patient.[facility] HospitalIn the event this information is protected by the Federal Confidentiality of Alcohol and Drug Abuse Patient Records regulations: The Federal rules restrict any use of the information to criminally investigate or prosecute any alcohol or drug abuse patient.[facility] the event this information is protected by the Federal Confidentiality of Alcohol and Drug Abuse Patient Records regulations: The Federal rules restrict any use of the information to criminally investigate or prosecute any alcohol or drug abuse patient.[facility] HospitalIn the event this information is protected by the Federal Confidentiality of Alcohol and Drug Abuse Patient Records regulations: The Federal rules restrict any use of the information to criminally investigate or prosecute any alcohol or drug abuse patient.[facility] HospitalIn the event this information is protected by the Federal Confidentiality of Alcohol and Drug Abuse Patient Records regulations: The Federal rules restrict any use of the information to criminally investigate or prosecute any alcohol or drug abuse patient.[facility] Clinic[facility] the event this information is protected by the Federal Confidentiality of Alcohol and Drug Abuse Patient Records regulations: The Federal rules restrict any use of the information to criminally investigate or prosecute any alcohol or drug abuse patient.[facility] HospitalIn the event this information is protected by the Federal Confidentiality of Alcohol and Drug Abuse Patient Records regulations: The Federal rules restrict any use of the information to criminally investigate or prosecute any alcohol or drug abuse patient.[facility] HospitalIn the event this information is protected by the Federal Confidentiality of Alcohol and Drug Abuse Patient Records regulations: The Federal rules restrict any use of the information to criminally investigate or prosecute any alcohol or drug abuse patient.[facility] HospitalIn the event this information is protected by the Federal Confidentiality of Alcohol and Drug Abuse Patient Records regulations: The Federal rules restrict any use of the information to criminally investigate or prosecute any alcohol or drug abuse patient.[facility] HospitalIn the event this information is protected by the Federal Confidentiality of Alcohol and Drug Abuse Patient Records regulations: The Federal rules restrict any use of the information to criminally investigate or prosecute any alcohol or drug abuse patient.[facility] HospitalIn the event this information is protected by the Federal Confidentiality of Alcohol and Drug Abuse Patient Records regulations: The Federal rules restrict any use of the information to criminally investigate or prosecute any alcohol or drug abuse patient.[facility] HospitalIn the event this information is protected by the Federal Confidentiality of Alcohol and Drug Abuse Patient Records regulations: The Federal rules restrict any use of the information to criminally investigate or prosecute any alcohol or drug abuse patient.[facility] HospitalIn the event this information is protected by the Federal Confidentiality of Alcohol and Drug Abuse Patient Records regulations: The Federal rules restrict any use of the information to criminally investigate or prosecute any alcohol or drug abuse patient.[facility] HospitalIn the event this information is protected by the Federal Confidentiality of Alcohol and Drug Abuse Patient Records regulations: The Federal rules restrict any use of the information to criminally investigate or prosecute any alcohol or drug abuse patient.[facility] HospitalIn the event this information is protected by the Federal Confidentiality of Alcohol and Drug Abuse Patient Records regulations: The Federal rules restrict any use of the information to criminally investigate or prosecute any alcohol or drug abuse patient.[facility] HospitalIn the event this information is protected by the Federal Confidentiality of Alcohol and Drug Abuse Patient Records regulations: The Federal rules restrict any use of the information to criminally investigate or prosecute any alcohol or drug abuse patient.[facility] HospitalIn the event this information is protected by the Federal Confidentiality of Alcohol and Drug Abuse Patient Records regulations: The Federal rules restrict any use of the information to criminally investigate or prosecute any alcohol or drug abuse patient.[facility] HospitalIn the event this information is protected by the Federal Confidentiality of Alcohol and Drug Abuse Patient Records regulations: The Federal rules restrict any use of the information to criminally investigate or prosecute any alcohol or drug abuse patient.[facility] HospitalIn the event this information is protected by the Federal Confidentiality of Alcohol and Drug Abuse Patient Records regulations: The Federal rules restrict any use of the information to criminally investigate or prosecute any alcohol or drug abuse patient.[facility] HospitalIn the event this information is protected by the Federal Confidentiality of Alcohol and Drug Abuse Patient Records regulations: The Federal rules restrict any use of the information to criminally investigate or prosecute any alcohol or drug abuse patient.[facility] HospitalIn the event this information is protected by the Federal Confidentiality of Alcohol and Drug Abuse Patient Records regulations: The Federal rules restrict any use of the information to criminally investigate or prosecute any alcohol or drug abuse patient.[facility] HospitalIn the event this information is protected by the Federal Confidentiality of Alcohol and Drug Abuse Patient Records regulations: The Federal rules restrict any use of the information to criminally investigate or prosecute any alcohol or drug abuse patient.[facility] HospitalIn the event this information is protected by the Federal Confidentiality of Alcohol and Drug Abuse Patient Records regulations: The Federal rules restrict any use of the information to criminally investigate or prosecute any alcohol or drug abuse patient.[facility] Care Teams (unrecognized sec tion and content) Dial Lathe Operator Relationship Specialty Start Date End Date Baltazar Hubbard PA-C [address] [place] [address] PCP - General Family Practice 08/18/20 Dial Lathe Operator Relationship Specialty Start Date End Date Baltazar Hubbard PA-C [address] [place], [place] [address] PCP - General Family Practice 08/18/20 Dial Lathe Operator Relationship Specialty Start Date End Date Baltazar Hubbard PA-C [address] [place] [address] PCP - General Family Practice 08/18/20 Dial Lathe Operator Relationship Specialty Start Date End Date Baltazar Hubbard PA-C [address] [place] [address] PCP - General Family Practice 08/18/20 Dial Lathe Operator Relationship Specialty Start Date End Date Baltazar Hubbard PA-C [address] [place] [address] PCP - General Family Practice 08/18/20 Dial Lathe Operator Relationship Specialty Start Date End Date Baltazar Hubbard PA-C [address] [place] [address] PCP - General Family Medicine 08/18/20 Dial Lathe Operator Relationship Specialty Start Date End Date Baltazar Hubbard PA-C [address] [place] [address] PCP - General Family Medicine 08/18/20 Dial Lathe Operator Relationship Specialty Start Date End Date Baltazar Hubbard PA-C [address] [place] [address] PCP - General Family Medicine 08/18/20 Dial Lathe Operator Relationship Specialty Start Date End Date Baltazar Hubbard PA-C [address] [place] [address] PCP - General Family Medicine 08/18/20 Dial Lathe Operator Relationship Specialty Start Date End Date Melissa Carreon MD [address] [place] [address] PCP - General 06/24/15 Dial Lathe Operator Relationship Specialty Start Date End Date Baltazar Hubbard PA-C [address] [place] [address] PCP - General Family Medicine 08/18/20 Dial Lathe Operator Relationship Specialty Start Date End Date Baltazar Hubbard PA-C [address] [place] [address] PCP - General Family Medicine 08/18/20 Dial Lathe Operator Relationship Specialty Start Date End Date Melissa Carreon MD [facility] [place] [address] (Fax) PCP - General 06/24/15 Dial Lathe Operator Relationship Specialty Start Date End Date Melissa Carreon MD [facility] [place] [address] (Fax) PCP - General 06/24/15 Dial Lathe Operator Relationship Specialty Start Date End Date Baltazar Hubbard PA-C [address] [place] [address] PCP - General Family Medicine 08/18/20 Dial Lathe Operator Relationship Specialty Start Date End Date Melissa Carreon MD [facility] [place] [address] (Fax) PCP - General 06/24/15 Dial Lathe Operator Relationship Specialty Start Date End Date Melissa Carreon MD [facility] [place] [address] (Fax) PCP - General 06/24/15 Dial Lathe Operator Relationship Specialty Start Date End Date Baltazar Hubbard PA-C [address] [place] [address] PCP - General Family Medicine 08/18/20 Dial Lathe Operator Relationship Specialty Start Date End Date Baltazar Hubbard PA-C [address] [place] [address] PCP - General Family Medicine 08/18/20 Dial Lathe Operator Relationship Specialty Start Date End Date Baltazar Hubbard PA-C [address] [place] [address] PCP - General Family Medicine 08/18/20 Dial Lathe Operator Relationship Specialty Start Date End Date Baltazar Hubbard PA-C [address] [place] [address] PCP - General Family Medicine 08/18/20 Dial Lathe Operator Relationship Specialty Start Date End Date Baltazar Hubbard PA-C [address] [place] [address] PCP - General Family Medicine 08/18/20 Dial Lathe Operator Relationship Specialty Start Date End Date Baltazar Hubbard PA-C [address] [place] [address] PCP - General Family Medicine 08/18/20 Dial Lathe Operator Relationship Specialty Start Date End Date Baltazar Hubbard PA-C [address] [place] [address] PCP - General Family Medicine 08/18/20 Dial Lathe Operator Relationship Specialty Start Date End Date Melissa Carreon MD [address] [place] [address] PCP - General 06/24/15 Dial Lathe Operator Relationship Specialty Start Date End Date Ady Hubbard PA-C PCP - General Family Medicine 08/18/20 Jennifer Krueger APRN.COMPUTER SECURITY MANAGER [address] [place] [address] [employer] [facility] 10/30/24 Abi Lloyd APRN.COMPUTER SECURITY MANAGER [address] [place] [address] [employer] [facility] 10/30/24 Dial Lathe Operator Relationship Specialty Start Date End Date Ady Hubbard PA-C PCP - General Family Medicine 08/18/20 Jennifer Krueger, MUFFLE WORKER.COMPUTER SECURITY MANAGER [address] [place] [address] [employer] [facility] 10/30/24 Abi Lloyd MUFFLE WORKER.COMPUTER SECURITY MANAGER [address] [place] [address] [employer] [facility] 10/30/24 Dial Lathe Operator Relationship Specialty Start Date End Date Ady Hubbard PA-C PCP - General Family Medicine 08/18/20 Jennifer Krueger, MUFFLE WORKER.COMPUTER SECURITY MANAGER [address] [place] [address] [employer] [facility] 10/30/24 Abi Lloyd, MUFFLE WORKER.COMPUTER SECURITY MANAGER [address] [facility] [place] [address] [employer] [facility] 10/30/24 Dial Lathe Operator Relationship Specialty Start Date End Date Jennifer Krueger, MUFFLE WORKER.COMPUTER SECURITY MANAGER [address] [place] [address] [employer] [facility] 10/30/24 Abi Lloyd, MUFFLE WORKER.COMPUTER SECURITY MANAGER [address] [facility] [place] [address] [employer] [facility] 10/30/24 Dial Lathe Operator Relationship Specialty Start Date End Date Jennifer Krueger, MUFFLE WORKER.COMPUTER SECURITY MANAGER [address] [place] [address] [employer] [facility] 10/30/24 Abi Lloyd MUFFLE WORKER.COMPUTER SECURITY MANAGER [address] [facility] [place] [address] [employer] [facility] 10/30/24 Dial Lathe Operator Relationship Specialty Start Date End Date Jennifer Krueger, MUFFLE WORKER.COMPUTER SECURITY MANAGER [address] [place] [address] [employer] [facility] 10/30/24 Abi Lloyd, MUFFLE WORKER.COMPUTER SECURITY MANAGER [address] [facility] [place] [place] [address] [employer] [facility] 10/30/24 Dial Lathe Operator Relationship Specialty Start Date End Date Jennifer Krueger, MUFFLE WORKER.COMPUTER SECURITY MANAGER [address] [place] [address] [employer] [facility] 10/30/24 Abi Lloyd, MUFFLE WORKER.COMPUTER SECURITY MANAGER [address] [facility] [place] [address] [employer] [facility] 10/30/24 Dial Lathe Operator Relationship Specialty Start Date End Date Ady Hubbard PA-C PCP - General Family Medicine 08/18/20 Jennifer Krueger, MUFFLE WORKER.COMPUTER SECURITY MANAGER [address] [place] [address] [employer] [facility] 10/30/24 Abi Lloyd, MUFFLE WORKER.COMPUTER SECURITY MANAGER [address] [facility] [place] [address] [employer] [facility] 10/30/24 Dial Lathe Operator Relationship Specialty Start Date End Date Ady Hubbard PA-C PCP - General Family Medicine 08/18/20 Jennifer Krueger APRN.COMPUTER SECURITY MANAGER [address] [place] [address] [facility] 10/30/24 Abi Llody APRN.COMPUTER SECURITY MANAGER [address] [facility] [place] [address] [facility] 10/30/24 Dial Lathe Operator Relationship Specialty Start Date End Date Ady Hubbard PA-C PCP - General [facility] 08/18/20 Jennifer Krueger APRN.COMPUTER SECURITY MANAGER [address] [place] [address] [facility] 10/30/24 Abi Lloyd APRN.COMPUTER SECURITY MANAGER [address] [facility] [place] [address] [facility] 10/30/24 Goals (unrecognized section and content) Goals may be documented in a n alternate section No data available for this section <item> Privacy Markings (unrecogniz ed section and content) Section Author: Evangelina Alvarado PROHIBITION ON REDISCLOSURE OF CONFIDENTIAL INFORMATION This notice accompanies a disclosure of information concerning a client made to you with the consent of such client. FOR RECORDS PERTAINING TO PATIENTS WHO ARE OR HAVE BEEN ENROLLED IN A CHEMICAL DEPENDENCY/SUBSTANCEABUSE PROGRAM, SOME INFORMATION MAY BE OMITTED. This clinical summary was aggregated from multiple sources. Caution should be exercised in using it in the provision of clinical care. This summary normalizes information from multiple sources, and as a consequence, information in this document may materially change the coding, format and clinical context of patient data. In addition, data may be omitted in some cases. CLINICAL DECISIONS SHOULD BE BASED ON THE PRIMARY CLINICAL RECORDS. [facility]. provides no warranty or guarantee of the accuracy or completeness of information in this document.
--- NOTE | 2025-04-27 00:50 | EDS_ITS ---
HPI History of Present Illness Chief Complaint: General Illness [facility] Medical History Severe headache Home Medications ?Medication ?Instructions ?Recorded ?Last Taken ?Type norethindrone acetate 5 mg tablet ea PO 12/19/20 Unkno wn History topiramate 100 mg tablet ea PO 12/19/20 Unknown Histo ry Allergy/AdvReac Type Severity Reaction Status Date / Time prochlorperazine (From Allergy Shortness Verified 04/27/25 00:18 Compazine) of breath shrimp Allergy Rash Verified 04/27/25 00:18 Family History Other Hypertension Surgical History Plantar fasciitis Endometriosis Social History Smoking Status: Never smoker alcohol intake: current alcohol intake frequency: a few times a week Alcohol type: wine EXAM Physical Exam Const Vital Signs: 04/27/25 00:19 04/27/25 00:26 04/27/25 02:06 Temperature 97.7 F L Temperature Source Oral Pulse Rate 106 H Respiratory Rate 16 Respiratory Effort Normal Non-Labored Blood Pressure 123/78 H Blood Pressure Mean 93 Pulse Ox 98 Oxygen Delivery Method Room Air Room Air 04/27/25 02:07 04/27/25 04:00 Temperature Temperature Source Pulse Rate 89 79 Respiratory Rate 14 Respiratory Effort Blood Pressure 121/79 H 103/64 Blood Pressure Mean 93 77 Pulse Ox 100 98 Oxygen Delivery Method Room Air MDM MDM MDM Narrative Medical decision making narrative: HISTORY OF PRESENT ILLNESS: Chief complaint: Cough 30-year-old female history of endometriosis and plantar fasciitis otherwise healthy presents with cough for few weeks. No she recently travel to [place]. Notes she was on antibiotics before she went to [place] for a cough patient's cough continued and has developed severe right-sided rib pain as well as right u pper quadrant abdominal pain. Denies chest pain or shortness of breath. She does recall she does have rib and abdominal pain REVIEW OF SYSTEMS: Pertinent positives: Cough Pertinent negatives: Chest pain, shortness of breath PHYSICAL EXAM: Nursing triage notes reviewed, Vital signs reviewed Constitutional: please see mdm HENT: MMM Eyes: Pupils equal round and reactive to light, Extraocular muscles intact Neck: No stridor, no JVD, full neck ROM Lungs: Clear to auscultation, No wheezing or rales. No increased work of breathing, no conversational dyspnea, no accessory muscle use, no nasal flaring. No respiratory distress noted Heart: Regular rate and rhythm, No murmurs, No rubs and No gallops, 2+ distal pulses (radial, femoral, posterior tibial) in all extremities Abdomen: Soft, there is no tenderness, rigidity, rebound or guarding, no obvious peritoneal signs, no palpable pulsatile abdominal masses, no auscultated abdominal bruit : No CVAT Extremities: No edema Neuro: No new focal neurological deficits, cranial nerves II through XII intact, 5/5 strength in all present extremities. Intact sensation to light touch in all present extremities, 2+ reflexes bilateral patella tendons. Skin: No rash or lesions noted MEDICAL DECISION MAKING: Chief Complaint: please see HPI External records reviewed: Reviewed prior imaging studies Factors affecting care: Endometriosis and plantar fasciitis Social determinants of health: none History obtained from others: none Consults: none [facility] Narrative: The patient was initially hemodynamically stable, afebrile and nontoxic- appearing. Saturating 98% room air. Exam with right rib TTP also right upper quadrant TTP. I considered the following differential diagnosis: Pneumonia, viral illness, acute cholecystitis, hepatitis, PE, pneumothorax, rib contusion I obtained a broad lab and imaging workup to further elucidate etiology of the patient's complaints Initially treated with IV Toradol and Tessalon Perles. ALL IMAGES (IF OBTAINED) HAVE BEEN PERSONALLY REVIEWED AND INTERPRETED BY MYSELF. D-dimer elevated consistent with concern for increased risk of VTE will obtain a CTA of the chest High-sensitivity troponin is negative, no evidence of myocardial ischemia CBC without leukocytosis, severe anemia, no thrombocytopenia. Urine test is CMP without evidence of acute kidney injury, significant electrolyte abnormality, anion gap to suggest end organ hypo-perfusion, no evidence of metabolic acidosis with a normal bicarbonate, no evidence of hepatobiliary obstructive pathology. CTA of the chest with evidence of PE CT scan of the pelvis with evidence of intra-abdominal pathology I have personally reviewed the patient's chest x-ray. Chest x-ray is unremarkable for pulmonary edema, pneumothorax, pneumonia or focal cardiopulmonary abnormality. The synthesis of the patient's history, physical exam, labs images suggest no acute life or limb threatening etiology. Suspected having musculoskeletal pain from cough secondary to likely viral versus chronic inflammatory condition. Will prescribe Tessalon Perles for symptomatic relief and have her follow with her primary care physician. The patient and/or family, caregivers express understanding. The patient and/or family, caregivers agrees with the plan. Shared decision making: I will have a discussion with the patient and or visitors regarding risk/benefits of further testing or admission. They will be made aware of of the risk/benefits inherent in this decision they will be given the opportunity to voice understanding. Total critical care time today provided was at least 0 minutes. This excludes separately billable procedures. Critical care time (if documented) is secondary to the patient having high probability of clinically significant/life threatening deterioration in the patient's condition which required my urgent intervention. Impression: 1. Right-sided rib pain 2. Right upper quad abdominal pain 3. Cough Dispo: Discharge home This note was generated with GetPromotd dictation software. It may contain incorrect words, spelling, and punctuation that were not noted in review of the chart prior to signing. Lab Data Labs: Laboratory Results - last 24 hr 04/27/25 01:47 WBC 9.8 RBC 4.93 Hgb 15.1 H Hct 44.9 MCV 91.1 MCH 30.6 MCHC 33.6 RDW Std Deviation 39.9 RDW Coeff of Jovana 11.9 Plt Count 220 MPV 8.5 Immature Gran % (Auto) 0.600 Neut % (Auto) 67.6 Lymph % (Auto) 20.5 Cottle % (Auto) 8.6 Eos % (Auto) 1.8 Baso % (Auto) 0.9 Absolute Neuts (auto) 6.6 Absolute Lymphs (auto) 2.00 Nucleated RBC % 0 D-Dimer Quant (PE/DVT) 0.60 H* Sodium 136 Potassium 4.2 Chloride 99 Carbon Dioxide 23.9 Anion Gap 13 BUN 15 Creatinine 1.08 Estim Creat Clear Calc 69.16 Est GFR (MDRD) Non-Af 71 BUN/Creatinine Ratio 14.1 Glucose 93 Calcium 9.8 Total Bilirubin 0.28 Direct Bilirubin 0.14 AST 20 ALT 15 Alkaline Phosphatase 62 Troponin T High Sens < 6 Total Protein 7.3 Albumin 3.9 Globulin 3.4 Radiography Diagnostic Testing: Clinical Impression(s) from Imaging Studies Chest X-Ray 04/27/25 01:42 IMPRESSION: No radiographic evidence of an acute abnormality. Reading Location: [place] [address] Abdomen/Pelvis CT 04/27/25 03:24 IMPRESSION: Mild gastroparesis. Moderate amount of fecal residue in the cecum, probably constipation. Reading Location: [place] [address] Chest CTA 04/27/25 03:24 IMPRESSION: No demonstrated pulmonary embolism or arterial dissection. Reading Location: [place] [address] Discharge Plan Triage Chief Complaint: General Illness ED Provider: Carson Malave Dx/Rx/DC Orders Prescriptions: No Action norethindrone acetate 5 mg tablet PO Patient Comments: Take 1 tablet by mouth daily topiramate 100 mg tablet PO Patient Comments: TAKE 1 TABLET EVERY DAY AT BEDTIME Primary Care Provider: Stu Johnson Referrals: Stu Johnson, SENIOR BENEFITS MANAGER-C [Primary Care Provider] - Print Language: Croatian
--- NOTE | 2025-04-27 01:28 | EKG12_ITS ---
Test Reason : Blood Pressure : */* mmHG Vent. Rate : 87 BPM Atrial Rate : 87 BPM P-R Int : 132 ms QRS Dur : 86 ms QT Int : 354 ms P-R-T Axes : 54 52 53 degrees QTcB Int : 425 ms Normal sinus rhythm Normal ECG Confirmed by JUAN BRADSHAW, YULISSA ([id number]), news editor MAURA STROUD ([id number]) on 05/03/2025 7:03:35 AM Referred By: Confirmed By: YULISSA MARTINEZ MD
--- NOTE | 2025-04-27 01:42 | RAD_ITS ---
PROCEDURE: CHEST 1 VIEW (PORTABLE) 04/27/2025 REASON FOR EXAM: CHEST PAIN TECHNIQUE: Frontal view of the chest. COMPARISON: None. FINDINGS: The lungs are expanded. There is no demonstrated parenchymal abnormality. There is no demonstrated pleural abnormality. Normal heart and pericardium. Normal mediastinum and ankush. Normal visualized pulmonary arteries. Normal visualized aortic arch and descending thoracic aorta. Normal visualized thoracic spine. Normal visualized ribs, clavicles, and shoulders. There is no demonstrated abnormality of the visualized soft tissue structures of the upper abdomen. RAD/Chest 1 View (Portable) IMPRESSION: No radiographic evidence of an acute abnormality. Reading Location: [facility]
[2025-04-27 01:55] LABS: Absolute Neutrophil Count 6.6 X10^3/uL (2.0-7.7); Basophil# 0.09 X10^3/uL; Basophil% 0.9 % (0-1); Eosinophil# 0.18 X10^3/uL; Eosinophils% 1.8 % (0-5); Hematocrit 44.9 % (37-47); Hemoglobin 15.1 g/dL (12.0-15.0); Lymphocyte % 20.5 % (19-41); Mean Corp Hgb Conc 33.6 g/dL (32-36); Mean Corpuscular Hgb 30.6 pg (27.0-32.0); Mean Corpuscular Volume 91.1 fL (81-99); Mean Platelet Vol. 8.5 fl (6.2-12.0); Monocyte# 0.84 X10^3/uL; Monocyte% 8.6 % (0-10); NRBC Flagged by Analyzer 0 % (0-5); Neutrophil # 6.59 X10^3/uL (2.7-7.7); Neutrophil % 67.6 % (47-70); Platelet Count 220 K/mm3 (150-450); RBC Distribution Width CV 11.9 % (11.6-14.6); RBC Distribution Width SD 39.9 fl (35.1-43.9); Red Blood Count 4.93 M/mm3 (4.2-5.4); White Blood Count 9.8 K/mm3 (4.4-11.0)
[2025-04-27] MEDS: Ketorolac 15 MG/ML Vial IV (02:04)
[2025-04-27] MEDS: Benzonatate 100 MG Capsule PO (02:05)
[2025-04-27 02:07] VITALS: BP 121/79; PULSE 89; O2SAT 100
[2025-04-27 02:54] LABS: AST(SGOT) 20 U/L (<=31); Alanine Aminotransfer ALT/SGPT 15 U/L (<=34); Albumin, Serum 3.9 g/dL (3.5-5.0); Alkaline Phosphatase 62 U/L (35-104); Anion Gap 13 (5-15); BUN 15 mg/dL (4-19); BUN/Creat Ratio 14.1 RATIO (10-20); Bilirubin, Direct 0.14 mg/dL (0.00-0.30); Calcium,Total 9.8 mg/dL (7.6-11.0); Carbon Dioxide 23.9 mmol/L (21.0-32.0); Chloride 99 mmol/L (98-108); Creatinine, Serum 1.08 mg/dL (0.70-1.20); EST Glomerular Filtration Rate 71 (>60); Estimated Creatinine Clearance 69.16 ml/min (50-250); Globulin 3.4 g/dL (2.2-4.2); Glucose 93 mg/dL (70-99); Potassium 4.2 mmol/L (3.3-5.1); Protein, Total 7.3 g/dL (5.9-8.4); Sodium Level 136 mmol/L (133-145); Total Bilirubin 0.28 mg/dL (0.00-1.30); Troponin T High Sensitivity < 6 ng/L (<=14)
--- NOTE | 2025-04-27 03:24 | CT_ITS ---
PROCEDURE: ABDOMEN/PELVIS W IV CONT ONLY 04/27/2025 REASON FOR EXAM: RIGHT SIDED ABDOMINAL PAIN TECHNIQUE: Abdomen and pelvis CT with intravenous contrast. Coronal and Sagittal reconstruction series were provided. PATIENT PREPARATION: Per protocol ORAL CONTRAST TYPE: None. CONTRAST: Isovue-300 50 VOLUME: 100 mL One or more dose reduction techniques were used (e.g., Automated exposure control, adjustment of the mA and/or kV according to patient size, use of iterative reconstruction technique. RADIATION DOSE SUMMARY: CTDlvol: 8.49 mGy DLP: 623 mGycm COMPARISON: None. FINDINGS: Mild gastroparesis. Moderate amount of fecal residue in the cecum, probably constipation. The visualized lung bases are unremarkable. Normal liver. Normal gallbladder and extrahepatic biliary system. Normal spleen. Normal pancreas. Normal bilateral adrenal glands. Normal size of the right kidney. There is no right renal mass. There are no right renal calculi. There is no right hydronephrosis. Normal visualized right ureter. Normal size of the left kidney. There is no left renal mass. There are no left renal calculi. There is no left hydronephrosis. Normal visualized left ureter. Normal small intestine. The appendix is visualized and appears normal. There is no demonstrated peritoneal fluid. Normal abdominal aorta. Normal inferior vena cava. Normal retroperitoneum. Normal urinary bladder. There is no pelvic mass lesion or lymphadenopathy. There is no pelvic fluid. Normal abdominal wall. Normal osseous structures. CT/Abdomen/Pelvis W IV Cont ONLY IMPRESSION: Mild gastroparesis. Moderate amount of fecal residue in the cecum, probably constipation. Reading [facility]
--- NOTE | 2025-04-27 03:24 | CT_ITS ---
PROCEDURE: CTA CHEST W/WO CONTRAST 04/27/2025 REASON FOR EXAM: RIGHT-SIDED CHEST PAIN TECHNIQUE: CTA imaging of the chest with intravenous contrast. Multiplanar and multisequence images were obtained. CONTRAST: Isovue 370 VOLUME: 100 mL One or more dose reduction techniques were used (e.g., Automated exposure control, adjustment of the mA and/or kV according to patient size, use of iterative reconstruction technique). RADIATION DOSE SUMMARY: CTDlvol: 8.49 mGy DLP: 623 mGycm COMPARISON: 04/27/2025. FINDINGS: Normal enhancement of the main pulmonary artery and right and left pulmonary arteries. Normal enhancement of the bilateral peripheral pulmonary arteries. There is no demonstrated pulmonary embolism. Normal thoracic aorta and visualized great vessels. There is no demonstrated aortic dissection. Normal heart and pericardium. Normal mediastinum. Normal hilar regions. Normal visualized trachea and bronchi. The lungs are well expanded. Normal pulmonary parenchyma. Normal pleura. Normal chest wall structures. Normal osseous structures. Normal visualized upper abdomen. CT/CTA Chest W/WO Contrast IMPRESSION: No demonstrated pulmonary embolism or arterial dissection. Reading Location: [place] [address]
[2025-04-27 04:00] VITALS: BP 103/64; PULSE 79; RESP 14; O2SAT 98
[2025-04-27 05:18] VITALS: BP 103/65; PULSE 83; RESP 17; TEMP 36.5; O2SAT 98
== END 2025-04-27 05:27 | disposition home or self-care (01) ==
PROVIDERS: Emergency Provider Emergency Medicine; Visit Provider Emergency Medicine
DX: R07.81 Pleurodynia (principal); M72.2 Plantar fascial fibromatosis; R05.9 Cough, unspecified; R10.11 Right upper quadrant pain
CPT/HCPCS: 71045; 71275; 74177; 80048; 80076; 84484; 85025; 85379; 93005; 96374; 99284; Q9967; A4216

== ENCOUNTER → 2025-04-27 | Outpatient (CLI) | payer BC, SELFPAY ==
[2025-04-27 13:13] LABS: Erythrocyte Sedimentation Rate 14 mm/hr (0-30)
[2025-04-27 13:58] LABS: Ferritin 253 ng/mL (22-378); Rheumatoid Factor < 10.0 IU/mL (<15); Vitamin D,25 Hydroxy 96.3 ng/mL (30-100)
[2025-04-27 14:21] LABS: Vitamin B12 3307 pg/mL (180-914)
[2025-04-27 14:53] LABS: Iron 71 ug/dL (50-170); Iron Binding Capacity,Total 364 ug/dL (250-450); Iron Binding Capacity,Unsat 293 ug/dL (228-428)
[2025-04-29 10:08] LABS: CCP IgG Antibodies 6 units (0-19)
[2025-04-29 11:09] LABS: Anti-Centromere B Ab <0.2 AI (0.0-0.9); Anti-Chromatin <0.2 AI (0.0-0.9); Anti-Jo <0.2 AI (0.0-0.9); Anti-Scleroderma-70 AB <0.2 AI (0.0-0.9); Anti-dsDNA Ab 3 IU/mL (0-9); RNP Ab 0.2 AI (0.0-0.9); SJOGREN'S Anti-SS-A test < 0.2 AI (0.0-0.9); SJOGREN'S Anti-SS-B test < 0.2 AI (0.0-0.9); Smith Ab <0.2 AI (0.0-0.9)
== END | disposition home or self-care (01) ==
LOC: VSLAB 11:13
DX: M25.50 Pain in unspecified joint (principal); R53.83 Other fatigue
CPT/HCPCS: 36415; 82306; 82607; 82728; 83540; 83550; 84443; 85652; 86140; 86200; 86225; 86235; 86431

== ENCOUNTER → 2025-08-12 | Outpatient (CLI) | payer BC, SELFPAY ==
[2025-08-12 11:04] LABS: Follicle Stimulating Hormone 4.8 mIU/mL
== END | disposition home or self-care (01) ==
LOC: LAB 09:49
DX: R53.83 Other fatigue (principal)
CPT/HCPCS: 36415; 82670; 82672; 83001; 83002; 84402; 84403

== ENCOUNTER 2025-09-22 19:37 | Emergency (ER) | payer BC, SELFPAY ==
[2025-09-22 19:38] VITALS: BP 135/84; PULSE 85; RESP 18; TEMP 36.9; O2SAT 100; BMI 23.6
--- NOTE | 2025-09-22 19:59 | EX.ED.DYSGE1 ---
HPI History of Present Illness Chief Complaint: Allergic Reaction Detail of Chief Complaint: Possible allergic reaction Informant: patient Onset/Context/Timing Onset: Today and Hours Context: Sudden Onset Timing: Continuous Quality: Shortness of breath, lump in her throat, paresthesias and lightheadedness Location: Respiratory, perioral and upper extremities Current Severity: Mild Maximum Severity: Moderate Worsened by: After biting into a cheese pizza with ranch dressing. Relieved by: No treatment Associated Symptoms Associated Symptoms: No other symptoms Narrative Narrative: Patient has history of shrimp allergy. Patient states she ordered cheese pizza with ranch dressing, which is her favorite at [facility]. She states she had bread with oil first. She bit into the cheese pizza with ranch. She states she felt short of breath was slightly anxious and felt a lump in her throat. She then experienced perioral numbness and bilateral upper extremity numbness. When she stood up she felt lightheaded. She apparently was flushed per paramedics. She was flushed in the chest area. Presently patient complains of mild numbness around her lips and her hands only. She has no other symptoms. Prior similar symptoms: No Recent Illness/Hospitalization: No [facility] Medical History (Updated 09/22/25 @ 21:[address] Wade Rabago MD) Severe headache Home Medications ?Medication ?Instructions ?Recorded ?Last Taken ?Type topiramate 100 mg tablet ea PO 12/19/20 Unknown History drospirenone 3 mg-ethinyl 1 tab PO DAILY 09/22/25 Unknown History estradiol 0.02 mg tablet (Vestura (28)) spironolactone 100 mg tablet 100 mg PO QHS 09/22/25 Unknown History Allergy/AdvReac Type Severity Reaction Status Date / Time prochlorperazine (From Allergy Shortness Verified 09/22/25 19:42 Compazine) of breath shrimp Allergy Rash Verified 09/22/25 19:42 Family History Other Hypertension Surgical History Plantar fasciitis Endometriosis Social History Smoking Status: Never smoker alcohol intake: current alcohol intake frequency: a few times a week Alcohol type: wine ROS ROS ED Constitutional Constitutional ED: Denies chills or fever(s) Eyes Eyes: Denies blurry vision or change in vision ENT ENT ED: Denies ear pain, rhinorrhea or sore throat Cardiovascular Cardiovascular: Denies chest pain or palpitations Respiratory/Chest Respiratory/Chest: Reports dyspnea; Denies cough or dyspnea on exertion Gastrointestinal Gastrointestinal: Denies abdominal pain, diarrhea or vomiting Integumentary Denies rash Neurologic Neurologic: Reports paresthesias RUE and LUE Psychiatric Psychiatric: Reports anxiety EXAM Physical Exam Const Vital Signs: 09/22/25 19:38 09/22/25 20:30 09/22/25 21:00 Temperature 98.5 F Temperature Source Oral Pulse Rate 85 85 86 Respiratory Rate 18 10 L 18 Blood Pressure 135/84 H Blood Pressure Mean 101 Pulse Ox 100 96 100 Oxygen Delivery Method Room Air Positive well nourished and well developed Constitutional Narrative: Pleasant 30-year-old woman appears in no distress. Vital signs remarkable slight elevation of blood pressure. She does acknowledge that she is nervous. General Appearance ED: well developed and NAD; Negative for cyanotic, diaphoretic or pallor HEENT Reports moist mucous membranes HEENT Narrative: There is no evidence of angioedema. Uvula is midline. There is no deviation tongue or protrusion. Eyes PERRL and EOMs intact bilaterally General Eye ED: Negative for pale conjunctiva or scleral icterus Neck Neck Narrative: Trachea is midline. There is no inspiratory expiratory stridor. Chest Wall inspection of chest normal Chest Narrative: Birthmark noted left anterior chest Resp normal respiratory effort and clear to auscultation bilaterally Cardio regular rate, regular rhythm, S1 normal heart sound, S2 normal heart sound and no murmurs Back/Spine no CVA tenderness Extremity normal to inspection General Extremety ED: Negative for edema or tenderness General Extremity: Negative for edema Neuro oriented x3, CN's II-XII intact bilaterally and no sensory deficits noted Neuro Narrative: Negative [place]ek sign. Sensorium / Orientation: alert Skin no rashes or lesions noted, no wounds and skin turgor normal General Skin Exam: elasticity normal; Negative for jaundice or pallor MDM MDM MDM Narrative Medical decision making narrative: Patient possibly could had a minor allergic reaction. Since she still is complaining of symptoms we will treat with IV Pepcid. In my opinion systemic steroids are not indicated. Treatment and Re-Evaluation :: Patient was reassessed at 2045. She states she has has still a slight lump in her throat. Will reassess in the 15 minutes. Comments:: Patient was reassessed at 1002. Her symptoms are resolved. Recommended taking Pepcid twice a day. She has Pepcid AC at home. Also recommended contacting her provider for allergy testing and contacting the resp Discharge Plan Triage Chief Complaint: Allergic Reaction ED Provider: Wade Rabago Dx/Rx/DC Orders Clinical Impression: Breathing difficult, Paresthesia and pain of both upper extremities, Anxiousness Instructions: ED General Allergic Reactions Prescriptions: No Action topiramate 100 mg tablet PO Patient Comments: TAKE 1 TABLET EVERY DAY AT BEDTIME spironolactone 100 mg tablet 100 mg PO QHS drospirenone-ethinyl estradiol [Vestura (28)] 3-0.02 mg tablet 1 tab PO DAILY Primary Care Provider: Stu Johnson Referrals: Stu Johnson, CASH MANAGEMENT COORDINATOR-C [Primary Care Provider, Family Practice] - 3-5 Days Activity Restrictions/Additional Instructions: 1. Recommend taking Pepcid 20 mg, 2 AC tablets, twice a day for the next 3 to 5 days. 2. Recommend contacting your provider nurse practitioner Alex for allergy testing. 3. Recommend contacting the restaurant to determine ingredients in the dressing you used. 4. Recommend not having the pizza with Spanish dressing until your allergy tested. Print Language: German Disposition Disposition: Home, Self Care
[2025-09-22] MEDS: Famotidine 200 MG/20 ML MDV 20 MG in 0.9% Normal Saline (Pres. free 8 ML 300 MG IV (20:05)
[2025-09-22 20:30] VITALS: PULSE 85; RESP 10; O2SAT 96
[2025-09-22 21:00] VITALS: PULSE 86; RESP 18; O2SAT 100
[2025-09-22] MEDS: DiphenhydrAMINE 50 MG/ML Syringe 25 MG IV (21:29)
[2025-09-22 22:47] VITALS: BP 106/75; PULSE 86; RESP 18; TEMP 36.9; O2SAT 98
== END 2025-09-22 23:00 | disposition home or self-care (01) ==
PROVIDERS: Emergency Provider Emergency Medicine; Visit Provider Emergency Medicine
DX: T78.40XA Allergy, unspecified, initial encounter (principal); R20.2 Paresthesia of skin; M79.602 Pain in left arm; R06.02 Shortness of breath; M79.601 Pain in right arm; R42 Dizziness and giddiness; R20.0 Anesthesia of skin; Z91.018 Allergy to other foods; F41.9 Anxiety disorder, unspecified; R21 Rash and other nonspecific skin eruption
CPT/HCPCS: 96365; 96375; 99284